=== PATIENT | male | born 1950 | race Caucasian/White ===

== ENCOUNTER 2016-11-26 18:00 | Inpatient (IN) | payer MEDICARE ==
[2016-11-26 18:09] VITALS: BMI 25.1
[2016-11-26] MEDS ORDERED: SODIUM CHLORIDE 500 ML IV STA (18:23)
[2016-11-26] MEDS ORDERED: ASPIRIN 81 MG CHEWABLE TABLETS PO ONE (18:23)
--- NOTE | 2016-11-26 18:27 | PDOC ---
History of Present Illness <Chapin Ken - Last Filed: 11/26/16 18:26> - General History Source: Patient Exam Limitations: No Limitations - History of Present Illness Initial Comments: 11/26/16 18:45 Patient is a 66 year old male with significant medical hx of CAD s/p multiple cardiac stent placements, HTN, DM, HLD, GERD, and BPH who is presenting to the ED with chest pain. Patient complains of chest pain that started this morning which was sharp in nature, he notes that he took 4 nitroglycerin tablets to alleviate the pain this morning. He notes that the pain has continued throughout the day and the nitroglycerin provided no relief so he presented to the ED tonight. Patient presents to this ED with similar symptoms frequently. Denies nausea, vomiting, diarrhea, or shortness of breath. Patient denies any radiation to neck, back or to the arms. <Sharon Remy - Last Filed: 11/26/16 18:58> <Cristian Jamison - Last Filed: 11/27/16 00:46> <Rolo Da Silva - Last Filed: 11/27/16 00:49> - General Chief Complaint: Chest Pain Stated Complaint: CHEST PAIN Time Seen by Provider: 11/26/16 18:18 Past History - Past Medical History Anemia: No Asthma: No Cancer: No Cardiac Disorders: Yes (11 Stents) CVA: No COPD: No CHF: No Dementia: No Diabetes: Yes GI Disorders: No Disorders: Yes (bph) HTN: Yes Hypercholesterolemia: Yes Liver Disease: No Suicide Attempt (Hx): No Seizures: No Thyroid Disease: No - Surgical History Abdominal Surgery: No Appendectomy: No Cardiac Surgery: Yes (STENTS X 11) Cholecystectomy: No Lung Surgery: No Neurologic Surgery: No Orthopedic Surgery: No - Immunization History Immunization Up to Date: No - Psycho/Social/Smoking Cessation Hx Anxiety: No Suicidal Ideation: No Smoking Status: No Smoking History: Never smoked Have you smoked in the past 12 months: No Number of Cigarettes Smoked Daily: 0 If you are a former smoker, when did you quit?: 8 YEARS AGO Information on smoking cessation initiated: No Hx Alcohol Use: No Drug/Substance Use Hx: No Substance Use Type: None Hx Substance Use Treatment: No <Chapin Ken - Last Filed: 11/26/16 18:26> <Sharon Remy - Last Filed: 11/26/16 18:58> <Cristian Jamison - Last Filed: 11/27/16 00:46> <Rolo Da Silva - Last Filed: 11/27/16 00:49> - Past Medical History Allergies/Adverse Reactions: Allergies Allergy/AdvReac Type Severity Reaction Status Date / Time No Known Allergies Allergy Verified 11/26/16 18:09 Home Medications: Ambulatory Orders Amlodipine Besylate [Norvasc -] 10 mg PO DAILY 07/28/16 Aspirin [ASA -] 81 mg PO DAILY 07/28/16 Atorvastatin Ca [Lipitor] 80 mg PO HS 07/28/16 Clopidogrel Bisulfate [Clopidogrel] 75 mg PO DAILY 07/28/16 Docusate Sodium [Colace -] 100 mg PO HS 07/28/16 Meclizine HCl [Antivert -] 12.5 mg PO DAILY 07/28/16 Sitagliptin Phos/Metformin HCl [Janumet 50-500 mg Tablet] 1 each PO BID Tamsulosin HCl [Flomax] 0.4 mg PO DAILY 07/28/16 Valsartan/Hydrochlorothiazide [Valsartan-Hctz 160-12.5 mg Tab] 1 each PO DAILY 07/28/16 Aspirin [ASA -] 81 mg PO DAILY tab.chew 07/29/16 Carvedilol [Coreg -] 12.5 mg PO BID tablet 07/29/16 Ibuprofen [Motrin -] 400 mg PO Q6H PRN #30 tablet 07/29/16 Ranolazine [Ranexa -] 1,000 mg PO BID tab 07/29/16 Tramadol HCl [Ultram] 50 mg PO TID PRN #30 07/29/16 Review of Systems - Review of Systems Able to Perform ROS?: Yes Comments:: 11/26/16 18:46 GENERAL/CONSTITUTIONAL: No fever or chills. No weakness. HEAD, EYES, EARS, NOSE AND THROAT: No change in vision. No ear pain or discharge. No sore throat. CARDIOVASCULAR: +chest pain. No shortness of breath. RESPIRATORY: No cough, wheezing, or hemoptysis. GASTROINTESTINAL: No nausea, vomiting, diarrhea or constipation. GENITOURINARY: No dysuria, frequency, or change in urination. MUSCULOSKELETAL: No joint or muscle swelling or pain. No neck or back pain. SKIN: No rash NEUROLOGIC: No headache, vertigo, loss of consciousness, or change in strength/ sensation. ENDOCRINE: No increased thirst. No abnormal weight change. HEMATOLOGIC/LYMPHATIC: No anemia, easy bleeding, or history of blood clots. ALLERGIC/IMMUNOLOGIC: No hives or skin allergy. <Sharon Remy - Last Filed: 11/26/16 18:58> *Physical Exam - Vital Signs Last Vital Signs Temp Pulse Resp BP Pulse Ox 98 F 73 18 121/51 99 11/26/16 18:02 11/26/16 18:02 11/26/16 18:02 11/26/16 18:02 11/26/16 18:02 <Chapin Ken - Last Filed: 11/26/16 18:26> - Vital Signs Last Vital Signs Temp Pulse Resp BP Pulse Ox 98 F 73 18 121/51 99 11/26/16 18:02 11/26/16 18:02 11/26/16 18:02 11/26/16 18:02 11/26/16 18:02 - Physical Exam Comments: 11/26/16 18:47 GENERAL: Awake, alert, and fully oriented, in no acute distress, resting comfortably HEAD: No signs of trauma EYES: PERRLA, EOMI, sclera anicteric, conjunctiva clear ENT: Auricles normal inspection, hearing grossly normal, nares patent, oropharynx clear without exudates. Moist mucosa NECK: Normal ROM, supple, no lymphadenopathy, JVD, or masses LUNGS: Breath sounds equal, clear to auscultation bilaterally. No wheezes, and no crackles HEART: Regular rate and rhythm, normal S1 and S2, no murmurs, rubs or gallops ABDOMEN: Soft, nontender, normoactive bowel sounds. No guarding, no rebound. No masses EXTREMITIES: Normal range of motion, no edema. No clubbing or cyanosis. No cords, erythema, or tenderness NEUROLOGICAL: Cranial nerves II through XII grossly intact. Normal speech, normal gait SKIN: Warm, Dry, normal turgor, no rashes or lesions noted. <Sharon Remy - Last Filed: 11/26/16 18:58> - Vital Signs Last Vital Signs Temp Pulse Resp BP Pulse Ox 98 F 73 18 121/51 100 11/26/16 18:02 11/26/16 18:02 11/26/16 18:02 11/26/16 18:02 11/26/16 18:47 <Cristian Jamison - Last Filed: 11/27/16 00:46> - Vital Signs Last Vital Signs Temp Pulse Resp BP Pulse Ox 98 F 73 18 121/51 100 11/26/16 18:02 11/26/16 18:02 11/26/16 18:02 11/26/16 18:02 11/26/16 18:47 <Rolo Da Silva - Last Filed: 11/27/16 00:49> Heart Score/ECG Review #1 11/26/16 18:48 EKG was reviewed by Dr. Ken Impression: Normal sinus rhythm, left acis deviation, vent. rate 66 bpm <Sharon Remy - Last Filed: 11/26/16 18:58> ED Treatment Course - RADIOLOGY Radiology Studies Ordered: Category Date Time Status CHEST PA & LAT [RAD] Stat Radiology 11/26/16 18:23 Ordered <Chapin Ken - Last Filed: 11/26/16 18:26> - LABORATORY CBC & Chemistry Diagram: 11/26/16 18:35 11/26/16 18:35 <Sharon Remy - Last Filed: 11/26/16 18:58> - LABORATORY CBC & Chemistry Diagram: 11/26/16 18:35 11/26/16 18:35 - ADDITIONAL ORDERS Additional order review: Laboratory Results 11/26/16 11/26/16 11/26/16 18:35 18:35 18:35 INR 1.09 PTT (Actin FS) 29.8 Sodium 144 Potassium 3.8 Chloride 111 H Carbon Dioxide 24 Anion Gap 9 BUN 19 H D Creatinine 1.2 Creat Clearance w eGFR > 60 Random Glucose 84 D Calcium 8.9 Magnesium 2.5 H Total Bilirubin 0.6 AST 20 D ALT 14 Alkaline Phosphatase 96 D Creatine Kinase 37 L Troponin I < 0.02 B-Natriuretic Peptide 539.32 H Total Protein 6.4 Albumin 3.1 L Triglycerides 149 D Cholesterol 158 Total LDL Cholesterol 106 H D HDL Cholesterol 43 Lipase 411 H Blood Type O POSITIVE Antibody Screen Negative 11/26/16 18:35 RBC 4.28 MCV 90.2 MCHC 33.2 RDW 16.9 H D MPV 7.9 Neutrophils % 72.9 Lymphocytes % 18.2 D Monocytes % 7.4 Eosinophils % 0.5 Basophils % 1.0 - RADIOLOGY Radiograph Interpretation: 11/26/16 21:09 EXAM: CXR INTERPRETED BY: Dr. Pinzon REVIEWED BY: Dr. Da Silva IMPRESSION: There is mild cardiomegaly. The pulmonary vessels are normal in caliber. EXAM: CTA Chest with contrast INTERPRETED BY: Dr. Pinzon REVIEWED BY: Dr. Da Silva IMPRESSION: No PE. - Medications Given in the ED: ED Medications Discontinued Medications Generic Name Dose Route Start Last Admin Trade Name Freq PRN Reason Stop Dose Admin Aspirin 162 mg 11/26/16 18:23 11/26/16 18:49 Asa - PO 11/26/16 18:24 162 mg ONCE ONE Administration Sodium Chloride 500 mls @ 500 mls/hr 11/26/16 18:23 11/26/16 18:49 Normal Saline - IV 11/26/16 19:22 500 mls/hr ASDIR STA Administration Pantoprazole Sodium 40 mg/ 100 mls @ 200 mls/hr 11/26/16 19:44 11/26/16 20:14 Sodium Chloride IVPB 11/26/16 20:13 200 mls/hr ONCE ONE Administration <Cristian Jamison - Last Filed: 11/27/16 00:46> - LABORATORY CBC & Chemistry Diagram: 11/26/16 18:35 11/26/16 18:35 - ADDITIONAL ORDERS Additional order review: Laboratory Results 11/26/16 11/26/16 11/26/16 21:30 20:25 18:35 INR PTT (Actin FS) D-Dimer 252 H Sodium Potassium Chloride Carbon Dioxide Anion Gap BUN Creatinine Creat Clearance w eGFR Random Glucose Calcium Magnesium Total Bilirubin AST ALT Alkaline Phosphatase Creatine Kinase 36 L Troponin I < 0.02 B-Natriuretic Peptide Total Protein Albumin Triglycerides Cholesterol Total LDL Cholesterol HDL Cholesterol Lipase Blood Type O POSITIVE Antibody Screen Negative 11/26/16 11/26/16 18:35 18:35 INR 1.09 PTT (Actin FS) 29.8 D-Dimer Sodium 144 Potassium 3.8 Chloride 111 H Carbon Dioxide 24 Anion Gap 9 BUN 19 H D Creatinine 1.2 Creat Clearance w eGFR > 60 Random Glucose 84 D Calcium 8.9 Magnesium 2.5 H Total Bilirubin 0.6 AST 20 D ALT 14 Alkaline Phosphatase 96 D Creatine Kinase 37 L Troponin I < 0.02 B-Natriuretic Peptide 539.32 H Total Protein 6.4 Albumin 3.1 L Triglycerides 149 D Cholesterol 158 Total LDL Cholesterol 106 H D HDL Cholesterol 43 Lipase 411 H Blood Type Antibody Screen 11/26/16 18:35 RBC 4.28 MCV 90.2 MCHC 33.2 RDW 16.9 H D MPV 7.9 Neutrophils % 72.9 Lymphocytes % 18.2 D Monocytes % 7.4 Eosinophils % 0.5 Basophils % 1.0 - RADIOLOGY Radiology Studies Ordered: Category Date Time Status CHEST CTA [CT] Stat CT Scan 11/26/16 21:44 Taken - Medications Given in the ED: ED Medications Discontinued Medications Generic Name Dose Route Start Last Admin Trade Name Freq PRN Reason Stop Dose Admin Aspirin 162 mg 11/26/16 18:23 11/26/16 18:49 Asa - PO 11/26/16 18:24 162 mg ONCE ONE Administration Sodium Chloride 500 mls @ 500 mls/hr 11/26/16 18:23 11/26/16 18:49 Normal Saline - IV 11/26/16 19:22 500 mls/hr ASDIR STA Administration Pantoprazole Sodium 40 mg/ 100 mls @ 200 mls/hr 11/26/16 19:44 11/26/16 20:14 Sodium Chloride IVPB 11/26/16 20:13 200 mls/hr ONCE ONE Administration <Rolo Da Silva - Last Filed: 11/27/16 00:49> Medical Decision Making - Medical Decision Making 11/26/16 18:46 Patient is a 66 year old male with significant medical hx of CAD s/p multiple cardiac stent placements, HTN, DM, HLD, GERD, and BPH who is presenting to the ED with chest pain. Will order EKG, labs, meds and imagining. 11/26/16 18:58 Since my shift is over, I endorse continuation of care to Dr. Da Silva, an overnight physician. <Sharon Remy - Last Filed: 11/26/16 18:58> - Medical Decision Making 11/27/16 00:42 First call placed to Dr. Bautista at 00:42. Case discussed with Dr. Bautista at 00:45. <Cristian Jamison - Last Filed: 11/27/16 00:46> *DC/Admit/Observation/Transfer - Attestations Physician Attestion: 11/26/16 18:27 I, Dr. Chapin Ken, attest that this document has been prepared under my direction and personally reviewed by me in its entirety. I further attest, that it accurately reflects all work, treatment, procedures and medical decision -making performed by me. <Chapin Ken - Last Filed: 11/26/16 18:26> <Sharon Remy - Last Filed: 11/26/16 18:58> <Cristian Jamison - Last Filed: 11/27/16 00:46> - Discharge Dispostion Admit: Yes <Rolo Da Silva - Last Filed: 11/27/16 00:49> Diagnosis at time of Disposition: Unstable angina - Discharge Dispostion Condition at time of disposition: Guarded - Referrals Referrals: Patricio Fu [Primary Care Provider] -
[2016-11-26] MEDS ORDERED: ASPIRIN 81 MG CHEWABLE TABLETS ONE (18:30)
[2016-11-26 18:47] LABS: EOSINOPHIL 0.5 % (0-4.5); MCHC 33.2 g/dl (32.0-35.9); MEAN CELL VOLUME 90.2 fl (80-96); MEAN PLT VOLUME 7.9 fl (7.5-11.1); NEUTROPHILS 72.9 % (42.8-82.8); PLATELET COUNT 347 K/MM3 (134-434); RDW 16.9 % (11.9-15.9); WHITE BLOOD COUNT 8.4 K/mm3 (4.0-10.0)
[2016-11-26 19:02] LABS: INR 1.09 (0.82-1.09)
[2016-11-26 19:05] LABS: ACTIVATED PTT 29.8 SECONDS (26.9-34.4)
[2016-11-26 19:12] LABS: ALBUMIN 3.1 g/dl (3.4-5.0); ALK PHOS 96 U/L (45-117); ANION GAP 9 (8-16); BILIRUBIN,TOTAL 0.6 mg/dL (0.2-1.0); CALCIUM 8.9 mg/dL (8.5-10.1); CHOLESTEROL 158 mg/dL (50-200); CO2 24 mmol/L (21-32); CREATININE 1.2 mg/dL (0.7-1.3); GLUCOSE,RANDOM 84 mg/dL (74-106); LDL CHOLESTEROL (ONLY SJRH) 106 mg/dL (5-100); MAGNESIUM 2.5 mg/dL (1.8-2.4); SGOT/AST 20 U/L (15-37); SGPT/ALT 14 U/L (12-78); TOT PROT 6.4 g/dl (6.4-8.2); TROPONIN I < 0.02 ng/ml (0.00-0.05)
[2016-11-26] MEDS ORDERED: NITROGLYCERIN SUBLINGUAL 1/150 0.4 MG TAB SL PRN (19:38)
[2016-11-26] MEDS ORDERED: PANTOPRAZOLE SODIUM 40 MG in SODIUM CHLORIDE 100 ML IVPB ONE (19:44)
[2016-11-26] MEDS ORDERED: PANTOPRAZOLE SODIUM 100 ML IVPB ONE (20:03)
[2016-11-26 22:02] LABS: TROPONIN I < 0.02 ng/ml (0.00-0.05)
[2016-11-27] MEDS ORDERED: ACETAMINOPHEN 325 MG TABLET (FP) ONE ×2 (01:57→16:00)
[2016-11-27] MEDS ORDERED: ACETAMINOPHEN 325 MG TABLET (FP) PO ONE ×2 (01:59→15:59)
[2016-11-27 06:46] LABS: MCH 30.5 pg (25.7-33.7); MCHC 33.7 g/dl (32.0-35.9); MEAN CELL VOLUME 90.7 fl (80-96); MEAN PLT VOLUME 8.3 fl (7.5-11.1); PLATELET COUNT 338 K/MM3 (134-434); RDW 17.6 % (11.9-15.9); WHITE BLOOD COUNT 9.2 K/mm3 (4.0-10.0)
[2016-11-27 07:12] LABS: ALBUMIN 2.9 g/dl (3.4-5.0); ANION GAP 9 (8-16); BILIRUBIN,TOTAL 0.8 mg/dL (0.2-1.0); CALCIUM 8.2 mg/dL (8.5-10.1); CO2 25 mmol/L (21-32); GLUCOSE,RANDOM 90 mg/dL (74-106); SGOT/AST 18 U/L (15-37); SGPT/ALT 14 U/L (12-78); TOT PROT 6.1 g/dl (6.4-8.2)
[2016-11-27 07:15] LABS: ALK PHOS 84 U/L (45-117); TROPONIN I 0.02 ng/ml (0.00-0.05)
[2016-11-27 08:32] VITALS: TEMP 98.2
--- NOTE | 2016-11-27 13:26 | CON.CARD ---
Consult Consult Specialty:: Cardiology Referred by:: Dr. Bautista Reason for Consultation:: Chest pain - History of Present Illness Chief Complaint: Chest pain History of Present Illness: 66 year old man with a history of HTN, HLD, DM II, CAD with multiple prior stents, last stent being 10/2014, last cardiac cath being 07/06/16 that was unchanged from cardiac cath 12/2015 and no intervention required, chronic atypical chest pain with multiple ER visits and deemed non-cardiac, presented to ER with recurrent chest pain. Pt. seen and examined today in nad. states that he is feeling better, still has chest discomfort but it is improved. denies sob, palpitations, lightheadedness, dizziness, syncope, near syncope, pnd , orthopnea, or LE edema. - History Source History Provided By: Patient, Medical Record Limitations to Obtaining History: Poor Historian - Past Medical History Cardio/Vascular: Yes: CAD (Prior multiple PCIs), HTN, Hyperlipdemia, Other ( Angina) Gastrointestinal: Yes: GERD Endocrine: Yes: Diabetes Mellitus - Past Surgical History Past Surgical History: Yes: Stent - Alcohol/Substance Use Hx Alcohol Use: No History of Substance Use: reports: None - Smoking History Smoking history: Never smoked Have you smoked in the past 12 months: No Aproximately how many cigarettes per day: 0 If you are a former smoker, when did you quit?: 8 YEARS AGO - Social History ADL: Independent History of Recent Travel: No Home Medications - Allergies Allergies/Adverse Reactions: Allergies Allergy/AdvReac Type Severity Reaction Status Date / Time No Known Allergies Allergy Verified 11/26/16 18:09 - Home Medications Home Medications: Ambulatory Orders Amlodipine Besylate [Norvasc -] 10 mg PO DAILY 11/27/16 Atorvastatin Ca [Lipitor] 80 mg PO HS 11/27/16 Clopidogrel Bisulfate [Plavix -] 75 mg PO DAILY 11/27/16 Metoprolol Succinate [Toprol Xl -] 25 mg PO DAILY 11/27/16 [place]-3 Acid Ethyl Esters [Lovaza -] 1,000 mg PO BID 11/27/16 Ranolazine [Ranexa -] 500 mg PO BID 11/27/16 Sennosides [Senna] 4 tab PO DAILY 11/27/16 Sertraline HCl [Zoloft -] 50 mg PO DAILY 11/27/16 Sitagliptin Phos/Metformin HCl [Janumet 50-1,000 mg Tablet] 1 each PO BID Tamsulosin HCl [Flomax] 0.4 mg PO DAILY 11/27/16 Valsartan/Hydrochlorothiazide [Valsartan-Hctz 160-12.5 mg Tab] 1 each PO DAILY 11/27/16 Family Disease History - Family Disease History Family Disease History: Diabetes: Father, Heart Disease: Father Review of Systems - Review of Systems Constitutional: denies: No Symptoms, Chills, Diaphoresis, Fever, Lethargy, Loss of Appetite, Malaise, Night Sweats, Unintentional Wgt. Loss, Weakness, Other Eyes: denies: No Symptoms, Blind Spots, Blurred Vision, Double Vision, Eye Pain , Floaters, Photophobia, Recent Change in Vision, Other HENT: denies: No Symptoms, Difficult Swallowing, Ear Discharge, Ear Pain, Epistaxis, Gingival Bleeding, Hearing Loss, Mouth Swelling, Nasal Congestion, Ocular Prosthesis, Throat Pain, Toothache, Ringing in Ears, Other Neck: denies: No Symptoms, Decreased ROM, Lumps, Pain on Movement, Stiffness, Swollen Glands, Tenderness, Other Cardiovascular: reports: Chest Pain. denies: No Symptoms, Edema, Palpitations, Shortness of Breath, Other Respiratory: denies: No Symptoms, Cough, Exercise Intolerance, Hemoptysis, Orthopnea, PND, Snoring, SOB, SOB on Exertion, Wheezing, Other Gastrointestinal: denies: No Symptoms, Abdominal Pain, Bloating, Constipation, Diarrhea, Dysphagia, Indigestion, Melena, Nausea, Rectal Bleeding, Vomiting, Vomiting Blood, Other Genitourinary: denies: No Symptoms, Burning, Discharge, Dysuria, Flank Pain, Frequency, Hematuria, Incontinence, Lesions, Menses, Pain, Testicular Mass, Testicular Pain, Testicular Swelling, Urgency, Vaginal Bleeding, Other Breasts: denies: No Symptoms Reported, See HPI, Breast Implants, Discharge from Nipple, Lumps, Pain, Skin Changes, Other Musculoskeletal: denies: No Symptoms, Back Pain, Crepitus, Decreased ROM, Extremity Pain, Joint Pain, Joint Swelling, Muscle Pain, Muscle Cramps, Muscle Weakness, Other Integumentary: denies: No Symptoms, Blister, Bruising, Change in Color, Eczema, Erythema, Incision, Lesions, Lump, Pallor, Pruritis, Rash, Wound, Other Neurological: denies: No Symptoms, Change in LOC, Change in Speech, Confusion, Dizziness, Headache, Incoordination, Numbness, Parasthesia, Pre-Existing Deficit , Seizure, Syncope, Tremors, Unsteady Gait, Weakness, Other Endocrine: denies: No Symptoms, Excessive Sweating, Flushing, Increased Hunger, Increased Thirst, Intolerance to Cold, Intolerance to Heat, Unexplained Weight Gain, Unexplained Weight Loss, Other Hematology/Lymphatic: denies: No Symptoms, Easily Bruised, Excessive Bleeding, Swollen Glands, Other Psychiatric: denies: No Symptoms, Altered Sleep Pattern, Anxiety, Depression, Hallucinations, Panic, Paranoia, Suicidal, Other - Risk Factors Known Risk Factors: Yes: Hypercholesterolemia, Hypertension, Prior MS /Emb Stroke Vital Signs: Vital Signs Temperature 98.2 F 11/27/16 08:26 Pulse Rate 62 11/27/16 12:09 Respiratory Rate 99 H 11/27/16 12:09 Blood Pressure 131/70 11/27/16 12:09 O2 Sat by Pulse Oximetry (%) 100 11/27/16 12:09 Constitutional: Yes: Well Nourished, No Distress, Calm Eyes: Yes: WNL, Conjunctiva Clear, EOM Intact, PERRL HENT: Yes: WNL, Atraumatic, Normocephalic Neck: Yes: WNL, Supple, Trachea Midline Respiratory: Yes: WNL, Regular, CTA Bilaterally. No: Rales, Rhonchi, Wheezes Gastrointestinal: Yes: WNL, Normal Bowel Sounds, Soft. No: Distention, Tenderness Renal/: Yes: WNL Cardiovascular: Yes: WNL, Regular Rate and Rhythm. No: Bradycardia, Tachycardia , Pulse Irregular, Gallop, Rub, Varicosities JVD: No Carotid Bruit: No PMI: Non-Displaced Heart Sounds: Yes: S1, S2. No: Split S2, S3, S4, Clicks, Gallop, Rub, Bruit Murmur: No: Systolic Murmur, Diastolic Murmur Musculoskeletal: Yes: WNL Extremities: Yes: WNL Edema: No Peripheral Pulses WNL: Yes Peripheral Pulses: 2+ Left Doralis Pedis, 2+ Right Dorsalis Pedis Integumentary: Yes: WNL Neurological: Yes: WNL, Alert, Oriented, Cran Nerves II-XII Intact ...Motor Strength: WNL Psychiatric: Yes: WNL, Alert, Oriented - Other Data Labs, Other Data: CBC, BMP 11/27/16 06:00 11/27/16 06:00 INR, PTT INR 1.09 (0.82-1.09) 11/26/16 18:35 Troponin, BNP 11/27/16 06:00 Troponin I 0.02 Troponin, BNP 11/27/16 06:00 Troponin I 0.02 ekg-nsr 66bpm, LAD, nonspecific ST abnl Echo: Report Reviewed Prior Cardiac Procedures: PTCA with Stent Imaging - Results Chest X-ray: Report Reviewed, Image Reviewed EKG: Report Reviewed, Image Reviewed Other: Report Reviewed, Image Reviewed Problem List - Problems (1) ASHD (arteriosclerotic heart disease) Code(s): I25.10 - ATHSCL HEART DISEASE OF [place] CORONARY ARTERY W/O ANG PCTRS (2) Chest pain Code(s): R07.9 - CHEST PAIN, UNSPECIFIED Qualifiers: Chest pain type: unspecified Qualified Code(s): R07.9 - Chest pain, unspecified (3) Coronary artery disease Code(s): I25.10 - ATHSCL HEART DISEASE OF [place] CORONARY ARTERY W/O ANG PCTRS (4) Diabetes mellitus Code(s): E11.9 - TYPE 2 DIABETES MELLITUS WITHOUT COMPLICATIONS (5) HTN (hypertension) Code(s): I10 - ESSENTIAL (PRIMARY) HYPERTENSION (6) Hyperlipidemia Code(s): E78.5 - HYPERLIPIDEMIA, UNSPECIFIED Assessment/Plan 66 year old man with a history of HTN, HLD, DM II, CAD with multiple prior stents, last stent being 10/2014, last cardiac cath being 07/06/16 that was unchanged from cardiac cath 12/2015 and no intervention required, chronic atypical chest pain with multiple ER visits and deemed non-cardiac, presented to ER with recurrent chest pain. Chest pain-atypical, unlikely ACS, h/o CAD -cardiac enzymes wnl -cont ASA, Plavix, lipitor, metoprolol, ranexa -ok from a cardiac standpoint for discharge with plan for close outpatient follow up with cardiology -pt seems to have been seen by multiple cardiologists in the past, would be helpful for him to establish consistent care with 1 doctor Prior work up as below as documented on previous admission: -last PCI 11/05-SOFIA to 80-90% ISR of D1; patent pLAD stent, mild nonobstr dz in LCx-OM1/OM2, and 50-60% ISR in large LPL 1 -last cardiac cath at [facility] on 07/06/2016 showed no changes vs 12/2015 cath: patent D1 stent and distal circumflex stent with only 50% in-stent restenosis and normal FFR 0.91; with no ischemic territory -last nuclear stress test on 06/01/16 here [facility] (ordered by Dr. Junie Jamison) which did not demonstrate any ischemia with LVEF 56%. -Echo 11/06: nl LV/EF; nl RV; nl valves; no pHTN HTN-adequately controlled -cont home medical regimen -outpatient follow up
--- NOTE | 2016-11-27 13:27 | EKG ---
Test Reason : Blood Pressure : / mmHG Vent. Rate : 066 BPM Atrial Rate : 066 BPM P-R Int : 126 ms QRS Dur : 104 ms QT Int : 422 ms P-R-T Axes : 066 -42 001 degrees QTc Int : 442 ms NORMAL SINUS RHYTHM LEFT AXIS DEVIATION NONSPECIFIC T WAVE ABNORMALITY ABNORMAL ECG WHEN COMPARED WITH ECG OF 28-JUL-2016 09:44, NO SIGNIFICANT CHANGE WAS FOUND Confirmed by ISELA PATEL MD ([id number]) on 11/27/2016 1:26:53 PM Referred By: Confirmed By:ISELA PATEL MD
--- NOTE | 2016-11-27 15:02 | HP ---
Admitting History and Physical - Past Medical History Cardiovascular: Yes: CAD (Prior multiple PCIs), HTN, Hyperlipdemia, Other ( Angina) Gastrointestinal: Yes: GERD Endocrine: Yes: Diabetes Mellitus - Past Surgical History Past Surgical History: Yes: Stent - Smoking History Smoking history: Never smoked Have you smoked in the past 12 months: No Aproximately how many cigarettes per day: 0 If you are a former smoker, when did you quit?: 8 YEARS AGO - Alcohol/Substance Use Hx Alcohol Use: No History of Substance Use: reports: None - Social History ADL: Independent History of Recent Travel: No Home Medications - Allergies Allergies/Adverse Reactions: Allergies Allergy/AdvReac Type Severity Reaction Status Date / Time No Known Allergies Allergy Verified 11/26/16 18:09 - Home Medications Home Medications: Ambulatory Orders Amlodipine Besylate [Norvasc -] 10 mg PO DAILY 11/27/16 Atorvastatin Ca [Lipitor] 80 mg PO HS 11/27/16 Clopidogrel Bisulfate [Plavix -] 75 mg PO DAILY 11/27/16 Metoprolol Succinate [Toprol Xl -] 25 mg PO DAILY 11/27/16 [place]-3 Acid Ethyl Esters [Lovaza -] 1,000 mg PO BID 11/27/16 Ranolazine [Ranexa -] 500 mg PO BID 11/27/16 Sennosides [Senna] 4 tab PO DAILY 11/27/16 Sertraline HCl [Zoloft -] 50 mg PO DAILY 11/27/16 Sitagliptin Phos/Metformin HCl [Janumet 50-1,000 mg Tablet] 1 each PO BID Tamsulosin HCl [Flomax] 0.4 mg PO DAILY 11/27/16 Valsartan/Hydrochlorothiazide [Valsartan-Hctz 160-12.5 mg Tab] 1 each PO DAILY 11/27/16 Family Disease History - Family Disease History Family Disease History: Diabetes: Father, Heart Disease: Father Physical Examination Vital Signs: Vital Signs Temperature 98.2 F 11/27/16 08:26 Pulse Rate 62 11/27/16 12:09 Respiratory Rate 99 H 11/27/16 12:09 Blood Pressure 131/70 11/27/16 12:09 O2 Sat by Pulse Oximetry (%) 100 11/27/16 12:09 Labs: CBC, BMP 11/27/16 06:00 11/27/16 06:00
[2016-11-27 16:06] VITALS: BP 126/89; PULSE 65
== END 2016-11-27 16:06 | disposition home or self-care (01) | DRG 313 ==
LOC: JER 18:00 → JERBED 11-27 00:49
PROVIDERS: ADMIT Internal Medicine; ATTEND Internal Medicine
DX: R07.89 Other chest pain (principal); I25.10 Atherosclerotic heart disease of native coronary artery without angina pectoris; I10 Essential (primary) hypertension; E78.5 Hyperlipidemia, unspecified; K21.9 Gastro-esophageal reflux disease without esophagitis; E11.9 Type 2 diabetes mellitus without complications; Z95.5 Presence of coronary angioplasty implant and graft
CPT/HCPCS: 36415; 71020-TC; 71275-TC; 80053; 80061; 82550; 83690; 83721; 83735; 83880; 84484; 85025; 85027; 85379; 85610; 85730; 86850; 86900; 86901; 93005; 93010; 99285-25

== ENCOUNTER 2017-01-11 11:14 | Emergency (ER) | payer MEDICARE ==
[2017-01-11 11:21] VITALS: BMI 25.1
--- NOTE | 2017-01-11 11:59 | PDOC ---
History of Present Illness - General History Source: Patient Exam Limitations: No Limitations - History of Present Illness Initial Comments: 01/11/17 12:37 The patient is a 66 year old male, with a significant past medical history of CAD (s/p multiple cardiac stent placements), HTN, DM, BPH, HTN, HLD, and GERD, who presents to the emergency department complaining of constant abdominal pain since yesterday (01/10/17). The patient reports diffuse lower abdominal pain radiating into his back. The patient reports he has had a similar pain in the past, but was not given an official diagnosis. The patient reports associated nausea, but denies vomiting, diarrhea, or constipation. The patient reports taking lorelei seltzer and pepto bismol yesterday after the onset of his symptoms with no relief. This morning his symptoms persisted and he attempted taking lorelei seltzer and drinking tea with no relief. The patient describes his pain as sharp in character. He reports mild chest discomfort (burning) and shortness of breath, but denies diaphoresis or palpitations. The patient admits that he has an extensive medication list, but is not compliant with some of his medications (did not specify which), because he feels these medications may be the root of his abdominal pain. The patient denies any fever, chills, cough, headache, or dizziness. The patient denies any recent travel or sick contacts. Allergies: NKDA Social History: Former smoker and ETOH consumer. Denies drug use. Past Surgical History: Cardiac stents(X11) PCP: Dr. Jordy Fu <Cristian Jamison - Last Filed: 01/11/17 15:21> <Morena Baron - Last Filed: 01/13/17 09:58> - General Chief Complaint: Pain Stated Complaint: STOMACH PAIN Time Seen by Provider: 01/11/17 11:32 Past History <Cristian Jamison - Last Filed: 01/11/17 15:21> - Past Medical History Anemia: No Asthma: No Cancer: No Cardiac Disorders: Yes (11 Stents) CVA: No COPD: No CHF: No Dementia: No Diabetes: Yes GI Disorders: No Disorders: Yes (bph) HTN: Yes Hypercholesterolemia: Yes Liver Disease: No Suicide Attempt (Hx): No Seizures: No Thyroid Disease: No - Surgical History Abdominal Surgery: No Appendectomy: No Cardiac Surgery: Yes (STENTS X 11) Cholecystectomy: No Lung Surgery: No Neurologic Surgery: No Orthopedic Surgery: No - Immunization History Immunization Up to Date: No - Psycho/Social/Smoking Cessation Hx Anxiety: No Suicidal Ideation: No Smoking Status: No Smoking History: Never smoked Have you smoked in the past 12 months: No Number of Cigarettes Smoked Daily: 0 If you are a former smoker, when did you quit?: 8 YEARS AGO Information on smoking cessation initiated: No Hx Alcohol Use: No Drug/Substance Use Hx: No Substance Use Type: None Hx Substance Use Treatment: No <Morena Baron - Last Filed: 01/13/17 09:58> - Past Medical History Allergies/Adverse Reactions: Allergies Allergy/AdvReac Type Severity Reaction Status Date / Time No Known Allergies Allergy Verified 01/11/17 11:21 Home Medications: Ambulatory Orders Amlodipine Besylate [Norvasc -] 10 mg PO DAILY 11/27/16 Atorvastatin Ca [Lipitor] 80 mg PO HS 11/27/16 Clopidogrel Bisulfate [Plavix -] 75 mg PO DAILY 11/27/16 Metoprolol Succinate [Toprol XL -] 25 mg PO DAILY 11/27/16 Ranolazine [Ranexa -] 500 mg PO BID 11/27/16 Sitagliptin Phos/Metformin HCl [Janumet 50-1,000 mg Tablet] 1 each PO BID Tamsulosin HCl [Flomax -] 0.4 mg PO DAILY 11/27/16 Valsartan/Hydrochlorothiazide [Valsartan-Hctz 160-12.5 mg Tab] 1 each PO DAILY 11/27/16 Aspirin [ASA -] 81 mg PO DAILY 01/11/17 Tramadol HCl [Ultram] 50 mg PO Q6H PRN 01/11/17 Review of Systems - Review of Systems Able to Perform ROS?: Yes Comments:: 01/11/17 12:37 GENERAL/CONSTITUTIONAL: No fever or chills. No weakness. HEAD, EYES, EARS, NOSE AND THROAT: No change in vision. No ear pain or discharge. No sore throat. CARDIOVASCULAR: +Chest discomfort, +shortness of breath. RESPIRATORY: No cough, wheezing, or hemoptysis. GASTROINTESTINAL: +Lower abdominal pain, +nausea. No vomiting, diarrhea or constipation. GENITOURINARY: No dysuria, frequency, or change in urination. MUSCULOSKELETAL: +Back pain. No joint or muscle swelling or pain. No neck pain. SKIN: No rash NEUROLOGIC: No headache, vertigo, loss of consciousness, or change in strength/ sensation. ENDOCRINE: No increased thirst. No abnormal weight change. HEMATOLOGIC/LYMPHATIC: No anemia, easy bleeding, or history of blood clots. ALLERGIC/IMMUNOLOGIC: No hives or skin allergy. <Cristian Jamison - Last Filed: 01/11/17 15:21> *Physical Exam - Vital Signs Last Vital Signs Temp Pulse Resp BP Pulse Ox 98.2 F 82 18 133/62 99 01/11/17 11:18 01/11/17 11:18 01/11/17 11:18 01/11/17 11:18 01/11/17 11:18 <Cristian Jamison - Last Filed: 01/11/17 15:21> - Vital Signs Last Vital Signs Temp Pulse Resp BP Pulse Ox 98.2 F 82 18 133/62 99 01/11/17 11:18 01/11/17 11:18 01/11/17 11:18 01/11/17 11:18 01/11/17 11:18 - Physical Exam Comments: GENERAL: Awake, alert, and fully oriented, in no acute distress HEAD: No signs of trauma EYES: PERRLA, EOMI, sclera anicteric, conjunctiva clear ENT: Auricles normal inspection, hearing grossly normal, nares patent, oropharynx clear without exudates. Dry mucosa NECK: Normal ROM, supple, no lymphadenopathy, JVD, or masses LUNGS: Breath sounds equal, clear to auscultation bilaterally. No wheezes, and no crackles HEART: Regular rate and rhythm, normal S1 and S2, no murmurs, rubs or gallops ABDOMEN: Soft, diffusely tender, hyperactive bowel sounds. No guarding, no rebound. No masses EXTREMITIES: Normal range of motion, no edema. No clubbing or cyanosis. No cords, erythema, or tenderness NEUROLOGICAL: Cranial nerves II through XII grossly intact. Normal speech, normal gait SKIN: Warm, Dry, normal turgor, no rashes or lesions noted. <Morena Baron - Last Filed: 01/13/17 09:58> Heart Score/ECG Review - ECG Impressions Comment:: EKG read 13:04- NSR 66 bpm, LAD, no acute ST/T changes <Morena Baron - Last Filed: 01/13/17 09:58> ED Treatment Course - LABORATORY CBC & Chemistry Diagram: 01/11/17 12:50 01/11/17 12:50 - RADIOLOGY Radiograph Interpretation: 01/11/17 15:22 EXAM: CT Abdomen and Pelvis INTERPRETED BY: Dr. Elder REVIEWED BY: Dr. Baron IMPRESSION: Essentially normal exam of abdomen and pelvis, with no evidence of acute pathology. <Cristian Jamison - Last Filed: 01/11/17 15:21> - LABORATORY CBC & Chemistry Diagram: 01/11/17 12:50 01/11/17 12:50 <Morena Baron - Last Filed: 01/13/17 09:58> Medical Decision Making - Medical Decision Making 01/11/17 18:23 Late entry. Multiple reassessments. POatient was able to tolerate PO. Labs and CT with no acute findings. I discussed the case with Dr. Bautista, who states that patient can f/u in the office tomorrow for reassessment and additional workup, if needed. <Morena Baron - Last Filed: 01/13/17 09:58> *DC/Admit/Observation/Transfer - Attestations Scribe Attestion: 01/11/17 12:39 Documentation prepared by Cristian Jamison, acting as medical coding specialist for Morena Baron MD. <Cristian Jamison - Last Filed: 01/11/17 15:21> - Discharge Dispostion Admit: No <Morena Baron - Last Filed: 01/13/17 09:58> Diagnosis at time of Disposition: Abdominal pain Qualifiers: Abdominal location: unspecified location Qualified Code(s): R10.9 - Unspecified abdominal pain - Discharge Dispostion Disposition: HOME Condition at time of disposition: Improved - Referrals Referrals: Jordy Fu MD [Primary Care Provider] - - Patient Instructions Printed Discharge Instructions: DI for Abdominal Pain-Adult Additional Instructions: Vaya a la oficina de Dr. Tank milner. Si tiene dolor haydee krissy, vomitos, diarrhea, o fiebre, regrese a la zohreh de emergencia inmediatamente. Print Language: KYRGYZ
[2017-01-11] MEDS ORDERED: SODIUM CHLORIDE 1,000 ML IV STA (12:25)
[2017-01-11] MEDS ORDERED: ONDANSETRON 4 MG/2 ML VIAL IVPUSH ONE (12:25)
[2017-01-11] MEDS ORDERED: morphine CARPU-JECT 4 MG/1 ML DISP.SYRIN IVPUSH ONE (12:25)
[2017-01-11] MEDS ORDERED: morphine CARPU-JECT 10 MG/1 ML DISP.SYRIN ONE (12:38)
[2017-01-11] MEDS ORDERED: ONDANSETRON 4 MG/2 ML VIAL ONE (12:39)
[2017-01-11 13:02] LABS: BASOPHIL 0.6 % (0-2.0); EOSINOPHIL 0.4 % (0-4.5); MCH 31.6 pg (25.7-33.7); MCHC 33.9 g/dl (32.0-35.9); MEAN CELL VOLUME 93.2 fl (80-96); MEAN PLT VOLUME 8.2 fl (7.5-11.1); NEUTROPHILS 78.8 % (42.8-82.8); PLATELET COUNT 279 K/MM3 (134-434); RDW 16.7 % (11.9-15.9); WHITE BLOOD COUNT 8.1 K/mm3 (4.0-10.0)
[2017-01-11 13:05] LABS: URINE APPEARANCE CLEAR; URINE BILIRUBIN NEGATIVE (NEGATIVE); URINE BLOOD NEGATIVE (NEGATIVE); URINE COLOR YELLOW; URINE GLUCOSE (UA) NEGATIVE (NEGATIVE); URINE KETONE NEGATIVE (NEGATIVE); URINE LEUK ESTERASE TRACE (NEGATIVE); URINE NITRITE NEGATIVE (NEGATIVE); URINE PROTEIN 2+ (NEGATIVE); URINE UROBILINOGEN NEGATIVE E.U./dl (0.2-1.0)
[2017-01-11 13:08] LABS: URINE HYALINE CAST 52 /lpf; URINE MUCUS RARE; URINE RBC 2 /hpf (0-3); URINE WBC 15 /hpf (3-5)
[2017-01-11 13:19] LABS: INR 1.11 (0.82-1.09); PROTHROMBIN TIME (PATIENT) 12.2 SEC (9.98-11.88)
[2017-01-11 13:27] LABS: ALBUMIN 3.3 g/dl (3.4-5.0); ANION GAP 8 (8-16); CALCIUM 8.8 mg/dL (8.5-10.1); CO2 30 mmol/L (21-32); CREATININE 1.2 mg/dL (0.7-1.3); GLUCOSE,RANDOM 135 mg/dL (74-106); SGOT/AST 25 U/L (15-37); SGPT/ALT 21 U/L (12-78)
[2017-01-11 13:31] LABS: ALK PHOS 83 U/L (45-117); BILIRUBIN,TOTAL 0.5 mg/dL (0.2-1.0); TOT PROT 6.4 g/dl (6.4-8.2); TROPONIN I < 0.02 ng/ml (0.00-0.05)
[2017-01-11 15:47] VITALS: TEMP 98.6
--- NOTE | 2017-01-11 17:05 | EKG ---
Test Reason : Blood Pressure : / mmHG Vent. Rate : 066 BPM Atrial Rate : 066 BPM P-R Int : 158 ms QRS Dur : 102 ms QT Int : 422 ms P-R-T Axes : 063 -37 -30 degrees QTc Int : 442 ms NORMAL SINUS RHYTHM LEFT AXIS DEVIATION NONSPECIFIC T WAVE ABNORMALITY ABNORMAL ECG WHEN COMPARED WITH ECG OF 26-NOV-2016 18:07, INVERTED T WAVES HAVE REPLACED NONSPECIFIC T WAVE ABNORMALITY IN INFERIOR LEADS Confirmed by CONY CANTRELL MD ([id number]) on 01/11/2017 5:04:50 PM Referred By: Confirmed By:CONY CANTRELL MD
[2017-01-11 18:40] VITALS: BP 132/72; PULSE 65
== END 2017-01-11 18:40 | disposition home or self-care (01) ==
LOC: JER 11:14
PROC: 3E033NZ Introduction of Analgesics, Hypnotics, Sedatives into Peripheral Vein, Percutaneous Approach (ICD-10-PCS; principal; 2017-01-11)
PROC: 3E033GC Introduction of Other Therapeutic Substance into Peripheral Vein, Percutaneous Approach (ICD-10-PCS; 2017-01-11)
DX: R10.9 Unspecified abdominal pain (principal); I25.10 Atherosclerotic heart disease of native coronary artery without angina pectoris; I10 Essential (primary) hypertension; Z95.5 Presence of coronary angioplasty implant and graft; Z87.891 Personal history of nicotine dependence; E11.9 Type 2 diabetes mellitus without complications; Z79.84 Long term (current) use of oral hypoglycemic drugs; E78.00 Pure hypercholesterolemia, unspecified; N40.0 Benign prostatic hyperplasia without lower urinary tract symptoms; K21.9 Gastro-esophageal reflux disease without esophagitis
CPT/HCPCS: 36415; 74177-TC; 80053; 81003; 81015; 82009; 82550; 83690; 84484; 85025; 85610; 93005; 93010; 99283-25; Q9967

== ENCOUNTER 2017-01-24 12:35 | Inpatient (IN) | payer MEDICARE ==
[2017-01-24] MEDS ORDERED: SODIUM CHLORIDE 1,000 ML IV ONE (14:48)
[2017-01-24] MEDS ORDERED: KETOROLAC TROMETHAMINE 30 MG/1 ML VIAL IVPUSH ONE (14:59)
--- NOTE | 2017-01-24 15:12 | PDOC ---
History of Present Illness - General History Source: Patient Exam Limitations: No Limitations - History of Present Illness Initial Comments: 01/24/17 15:16 The patient is a 66 year old male, with a significant past medical history of CAD (s/p multiple cardiac stent placements), HTN, DM, BPH, HTN, HLD, and GERD, who presents to the emergency department complaining of abdominal pain for 3 days. Patient reports constant diffuse mid abdomen pain. Patient notes that the pain radiates to/from the back to the abdomen. Patient reports constipation, but denies any nausea, vomiting or diarrhea. Patient was seen in the ED on 01/11 for the same complaint and had a CT of abdomen and pelvis that was normal. Patient was referred to GI for an appointment on 02/15 by PMD. Patient notes that he had a colonoscopy in the past that was normal, but denies having an endoscopy. Patient reports bowel movement that was hard in nature non bloody non bilious this morning. Patient reports distant injury to the back years ago when he slipped on ice. He denies dysuria, hematuria, urgency or frequency. Allergies: NKDA Social History: Former smoker and ETOH consumer. Denies drug use. Past Surgical History: Cardiac stents(X11) PCP: Dr. Jordy Fu <Sharon Remy - Last Filed: 01/24/17 15:27> <Scottie Joseph - Last Filed: 01/24/17 16:41> - General Chief Complaint: Pain Stated Complaint: ABD PAIN Time Seen by Provider: 01/24/17 14:38 Past History <Sharon Remy - Last Filed: 01/24/17 15:27> - Past Medical History Anemia: No Asthma: No Cancer: No Cardiac Disorders: Yes (11 Stents) CVA: No COPD: No CHF: No Dementia: No Diabetes: Yes GI Disorders: No Disorders: Yes (bph) HTN: Yes Hypercholesterolemia: Yes Liver Disease: No Suicide Attempt (Hx): No Seizures: No Thyroid Disease: No - Surgical History Abdominal Surgery: No Appendectomy: No Cardiac Surgery: Yes (STENTS X 11) Cholecystectomy: No Lung Surgery: No Neurologic Surgery: No Orthopedic Surgery: No - Immunization History Immunization Up to Date: No - Psycho/Social/Smoking Cessation Hx Anxiety: No Suicidal Ideation: No Smoking Status: No Smoking History: Never smoked Have you smoked in the past 12 months: No Number of Cigarettes Smoked Daily: 0 If you are a former smoker, when did you quit?: 8 YEARS AGO Hx Alcohol Use: No Drug/Substance Use Hx: No Substance Use Type: None Hx Substance Use Treatment: No <Scottie Joseph - Last Filed: 01/24/17 16:41> - Past Medical History Allergies/Adverse Reactions: Allergies Allergy/AdvReac Type Severity Reaction Status Date / Time No Known Allergies Allergy Verified 01/24/17 12:47 Home Medications: Ambulatory Orders Amlodipine Besylate [Norvasc -] 10 mg PO DAILY 11/27/16 Atorvastatin Ca [Lipitor] 80 mg PO HS 11/27/16 Clopidogrel Bisulfate [Plavix -] 75 mg PO DAILY 11/27/16 Metoprolol Succinate [Toprol XL -] 25 mg PO DAILY 11/27/16 Ranolazine [Ranexa -] 500 mg PO BID 11/27/16 Sitagliptin Phos/Metformin HCl [Janumet 50-1,000 mg Tablet] 1 each PO BID Tamsulosin HCl [Flomax -] 0.4 mg PO DAILY 11/27/16 Valsartan/Hydrochlorothiazide [Valsartan-Hctz 160-12.5 mg Tab] 1 each PO DAILY 11/27/16 Aspirin [ASA -] 81 mg PO DAILY 01/11/17 Tramadol HCl [Ultram] 50 mg PO Q6H PRN 01/11/17 Review of Systems - Review of Systems Constitutional: No: Chills, Fever Respiratory: No: Cough, Shortness of Breath Cardiac (ROS): No: Chest Pain ABD/GI: Yes: Constipated. No: Diarrhea, Rectal Bleeding, Vomiting : Yes: Burning. No: Frequency, Hematuria, Incontinence Musculoskeletal: Yes: Back Pain Integumentary: No: Rash Neurological: No: Numbness All Other Systems: Reviewed and Negative <Scottie Joseph - Last Filed: 01/24/17 16:41> *Physical Exam - Vital Signs Last Vital Signs Temp Pulse Resp BP Pulse Ox 98.0 F 63 20 127/56 97 01/24/17 12:44 01/24/17 12:44 01/24/17 12:44 01/24/17 12:44 01/24/17 12:44 - Physical Exam Comments: 01/24/17 15:17 GENERAL: The patient is awake, alert, and fully oriented, in no acute distress. HEAD: Normal with no signs of trauma. EYES: Pupils equal, round and reactive to light, extraocular movements intact, sclera anicteric, conjunctiva clear with no pallor. ENT: Ears normal, nares patent, oropharynx clear without exudates. Moist mucous membranes. NECK: Normal range of motion, supple without lymphadenopathy, JVD, or masses. LUNGS: Breath sounds equal, clear to auscultation bilaterally. No wheeze/ crackles. HEART: Regular rate and rhythm, normal S1 and S2 without murmur or rub. ABDOMEN: +Spontaneously reducing small ventral herniaSoft/nontender/ nondistended. BS wnl. No guarding or rebound. No hepatosplenomegaly. EXTREMITIES: Normal range of motion, no edema. No clubbing or cyanosis. No cords, erythema, or tenderness. NEUROLOGICAL: No midline tenderness. Cranial nerves II through XII grossly intact. Normal speech, normal gait. PSYCH: Normal mood, normal affect. SKIN: Warm, Dry, normal turgor, no rashes or lesions noted. <Sharon Remy - Last Filed: 01/24/17 15:27> - Vital Signs Last Vital Signs Temp Pulse Resp BP Pulse Ox 98.0 F 63 20 127/56 97 01/24/17 12:44 01/24/17 12:44 01/24/17 12:44 01/24/17 12:44 01/24/17 12:44 <Scottie Joseph - Last Filed: 01/24/17 16:41> ED Treatment Course - LABORATORY CBC & Chemistry Diagram: 01/24/17 15:30 01/24/17 15:30 <Scottie Joseph - Last Filed: 01/24/17 16:41> Medical Decision Making - Medical Decision Making 01/24/17 15:02 A portion of this note was documented by scribe services under my direction. I have reviewed the details of the note, within reason, and agree with the documentation with the following case summary and management plan written by me. 66-year-old male with multiple medical problems presents with acute on chronic abdominal pain. Recently seen here on 01/11 for same, had normal labs and normal CT of the abdomen and pelvis. The patient followed up with Dr. Fu, and was referred to see a flight operations coordinator on 02/15. Presents today for continued and daily periumbilical/generalized abdominal pain. The pain is constant, not worse with by mouth intake or physicians, but radiates to/from the back. No associated leg pain or weakness, no urinary complaints, no sensory complaints. Had a hard bowel movement this morning that was nonbloody, Reports distant h/o back injury (years ago). ? h/o disc herniations in the past. Exam without peritoneal findings. ? small spontaneously reducing ventral hernia no midline spine ttp neuro intact 66y/o M with acute on chronic abd pain. recent workup for same did not reveal any intra-abdominal pathology. ? constipation, no evidence of obstructed hernia. ?thoracolumbar disc herniation with neuropathy? neuro intact. for today, will recheck labs no indication for repeat CTAP check LS spine xray has f/u scheduled with GI will reassess 01/24/17 16:18 CBC wnl without leukocytosis or anemia. Chemistries notable for Cr 1.4, has had same level in the past. Pain improved after Toradol, receiving IV fluids for hydration. UA pending: urine at bedside appears dark, will evaluate. T-spine film pending: will likely need MRI as outpt to r/o disc disease. Patient was signed out to the oncoming ED physician to follow-up the results, reassess the patient, and dispo accordingly. 01/24/17 16:31 1+ leuk, micro pending. <Scottie Joseph - Last Filed: 01/24/17 16:41> *DC/Admit/Observation/Transfer - Attestations Scribe Attestion: 01/24/17 15:18 Documentation prepared by AMEE Pang, acting as medical instructor for Scottie Joseph MD. <Sharon Remy - Last Filed: 01/24/17 15:27> <Scottie Joseph - Last Filed: 01/24/17 16:41> Diagnosis at time of Disposition: Chronic abdominal pain Constipation Qualifiers: Constipation type: unspecified constipation type Qualified Code(s): K59.00 - Constipation, unspecified Back pain Qualifiers: Back pain location: thoracic back pain Chronicity: unspecified Back pain laterality: bilateral Qualified Code(s): M54.6 - Pain in thoracic spine - Discharge Dispostion Condition at time of disposition: Stable - Referrals Referrals: Jordy Fu MD [Primary Care Provider] - - Patient Instructions Printed Discharge Instructions: DI for Abdominal Pain -- Child, DI for Herniated Disc Additional Instructions: Activity as tolerated. Stay well hydrated. Past CT scans of the abdomen did not reveal any abnormalities. It's possible your pain is due to constipation. It's also possible the pain is coming from your back, such as a herniated disc. Consider an MRI of your spine with Dr. Fu. Continue your medications as previously prescribed by your physician. You should follow up with Dr. Fu and your GI specialist on 02/15 as soon as possible regarding today's emergency department visit. Consider also seeing a sales order specialist. Return to the emergency department for any new or concerning symptoms, particularly intolerable pain, inability to have a bowel movement or urinate, vomiting, fever/chills.
[2017-01-24 15:36] LABS: BASOPHIL 0.8 % (0-2.0); EOSINOPHIL 1.2 % (0-4.5); MCH 31.7 pg (25.7-33.7); MEAN CELL VOLUME 93.3 fl (80-96); MEAN PLT VOLUME 8.3 fl (7.5-11.1); NEUTROPHILS 67.9 % (42.8-82.8); PLATELET COUNT 278 K/MM3 (134-434); RDW 16.1 % (11.9-15.9); WHITE BLOOD COUNT 8.1 K/mm3 (4.0-10.0)
[2017-01-24 16:00] LABS: ALBUMIN 3.5 g/dl (3.4-5.0); BILIRUBIN,TOTAL 0.6 mg/dL (0.2-1.0); CALCIUM 8.4 mg/dL (8.5-10.1); CREATININE 1.4 mg/dL (0.7-1.3); TOT PROT 6.7 g/dl (6.4-8.2)
[2017-01-24] MEDS ORDERED: KETOROLAC TROMETHAMINE 30 MG/1 ML VIAL ONE (16:04)
[2017-01-24 16:25] LABS: URINE APPEARANCE CLEAR; URINE BLOOD NEGATIVE (NEGATIVE); URINE COLOR AMBER; URINE GLUCOSE (UA) NEGATIVE (NEGATIVE); URINE KETONE NEGATIVE (NEGATIVE); URINE NITRITE NEGATIVE (NEGATIVE); URINE UROBILINOGEN NEGATIVE E.U./dl (0.2-1.0)
[2017-01-24 16:26] LABS: URINE LEUK ESTERASE 1+ (NEGATIVE); URINE PROTEIN 2+ (NEGATIVE)
[2017-01-24 16:31] LABS: URINE BACTERIA RARE /hpf (NONE SEEN); URINE HYALINE CAST 19 /lpf; URINE MUCUS FEW; URINE RBC 4 /hpf (0-3); URINE WBC 26 /hpf (3-5)
[2017-01-24] MEDS ORDERED: MEROPENEM 1 GM in DEXTROSE 5%-WATER - 100 ML IVPB ONE (17:52)
--- NOTE | 2017-01-24 18:26 | PDOC ---
*Physical Exam - Vital Signs Last Vital Signs Temp Pulse Resp BP Pulse Ox 98.0 F 63 20 127/56 97 01/24/17 12:44 01/24/17 12:44 01/24/17 12:44 01/24/17 12:44 01/24/17 12:44 <Ozzy English - Last Filed: 01/24/17 18:35> - Vital Signs Last Vital Signs Temp Pulse Resp BP Pulse Ox 98.0 F 63 20 127/56 97 01/24/17 12:44 01/24/17 12:44 01/24/17 12:44 01/24/17 12:44 01/24/17 12:44 <Julio Cesar Oliveros - Last Filed: 01/24/17 19:28> Heart Score/ECG Review #1 ECG reviewed & interpreted by me at: 19:20 01/24/17 19:28 NSR 63, left axis deviation, no std/mary, T wave flat III, avF, QTC 444 msec <Julio Cesar Oliveros - Last Filed: 01/24/17 19:28> ED Treatment Course - LABORATORY CBC & Chemistry Diagram: 01/24/17 15:30 01/24/17 15:30 - ADDITIONAL ORDERS Additional order review: Laboratory Results 01/24/17 01/24/17 01/24/17 16:10 15:30 15:30 Sodium 141 Potassium 4.2 Chloride 104 Carbon Dioxide 30 Anion Gap 7 L BUN 13 D Creatinine 1.4 H Creat Clearance w eGFR 50.40 Random Glucose 102 D Calcium 8.4 L Magnesium 3.2 H D Total Bilirubin 0.6 AST 20 ALT 20 Alkaline Phosphatase 97 Total Protein 6.7 Albumin 3.5 Lipase 198 Urine Color Natalya Urine Appearance Clear Urine pH 5.0 Ur Specific [place] 1.026 Urine Protein 2+ H Urine Glucose (UA) Negative Urine Ketones Negative Urine Blood Negative Urine Nitrite Negative Urine Bilirubin 2.0 Urine Urobilinogen Negative Ur Leukocyte Esterase 1+ H Urine RBC 4 Urine WBC 26 Ur Epithelial Cells Rare Urine Bacteria Rare Hyaline Casts 19 Urine Mucus Few 01/24/17 15:30 RBC 4.04 MCV 93.3 MCHC 34.0 RDW 16.1 H MPV 8.3 Neutrophils % 67.9 Lymphocytes % 21.8 D Monocytes % 8.3 Eosinophils % 1.2 D Basophils % 0.8 - Medications Given in the ED: ED Medications Discontinued Medications Generic Name Dose Route Start Last Admin Trade Name Freq PRN Reason Stop Dose Admin Ketorolac Tromethamine 30 mg 01/24/17 14:59 01/24/17 16:00 Toradol Injection - IVPUSH 01/24/17 15:00 30 mg ONCE ONE Administration <Ozzy English - Last Filed: 01/24/17 18:35> - LABORATORY CBC & Chemistry Diagram: 01/24/17 15:30 01/24/17 15:30 - ADDITIONAL ORDERS Additional order review: Laboratory Results 01/24/17 01/24/17 01/24/17 16:10 15:30 15:30 Sodium 141 Potassium 4.2 Chloride 104 Carbon Dioxide 30 Anion Gap 7 L BUN 13 D Creatinine 1.4 H Creat Clearance w eGFR 50.40 Random Glucose 102 D Calcium 8.4 L Magnesium 3.2 H D Total Bilirubin 0.6 AST 20 ALT 20 Alkaline Phosphatase 97 Total Protein 6.7 Albumin 3.5 Lipase 198 Urine Color Natalya Urine Appearance Clear Urine pH 5.0 Ur Specific [place] 1.026 Urine Protein 2+ H Urine Glucose (UA) Negative Urine Ketones Negative Urine Blood Negative Urine Nitrite Negative Urine Bilirubin 2.0 Urine Urobilinogen Negative Ur Leukocyte Esterase 1+ H Urine RBC 4 Urine WBC 26 Ur Epithelial Cells Rare Urine Bacteria Rare Hyaline Casts 19 Urine Mucus Few 01/24/17 15:30 RBC 4.04 MCV 93.3 MCHC 34.0 RDW 16.1 H MPV 8.3 Neutrophils % 67.9 Lymphocytes % 21.8 D Monocytes % 8.3 Eosinophils % 1.2 D Basophils % 0.8 - Medications Given in the ED: ED Medications Discontinued Medications Generic Name Dose Route Start Last Admin Trade Name Freq PRN Reason Stop Dose Admin Ketorolac Tromethamine 30 mg 01/24/17 14:59 01/24/17 16:00 Toradol Injection - IVPUSH 01/24/17 15:00 30 mg ONCE ONE Administration <Julio Cesar Oliveros - Last Filed: 01/24/17 19:28> Medical Decision Making - Medical Decision Making 01/24/17 18:35 Dr. Bautista was called regarding the patient at 5:53pm, 6:07pm Dr. Bautista was consulted regarding the patient at 6:13pm [phone] <TamekaOzzykelly Leigh - Last Filed: 01/24/17 18:35> - Medical Decision Making 01/24/17 18:25 Sign-out received from outgoing Emergency Physician Dr. Joseph Pt interviewed and examined Ancillary studies reviewed Case discussed in detail with oncoming Emergency Physician including history, physical exam and ancillary studies. CBC, BMP 01/24/17 15:30 01/24/17 15:30 CMP Sodium 141 mmol/L (136-145) 01/24/17 15:30 Potassium 4.2 mmol/L (3.5-5.1) 01/24/17 15:30 Chloride 104 mmol/L (98-107) 01/24/17 15:30 Carbon Dioxide 30 mmol/L (21-32) 01/24/17 15:30 Anion Gap 7 (8-16) L 01/24/17 15:30 BUN 13 mg/dL (7-18) D 01/24/17 15:30 Creatinine 1.4 mg/dL (0.7-1.3) H 01/24/17 15:30 Creat Clearance w eGFR 50.40 (>60) 01/24/17 15:30 Random Glucose 102 mg/dL (74-106) D 01/24/17 15:30 Calcium 8.4 mg/dL (8.5-10.1) L 01/24/17 15:30 Magnesium 3.2 mg/dL (1.8-2.4) H D 01/24/17 15:30 Total Bilirubin 0.6 mg/dL (0.2-1.0) 01/24/17 15:30 AST 20 U/L (15-37) 01/24/17 15:30 ALT 20 U/L (12-78) 01/24/17 15:30 Alkaline Phosphatase 97 U/L (45-117) 01/24/17 15:30 Total Protein 6.7 g/dl (6.4-8.2) 01/24/17 15:30 Albumin 3.5 g/dl (3.4-5.0) 01/24/17 15:30 Lipase 198 U/L (73-393) 01/24/17 15:30 Urine Test Results Urine Color Natalya 01/24/17 16:10 Urine Appearance Clear 01/24/17 16:10 Urine pH 5.0 (5.0-8.0) 01/24/17 16:10 Ur Specific [place] 1.026 (1.001-1.035) 01/24/17 16:10 Urine Protein 2+ (NEGATIVE) H 01/24/17 16:10 Urine Glucose (UA) Negative (NEGATIVE) 01/24/17 16:10 Urine Ketones Negative (NEGATIVE) 01/24/17 16:10 Urine Blood Negative (NEGATIVE) 01/24/17 16:10 Urine Nitrite Negative (NEGATIVE) 01/24/17 16:10 Urine Bilirubin 2.0 (NEGATIVE) 01/24/17 16:10 Ur Leukocyte Esterase 1+ (NEGATIVE) H 01/24/17 16:10 Urine RBC 4 /hpf (0-3) 01/24/17 16:10 Urine WBC 26 /hpf (3-5) 01/24/17 16:10 Ur Epithelial Cells Rare /hpf (FEW) 01/24/17 16:10 Urine Bacteria Rare /hpf (NONE SEEN) 01/24/17 16:10 Urine Mucus Few 01/24/17 16:10 I had reassessed the patient. He c/o of lower abd pain and dysuria. With positive UA, likely cystitis. Prior medical was reviewed. 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 Patient's urine is sensitive to meropenem. We'll initiate IV meropenem admit him to the hospital. Case was discussed with Dr. Bautista who accepts the patient to the hospital under medical surgical admission. Case discussed in detail with admitting physician including history, physical exam and ancillary studies. Admitting physician has assumed care for the patient, will follow all pending diagnostics and will complete the evaluation and treatment. <Julio Cesar Oliveros - Last Filed: 01/24/17 19:28> *DC/Admit/Observation/Transfer <Ozzy English - Last Filed: 01/24/17 18:35> - Discharge Dispostion Admit: Yes <Julio Cesar Oliveros - Last Filed: 01/24/17 19:28> Diagnosis at time of Disposition: Chronic abdominal pain Constipation Qualifiers: Constipation type: unspecified constipation type Qualified Code(s): K59.00 - Constipation, unspecified Back pain Qualifiers: Back pain location: thoracic back pain Chronicity: unspecified Back pain laterality: bilateral Qualified Code(s): M54.6 - Pain in thoracic spine UTI (urinary tract infection) Qualifiers: Urinary tract infection type: acute cystitis Hematuria presence: without hematuria Qualified Code(s): N30.00 - Acute cystitis without hematuria - Discharge Dispostion Condition at time of disposition: Stable - Referrals - Patient Instructions - Post Discharge Activity
[2017-01-24 23:07] VITALS: BMI 25.7
[2017-01-24] MEDS ORDERED: ACETAMINOPHEN 325 MG TABLET (FP) PO ONE (23:30)
[2017-01-25] MEDS ORDERED: SENNOSIDES 8.6MG TABLET (FP) PO SCH (00:15)
[2017-01-25] MEDS: ACETAMINOPHEN 500 MG TABLET (FP) PO SCH ×5 (01:18→18:02)
[2017-01-25] MEDS ORDERED: MEROPENEM 500 MG in DEXTROSE 5%-WATER - 100 ML IVPB ONE (02:00)
[2017-01-25] MEDS ORDERED: MEROPENEM 500 MG VIAL (RESTRICTED TO ID) IVPB SCH (02:00)
[2017-01-25] MEDS: metFORMIN HCL 500 MG TABLET (FP) PO SCH ×2 (06:07→16:55)
[2017-01-25] MEDS: sitaGLIPtin PHOSPHATE 50 MG TABLET PO SCH ×2 (06:13→16:55)
--- NOTE | 2017-01-25 08:46 | PN ---
Progress Note (short form) - Note Progress Note: ID Patient presents for severe abd pain No fever WBC elevation or urinary complaints He was treated initially for UTI baed on WBC in the urine and history of ESBL Klebs in prior urine culture Selected Entries 01/25/17 06:00 Temperature 97.6 F Pulse Rate 58 L Respiratory 18 Rate Blood Pressure 146/71 Abd Soft nontender no guarding rebound Laboratory Tests 01/24/17 01/24/17 15:30 16:10 WBC 8.1 Hgb 12.8 Plt Count 278 Urine RBC 4 Microbiology 03/27/14 16:45 Urine - Urine Clean Catch Urine Culture - Final Klebsiella Pneumoniae - Esbl Assessment Chronic abd pain No clinical evidence for infection and I doubt his abd pain related to urinary infection as it has been chronic Plan Renal sonogram No antibiotics Cultures sent not surprised if has bacteruria Isolation Pepper MADRIGAL Problem List - Problems (1) Chronic abdominal pain Code(s): R10.9 - UNSPECIFIED ABDOMINAL PAIN G89.29 - OTHER CHRONIC PAIN (2) UTI (urinary tract infection) Code(s): N39.0 - URINARY TRACT INFECTION, SITE NOT SPECIFIED Qualifiers: Urinary tract infection type: acute cystitis Hematuria presence: without hematuria Qualified Code(s): N30.00 - Acute cystitis without hematuria
[2017-01-25] MEDS ORDERED: PATIENT'S OWN MEDICATION (NON-FORMULARY) (Sitagliptin Phos/Metformin Hcl [Janumet 50-1,000 PO SCH (10:00)
[2017-01-25] MEDS ORDERED: PATIENT'S OWN MEDICATION (NON-FORMULARY) (Valsartan/Hydrochlorothiazide [Valsartan-Hctz 16 PO SCH (10:00)
[2017-01-25] MEDS: CLOPIDOGREL BISULFATE 75 MG TABLET (FP) PO SCH (12:23)
[2017-01-25] MEDS: ASPIRIN 81 MG CHEWABLE TABLETS PO SCH (12:23)
[2017-01-25] MEDS: METOPROLOL SUCCINATE 25 MG TAB.SR.24H (FP) PO SCH (12:23)
[2017-01-25] MEDS: HYDROCHLOROTHIAZIDE 12.5 MG CAPSULE (FP) PO SCH (12:24)
[2017-01-25] MEDS: RANOLAZINE E.R. 500 MG TABLET (FP) PO SCH ×2 (12:25→21:00)
[2017-01-25] MEDS: RANITIDINE HCL 150 MG TABLET (FP) PO SCH ×2 (12:25→21:00)
[2017-01-25] MEDS: VALSARTAN 160 MG TABLET (UD) PO SCH (12:25)
[2017-01-25] MEDS: amLODIPine BESYLATE 10 MG TABLET (FP) PO SCH (12:26)
[2017-01-25] MEDS: HEPARIN NA (PORCINE) 5,000 UNITS/ML 1ML VIAL SQ SCH ×2 (12:26→21:00)
[2017-01-25] MEDS: MECLIZINE HCL 12.5 MG TABLET PO SCH (12:26)
--- NOTE | 2017-01-25 15:58 | CONS ---
DATE OF CONSULTATION: DATE OF DICTATION: 01/25/2017 INFECTIOUS DISEASE CONSULTATION HISTORY OF PRESENT ILLNESS: This is a 66-year-old male originally from [facility], with known history of coronary artery disease, hypertension, diabetes, hyperlipidemia and GERD, who presents to the hospital for a 3-day history of abdominal pain, which he reports as diffuse and mostly in the midportion of the abdomen. He denied any nausea, vomiting or diarrhea. He had come to the emergency room for the same complaint on January 11, and a CT scan of the abdomen and pelvis was normal at that time. He was referred to GI for further evaluation, but developed pain which brought him here now and for which he is admitted. I am asked to see him for a urinary infection, as he had some white cells on the urinalysis and a history of an ESBL Klebsiella in a prior urine culture. The patient has absolutely no urinary complaints. He has no fever, chills, night sweats or flank pain, and his WBC count is normal. He was given a dose of meropenem in the emergency room, and I am asked to see him for further evaluation. He denies any prior history of kidney disease. PAST MEDICAL HISTORY: As noted above. MEDICATIONS: Include Diovan, metoprolol, metformin, Ranexa, amlodipine, Januvia, Zantac, aspirin. ALLERGIES: None known. SOCIAL HISTORY: [place] living in the [facility] [place] many years, with no history of recent travel. He consumes alcohol. Former smoker. Denies substance abuse. FAMILY HISTORY: Reviewed and noncontributory. REVIEW OF SYSTEMS: Respiratory: No cough or shortness of breath. Cardiac: No chest pain, palpitations or syncope. History of multiple coronary stent placements. Gastrointestinal: Abdominal pain. No nausea, vomiting, blood per rectum, hematemesis, diarrhea. Genitourinary: No dysuria, hematuria or urinary frequency. PHYSICAL EXAMINATION: General: He was an alert male in no acute distress. Vital Signs: Temperature 97.6, pulse 58, blood pressure 154/67. Neck: Supple. Lungs: Clear to P&A. Heart: S1, S2. Regular rhythm, without audible murmur. Abdomen: Positive bowel sounds. Soft, nontender. No organomegaly, guarding or rebound. Extremities: Without clubbing, cyanosis or edema. DIAGNOSTIC STUDIES: White count 8.1, hemoglobin 12.8, platelets 278. BUN 13, creatinine 1.4. Liver enzymes within normal limits. Urinalysis with 1+ leukocyte esterase, 4 RBCs, 26 WBCs. Blood and urine cultures pending. ASSESSMENT: A 66-year-old male with history of chronic abdominal pain for which he presented to the emergency room on January 11 and again now. I am asked to see him for urinary infection with no symptoms of a urinary infection, no fever and a normal white count. Previous extended-spectrum beta lactamase noted on urine culture with klebsiella in March 2014. RECOMMENDATIONS: At this point I am not inclined to want to treat him with antibiotics. Will observe only. I would not be surprised if the patient colonized with resistant gram-negative rods. Maintain contact isolation. Will order a renal sonogram to look for any evidence of kidney stones and/or obstruction. AMANDA QUEZADA M.D. [id number]
--- NOTE | 2017-01-25 16:20 | EKG ---
Test Reason : Blood Pressure : / mmHG Vent. Rate : 063 BPM Atrial Rate : 063 BPM P-R Int : 178 ms QRS Dur : 102 ms QT Int : 434 ms P-R-T Axes : 066 -43 003 degrees QTc Int : 444 ms NORMAL SINUS RHYTHM LEFT AXIS DEVIATION ABNORMAL ECG WHEN COMPARED WITH ECG OF 11-JAN-2017 12:55, NONSPECIFIC T WAVE ABNORMALITY HAS REPLACED INVERTED T WAVES IN INFERIOR LEADS T WAVE INVERSION NO LONGER EVIDENT IN LATERAL LEADS Confirmed by CONY CANTRELL MD ([id number]) on 01/25/2017 4:20:09 PM Referred By: Confirmed By:CONY CANTRELL MD
[2017-01-25] MEDS: traMADol HCL 50 MG TABLET PO PRN (16:53)
--- NOTE | 2017-01-25 17:40 | HP ---
Admitting History and Physical - Admission Chief Complaint: abdominal pain History of Present Illness: Pt is a 66 y/o male w/ chronic abdominal pain who was in ER at [facility] on 01/11/[address] scan abd wc did not show any acute pathology. Pt now presented to the ER w/ similar complaints of abdominal pain for the past 3 days wc at times radiates to the back. History Source: Patient - Past Medical History Cardiovascular: Yes: CAD (Prior multiple PCIs), HTN, Hyperlipdemia, Other ( Angina) Gastrointestinal: Yes: GERD Endocrine: Yes: Diabetes Mellitus - Past Surgical History Past Surgical History: Yes: Stent - Smoking History Smoking history: Former smoker Have you smoked in the past 12 months: No Aproximately how many cigarettes per day: 0 If you are a former smoker, when did you quit?: 8 YEARS AGO - Alcohol/Substance Use Hx Alcohol Use: No History of Substance Use: reports: None - Social History ADL: Independent History of Recent Travel: No Home Medications - Allergies Allergies/Adverse Reactions: Allergies Allergy/AdvReac Type Severity Reaction Status Date / Time No Known Allergies Allergy Verified 01/24/17 12:47 - Home Medications Home Medications: Ambulatory Orders Amlodipine Besylate [Norvasc -] 10 mg PO DAILY 11/27/16 Atorvastatin Ca [Lipitor] 80 mg PO DAILY 11/27/16 Clopidogrel Bisulfate [Plavix -] 75 mg PO DAILY 11/27/16 Metoprolol Succinate [Toprol XL -] 25 mg PO DAILY 11/27/16 Ranolazine [Ranexa -] 500 mg PO BID 11/27/16 Sitagliptin Phos/Metformin HCl [Janumet 50-1,000 mg Tablet] 1 each PO BID Valsartan/Hydrochlorothiazide [Valsartan-Hctz 160-12.5 mg Tab] 1 each PO DAILY 11/27/16 Aspirin [ASA -] 81 mg PO DAILY 01/11/17 Tramadol HCl [Ultram] 50 mg PO Q6H PRN 01/11/17 Acetaminophen [Tylenol -] 500 mg PO Q6H 01/24/17 Amox-Tr/K Cl [Augmentin - 875Mg Tablet] 1 tab PO BID 01/24/17 Famotidine 20 mg PO BID 01/24/17 Ibuprofen 800 mg PO PRN 01/24/17 Meclizine HCl 12.5 mg PO DAILY 01/24/17 [place]-3 Acid Ethyl Esters [Lovaza] 1 gm PO BID 01/24/17 Panax Ginseng Root Extract [Ginseng Extract] 100 mg PO ASDIR 01/24/17 Sennosides [Senna] 8.6 mg PO ASDIR 01/24/17 Tamsulosin HCl 0.4 mg PO DAILY 01/24/17 Family Disease History - Family Disease History Family History: Unremarkable Family Disease History: Diabetes: Father, Heart Disease: Father Review of Systems - Review of Systems Constitutional: reports: No Symptoms Eyes: reports: No Symptoms HENT: reports: No Symptoms Neck: reports: No Symptoms Cardiovascular: reports: No Symptoms Respiratory: reports: No Symptoms Gastrointestinal: reports: Abdominal Pain Physical Examination Vital Signs: Vital Signs Temperature 98.2 F 01/25/17 14:00 Pulse Rate 64 01/25/17 14:00 Respiratory Rate 18 01/25/17 14:00 Blood Pressure 123/61 01/25/17 14:00 O2 Sat by Pulse Oximetry (%) 95 01/25/17 09:00 Constitutional: Yes: Well Nourished Eyes: Yes: WNL HENT: Yes: WNL Neck: Yes: WNL, Supple Cardiovascular: Yes: WNL Respiratory: Yes: WNL, Regular, CTA Bilaterally Gastrointestinal: Yes: WNL, Normal Bowel Sounds, Soft Musculoskeletal: Yes: WNL Extremities: Yes: WNL Edema: No Neurological: Yes: WNL, Alert, Oriented Problem List - Problems (1) Abdominal pain Assessment/Plan: Cont IV fluids Possibilty of urine as etilogy unlikely UA is unremarkable and pt is afebrile w/ normal WBC GI/ID consults Code(s): R10.9 - UNSPECIFIED ABDOMINAL PAIN Qualifiers: Abdominal location: unspecified location Qualified Code(s): R10.9 - Unspecified abdominal pain (2) HTN (hypertension), benign Assessment/Plan: Cont asa/norvasc/hctz/diovan/toprol BP stable Code(s): I10 - ESSENTIAL (PRIMARY) HYPERTENSION (3) Coronary artery disease Code(s): I25.10 - ATHSCL HEART DISEASE OF [place] CORONARY ARTERY W/O ANG PCTRS (4) Diabetes mellitus Assessment/Plan: Cont januvia/metformin Code(s): E11.9 - TYPE 2 DIABETES MELLITUS WITHOUT COMPLICATIONS (5) Hyperlipidemia Assessment/Plan: Cont lipitor Code(s): E78.5 - HYPERLIPIDEMIA, UNSPECIFIED (6) Benign prostatic hyperplasia Code(s): N40.0 - BENIGN PROSTATIC HYPERPLASIA WITHOUT LOWER URINRY TRACT SYMP
--- NOTE | 2017-01-25 18:38 | CON.GI ---
Consult Consult Specialty:: gastroenterology - History of Present Illness History of Present Illness: The patient is a 66 year old male, with a significant past medical history of CAD (s/p multiple cardiac stent placements), HTN, DM, BPH, HTN, HLD, and GERD, who presents to the emergency department complaining of abdominal pain for 3 days. Patient reports constant diffuse mid abdomen pain. Patient notes that the pain radiates to/from the back to the abdomen. Patient reports constipation, but denies any nausea, vomiting or diarrhea. Patient was seen in the ED on 01/11 for the same complaint and had a CT of abdomen and pelvis that was normal. Patient was referred to GI for an appointment on 02/15 by PMD. Patient notes that he had a colonoscopy in the past that was normal, but denies having an endoscopy. Patient reports bowel movement that was hard in nature non bloody non bilious this morning. He complains of llq pain , not assocaited with constipation,dirrhea and rectal bleeding. He is tolerating diet - Past Medical History Cardio/Vascular: Yes: CAD (Prior multiple PCIs), HTN, Hyperlipdemia, Other ( Angina) Gastrointestinal: Yes: GERD Endocrine: Yes: Diabetes Mellitus - Past Surgical History Past Surgical History: Yes: Stent - Alcohol/Substance Use Hx Alcohol Use: No History of Substance Use: reports: None - Smoking History Smoking history: Former smoker Have you smoked in the past 12 months: No Aproximately how many cigarettes per day: 0 If you are a former smoker, when did you quit?: 8 YEARS AGO - Social History ADL: Independent History of Recent Travel: No Home Medications - Allergies Allergies/Adverse Reactions: Allergies Allergy/AdvReac Type Severity Reaction Status Date / Time No Known Allergies Allergy Verified 01/24/17 12:47 - Home Medications Home Medications: Ambulatory Orders Amlodipine Besylate [Norvasc -] 10 mg PO DAILY 11/27/16 Atorvastatin Ca [Lipitor] 80 mg PO DAILY 11/27/16 Clopidogrel Bisulfate [Plavix -] 75 mg PO DAILY 11/27/16 Metoprolol Succinate [Toprol XL -] 25 mg PO DAILY 11/27/16 Ranolazine [Ranexa -] 500 mg PO BID 11/27/16 Sitagliptin Phos/Metformin HCl [Janumet 50-1,000 mg Tablet] 1 each PO BID Valsartan/Hydrochlorothiazide [Valsartan-Hctz 160-12.5 mg Tab] 1 each PO DAILY 11/27/16 Aspirin [ASA -] 81 mg PO DAILY 01/11/17 Tramadol HCl [Ultram] 50 mg PO Q6H PRN 01/11/17 Acetaminophen [Tylenol -] 500 mg PO Q6H 01/24/17 Amox-Tr/K Cl [Augmentin - 875Mg Tablet] 1 tab PO BID 01/24/17 Famotidine 20 mg PO BID 01/24/17 Ibuprofen 800 mg PO PRN 01/24/17 Meclizine HCl 12.5 mg PO DAILY 01/24/17 [place]-3 Acid Ethyl Esters [Lovaza] 1 gm PO BID 01/24/17 Panax Ginseng Root Extract [Ginseng Extract] 100 mg PO ASDIR 01/24/17 Sennosides [Senna] 8.6 mg PO ASDIR 01/24/17 Tamsulosin HCl 0.4 mg PO DAILY 01/24/17 Family Disease History - Family Disease History Family Disease History: Diabetes: Father, Heart Disease: Father Physical Exam-GI Vital Signs: Vital Signs Temperature 97.9 F 01/25/17 18:00 Pulse Rate 56 L 01/25/17 18:00 Respiratory Rate 20 01/25/17 18:00 Blood Pressure 142/66 01/25/17 18:00 O2 Sat by Pulse Oximetry (%) 95 01/25/17 09:00 Constitutional: Yes: Obese Eyes: Yes: Conjunctiva Clear HENT: Yes: Atraumatic Neck: Yes: Supple Cardiovascular: Yes: Regular Rate and Rhythm Respiratory: Yes: CTA Bilaterally ...Palpate: Yes: Soft, Tenderness (--mild). No: Firm/Rigid, Guarding, Hepatomegaly, Mass, Pulsatile Mass, Splenomegaly Imaging - Results Cat Scan: Report Reviewed (normal) Problem List - Problems (1) Chronic abdominal pain Assessment/Plan: r/o IBS R> made aware to ff-up will need a colonoscopy as an out patient continue low residue , lactose free diet Bentyl 10 mg bid--to be continued as an outpatient Code(s): R10.9 - UNSPECIFIED ABDOMINAL PAIN G89.29 - OTHER CHRONIC PAIN
[2017-01-25] MEDS: DICYCLOMINE HCL 10 MG CAPSULE PO SCH (20:11)
[2017-01-25] MEDS ORDERED: ATORVASTATIN CA 80 MG TABLET (FP) PO SCH (22:00)
[2017-01-26] MEDS: ACETAMINOPHEN 500 MG TABLET (FP) PO SCH ×3 (00:07→15:07)
[2017-01-26] MEDS: DICYCLOMINE HCL 10 MG CAPSULE PO SCH ×2 (06:01→15:08)
[2017-01-26] MEDS: metFORMIN HCL 500 MG TABLET (FP) PO SCH ×2 (06:01→17:24)
[2017-01-26] MEDS: sitaGLIPtin PHOSPHATE 50 MG TABLET PO SCH ×2 (06:02→17:24)
[2017-01-26 06:48] LABS: BASOPHIL 0.4 % (0-2.0); EOSINOPHIL 2.6 % (0-4.5); MCH 32.3 pg (25.7-33.7); MCHC 34.4 g/dl (32.0-35.9); MEAN CELL VOLUME 93.9 fl (80-96); MEAN PLT VOLUME 8.6 fl (7.5-11.1); NEUTROPHILS 67.5 % (42.8-82.8); PLATELET COUNT 272 K/MM3 (134-434); RDW 16.1 % (11.9-15.9); WHITE BLOOD COUNT 7.9 K/mm3 (4.0-10.0)
[2017-01-26 07:16] LABS: CALCIUM 7.9 mg/dL (8.5-10.1)
[2017-01-26 07:22] LABS: ALK PHOS 75 U/L (45-117); ANION GAP 8 (8-16); BILIRUBIN,TOTAL 0.7 mg/dL (0.2-1.0); CO2 27 mmol/L (21-32); GLUCOSE,RANDOM 104 mg/dL (74-106); SGOT/AST 17 U/L (15-37); SGPT/ALT 12 U/L (12-78); TOT PROT 5.6 g/dl (6.4-8.2)
[2017-01-26] MEDS: traMADol HCL 50 MG TABLET PO PRN (09:36)
[2017-01-26] MEDS: ASPIRIN 81 MG CHEWABLE TABLETS PO SCH (09:36)
[2017-01-26] MEDS: VALSARTAN 160 MG TABLET (UD) PO SCH (09:36)
[2017-01-26] MEDS: HYDROCHLOROTHIAZIDE 12.5 MG CAPSULE (FP) PO SCH (09:36)
[2017-01-26] MEDS: RANITIDINE HCL 150 MG TABLET (FP) PO SCH (09:36)
[2017-01-26] MEDS: RANOLAZINE E.R. 500 MG TABLET (FP) PO SCH (09:36)
[2017-01-26] MEDS: CLOPIDOGREL BISULFATE 75 MG TABLET (FP) PO SCH (09:36)
[2017-01-26] MEDS: amLODIPine BESYLATE 10 MG TABLET (FP) PO SCH (09:36)
[2017-01-26] MEDS: METOPROLOL SUCCINATE 25 MG TAB.SR.24H (FP) PO SCH (09:37)
[2017-01-26] MEDS: HEPARIN NA (PORCINE) 5,000 UNITS/ML 1ML VIAL SQ SCH (09:37)
[2017-01-26] MEDS ORDERED: PT OWN MED DRAWER 7, Y5N ONE (10:24)
[2017-01-26] MEDS: MECLIZINE HCL 12.5 MG TABLET PO SCH (10:55)
[2017-01-26 14:06] VITALS: BP 107/59; PULSE 64; TEMP 98.4
--- NOTE | 2017-01-26 14:25 | PN ---
Progress Note (short form) - Note Progress Note: ID Off antibiotics Constipated Selected Entries 01/26/17 14:00 Temperature 98.4 F Pulse Rate 64 Respiratory 20 Rate Blood Pressure 107/59 Abd Mild tenderness no guarding or rebound Microbiology 01/24/17 22:10 Urine - Urine Clean Catch Urine Culture - Final NO GROWTH OBTAINED 01/25/17 01:00 Blood - Peripheral Venous Blood Culture - Preliminary NO GROWTH OBTAINED AFTER 24 HOURS, INCUBATION TO CONTINUE FOR 4 DAYS. 01/25/17 01:00 Blood - Peripheral Venous Blood Culture - Preliminary NO GROWTH OBTAINED AFTER 24 HOURS, INCUBATION TO CONTINUE FOR 4 DAYS. Laboratory Tests 01/26/17 01/26/17 05:35 05:35 WBC 7.9 Hgb 12.4 Hct 36.0 Plt Count 272 BUN 17 D Creatinine 1.0 D Assessment No indication for antibiotics cultures no growth No UTI Plan Kindly recall as needed/ Thanks Pepper MADRIGAL Problem List - Problems (1) Chronic abdominal pain Code(s): R10.9 - UNSPECIFIED ABDOMINAL PAIN G89.29 - OTHER CHRONIC PAIN (2) UTI (urinary tract infection) Code(s): N39.0 - URINARY TRACT INFECTION, SITE NOT SPECIFIED Qualifiers: Urinary tract infection type: acute cystitis Hematuria presence: without hematuria Qualified Code(s): N30.00 - Acute cystitis without hematuria
[2017-01-26] MEDS ORDERED: POLYETHYLENE GLYCOL 3350 119 GM BTL PO SCH (15:15)
[2017-01-26] MEDS ORDERED: BISACODYL 10 MG SUPP.RECT RC ONE (15:15)
== END 2017-01-26 18:30 | disposition home or self-care (01) | DRG 93 ==
LOC: JER 12:35 → JERBED 18:26 → J4S 22:47
PROVIDERS: ADMIT Internal Medicine; ATTEND Internal Medicine
DX: G89.29 Other chronic pain (principal); R10.32 Left lower quadrant pain; M54.6 Pain in thoracic spine; I25.10 Atherosclerotic heart disease of native coronary artery without angina pectoris; E11.9 Type 2 diabetes mellitus without complications; E78.5 Hyperlipidemia, unspecified; K21.9 Gastro-esophageal reflux disease without esophagitis; K59.00 Constipation, unspecified; N40.0 Benign prostatic hyperplasia without lower urinary tract symptoms; Z87.891 Personal history of nicotine dependence; Z87.440 Personal history of urinary (tract) infections
CPT/HCPCS: 36415; 72070-TC; 74020-TC; 76700-TC; 76775-TC; 80053; 81003; 81015; 83690; 83735; 85025; 85651; 86140; 87040; 87086; 93005; 93010; 99283-25; J1644

== ENCOUNTER 2017-02-02 12:29 | Emergency (ER) | payer MEDICARE, OTHER ==
[2017-02-02] MEDS ORDERED: SODIUM CHLORIDE 1,000 ML IV SCH (13:00)
--- NOTE | 2017-02-02 13:01 | PDOC ---
History of Present Illness - General History Source: Patient Exam Limitations: No Limitations - History of Present Illness Initial Comments: 02/02/17 15:46 The patient is a 66 year old male, with a significant past medical history of CAD(s/p multiple cardiac stents), diabetes, hypertension, hyperlipidemia, bph, and GERD, who presents to the emergency department complaining of abdominal pain since yesterday. The patient reports he presented to [facility] for abdominal pain, where they did a CT, which was negative. The patient states his abdominal pain has worsened since yesterday. He reports it is localized to the lower abdomen and is radiates into his back. He states he has seen his PCP for a similar pain earlier this week, who suspected the patients pain had to do with his gallbladder. The patient reports bilateral flank pain and dark urine. He denies any dysuria, hematuria, frequency, or urgency. The patient reports Dr. Fu agreed to come see him in the ED. The patient denies any nausea, vomiting, diarrhea, or constipation. The patient denies any fever, chills, cough, headache or dizziness. Allergies: None reported. Past Surgical History: Cardiac stents X11. Social History: Former smoker(Quit 8 years ago) and ETOH user. Denies drug use. PCP: Dr. Jordy Fu GI: Dr. Norris <Cristian Jamison - Last Filed: 02/02/17 15:45> <Chapin Ken - Last Filed: 02/02/17 16:51> - General Chief Complaint: Pain Stated Complaint: ABD PAIN Time Seen by Provider: 02/02/17 12:58 Past History <Cristian Jamison - Last Filed: 02/02/17 15:45> - Past Medical History Anemia: No Asthma: No Cancer: No Cardiac Disorders: Yes (11 Stents) CVA: No COPD: No CHF: No Dementia: No Diabetes: Yes GI Disorders: No Disorders: Yes (bph) HTN: Yes Hypercholesterolemia: Yes Liver Disease: No Suicide Attempt (Hx): No Seizures: No Thyroid Disease: No - Surgical History Abdominal Surgery: No Appendectomy: No Cardiac Surgery: Yes (STENTS X 11) Cholecystectomy: No Lung Surgery: No Neurologic Surgery: No Orthopedic Surgery: No - Immunization History Immunization Up to Date: No - Psycho/Social/Smoking Cessation Hx Anxiety: No Suicidal Ideation: No Smoking Status: No Smoking History: Former smoker Have you smoked in the past 12 months: No Number of Cigarettes Smoked Daily: 0 If you are a former smoker, when did you quit?: 8 YEARS AGO Hx Alcohol Use: No Drug/Substance Use Hx: No Substance Use Type: None Hx Substance Use Treatment: No <Chapin Ken - Last Filed: 02/02/17 16:51> - Past Medical History Allergies/Adverse Reactions: Allergies Allergy/AdvReac Type Severity Reaction Status Date / Time No Known Allergies Allergy Verified 02/02/17 13:20 Home Medications: Ambulatory Orders Amlodipine Besylate [Norvasc -] 10 mg PO DAILY 11/27/16 Atorvastatin Ca [Lipitor] 80 mg PO DAILY 11/27/16 Clopidogrel Bisulfate [Plavix -] 75 mg PO DAILY 11/27/16 Metoprolol Succinate [Toprol XL -] 25 mg PO DAILY 11/27/16 Ranolazine [Ranexa -] 500 mg PO BID 11/27/16 Sitagliptin Phos/Metformin HCl [Janumet 50-1,000 mg Tablet] 1 each PO BID Valsartan/Hydrochlorothiazide [Valsartan-Hctz 160-12.5 mg Tab] 1 each PO DAILY 11/27/16 Aspirin [ASA -] 81 mg PO DAILY 01/11/17 Tramadol HCl [Ultram -] 50 mg PO Q6H PRN 01/11/17 Acetaminophen [Tylenol .Extra-Strength -] 500 mg PO Q6H 01/24/17 Famotidine 20 mg PO BID 01/24/17 Meclizine HCl 12.5 mg PO DAILY 01/24/17 [place]-3 Acid Ethyl Esters [Lovaza] 1 gm PO BID 01/24/17 Panax Ginseng Root Extract [Ginseng Extract] 100 mg PO ASDIR 01/24/17 Sennosides [Senna] 8.6 mg PO ASDIR 01/24/17 Tamsulosin HCl 0.4 mg PO DAILY 01/24/17 Dicyclomine HCl [Bentyl -] 10 mg PO TID #60 tab 01/26/17 Docusate Sodium [Colace -] 100 mg PO TID #90 capsule 01/26/17 Ondansetron [Zofran *Odt*] 8 mg SL TID #30 od.tablet MDD 3 02/02/17 Oxycodone HCl/Acetaminophen [Percocet 5-325 mg Tablet] 1 - 2 tab PO Q4H #20 tablet MDD 6 02/02/17 Review of Systems - Review of Systems Able to Perform ROS?: Yes Comments:: 02/02/17 15:47 GENERAL/CONSTITUTIONAL: No fever or chills. No weakness. HEAD, EYES, EARS, NOSE AND THROAT: No change in vision. No ear pain or discharge. No sore throat. CARDIOVASCULAR: No chest pain or shortness of breath. RESPIRATORY: No cough, wheezing, or hemoptysis. GASTROINTESTINAL: Yes: +lower abdominal pain. No nausea, vomiting, diarrhea or constipation. GENITOURINARY: Yes: +dark urine. No dysuria, frequency, or change in urination. MUSCULOSKELETAL: Yes: +back pain. No joint or muscle swelling or pain. No neck pain. SKIN: No rash NEUROLOGIC: No headache, vertigo, loss of consciousness, or change in strength/ sensation. ENDOCRINE: No increased thirst. No abnormal weight change. HEMATOLOGIC/LYMPHATIC: No anemia, easy bleeding, or history of blood clots. ALLERGIC/IMMUNOLOGIC: No hives or skin allergy. <Mery Jamisonomjuan - Last Filed: 02/02/17 15:45> *Physical Exam - Vital Signs Last Vital Signs Temp Pulse Resp BP Pulse Ox 97.9 F 72 18 135/63 100 02/02/17 12:29 02/02/17 12:29 02/02/17 12:29 02/02/17 12:29 02/02/17 12:29 - Physical Exam Comments: 02/02/17 15:48 GENERAL: Awake, alert, and fully oriented, in no acute distress HEAD: No signs of trauma EYES: PERRLA, EOMI, sclera anicteric, conjunctiva clear ENT: Auricles normal inspection, hearing grossly normal, nares patent, oropharynx clear without exudates. Moist mucosa NECK: Normal ROM, supple, no lymphadenopathy, JVD, or masses LUNGS: Breath sounds equal, clear to auscultation bilaterally. No wheezes, and no crackles HEART: Regular rate and rhythm, normal S1 and S2, no murmurs, rubs or gallops ABDOMEN: Tenderness to palpation to the lower abdomen. Soft, normoactive bowel sounds. No guarding, no rebound. No masses EXTREMITIES: Normal range of motion, no edema. No clubbing or cyanosis. No cords, erythema, or tenderness NEUROLOGICAL: Cranial nerves II through XII grossly intact. Normal speech, normal gait SKIN: Warm, Dry, normal turgor, no rashes or lesions noted. <Cristian Jamison - Last Filed: 02/02/17 15:45> ED Treatment Course - LABORATORY CBC & Chemistry Diagram: 02/02/17 13:00 02/02/17 13:00 - ADDITIONAL ORDERS Additional order review: Laboratory Results 02/02/17 02/02/17 02/02/17 13:52 13:00 13:00 INR Sodium 143 Potassium 3.6 Chloride 111 H Carbon Dioxide 25 Anion Gap 7 L BUN 7 D Creatinine 0.9 Creat Clearance w eGFR > 60 Random Glucose 130 H D Calcium 8.4 L Total Bilirubin 0.5 Direct Bilirubin AST 19 ALT 16 D Alkaline Phosphatase 84 Creatine Kinase Troponin I Total Protein 6.3 L Albumin 3.3 L Total Amylase Lipase 288 Urine Color Natalya Urine Appearance Clear Urine pH 6.0 Ur Specific [place] 1.023 Urine Protein 2+ H Urine Glucose (UA) 1+ H Urine Ketones Negative Urine Blood Negative Urine Nitrite Negative Urine Bilirubin Negative Urine Urobilinogen Negative Ur Leukocyte Esterase 1+ H Urine RBC 4 Urine WBC 12 Ur Epithelial Cells Rare Hyaline Casts 3 Urine Mucus Rare Blood Type O POSITIVE Antibody Screen Negative 02/02/17 02/02/17 13:00 12:48 INR 1.17 H Sodium Potassium Chloride Carbon Dioxide Anion Gap BUN Creatinine Creat Clearance w eGFR Random Glucose Calcium Total Bilirubin 0.5 D Direct Bilirubin 0.2 AST ALT Alkaline Phosphatase Creatine Kinase 60 Troponin I < 0.02 Total Protein Albumin Total Amylase 94 Lipase Urine Color Urine Appearance Urine pH Ur Specific [place] Urine Protein Urine Glucose (UA) Urine Ketones Urine Blood Urine Nitrite Urine Bilirubin Urine Urobilinogen Ur Leukocyte Esterase Urine RBC Urine WBC Ur Epithelial Cells Hyaline Casts Urine Mucus Blood Type Antibody Screen 02/02/17 13:00 RBC 4.13 MCV 93.5 MCHC 34.4 RDW 15.9 MPV 8.3 Neutrophils % 74.3 Lymphocytes % 16.4 D Monocytes % 7.9 Eosinophils % 0.5 D Basophils % 0.9 <Cristian Jamison - Last Filed: 02/02/17 15:45> - LABORATORY CBC & Chemistry Diagram: 02/02/17 13:00 02/02/17 13:00 <Chapin Ken - Last Filed: 02/02/17 16:51> *DC/Admit/Observation/Transfer - Attestations Scribe Attestion: 02/02/17 15:51 Documentation prepared by Cristian Jamison, acting as medical surgery nurse for Chapin Ken DO. <Cristian Jamison - Last Filed: 02/02/17 15:45> - Discharge Dispostion Admit: No - Attestations Physician Attestion: 02/02/17 13:01 I, Dr. Chapin Ken, attest that this document has been prepared under my direction and personally reviewed by me in its entirety. I further attest, that it accurately reflects all work, treatment, procedures and medical decision -making performed by me. <Chapin Ken - Last Filed: 02/02/17 16:51> Diagnosis at time of Disposition: Abdominal pain Qualifiers: Abdominal location: lower abdomen, unspecified Qualified Code(s): R10.30 - Lower abdominal pain, unspecified - Discharge Dispostion Disposition: HOME Condition at time of disposition: Good - Prescriptions Prescriptions: Oxycodone HCl/Acetaminophen [Percocet 5-325 mg Tablet] 1 - 2 tab PO Q4H #20 tablet MDD 6 Ondansetron [Zofran *Odt*] 8 mg SL TID #30 od.tablet MDD 3 - Referrals Referrals: Jordy Fu MD [Primary Care Provider] - - Patient Instructions Printed Discharge Instructions: DI for Abdominal Pain-Adult Additional Instructions: Mr Morillo- Your tests are all normal today. I sent a prescription for pain medicine to your pharmacy - use it only if it is absolutely necessary- Return to us if problems. See your doctor again on Sunday. Best- Dr.Frank Ken
[2017-02-02 13:05] LABS: BASOPHIL 0.9 % (0-2.0); EOSINOPHIL 0.5 % (0-4.5); MCH 32.2 pg (25.7-33.7); MCHC 34.4 g/dl (32.0-35.9); MEAN CELL VOLUME 93.5 fl (80-96); MEAN PLT VOLUME 8.3 fl (7.5-11.1); NEUTROPHILS 74.3 % (42.8-82.8); PLATELET COUNT 239 K/MM3 (134-434); RDW 15.9 % (11.9-15.9); WHITE BLOOD COUNT 6.6 K/mm3 (4.0-10.0)
[2017-02-02 13:20] VITALS: PULSE 72; TEMP 97.9; BMI 22.4
[2017-02-02 13:24] LABS: INR 1.17 (0.82-1.09); PROTHROMBIN TIME (PATIENT) 12.9 SEC (9.98-11.88)
[2017-02-02 13:35] LABS: ALBUMIN 3.3 g/dl (3.4-5.0); AMYLASE 94 U/L (25-115); ANION GAP 7 (8-16); BILIRUBIN,TOTAL 0.5 mg/dL (0.2-1.0); CALCIUM 8.4 mg/dL (8.5-10.1); CO2 25 mmol/L (21-32); COCKROFT - GAULT 68.03; CREATININE 0.9 mg/dL (0.7-1.3); GLUCOSE,RANDOM 130 mg/dL (74-106); SGOT/AST 19 U/L (15-37); SGPT/ALT 16 U/L (12-78); TOT PROT 6.3 g/dl (6.4-8.2)
[2017-02-02 13:36] LABS: ALK PHOS 84 U/L (45-117)
[2017-02-02 13:38] LABS: TROPONIN I < 0.02 ng/ml (0.00-0.05)
[2017-02-02 15:04] LABS: URINE APPEARANCE CLEAR; URINE BILIRUBIN NEGATIVE (NEGATIVE); URINE BLOOD NEGATIVE (NEGATIVE); URINE COLOR AMBER; URINE GLUCOSE (UA) 1+ (NEGATIVE); URINE KETONE NEGATIVE (NEGATIVE); URINE NITRITE NEGATIVE (NEGATIVE); URINE UROBILINOGEN NEGATIVE E.U./dl (0.2-1.0)
[2017-02-02 15:06] LABS: URINE LEUK ESTERASE 1+ (NEGATIVE); URINE PROTEIN 2+ (NEGATIVE)
[2017-02-02 15:08] LABS: URINE HYALINE CAST 3 /lpf; URINE MUCUS RARE; URINE RBC 4 /hpf (0-3); URINE WBC 12 /hpf (3-5)
[2017-02-02 15:29] LABS: BILIRUBIN,DIRECT 0.2 mg/dL (0.0-0.2); BILIRUBIN,TOTAL 0.5 mg/dL (0.2-1.0)
[2017-02-02] MEDS ORDERED: ONDANSETRON 4 MG/2 ML VIAL IVPUSH ONE (17:32)
[2017-02-02] MEDS ORDERED: ONDANSETRON 4 MG/2 ML VIAL ONE (17:32)
[2017-02-02] MEDS ORDERED: HYDROmorphone HCL CARPU-JECT 1 MG/1 ML DISP.SYRIN IVPB ONE (17:32)
[2017-02-02] MEDS ORDERED: HYDROmorphone HCL CARPU-JECT 1 MG/1 ML DISP.SYRIN ONE (17:33)
[2017-02-02 18:34] VITALS: BP 159/78
--- NOTE | 2017-02-03 18:32 | EKG ---
Test Reason : Blood Pressure : / mmHG Vent. Rate : 068 BPM Atrial Rate : 068 BPM P-R Int : 160 ms QRS Dur : 096 ms QT Int : 394 ms P-R-T Axes : 070 -46 012 degrees QTc Int : 418 ms SINUS RHYTHM LEFT AXIS DEVIATION SEPTAL INFARCT , AGE UNDETERMINED ABNORMAL ECG WHEN COMPARED WITH ECG OF 24-JAN-2017 19:17, NON-SPECIFIC CHANGE IN ST SEGMENT IN ANTERIOR LEADS T WAVE INVERSION NOW EVIDENT IN LATERAL LEADS CLINICAL CORRELATION IS RECOMMENDED BASELINE ARTIFACT Confirmed by SAL MADRIGAL, DARLEEN ([id number]) on 02/03/2017 6:31:38 PM Referred By: Confirmed By:DARLEEN HUANG MD
== END 2017-02-02 18:34 | disposition home or self-care (01) ==
LOC: JER 12:29
PROC: 3E0337Z Introduction of Electrolytic and Water Balance Substance into Peripheral Vein, Percutaneous Approach (ICD-10-PCS; principal; 2017-02-02)
PROC: 3E033NZ Introduction of Analgesics, Hypnotics, Sedatives into Peripheral Vein, Percutaneous Approach (ICD-10-PCS; 2017-02-02)
PROC: 3E033GC Introduction of Other Therapeutic Substance into Peripheral Vein, Percutaneous Approach (ICD-10-PCS; 2017-02-02)
DX: R10.30 Lower abdominal pain, unspecified (principal); I25.10 Atherosclerotic heart disease of native coronary artery without angina pectoris; I10 Essential (primary) hypertension; Z95.5 Presence of coronary angioplasty implant and graft; Z87.891 Personal history of nicotine dependence; E11.9 Type 2 diabetes mellitus without complications; Z79.84 Long term (current) use of oral hypoglycemic drugs; E78.00 Pure hypercholesterolemia, unspecified; N21.9 Calculus of lower urinary tract, unspecified; N40.0 Benign prostatic hyperplasia without lower urinary tract symptoms
CPT/HCPCS: 36415; 80053; 81003; 81015; 82150; 82247; 82248; 82550; 83690; 84484; 85025; 85610; 86850; 86900; 86901; 93005; 93010; 96361; 96374; 96375; 99282-25

== ENCOUNTER 2017-04-11 01:15 | Emergency (ER) | payer MEDICARE ==
--- NOTE | 2017-04-11 01:29 | PDOC ---
History of Present Illness - General History Source: Patient Exam Limitations: No Limitations - History of Present Illness Initial Comments: 04/11/17 01:38 The patient is a 66 year old male with significant past medical history of CAD s /p multiple cardiac stent placements, prior multiple PCIs, hypertension, hyperlipidemia, diabetes, BPH, and GERD who presents to the ED for less than 24 hours of diffuse abdominal pain. Patient reports he developed abdominal pain around 1pm yesterday afternoon. He admits to not being able to pass stool for the past several of days and two days ago he was able to pass very little stool with no relief. States he attempted to take senna (stool softener) without any relief. Patient denies nausea, vomiting, or diarrhea. The patient denies fever, chills, cough, SOB, chest pain, and palpitations. Allergies: NKDA Social History: Former smoker and ETOH consumer. Denies drug use. Past Surgical History: s/p cardiac stents x11 PCP: Dr. Jordy Fu GI: Dr. Lisandro Norris <Sarina Solis - Last Filed: 04/11/17 02:17> - General History Source: Patient <Ozzy Stacy - Last Filed: 04/11/17 05:57> - General Stated Complaint: ABD PAIN Time Seen by Provider: 04/11/17 01:21 Past History <Sarina Solis - Last Filed: 04/11/17 02:17> - Past Medical History Anemia: No Asthma: No Cancer: No Cardiac Disorders: Yes (11 Stents) CVA: No COPD: No CHF: No Dementia: No Diabetes: Yes GI Disorders: No Disorders: Yes (bph) HTN: Yes Hypercholesterolemia: Yes Liver Disease: No Suicide Attempt (Hx): No Seizures: No Thyroid Disease: No - Surgical History Abdominal Surgery: No Appendectomy: No Cardiac Surgery: Yes (STENTS X 11) Cholecystectomy: No Lung Surgery: No Neurologic Surgery: No Orthopedic Surgery: No - Immunization History Immunization Up to Date: No - Psycho/Social/Smoking Cessation Hx Anxiety: No Suicidal Ideation: No Smoking Status: No Smoking History: Former smoker Have you smoked in the past 12 months: No Number of Cigarettes Smoked Daily: 0 If you are a former smoker, when did you quit?: 8 YEARS AGO Hx Alcohol Use: No Drug/Substance Use Hx: No Substance Use Type: None Hx Substance Use Treatment: No <Ozzy Stacy - Last Filed: 04/11/17 05:57> - Past Medical History Allergies/Adverse Reactions: Allergies Allergy/AdvReac Type Severity Reaction Status Date / Time No Known Allergies Allergy Verified 04/11/17 02:13 Home Medications: Ambulatory Orders Atorvastatin Ca [Lipitor] 80 mg PO DAILY 11/27/16 Clopidogrel Bisulfate [Plavix -] 75 mg PO DAILY 11/27/16 Metoprolol Succinate [Toprol XL -] 25 mg PO DAILY 11/27/16 Ranolazine [Ranexa -] 500 mg PO BID 11/27/16 Sitagliptin Phos/Metformin HCl [Janumet 50-1,000 mg Tablet] 1 each PO BID Valsartan/Hydrochlorothiazide [Valsartan-Hctz 160-12.5 mg Tab] 1 each PO DAILY 11/27/16 Aspirin [ASA -] 81 mg PO DAILY 01/11/17 Tramadol HCl [Ultram -] 50 mg PO Q6H PRN 01/11/17 Acetaminophen [Tylenol .Extra-Strength -] 500 mg PO Q6H 01/24/17 Famotidine 20 mg PO BID 01/24/17 Meclizine HCl 12.5 mg PO DAILY 01/24/17 [place]-3 Acid Ethyl Esters [Lovaza] 1 gm PO BID 01/24/17 Panax Ginseng Root Extract [Ginseng Extract] 100 mg PO ASDIR 01/24/17 Sennosides [Senna] 8.6 mg PO ASDIR 01/24/17 Tamsulosin HCl 0.4 mg PO DAILY 01/24/17 Dicyclomine HCl [Bentyl -] 10 mg PO TID #60 tab 01/26/17 Docusate Sodium [Colace -] 100 mg PO TID #90 capsule 01/26/17 Ondansetron [Zofran *Odt*] 8 mg SL TID #30 od.tablet MDD 3 02/02/17 Oxycodone HCl/Acetaminophen [Percocet 5-325 mg Tablet] 1 - 2 tab PO Q4H #20 tablet MDD 6 02/02/17 Oxycodone HCl/Acetaminophen [Percocet 5-325 mg Tablet] 1 - 2 tab PO Q6H #20 tab MDD 6 02/02/17 Review of Systems - Review of Systems Able to Perform ROS?: Yes Comments:: 04/11/17 01:39 CONSTITUTIONAL: Absent: fever, no chills, no fatigue EYES: Absent: visual changes ENT: Absent: ear pain, no sore throat CARDIOVASCULAR: Absent: chest pain, no palpitations RESPIRATORY: Absent: cough, no SOB GI: +abdominal pain, constipation Absent: no nausea, no vomiting, no diarrhea GENITOURINARY: Absent: dysuria, no frequency, no hematuria MUSCULOSKELETAL: Absent: back pain, no arthralgia, no myalgia SKIN: Absent: rash NEURO: Absent: headache <Sarina Solis - Last Filed: 04/11/17 02:17> *Physical Exam - Physical Exam Comments: 04/11/17 01:39 GENERAL: Well-appearing, well-nourished. No apparent distress. HEENT: Normocephalic, atraumatic. PERRL, EOM intact. CARDIOVASCULAR: Normal S1, S2. Regular rate and rhythm. PULMONARY: Clear to auscultation bilaterally. ABDOMEN: Soft, non-distended, diffusely tender. No rebound or guarding. EXTREMITIES: Normal ROM in all four extremities. No gross deformities. SKIN: Warm, dry. No rash NEUROLOGICAL: No focal neurological deficits. <Sarina Solis - Last Filed: 04/11/17 02:17> Heart Score/ECG Review - ECG Impressions Comment:: 04/11/17 02:17 NSR @67bpm L axis deviation Anterior infarct, age undetermined Abnormal ECG <Sarina Solis - Last Filed: 04/11/17 02:17> ED Treatment Course - LABORATORY CBC & Chemistry Diagram: 04/11/17 02:07 04/11/17 02:07 <Sarina Solis - Last Filed: 04/11/17 02:17> - LABORATORY CBC & Chemistry Diagram: 04/11/17 02:07 04/11/17 02:07 <Ozzy Stacy - Last Filed: 04/11/17 05:57> Medical Decision Making - Medical Decision Making 04/11/17 05:40 Dr. Stacy: The scribe's documentation has been prepared under my direction and personally reviewed by me in its entirery. I confirm that the note above accurately reflects all work, treatment, procedures, and medical decision making performed by me. Pt had BM after Fleets enema and Lactulose. Pt to be discharged. Encouraged to increase his fever water and fruits and vegetables <Ozzy Stacy - Last Filed: 04/11/17 05:57> *DC/Admit/Observation/Transfer - Attestations Scribe Attestion: 04/11/17 01:39 Documentation prepared by Sarina Solis, acting as medical billing representative for Ozzy Stacy MD/DO. <Sarina Solis - Last Filed: 04/11/17 02:17> - Discharge Dispostion Admit: No <Ozzy Stacy - Last Filed: 04/11/17 05:57> Diagnosis at time of Disposition: Abdominal pain, Constipation - Discharge Dispostion Disposition: HOME Condition at time of disposition: Improved - Referrals Referrals: Jordy Fu MD [Primary Care Provider] - - Patient Instructions Printed Discharge Instructions: DI for Constipation, Increased Dietary Fiber May Improve Constipation Conditions With Pelvic Mariano, DI for Abdominal Pain-Adult Print Language: SWISS
[2017-04-11] MEDS ORDERED: SODIUM CHLORIDE 1,000 ML IV STA (01:33)
[2017-04-11 01:44] VITALS: BMI 25.2
[2017-04-11 02:10] LABS: BASOPHIL 0.7 % (0-2.0); EOSINOPHIL 0.7 % (0-4.5); MCH 31.2 pg (25.7-33.7); MCHC 33.3 g/dl (32.0-35.9); MEAN CELL VOLUME 93.8 fl (80-96); MEAN PLT VOLUME 8.6 fl (7.5-11.1); NEUTROPHILS 71.8 % (42.8-82.8); PLATELET COUNT 246 K/MM3 (134-434); RDW 14.6 % (11.9-15.9); WHITE BLOOD COUNT 9.1 K/mm3 (4.0-10.0)
[2017-04-11 02:59] LABS: ALBUMIN 3.3 g/dl (3.4-5.0); AMYLASE 83 U/L (25-115); ANION GAP 7 (8-16); BILIRUBIN,TOTAL 0.6 mg/dL (0.2-1.0); CALCIUM 9.1 mg/dL (8.5-10.1); CO2 31 mmol/L (21-32); CREATININE 1.1 mg/dL (0.7-1.3); GLUCOSE,RANDOM 106 mg/dL (74-106); SGOT/AST 17 U/L (15-37); SGPT/ALT 16 U/L (12-78); TOT PROT 6.3 g/dl (6.4-8.2)
[2017-04-11 03:00] LABS: ALK PHOS 87 U/L (45-117); TROPONIN I < 0.02 ng/ml (0.00-0.05)
[2017-04-11] MEDS ORDERED: KETOROLAC TROMETHAMINE 30 MG/1 ML VIAL IVPUSH ONE (03:10)
[2017-04-11] MEDS ORDERED: LACTULOSE 20 GM/30 ML UDC (FOR ORAL USE ONLY) PO ONE ×2 (03:11→05:04)
[2017-04-11] MEDS ORDERED: KETOROLAC TROMETHAMINE 30 MG/1 ML VIAL ONE (03:12)
[2017-04-11] MEDS ORDERED: LACTULOSE 20 GM/30 ML UDC (FOR ORAL USE ONLY) ONE ×2 (03:13→05:21)
[2017-04-11 03:25] LABS: URINE APPEARANCE CLEAR; URINE BILIRUBIN NEGATIVE (NEGATIVE); URINE BLOOD NEGATIVE (NEGATIVE); URINE COLOR LTYELLOW; URINE GLUCOSE (UA) NEGATIVE (NEGATIVE); URINE KETONE NEGATIVE (NEGATIVE); URINE LEUK ESTERASE NEGATIVE (NEGATIVE); URINE NITRITE NEGATIVE (NEGATIVE); URINE UROBILINOGEN NEGATIVE E.U./dl (0.2-1.0)
[2017-04-11 03:29] LABS: URINE HYALINE CAST 1 /lpf; URINE PROTEIN 1+ (NEGATIVE); URINE RBC 2 /hpf (0-3); URINE WBC 1 /hpf (3-5)
[2017-04-11] MEDS ORDERED: PANTOPRAZOLE 40 MG TABLET (FP) PO ONE (05:56)
[2017-04-11] MEDS ORDERED: PANTOPRAZOLE 40 MG TABLET (FP) ONE (06:00)
[2017-04-11 06:08] VITALS: BP 138/67; PULSE 66; TEMP 98
--- NOTE | 2017-04-11 13:39 | EKG ---
Test Reason : Blood Pressure : / mmHG Vent. Rate : 067 BPM Atrial Rate : 067 BPM P-R Int : 162 ms QRS Dur : 116 ms QT Int : 422 ms P-R-T Axes : 072 -39 041 degrees QTc Int : 445 ms NORMAL SINUS RHYTHM LEFT AXIS DEVIATION ANTERIOR INFARCT (CITED ON OR BEFORE 02-FEB-2017) ABNORMAL ECG WHEN COMPARED WITH ECG OF 02-FEB-2017 14:33, QUESTIONABLE CHANGE IN INITIAL FORCES OF SEPTAL LEADS ST ELEVATION NOW PRESENT IN ANTERIOR LEADS T WAVE INVERSION NO LONGER EVIDENT IN LATERAL LEADS Confirmed by PAM MADRIGAL, COURTNEY ([id number]) on 04/11/2017 1:38:55 PM Referred By: Confirmed By:COURTNEY OROZCO MD
== END 2017-04-11 06:12 | disposition home or self-care (01) ==
LOC: JER 01:15
PROC: 3E0337Z Introduction of Electrolytic and Water Balance Substance into Peripheral Vein, Percutaneous Approach (ICD-10-PCS; principal; 2017-04-11)
PROC: 3E0333Z Introduction of Anti-inflammatory into Peripheral Vein, Percutaneous Approach (ICD-10-PCS; 2017-04-11)
DX: R10.84 Generalized abdominal pain (principal); K59.00 Constipation, unspecified; I25.10 Atherosclerotic heart disease of native coronary artery without angina pectoris; I10 Essential (primary) hypertension; Z95.5 Presence of coronary angioplasty implant and graft; E11.9 Type 2 diabetes mellitus without complications; Z79.84 Long term (current) use of oral hypoglycemic drugs; E78.00 Pure hypercholesterolemia, unspecified; N40.0 Benign prostatic hyperplasia without lower urinary tract symptoms
CPT/HCPCS: 36415; 71020-TC; 74020-TC; 80053; 81003; 81015; 82150; 82550; 83690; 83735; 84484; 85025; 93005; 93010; 96361; 96374; 99283-25

== ENCOUNTER 2017-05-13 06:12 | Emergency (ER) | payer MEDICARE ==
[2017-05-13 06:44] VITALS: TEMP 98.7; BMI 27.4
--- NOTE | 2017-05-13 07:20 | PDOC ---
History of Present Illness - General Chief Complaint: Pain Stated Complaint: ABD PAIN Time Seen by Provider: 05/13/17 07:05 History Source: Patient Exam Limitations: No Limitations - History of Present Illness Initial Comments: 05/13/17 08:03 66y M hx of cad with 11 strents, htn, hl, dm, bph presents with abdominal pain and chest pain. Pt states he has been constipated, and developed a burning pain that radiates from his stomach up to his chest. The pain is cramping/burning in nature. He was able to hav ea BM in the ED and feels slightly better. The pain has been going on for about a day. Pt endorses feeling the same sypmtoms in the past when he i sconstipated. Pt denies any fever/chills, sob, goodwin, leg swelling , numbnes/tingling/weakness. no diaphoresis, sob/goodwin. there is no worsening on exertion. Beta Iam given by EMS (Core Measure): No Beta Iam taken at Home (Core Measure): No Past History - Past Medical History Allergies/Adverse Reactions: Allergies Allergy/AdvReac Type Severity Reaction Status Date / Time No Known Allergies Allergy Verified 04/11/17 02:13 Home Medications: Ambulatory Orders Atorvastatin Ca [Lipitor] 80 mg PO DAILY 11/27/16 Clopidogrel Bisulfate [Plavix -] 75 mg PO DAILY 11/27/16 Metoprolol Succinate [Toprol XL -] 25 mg PO DAILY 11/27/16 Ranolazine [Ranexa -] 500 mg PO BID 11/27/16 Valsartan/Hydrochlorothiazide [Valsartan-Hctz 160-12.5 mg Tab] 1 each PO DAILY 11/27/16 Aspirin [ASA -] 81 mg PO DAILY 01/11/17 Tramadol HCl [Ultram -] 50 mg PO Q6H PRN 01/11/17 Acetaminophen [Tylenol .Extra-Strength -] 500 mg PO Q6H 01/24/17 Famotidine 20 mg PO BID 01/24/17 Meclizine HCl 12.5 mg PO DAILY 01/24/17 Sennosides [Senna] 8.6 mg PO ASDIR 01/24/17 Tamsulosin HCl 0.4 mg PO DAILY 01/24/17 Dicyclomine HCl [Bentyl -] 10 mg PO TID #60 tab 01/26/17 Docusate Sodium [Colace -] 100 mg PO TID #90 capsule 01/26/17 Metformin HCl 500 mg PO BID 05/13/17 Anemia: No Asthma: No Cancer: No Cardiac Disorders: Yes (11 Stents) CVA: No COPD: No CHF: No Dementia: No Diabetes: Yes GI Disorders: No Disorders: Yes (bph) HTN: Yes Hypercholesterolemia: Yes Liver Disease: No Suicide Attempt (Hx): No Seizures: No Thyroid Disease: No - Surgical History Abdominal Surgery: No Appendectomy: No Cardiac Surgery: Yes (STENTS X 11) Cholecystectomy: No Lung Surgery: No Neurologic Surgery: No Orthopedic Surgery: No - Immunization History Immunization Up to Date: No - Psycho/Social/Smoking Cessation Hx Anxiety: No Suicidal Ideation: No Smoking Status: No Smoking History: Former smoker Have you smoked in the past 12 months: No Number of Cigarettes Smoked Daily: 0 If you are a former smoker, when did you quit?: 8 YEARS AGO Information on smoking cessation initiated: No Hx Alcohol Use: No Drug/Substance Use Hx: No Substance Use Type: None Hx Substance Use Treatment: No Cardiac Specific PMH - Complaint Specific PMHX Cardiac Stent: Yes Pacemaker: No Review of Systems - Review of Systems Able to Perform ROS?: Yes Comments:: 05/13/17 08:12 Constitutional - no reported Fever, Chills, HEENT: no reported vision changes, sore throat Respiratory: no reported cough, sob, hemoptysis Cardiac: +chest pain, no reported palpitations, light headedness, leg swelling Abd/GI: +abd pain, constipation no reported nausea, vomiting, blood per rectum, melena, diarrhea : no reported dysuria, frequency, discharge Musculskelatal - no reported back pain, joint swelling skin - no reported bruising, erythema, rash neurological: no reported headache, numbness, focal weakness, tingling, ataxia, hematologic: no reported anemia, easy bruising, easy bleeding *Physical Exam - Vital Signs Last Vital Signs Temp Pulse Resp BP Pulse Ox 98.7 F 75 16 145/68 100 05/13/17 06:35 05/13/17 06:35 05/13/17 06:35 05/13/17 06:35 05/13/17 06:35 - Physical Exam Comments: 05/13/17 08:28 GENERAL: The patient is awake, alert, and fully oriented, Nontoxic - in no acute distress. HEAD: Normocephalic, atraumatic. EYES: extraocular movements intact, sclera anicteric, conjunctiva clear. ENT: Normal voice, Moist mucous membranes. NECK: Normal range of motion, supple LUNGS: Breath sounds equal, clear to auscultation bilaterally. No wheezes, no rhonchi, no rales. HEART: Regular rate and rhythm, normal S1 and S2 without murmur, rub or gallop. ABDOMEN: Soft, nontender, normoactive bowel sounds. No guarding, no rebound. . No CVA tenderness EXTREMITIES: Normal range of motion, no edema. no calf tenderness NEUROLOGICAL: No facial assymetry, Normal speech, moving all 4 extremities sptonaenously and symmetrically PSYCH: Normal mood, normal affect. SKIN: Warm, Dry, normal turgor, Heart Score/ECG Review - ECG Impressions Comment:: 05/13/17 08:30 Twelve-lead EKG was performed and reviewed by me. There is normal sinus rhythm with a normal rate. Rate of 71 Left axis deviation PVCS ED Treatment Course - LABORATORY CBC & Chemistry Diagram: 05/13/17 07:31 05/13/17 07:31 - ADDITIONAL ORDERS Additional order review: Laboratory Results 05/13/17 05/13/17 05/13/17 12:20 12:15 07:31 Sodium Potassium Chloride Carbon Dioxide Anion Gap BUN Creatinine Creat Clearance w eGFR Random Glucose Calcium Total Bilirubin AST ALT Alkaline Phosphatase Creatine Kinase 58 Troponin I < 0.02 Total Protein Albumin Lipase 250 Urine Color Yellow Urine Appearance Clear Urine pH 6.0 Urine Protein 2+ H Urine Glucose (UA) Negative Urine Ketones Trace H Urine Blood 1+ H Urine Nitrite Negative Urine Bilirubin Negative Urine Urobilinogen Negative Ur Leukocyte Esterase 2+ H Urine RBC 5 Urine WBC 23 Ur Epithelial Cells Rare Urine Bacteria Rare 05/13/17 07:31 Sodium 141 Potassium 3.7 Chloride 109 H Carbon Dioxide 25 Anion Gap 7 L BUN 13 Creatinine 1.0 Creat Clearance w eGFR > 60 Random Glucose 131 H D Calcium 9.2 Total Bilirubin 0.5 AST 16 ALT 15 Alkaline Phosphatase 81 Creatine Kinase 61 Troponin I 0.02 Total Protein 6.0 L Albumin 3.2 L Lipase Urine Color Urine Appearance Urine pH Urine Protein Urine Glucose (UA) Urine Ketones Urine Blood Urine Nitrite Urine Bilirubin Urine Urobilinogen Ur Leukocyte Esterase Urine RBC Urine WBC Ur Epithelial Cells Urine Bacteria 05/13/17 07:31 RBC 4.05 MCV 94.1 MCHC 34.1 RDW 14.5 MPV 7.6 D Neutrophils % 73.0 Lymphocytes % 19.6 Monocytes % 6.7 Eosinophils % 0.3 Basophils % 0.4 - RADIOLOGY Radiology Studies Ordered: Category Date Time Status ABDOMEN FLAT & UPRIGHT [RAD] Stat Radiology 05/13/17 07:26 Completed CHEST PA & LAT [RAD] Stat Radiology 05/13/17 07:26 Completed - Medications Given in the ED: ED Medications Discontinued Medications Generic Name Dose Route Start Last Admin Trade Name Freq PRN Reason Stop Dose Admin Al Hydroxide/Mg Hydroxide 30 ml 05/13/17 07:27 05/13/17 07:53 Mylanta Suspension - PO 05/13/17 07:28 30 ml ONCE ONE Administration Famotidine/Sodium Chloride 20 50 mls @ 100 mls/hr 05/13/17 07:27 05/13/17 07:53 mg/ Miscellaneous IVPB 05/13/17 07:56 100 mls/hr ONCE ONE Administration Morphine Sulfate 2 mg 05/13/17 10:15 05/13/17 10:26 Morphine Injection - IVPUSH 05/13/17 10:16 2 mg ONCE ONE Administration Medical Decision Making - Medical Decision Making 05/13/17 08:28 66y M hx of htn, dm, hl, cad s/p 11 stetnes presents with cramping/burning abdominal pain radiating to chest associated with constipation. on exam pt wel lappearing in no distress. exam unremarkable suspect constipation considered acs, however atypical acs will obtain troponin will obtain upraight abd xray 05/13/17 10:16 labs unremarkable xrays neg/nonspecific will obtain trop x 2 *DC/Admit/Observation/Transfer Diagnosis at time of Disposition: Abdominal pain Qualifiers: Abdominal location: epigastric Qualified Code(s): R10.13 - Epigastric pain Chest pain Qualifiers: Chest pain type: unspecified Qualified Code(s): R07.9 - Chest pain, unspecified - Discharge Dispostion Disposition: HOME Condition at time of disposition: Improved Admit: No - Referrals Referrals: Jordy Fu MD [Primary Care Provider] - - Patient Instructions Printed Discharge Instructions: DI for Chest Pain, DI for Abdominal Pain-Adult Additional Instructions: Return to the emergency department immediately with ANY new, persistent or worsening symptoms including worsening abdominal pain, fevers, inability to tolerate oral intake, chest pain, shortness of breath or any other concerns. Stay well hydrated. You MUST call and follow up with your doctor tomorrow. Your emergency department visit is not complete without a followup with your doctor for reevaluation. Please make sure your doctor reviews the results of your emergency evaluation. Print Language: CHINESE
[2017-05-13] MEDS ORDERED: MAG HYDROX/AL HYDROX/SIMETH 355 ML ORAL.SUSP PO ONE (07:27)
[2017-05-13] MEDS ORDERED: FAMOTIDINE 20 MG/50 ML IVPB 20 MG in PREMIX 50 IVPB ONE (07:27)
[2017-05-13 07:39] LABS: BASOPHIL 0.4 % (0-2.0); EOSINOPHIL 0.3 % (0-4.5); MCH 32.1 pg (25.7-33.7); MCHC 34.1 g/dl (32.0-35.9); MEAN CELL VOLUME 94.1 fl (80-96); MEAN PLT VOLUME 7.6 fl (7.5-11.1); PLATELET COUNT 229 K/MM3 (134-434); RDW 14.5 % (11.9-15.9); WHITE BLOOD COUNT 6.8 K/mm3 (4.0-10.0)
[2017-05-13] MEDS ORDERED: FAMOTIDINE 20 MG/50 ML IVPB 50 ML IVPB ONE (07:42)
[2017-05-13] MEDS ORDERED: MAG HYDROX/AL HYDROX/SIMETH 30 ML UNIT-DOSE CUP ONE (07:42)
[2017-05-13 08:04] LABS: ALBUMIN 3.2 g/dl (3.4-5.0); ANION GAP 7 (8-16); BILIRUBIN,TOTAL 0.5 mg/dL (0.2-1.0); CALCIUM 9.2 mg/dL (8.5-10.1); CO2 25 mmol/L (21-32); GLUCOSE,RANDOM 131 mg/dL (74-106); SGOT/AST 16 U/L (15-37); SGPT/ALT 15 U/L (12-78)
[2017-05-13 08:06] LABS: ALK PHOS 81 U/L (45-117); TROPONIN I 0.02 ng/ml (0.00-0.05)
[2017-05-13] MEDS ORDERED: morphine CARPU-JECT 2 MG/1 ML DISP.SYRIN IVPUSH ONE (10:15)
[2017-05-13] MEDS ORDERED: morphine CARPU-JECT 4 MG/1 ML DISP.SYRIN ONE (10:27)
[2017-05-13 12:33] LABS: URINE APPEARANCE CLEAR; URINE BILIRUBIN NEGATIVE (NEGATIVE); URINE BLOOD 1+ (NEGATIVE); URINE COLOR YELLOW; URINE GLUCOSE (UA) NEGATIVE (NEGATIVE); URINE KETONE TRACE (NEGATIVE); URINE NITRITE NEGATIVE (NEGATIVE); URINE UROBILINOGEN NEGATIVE mg/dL (0.2-1.0)
[2017-05-13 12:35] LABS: URINE LEUK ESTERASE 2+ (NEGATIVE); URINE PROTEIN 2+ (NEGATIVE)
[2017-05-13 12:36] LABS: URINE BACTERIA RARE /hpf (NONE SEEN); URINE RBC 5 /hpf (0-3); URINE WBC 23 /hpf (3-5)
[2017-05-13 13:02] LABS: TROPONIN I < 0.02 ng/ml (0.00-0.05)
[2017-05-13 13:45] VITALS: BP 136/74; PULSE 80
--- NOTE | 2017-05-14 09:15 | EKG ---
Test Reason : Blood Pressure : / mmHG Vent. Rate : 071 BPM Atrial Rate : 071 BPM P-R Int : 156 ms QRS Dur : 098 ms QT Int : 408 ms P-R-T Axes : 067 -43 023 degrees QTc Int : 443 ms SINUS RHYTHM WITH OCCASIONAL PREMATURE VENTRICULAR COMPLEXES LEFT AXIS DEVIATION ABNORMAL ECG WHEN COMPARED WITH ECG OF 11-APR-2017 02:11, PREMATURE VENTRICULAR COMPLEXES ARE NOW PRESENT Confirmed by TAMIA MADRIGAL, CONY ([id number]) on 05/14/2017 9:14:52 AM Referred By: Confirmed By:CONY CANTRELL MD
== END 2017-05-13 13:44 | disposition home or self-care (01) ==
LOC: JER 06:12
DX: R07.89 Other chest pain (principal); R10.13 Epigastric pain; I25.10 Atherosclerotic heart disease of native coronary artery without angina pectoris; I10 Essential (primary) hypertension; Z95.5 Presence of coronary angioplasty implant and graft; E11.9 Type 2 diabetes mellitus without complications; Z79.84 Long term (current) use of oral hypoglycemic drugs; N40.0 Benign prostatic hyperplasia without lower urinary tract symptoms
CPT/HCPCS: 36415; 71020-TC; 74020-TC; 80053; 81003; 81015; 82550; 83690; 84484; 85025; 93005; 93010; 99285-25

== ENCOUNTER 2017-05-31 14:58 | Inpatient (IN) | payer MEDICARE, OTHER ==
--- NOTE | 2017-05-31 16:13 | PDOC ---
Attending Attestation - Resident Resident Name: Thierno Davis - ED Attending Attestation I have performed the following: I have examined & evaluated the patient, The case was reviewed & discussed with the resident, I agree w/resident's findings & plan, Exceptions are as noted - HPI HPI: 05/31/17 16:10 67yo hx CAD s/p 11 stents, HTN, HL, DM, BPH, p/w 3 days constant CP, started at rest, non radiating, not a/w N/V. Was seen at cardiologists office today and was sent to ED for admission due to high risk CP. - Physicial Exam PE: 05/31/17 16:14 GENERAL: Awake, alert, and fully oriented, in no acute distress HEAD: No signs of trauma EYES: PERRLA, EOMI, sclera anicteric, conjunctiva clear ENT: Auricles normal inspection, hearing grossly normal, nares patent, oropharynx clear without exudates. Moist mucosa NECK: Normal ROM, supple, no lymphadenopathy, JVD, or masses LUNGS: Breath sounds equal, clear to auscultation bilaterally. No wheezes, and no crackles HEART: Regular rate and rhythm, normal S1 and S2, no murmurs, rubs or gallops ABDOMEN: Soft, nontender, normoactive bowel sounds. No guarding, no rebound. No masses EXTREMITIES: Normal range of motion, no edema. No clubbing or cyanosis. No cords, erythema, or tenderness NEUROLOGICAL: Normal speech, cranial nerves intact, negative pronator drift, 5/ 5 strength in all 4 extremities, normal sensation to light touch in all 4 extremities, normal cerebellar exam, normal gait, normal reflexes and tone SKIN: Warm, Dry, normal turgor, no rashes or lesions noted. . - Medical Decision Making 05/31/17 17:05 67-year-old male with extensive cardiac history presents with 3 days of constant chest pain. Patient sent in for admission by his insole reinforcer. -labs -monitor -cxr -admit
--- NOTE | 2017-05-31 16:25 | CON.CARD ---
Cardiology Consult (text) - Consultation Consultation Note: Seen and examined in office today w/ Dr. Pro, referred to ER. HPI: 67M CAD s/p multiple PCI, last in 03/2017 distal LCx; remainder of vessels patent stents and mild dz. Chronic chest pain, largely atypical features. Seen in office today again c/o diffuse chest pain, non-exertional. Chronic JACKSON, unchanged. No palps or syncope. No edema or CHF sx. On office ECG, chronic ST changes, slightly more pronounced than previous prompting my office partner to refer to ER for observation. PMH: HTN, CAD, HLD ALL: NKDA MEDS: reviewed in EMR, ASA, Plavix, Toprol FH: Non-contributory SH: Non-smoker. EKG Reviewed in office w/ Dr. Pro: NSR w/ NSST changes laterally, similar to previous but slightly more pronounced. CXR and Labs pending. EXAM: BP: 150/70 Anicteric S1,2. RRR. No murmurs Chest CTA Abd soft/NT Ext without sig edema. IMP: Atypical chest pain Chronic chest pain syndrome, atypical features CAD s/p mulitvessel PCI w/ cath 2 months ago PCI distal LCx, other vessels non- obstx HTN REC: TELE obs GINA Serial ECGS ASA and Plavix Echo Add Ranexa to low dose Toprol. If enzymes negative and ECG stable, plan for d/c home in AM with outpatient f/u Dr. Pro early next week (Sunday- [phone](
[2017-05-31 16:27] LABS: EOSINOPHIL 1.1 % (0-4.5); MCH 32.7 pg (25.7-33.7); MCHC 34.3 g/dl (32.0-35.9); MEAN CELL VOLUME 95.2 fl (80-96); NEUTROPHILS 66.3 % (42.8-82.8); PLATELET COUNT 267 K/MM3 (134-434); RDW 14.9 % (11.9-15.9); WHITE BLOOD COUNT 5.8 K/mm3 (4.0-10.0)
--- NOTE | 2017-05-31 16:39 | PDOC ---
History of Present Illness - General Chief Complaint: Chest Pain Stated Complaint: CHEST PAIN Time Seen by Provider: 05/31/17 15:36 History Source: Patient Exam Limitations: No Limitations - History of Present Illness Initial Comments: 05/31/17 16:42 The patient is a 67M with a PMH of CAD s/p 11 stents, HTN, HLD, DM, BPH who presents from his keypuncher's office for 3 days of CP. The patient says he was laying down when his chest pain started. It does not radiate, and is not associated with nausea or vomiting. He does have associated SOB. I spoke with his keypuncher's partner, Dr. Luna, who told me that this patient and a PCI w/in the last month and had no residual coronary dz. He wants the patient admitted under obs for R/O MS. All: None Past History - Past Medical History Allergies/Adverse Reactions: Allergies Allergy/AdvReac Type Severity Reaction Status Date / Time No Known Allergies Allergy Verified 05/31/17 14:59 Home Medications: Ambulatory Orders Atorvastatin Ca [Lipitor] 80 mg PO DAILY 11/27/16 Clopidogrel Bisulfate [Plavix -] 75 mg PO DAILY 11/27/16 Metoprolol Succinate [Toprol XL -] 25 mg PO DAILY 11/27/16 Ranolazine [Ranexa -] 500 mg PO BID 11/27/16 Valsartan/Hydrochlorothiazide [Valsartan-Hctz 160-12.5 mg Tab] 1 each PO DAILY 11/27/16 Aspirin [ASA -] 81 mg PO DAILY 01/11/17 Acetaminophen [Tylenol .Extra-Strength -] 500 mg PO Q6H 01/24/17 Famotidine 20 mg PO BID 01/24/17 Meclizine HCl 12.5 mg PO DAILY 01/24/17 Sennosides [Senna] 8.6 mg PO ASDIR 01/24/17 Tamsulosin HCl 0.4 mg PO DAILY 01/24/17 Dicyclomine HCl [Bentyl -] 10 mg PO TID #60 tab 01/26/17 Docusate Sodium [Colace -] 100 mg PO TID #90 capsule 01/26/17 Metformin HCl 500 mg PO BID 05/13/17 Anemia: No Asthma: No Cancer: No Cardiac Disorders: Yes (11 Stents) CVA: No COPD: No CHF: No Dementia: No Diabetes: Yes GI Disorders: No Disorders: Yes (bph) HTN: Yes Hypercholesterolemia: Yes Liver Disease: No Suicide Attempt (Hx): No Seizures: No Thyroid Disease: No - Surgical History Abdominal Surgery: No Appendectomy: No Cardiac Surgery: Yes (STENTS X 11) Cholecystectomy: No Lung Surgery: No Neurologic Surgery: No Orthopedic Surgery: No - Immunization History Immunization Up to Date: No - Psycho/Social/Smoking Cessation Hx Anxiety: No Suicidal Ideation: No Smoking Status: No Smoking History: Former smoker Have you smoked in the past 12 months: No Number of Cigarettes Smoked Daily: 0 If you are a former smoker, when did you quit?: 2008 Information on smoking cessation initiated: No Hx Alcohol Use: No Drug/Substance Use Hx: No Substance Use Type: None Hx Substance Use Treatment: No Review of Systems - Review of Systems Able to Perform ROS?: Yes Is the patient limited Romanian proficient: No Constitutional: No: Chills, Fever Respiratory: Yes: Shortness of Breath Cardiac (ROS): Yes: Chest Pain ABD/GI: No: Nausea, Vomiting, Other (abd pain) : No: Burning, Discharge Neurological: No: Headache, Numbness, Tingling, Weakness *Physical Exam - Vital Signs Last Vital Signs Temp Pulse Resp BP Pulse Ox 97.9 F 67 18 151/72 100 05/31/17 15:00 05/31/17 15:00 05/31/17 15:00 05/31/17 15:00 05/31/17 16:24 - Physical Exam General Appearance: Yes: Nourished, Appropriately Dressed HEENT: positive: Normal Voice, Hearing Grossly Normal Respiratory/Chest: positive: Lungs Clear, Normal Breath Sounds. negative: Chest Tender, Respiratory Distress, Labored Respiration Cardiovascular: positive: Regular Rhythm, Regular Rate, S1, S2. negative: Diastolic Murmur, Systolic Murmur Gastrointestinal/Abdominal: positive: Flat, Soft. negative: Tender Integumentary: positive: Dry, Warm. negative: Clammy, Diaphoresis Neurologic: positive: Fully Oriented, Alert, Normal Mood/Affect, Motor Strength 5/5 Heart Score/ECG Review - ST and T Comment:: 05/31/17 16:53 unchanged RITA in V2 and V3 - ECG Impressions Comment:: 05/31/17 16:54 NSR, EKG unchanged from 05/13/17 ED Treatment Course - LABORATORY CBC & Chemistry Diagram: 05/31/17 16:14 05/31/17 16:14 - ADDITIONAL ORDERS Additional order review: 05/31/17 16:14 RBC 3.72 L MCV 95.2 MCHC 34.3 RDW 14.9 MPV 8.0 Neutrophils % 66.3 Lymphocytes % 22.5 Monocytes % 9.1 Eosinophils % 1.1 D Basophils % 1.0 - RADIOLOGY Radiology Studies Ordered: Category Date Time Status CHEST X-RAY PORTABLE* [RAD] Stat Radiology 05/31/17 15:57 Completed Medical Decision Making - Medical Decision Making 05/31/17 16:54 The patient is a 67M with an extensive cardiac PMH who presents from his keypuncher's office after 3 days of CP. Acid Dipper wants to admit to r/o MS. He has put in all of these orders. Admission complete. *DC/Admit/Observation/Transfer Diagnosis at time of Disposition: Chest pain Qualifiers: Chest pain type: unspecified Qualified Code(s): R07.9 - Chest pain, unspecified - Discharge Dispostion Condition at time of disposition: Stable Admit: Yes - Referrals - Attestations Physician Attestion: 05/31/17 16:39 I, Dr. Thierno Davis, attest that this document has been prepared under my direction and personally reviewed by me in its entirety. I further attest, that it accurately reflects all work, treatment, procedures and medical decision -making performed by me.
[2017-05-31 17:04] LABS: ALBUMIN 3.2 g/dl (3.4-5.0); ANION GAP 6 (8-16); BILIRUBIN,TOTAL 0.5 mg/dL (0.2-1.0); CALCIUM 8.5 mg/dL (8.5-10.1); CO2 26 mmol/L (21-32); CREATININE 1.4 mg/dL (0.7-1.3); GLUCOSE,RANDOM 181 mg/dL (74-106); SGOT/AST 17 U/L (15-37); SGPT/ALT 24 U/L (12-78); TOT PROT 5.8 g/dl (6.4-8.2)
[2017-05-31 17:05] LABS: ALK PHOS 76 U/L (45-117)
[2017-05-31 17:08] LABS: TROPONIN I 0.02 ng/ml (0.00-0.05)
[2017-05-31] MEDS ORDERED: morphine CARPU-JECT 4 MG/1 ML DISP.SYRIN IVPUSH ONE (18:35)
[2017-05-31] MEDS ORDERED: morphine CARPU-JECT 4 MG/1 ML DISP.SYRIN ONE (18:36)
[2017-05-31] MEDS: ATORVASTATIN CA 80 MG TABLET (FP) PO SCH (21:04)
[2017-05-31] MEDS: PANTOPRAZOLE 40 MG TABLET (FP) PO SCH (21:04)
[2017-05-31] MEDS: RANOLAZINE E.R. 500 MG TABLET (FP) PO SCH (21:04)
[2017-05-31] MEDS: HEPARIN NA (PORCINE) 5,000 UNITS/ML 1ML VIAL SQ SCH (21:04)
[2017-05-31] MEDS: DOCUSATE SODIUM 100 MG CAPSULE (FP) PO SCH (21:04)
[2017-05-31] MEDS: INSULIN SLIDING SCALE (NOVOLOG) 1 VIAL SQ SCH (21:05)
[2017-05-31 22:15] LABS: TROPONIN I 0.02 ng/ml (0.00-0.05)
[2017-06-01 00:34] VITALS: BMI 25.6
[2017-06-01] MEDS: INSULIN SLIDING SCALE (NOVOLOG) 1 VIAL SQ SCH ×4 (06:23→21:41)
[2017-06-01] MEDS: DOCUSATE SODIUM 100 MG CAPSULE (FP) PO SCH ×3 (06:24→21:40)
[2017-06-01] MEDS: metFORMIN HCL 500 MG TABLET (FP) PO SCH ×2 (06:24→17:38)
[2017-06-01 07:32] LABS: BASOPHIL 0.6 % (0-2.0); EOSINOPHIL 2.7 % (0-4.5); MCH 32.5 pg (25.7-33.7); MEAN CELL VOLUME 95.6 fl (80-96); MEAN PLT VOLUME 8.6 fl (7.5-11.1); NEUTROPHILS 60.2 % (42.8-82.8); PLATELET COUNT 262 K/MM3 (134-434); RDW 14.5 % (11.9-15.9); WHITE BLOOD COUNT 6.6 K/mm3 (4.0-10.0)
[2017-06-01 07:42] LABS: ANION GAP 6 (8-16); CALCIUM 8.2 mg/dL (8.5-10.1); CO2 26 mmol/L (21-32); CREATININE 1.1 mg/dL (0.7-1.3); GLUCOSE,RANDOM 108 mg/dL (74-106); SGOT/AST 15 U/L (15-37); SGPT/ALT 21 U/L (12-78)
[2017-06-01 07:44] LABS: ALK PHOS 72 U/L (45-117); BILIRUBIN,TOTAL 0.6 mg/dL (0.2-1.0); TOT PROT 5.6 g/dl (6.4-8.2)
--- NOTE | 2017-06-01 08:28 | PN ---
Progress Note, Physician Chief Complaint: History in Slovenian This AM says he has chest pain all night Feels it is "exactly" like his pain before the last stent. " I feel there is a blockage again" History of Present Illness: TELE: NSR - Current Medication List Current Medications: Active Medications Aspirin (Asa -) 81 mg PO DAILY [facility] Atorvastatin Calcium (Lipitor -) 80 mg PO HS [facility] Last Admin: 05/31/17 21:04 Dose: 80 mg Clopidogrel Bisulfate (Plavix -) 75 mg PO DAILY [facility] Docusate Sodium (Colace -) 100 mg PO TID [facility] Last Admin: 06/01/17 06:24 Dose: Not Given Heparin Sodium (Porcine) (Heparin -) 5,000 unit SQ BID [facility] Last Admin: 05/31/17 21:04 Dose: 5,000 unit Hydrochlorothiazide (Hctz -) 12.5 mg PO DAILY [facility] Insulin Aspart (Novolog Vial Sliding Scale -) 1 vial SQ ACHS [facility] PRN Reason: Protocol Last Admin: 06/01/17 06:23 Dose: Not Given Meclizine HCl (Antivert -) 12.5 mg PO DAILY [facility] Metformin HCl (Glucophage -) 500 mg PO BID@0700,1630 [facility] Last Admin: 06/01/17 06:24 Dose: Not Given Metoprolol Succinate (Toprol Xl -) 25 mg PO DAILY [facility] Pantoprazole Sodium (Protonix -) 40 mg PO DAILY [facility] Last Admin: 05/31/17 21:04 Dose: 40 mg Ranolazine (Ranexa -) 500 mg PO BID [facility] Last Admin: 05/31/17 21:04 Dose: 500 mg Tamsulosin HCl (Flomax -) 0.4 mg PO DAILY [facility] Valsartan (Diovan -) 160 mg PO DAILY [facility] - Objective Vital Signs: Vital Signs Temperature 98.0 F 06/01/17 02:00 Pulse Rate 66 06/01/17 02:00 Respiratory Rate 16 06/01/17 02:00 Blood Pressure 137/61 06/01/17 02:00 O2 Sat by Pulse Oximetry (%) 97 05/31/17 20:00 Constitutional: Yes: No Distress, Calm Eyes: Yes: Conjunctiva Clear Cardiovascular: Yes: Regular Rate and Rhythm Respiratory: Yes: CTA Bilaterally Gastrointestinal: Yes: Soft Edema: No Neurological: Yes: Alert, Oriented ...Motor Strength: WNL Labs: CBC, BMP 06/01/17 05:35 06/01/17 05:35 - ....Imaging EKG: Image Reviewed Assessment/Plan IMP: Chronic chest pain syndrome CAD s/p mulitvessel PCI w/ cath 2 months ago PCI distal LCx, other vessels non- obstx HTN Patient now saying his chest pain is exactly like his pain prior to most recent stent and is requesting cardiac cath. REC: Long h/o of CAD w/ multivessel PCI. Patient now complaining of pain exactly like his previous anginal sx. ?Unstable angina Continue ASA, Plavix, B-Iam, Ranexa Echo w/ normal LV function Will transfer to [facility] for diagnostic [facility]
[2017-06-01 08:55] LABS: CPK 74 IU/L (39-308); TROPONIN I 0.02 ng/ml (0.00-0.05)
--- NOTE | 2017-06-01 09:31 | EKG ---
Test Reason : Blood Pressure : / mmHG Vent. Rate : 060 BPM Atrial Rate : 060 BPM P-R Int : 156 ms QRS Dur : 114 ms QT Int : 434 ms P-R-T Axes : 063 -45 -26 degrees QTc Int : 434 ms NORMAL SINUS RHYTHM LEFT AXIS DEVIATION POSSIBLE ANTERIOR INFARCT , AGE UNDETERMINED ABNORMAL ECG WHEN COMPARED WITH ECG OF 13-MAY-2017 06:38, PREMATURE VENTRICULAR COMPLEXES ARE NO LONGER PRESENT INVERTED T WAVES HAVE REPLACED NONSPECIFIC T WAVE ABNORMALITY IN INFERIOR LEADS Confirmed by YAIMA HERNANDEZ MD ([id number]) on 06/01/2017 9:31:00 AM Referred By: Confirmed By:YAIMA HERNANDEZ MD
[2017-06-01] MEDS ORDERED: PATIENT'S OWN MEDICATION (NON-FORMULARY) (Valsartan/Hydrochlorothiazide [Valsartan-Hctz 16 PO SCH (10:00)
[2017-06-01] MEDS: TAMSULOSIN HCL 0.4 MG CAP.ER.24H (FP) PO SCH (10:31)
[2017-06-01] MEDS: ASPIRIN 81 MG CHEWABLE TABLETS PO SCH (10:31)
[2017-06-01] MEDS: METOPROLOL SUCCINATE 25 MG TAB.SR.24H (FP) PO SCH (10:31)
[2017-06-01] MEDS: VALSARTAN 160 MG TABLET (UD) PO SCH (10:31)
[2017-06-01] MEDS: HYDROCHLOROTHIAZIDE 12.5 MG CAPSULE (FP) PO SCH (10:31)
[2017-06-01] MEDS: RANOLAZINE E.R. 500 MG TABLET (FP) PO SCH ×2 (10:31→21:40)
[2017-06-01] MEDS: PANTOPRAZOLE 40 MG TABLET (FP) PO SCH (10:31)
[2017-06-01] MEDS: CLOPIDOGREL BISULFATE 75 MG TABLET (FP) PO SCH (10:31)
[2017-06-01] MEDS: HEPARIN NA (PORCINE) 5,000 UNITS/ML 1ML VIAL SQ SCH ×2 (10:32→21:40)
[2017-06-01] MEDS: MECLIZINE HCL 12.5 MG TABLET PO SCH (10:32)
--- NOTE | 2017-06-01 11:28 | HP ---
Admitting History and Physical - Past Medical History Cardiovascular: Yes: CAD (Prior multiple PCIs), HTN, Hyperlipdemia, Other ( Angina) Gastrointestinal: Yes: GERD Endocrine: Yes: Diabetes Mellitus - Past Surgical History Past Surgical History: Yes: Stent - Smoking History Smoking history: Former smoker Have you smoked in the past 12 months: No Aproximately how many cigarettes per day: 0 If you are a former smoker, when did you quit?: 2008 - Alcohol/Substance Use Hx Alcohol Use: No History of Substance Use: reports: None - Social History ADL: Independent History of Recent Travel: No Home Medications - Allergies Allergies/Adverse Reactions: Allergies Allergy/AdvReac Type Severity Reaction Status Date / Time No Known Allergies Allergy Verified 05/31/17 14:59 - Home Medications Home Medications: Ambulatory Orders Atorvastatin Ca [Lipitor] 80 mg PO DAILY 11/27/16 Clopidogrel Bisulfate [Plavix -] 75 mg PO DAILY 11/27/16 Metoprolol Succinate [Toprol XL -] 25 mg PO DAILY 11/27/16 Ranolazine [Ranexa -] 500 mg PO BID 11/27/16 Valsartan/Hydrochlorothiazide [Valsartan-Hctz 160-12.5 mg Tab] 1 each PO DAILY 11/27/16 Aspirin [ASA -] 81 mg PO DAILY 01/11/17 Acetaminophen [Tylenol .Extra-Strength -] 500 mg PO Q6H 01/24/17 Famotidine 20 mg PO BID 01/24/17 Meclizine HCl 12.5 mg PO DAILY 01/24/17 Sennosides [Senna] 8.6 mg PO ASDIR 01/24/17 Tamsulosin HCl 0.4 mg PO DAILY 01/24/17 Dicyclomine HCl [Bentyl -] 10 mg PO TID #60 tab 01/26/17 Docusate Sodium [Colace -] 100 mg PO TID #90 capsule 01/26/17 Metformin HCl 500 mg PO BID 05/13/17 Family Disease History - Family Disease History Family Disease History: Diabetes: Father, Heart Disease: Father Physical Examination Vital Signs: Vital Signs Temperature 98.2 F 06/01/17 10:30 Pulse Rate 63 06/01/17 10:30 Respiratory Rate 18 06/01/17 10:30 Blood Pressure 144/66 06/01/17 10:30 O2 Sat by Pulse Oximetry (%) 97 05/31/17 20:00 Labs: CBC, BMP 06/01/17 05:35 06/01/17 05:35
[2017-06-01 16:37] LABS: CPK 69 IU/L (39-308); TROPONIN I < 0.02 ng/ml (0.00-0.05)
[2017-06-01] MEDS: ATORVASTATIN CA 80 MG TABLET (FP) PO SCH (21:40)
[2017-06-02] MEDS ORDERED: NITROGLYCERIN SUBLINGUAL 1/150 0.4 MG TAB SL ONE ×2 (05:09→23:42)
--- NOTE | 2017-06-02 05:15 | HOSP ---
Subjective - Review of Symptoms Events since last encounter: Called by nursing to read EKG and evaluation patient for chest pain. Patient says he went to the bathroom and when he walked back to bed he started to develop left sided aching nonradiating chest pain, exactly like his angina pain. says the pain is 8/10. Says at home he take nitroglycerin under his tongue to help with the anginal pain, he is requesting IV morphine push because "it takes away all the pain" denies difficulty breathing, palpitations, dizziness, lightheadedness. General: No: Chills, Night Sweats, Fatigue, Malaise, Appetite HEENT: No: Head Aches, Visual Changes, Dysphasia Pulmonary: No: Cough, Pleuritic Chest Pain Cardiovascular: Yes: Chest Pain. No: Palpitations, Orthopnea Gastrointestinal: Yes: Constipation. No: Nausea Musculoskeletal: No: Back Pain, Muscle Weakness Neurological: No: Weakness, Incoordination, Change in speech, Confusion Physical Examination Vital Signs: Vital Signs Temperature 98.1 F 06/02/17 05:05 Pulse Rate 59 L 06/02/17 05:05 Respiratory Rate 18 06/02/17 05:05 Blood Pressure 143/61 06/02/17 05:05 O2 Sat by Pulse Oximetry (%) 97 06/02/17 01:20 Findings/Remarks: throughout conversation patient was in no acute distress, speaking calmly, without difficulty. requesting morphine several times even though nitrosublingual helps him at home. Constitutional: Yes: Well Nourished, No Distress, Calm Eyes: Yes: Conjunctiva Clear, EOM Intact, PERRL HENT: Yes: Atraumatic, Normocephalic, Other (missing dentition). No: Pharyngeal Erythema, Rhinnorhea Neck: Yes: Supple, Trachea Midline. No: Decreased ROM, Thyromegaly Cardiovascular: Yes: Regular Rate and Rhythm, Bradycardia, S1, S2. No: Murmur Respiratory: Yes: Regular, CTA Bilaterally, On Nasal O2. 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 stat EKG similar to previous EKG without any acute ischemic changes. Patient remained resting comfortably in bed during interview. Jocelyne(nurse) to notify Dr. Bautista. Recommendations/Interventions: Nitrostat given. patient resting comfortably in bed. recommend patient get bedside commode to decrease distance walking. patient awaiting transfer for cardiac cath. primary team to f/u in the AM for reassessment. Visit type - Emergency Visit Emergency Visit: No - New Patient This patient is new to me today: Yes Date on this admission: 06/02/17 - Critical Care Critical Care patient: No
[2017-06-02] MEDS: DOCUSATE SODIUM 100 MG CAPSULE (FP) PO SCH ×3 (05:36→20:59)
[2017-06-02] MEDS: INSULIN SLIDING SCALE (NOVOLOG) 1 VIAL SQ SCH ×4 (06:13→20:59)
--- NOTE | 2017-06-02 09:44 | PN ---
Progress Note, Physician Chief Complaint: no acute distress - Current Medication List Current Medications: Active Medications Aspirin (Asa -) 81 mg PO DAILY [facility] Last Admin: 06/01/17 10:31 Dose: 81 mg Atorvastatin Calcium (Lipitor -) 80 mg PO HS [facility] Last Admin: 06/01/17 21:40 Dose: 80 mg Clopidogrel Bisulfate (Plavix -) 75 mg PO DAILY [facility] Last Admin: 06/01/17 10:31 Dose: 75 mg Docusate Sodium (Colace -) 100 mg PO TID [facility] Last Admin: 06/02/17 05:36 Dose: Not Given Heparin Sodium (Porcine) (Heparin -) 5,000 unit SQ BID [facility] Last Admin: 06/01/17 21:40 Dose: 5,000 unit Hydrochlorothiazide (Hctz -) 12.5 mg PO DAILY [facility] Last Admin: 06/01/17 10:31 Dose: 12.5 mg Insulin Aspart (Novolog Vial Sliding Scale -) [address] [facility] PRN Reason: Protocol Last Admin: 06/02/17 06:13 Dose: Not Given Meclizine HCl (Antivert -) 12.5 mg PO DAILY [facility] Last Admin: 06/01/17 10:32 Dose: Not Given Metoprolol Succinate (Toprol Xl -) 25 mg PO DAILY [facility] Last Admin: 06/01/17 10:31 Dose: 25 mg Pantoprazole Sodium (Protonix -) 40 mg PO DAILY [facility] Last Admin: 06/01/17 10:31 Dose: 40 mg Ranolazine (Ranexa -) 500 mg PO BID [facility] Last Admin: 06/01/17 21:40 Dose: 500 mg Tamsulosin HCl (Flomax -) 0.4 mg PO DAILY [facility] Last Admin: 06/01/17 10:31 Dose: 0.4 mg Valsartan (Diovan -) 160 mg PO DAILY [facility] Last Admin: 06/01/17 10:31 Dose: 160 mg - Objective Vital Signs: Vital Signs Temperature 98.1 F 06/02/17 05:05 Pulse Rate 59 L 06/02/17 05:05 Respiratory Rate 18 06/02/17 05:05 Blood Pressure 143/61 06/02/17 05:05 O2 Sat by Pulse Oximetry (%) 97 06/02/17 01:20 Constitutional: Yes: Calm Cardiovascular: Yes: Regular Rate and Rhythm Respiratory: Yes: CTA Bilaterally Gastrointestinal: Yes: Soft Edema: No Neurological: Yes: Alert, Oriented Labs: CBC, BMP 06/01/17 05:35 06/01/17 05:35 - ....Imaging EKG: Image Reviewed (NSR, one 3 beat run NSVT) Assessment/Plan IMP: Chronic chest pain syndrome CAD s/p mulitvessel PCI w/ cath 2 months ago PCI distal LCx, other vessels non- obstx HTN Patient saying his chest pain is exactly like his pain prior to most recent stent and is requesting cardiac cath, again this morning: asked for morphine. Then had one SLNTG, which relieved pain. REC: Long h/o of CAD w/ multivessel PCI. Patient now complaining of pain exactly like his previous anginal sx. ?Unstable angina vs. med seeking behavior (opiates?) Continue ASA, Plavix, B-Iam, Ranexa Echo w/ normal LV function Will transfer to [facility] for diagnostic [facility]: he has multivessel CAD and need to exclude restenosis.
[2017-06-02] MEDS ORDERED: PT OWN MED DRAWER 7, Y5N ONE ×2 (10:07→19:25)
[2017-06-02] MEDS: MECLIZINE HCL 12.5 MG TABLET PO SCH (10:15)
[2017-06-02] MEDS: ASPIRIN 81 MG CHEWABLE TABLETS PO SCH (10:16)
[2017-06-02] MEDS: PANTOPRAZOLE 40 MG TABLET (FP) PO SCH (10:16)
[2017-06-02] MEDS: TAMSULOSIN HCL 0.4 MG CAP.ER.24H (FP) PO SCH (10:16)
[2017-06-02] MEDS: HYDROCHLOROTHIAZIDE 12.5 MG CAPSULE (FP) PO SCH (10:16)
[2017-06-02] MEDS: METOPROLOL SUCCINATE 25 MG TAB.SR.24H (FP) PO SCH (10:16)
[2017-06-02] MEDS: RANOLAZINE E.R. 500 MG TABLET (FP) PO SCH ×2 (10:16→20:59)
[2017-06-02] MEDS: HEPARIN NA (PORCINE) 5,000 UNITS/ML 1ML VIAL SQ SCH ×2 (10:16→20:59)
[2017-06-02] MEDS: CLOPIDOGREL BISULFATE 75 MG TABLET (FP) PO SCH (10:16)
[2017-06-02] MEDS: VALSARTAN 160 MG TABLET (UD) PO SCH (10:17)
[2017-06-02 19:06] LABS: CPK 46 IU/L (39-308); TROPONIN I < 0.02 ng/ml (0.00-0.05)
[2017-06-02] MEDS: ATORVASTATIN CA 80 MG TABLET (FP) PO SCH (20:59)
--- NOTE | 2017-06-02 21:59 | PN ---
Progress Note, Physician - Current Medication List Current Medications: Active Medications Aspirin (Asa -) 81 mg PO DAILY [facility] Last Admin: 06/02/17 10:16 Dose: 81 mg Atorvastatin Calcium (Lipitor -) 80 mg PO HS [facility] Last Admin: 06/02/17 20:59 Dose: 80 mg Clopidogrel Bisulfate (Plavix -) 75 mg PO DAILY [facility] Last Admin: 06/02/17 10:16 Dose: 75 mg Docusate Sodium (Colace -) 100 mg PO TID [facility] Last Admin: 06/02/17 20:59 Dose: 100 mg Heparin Sodium (Porcine) (Heparin -) 5,000 unit SQ BID [facility] Last Admin: 06/02/17 20:59 Dose: 5,000 unit Hydrochlorothiazide (Hctz -) 12.5 mg PO DAILY [facility] Last Admin: 06/02/17 10:16 Dose: 12.5 mg Insulin Aspart (Novolog Vial Sliding Scale -) 1 vial SQ [facility] PRN Reason: Protocol Last Admin: 06/02/17 20:59 Dose: Not Given Meclizine HCl (Antivert -) 12.5 mg PO DAILY [facility] Last Admin: 06/02/17 10:15 Dose: Not Given Metoprolol Succinate (Toprol Xl -) 25 mg PO DAILY [facility] Last Admin: 06/02/17 10:16 Dose: 25 mg Pantoprazole Sodium (Protonix -) 40 mg PO DAILY [facility] Last Admin: 06/02/17 10:16 Dose: 40 mg Ranolazine (Ranexa -) 500 mg PO BID [facility] Last Admin: 06/02/17 20:59 Dose: 500 mg Tamsulosin HCl (Flomax -) 0.4 mg PO DAILY [facility] Last Admin: 06/02/17 10:16 Dose: 0.4 mg Valsartan (Diovan -) 160 mg PO DAILY [facility] Last Admin: 06/02/17 10:17 Dose: 160 mg - Objective Vital Signs: Vital Signs Temperature 98.0 F 06/02/17 15:00 Pulse Rate 60 06/02/17 15:00 Respiratory Rate 18 06/02/17 21:00 Blood Pressure 127/56 06/02/17 15:00 O2 Sat by Pulse Oximetry (%) 98 06/02/17 21:00 Labs: CBC, BMP 06/01/17 05:35 06/01/17 05:35
[2017-06-02] MEDS ORDERED: ACETAMINOPHEN 325 MG TABLET (FP) PO ONE (23:44)
--- NOTE | 2017-06-02 23:53 | HOSP ---
Subjective - Review of Symptoms Events since last encounter: Called by nursing staff, pt complaining of CP On evaluation, pt was holding his chest, states the pain is similar to before. Started when patient was resting, radiating down left arm. Stat EKG taken NSR at 60BPM with LAD (chronic), no new changes from previous EKG (no ST or T wave abnormalities) Stat Troponins drawn, nurse to call with results Nitro SL 0.4mg once ordered, though pt requested morphine Instead of morphine, Tylenol 650mg once given, LFTs WNL BP 142/66, HR 57, RR 14, O2 100 on 3L Re-examined 5 minutes later, prior to meds, pt looked more comfortable, resting , though states CP is the same. Physical Examination Vital Signs: Vital Signs Temperature 98.5 F 06/02/17 22:00 Pulse Rate 57 L 06/02/17 22:00 Respiratory Rate 20 06/02/17 22:00 Blood Pressure 149/63 06/02/17 22:00 O2 Sat by Pulse Oximetry (%) 98 06/02/17 21:00 Labs: CBC, BMP 06/01/17 05:35 06/01/17 05:35 Visit type - Emergency Visit Emergency Visit: No - New Patient This patient is new to me today: No - Critical Care Critical Care patient: No
[2017-06-03 00:37] LABS: TROPONIN I 0.02 ng/ml (0.00-0.05)
[2017-06-03] MEDS ORDERED: morphine CARPU-JECT 4 MG/1 ML DISP.SYRIN IVPUSH ONE (02:45)
[2017-06-03] MEDS ORDERED: morphine CARPU-JECT 2 MG/1 ML DISP.SYRIN ONE (02:53)
[2017-06-03] MEDS: DOCUSATE SODIUM 100 MG CAPSULE (FP) PO SCH ×3 (06:21→21:23)
[2017-06-03] MEDS: INSULIN SLIDING SCALE (NOVOLOG) 1 VIAL SQ SCH ×2 (06:21→12:00)
--- NOTE | 2017-06-03 08:37 | PN ---
Progress Note, Physician Chief Complaint: TELE NSR Another episode CP last night ECG no change Enzyme neg Asked for MSO4 History of Present Illness: TELE: NSR - Current Medication List Current Medications: Active Medications Aspirin (Asa -) 81 mg PO DAILY [facility] Last Admin: 06/02/17 10:16 Dose: 81 mg Atorvastatin Calcium (Lipitor -) 80 mg PO HS [facility] Last Admin: 06/02/17 20:59 Dose: 80 mg Clopidogrel Bisulfate (Plavix -) 75 mg PO DAILY [facility] Last Admin: 06/02/17 10:16 Dose: 75 mg Docusate Sodium (Colace -) 100 mg PO TID [facility] Last Admin: 06/03/17 06:21 Dose: 100 mg Heparin Sodium (Porcine) (Heparin -) 5,000 unit SQ BID [facility] Last Admin: 06/02/17 20:59 Dose: 5,000 unit Hydrochlorothiazide (Hctz -) 12.5 mg PO DAILY [facility] Last Admin: 06/02/17 10:16 Dose: 12.5 mg Insulin Aspart (Novolog Vial Sliding Scale -) 1 vial SQ [facility] PRN Reason: Protocol Last Admin: 06/03/17 06:21 Dose: Not Given Meclizine HCl (Antivert -) 12.5 mg PO DAILY [facility] Last Admin: 06/02/17 10:15 Dose: Not Given Metoprolol Succinate (Toprol Xl -) 25 mg PO DAILY [facility] Last Admin: 06/02/17 10:16 Dose: 25 mg Pantoprazole Sodium (Protonix -) 40 mg PO DAILY [facility] Last Admin: 06/02/17 10:16 Dose: 40 mg Ranolazine (Ranexa -) 500 mg PO BID [facility] Last Admin: 06/02/17 20:59 Dose: 500 mg Tamsulosin HCl (Flomax -) 0.4 mg PO DAILY [facility] Last Admin: 06/02/17 10:16 Dose: 0.4 mg Valsartan (Diovan -) 160 mg PO DAILY [facility] Last Admin: 06/02/17 10:17 Dose: 160 mg - Objective Vital Signs: Vital Signs Temperature 98.1 F 06/03/17 06:00 Pulse Rate 59 L 06/03/17 06:00 Respiratory Rate 20 06/03/17 06:00 Blood Pressure 144/72 06/03/17 06:00 O2 Sat by Pulse Oximetry (%) 98 06/02/17 23:45 Constitutional: Yes: No Distress Eyes: Yes: Conjunctiva Clear Cardiovascular: Yes: Regular Rate and Rhythm Respiratory: Yes: CTA Bilaterally Gastrointestinal: Yes: Soft Edema: No Neurological: Yes: Alert, Oriented ...Motor Strength: WNL Labs: CBC, BMP 06/01/17 05:35 06/01/17 05:35 Laboratory Tests 06/01/17 06/02/17 14:00 23:45 Creatine Kinase 69 43 Troponin I < 0.02 0.02 - ....Imaging EKG: Image Reviewed Assessment/Plan IMP: Chronic chest pain syndrome CAD s/p mulitvessel PCI w/ cath 2 months ago PCI distal LCx, other vessels non- obstx HTN Possible recurrent angina vs drug seeking behavior REC: Add Imdur 30mg daily. Continue ASA, Plavix, B-Iam, Ranexa Echo w/ normal LV function Will transfer to [facility] for diagnostic C, D/W Dr. 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
[2017-06-03] MEDS ORDERED: PT OWN MED DRAWER 7, Y5N ONE ×2 (10:10→21:19)
[2017-06-03] MEDS: ISOSORBIDE MONONITRATE 30 MG TAB.SR.24H (FP) PO SCH (10:42)
[2017-06-03] MEDS: HYDROCHLOROTHIAZIDE 12.5 MG CAPSULE (FP) PO SCH (10:42)
[2017-06-03] MEDS: VALSARTAN 160 MG TABLET (UD) PO SCH (10:42)
[2017-06-03] MEDS: RANOLAZINE E.R. 500 MG TABLET (FP) PO SCH ×2 (10:42→21:23)
[2017-06-03] MEDS: HEPARIN NA (PORCINE) 5,000 UNITS/ML 1ML VIAL SQ SCH ×2 (10:42→21:23)
[2017-06-03] MEDS: TAMSULOSIN HCL 0.4 MG CAP.ER.24H (FP) PO SCH (10:42)
[2017-06-03] MEDS: CLOPIDOGREL BISULFATE 75 MG TABLET (FP) PO SCH (10:42)
[2017-06-03] MEDS: ASPIRIN 81 MG CHEWABLE TABLETS PO SCH (10:42)
[2017-06-03] MEDS: METOPROLOL SUCCINATE 25 MG TAB.SR.24H (FP) PO SCH (10:42)
[2017-06-03] MEDS: PANTOPRAZOLE 40 MG TABLET (FP) PO SCH (10:42)
[2017-06-03] MEDS: MECLIZINE HCL 12.5 MG TABLET PO SCH (10:42)
[2017-06-03] MEDS: TOBRAMYCIN 0.3% OPHTH SOLN 5 ML BOTTLE OD SCH ×2 (17:42→21:23)
[2017-06-03] MEDS: ATORVASTATIN CA 80 MG TABLET (FP) PO SCH (21:23)
--- NOTE | 2017-06-03 23:16 | PN ---
Progress Note, Physician History of Present Illness: Pt asymptomatic today - Current Medication List Current Medications: Active Medications Aspirin (Asa -) 81 mg PO DAILY [facility] Last Admin: 06/03/17 10:42 Dose: 81 mg Atorvastatin Calcium (Lipitor -) 80 mg PO HS [facility] Last Admin: 06/03/17 21:23 Dose: 80 mg Clopidogrel Bisulfate (Plavix -) 75 mg PO DAILY [facility] Last Admin: 06/03/17 10:42 Dose: 75 mg Docusate Sodium (Colace -) 100 mg PO TID [facility] Last Admin: 06/03/17 21:23 Dose: 100 mg Heparin Sodium (Porcine) (Heparin -) 5,000 unit SQ BID [facility] Last Admin: 06/03/17 21:23 Dose: 5,000 unit Hydrochlorothiazide (Hctz -) 12.5 mg PO DAILY [facility] Last Admin: 06/03/17 10:42 Dose: 12.5 mg Isosorbide Mononitrate (Imdur -) 30 mg PO DAILY [facility] Last Admin: 06/03/17 10:42 Dose: 30 mg Meclizine HCl (Antivert -) 12.5 mg PO DAILY [facility] Last Admin: 06/03/17 10:42 Dose: Not Given Metoprolol Succinate (Toprol Xl -) 25 mg PO DAILY [facility] Last Admin: 06/03/17 10:42 Dose: 25 mg Pantoprazole Sodium (Protonix -) 40 mg PO DAILY [facility] Last Admin: 06/03/17 10:42 Dose: 40 mg Ranolazine (Ranexa -) 500 mg PO BID [facility] Last Admin: 06/03/17 21:23 Dose: 500 mg Tamsulosin HCl (Flomax -) 0.4 mg PO DAILY [facility] Last Admin: 06/03/17 10:42 Dose: 0.4 mg Tobramycin Sulfate (Tobrex Ophthalmic Solution -) 1 drop OD TID [facility] Last Admin: 06/03/17 21:23 Dose: 1 drop Valsartan (Diovan -) 160 mg PO DAILY [facility] Last Admin: 06/03/17 10:42 Dose: 160 mg - Objective Vital Signs: Vital Signs Temperature 98.3 F 06/03/17 14:00 Pulse Rate 62 06/03/17 14:00 Respiratory Rate 18 06/03/17 14:00 Blood Pressure 124/55 06/03/17 14:00 O2 Sat by Pulse Oximetry (%) 98 08/13/17 10:40 Neck: Yes: WNL, Supple Cardiovascular: Yes: WNL, Regular Rate and Rhythm Respiratory: Yes: WNL, Regular, CTA Bilaterally Gastrointestinal: Yes: WNL, Normal Bowel Sounds, Soft Labs: CBC, BMP 06/01/17 05:35 06/01/17 05:35 Problem List - Problems (1) Chest pain of uncertain etiology Assessment/Plan: Cont tele Pt to be transferred in am for cardiac cath Cont asa/lipitor/plavix Code(s): R07.89 - OTHER CHEST PAIN (2) Coronary artery disease Assessment/Plan: Cont asa/plavix/lipitor Code(s): I25.10 - ATHSCL HEART DISEASE OF [place] CORONARY ARTERY W/O ANG PCTRS (3) HTN (hypertension) Assessment/Plan: BP stable Cont hctz/toprol/diovan Code(s): I10 - ESSENTIAL (PRIMARY) HYPERTENSION (4) Hyperlipidemia Assessment/Plan: Cont lipitor Code(s): E78.5 - HYPERLIPIDEMIA, UNSPECIFIED
[2017-06-04] MEDS ORDERED: PT OWN MED DRAWER 7, Y5N ONE ×2 (05:09→09:15)
[2017-06-04] MEDS: DOCUSATE SODIUM 100 MG CAPSULE (FP) PO SCH (05:12)
[2017-06-04] MEDS: TOBRAMYCIN 0.3% OPHTH SOLN 5 ML BOTTLE OD SCH (05:12)
[2017-06-04] MEDS: ISOSORBIDE MONONITRATE 30 MG TAB.SR.24H (FP) PO SCH (09:20)
[2017-06-04] MEDS: TAMSULOSIN HCL 0.4 MG CAP.ER.24H (FP) PO SCH (09:20)
[2017-06-04] MEDS: VALSARTAN 160 MG TABLET (UD) PO SCH (09:20)
[2017-06-04] MEDS: RANOLAZINE E.R. 500 MG TABLET (FP) PO SCH (09:20)
[2017-06-04] MEDS: HYDROCHLOROTHIAZIDE 12.5 MG CAPSULE (FP) PO SCH (09:20)
[2017-06-04] MEDS: CLOPIDOGREL BISULFATE 75 MG TABLET (FP) PO SCH (09:20)
[2017-06-04] MEDS: METOPROLOL SUCCINATE 25 MG TAB.SR.24H (FP) PO SCH (09:20)
[2017-06-04] MEDS: PANTOPRAZOLE 40 MG TABLET (FP) PO SCH (09:20)
[2017-06-04] MEDS: ASPIRIN 81 MG CHEWABLE TABLETS PO SCH (09:20)
[2017-06-04] MEDS: MECLIZINE HCL 12.5 MG TABLET PO SCH (09:24)
[2017-06-04] MEDS: HEPARIN NA (PORCINE) 5,000 UNITS/ML 1ML VIAL SQ SCH (09:26)
--- NOTE | 2017-06-04 10:38 | PN ---
Progress Note, Physician History of Present Illness: seen and examined today in nad. no overnight events. no new complaints. - Current Medication List Current Medications: Active Medications Aspirin (Asa -) 81 mg PO DAILY [facility] Last Admin: 06/04/17 09:20 Dose: 81 mg Atorvastatin Calcium (Lipitor -) 80 mg PO HS [facility] Last Admin: 06/03/17 21:23 Dose: 80 mg Clopidogrel Bisulfate (Plavix -) 75 mg PO DAILY [facility] Last Admin: 06/04/17 09:20 Dose: 75 mg Docusate Sodium (Colace -) 100 mg PO TID [facility] Last Admin: 06/04/17 05:12 Dose: 100 mg Heparin Sodium (Porcine) (Heparin -) 5,000 unit SQ BID [facility] Last Admin: 06/04/17 09:26 Dose: 5,000 unit Hydrochlorothiazide (Hctz -) 12.5 mg PO DAILY [facility] Last Admin: 06/04/17 09:20 Dose: 12.5 mg Isosorbide Mononitrate (Imdur -) 30 mg PO DAILY [facility] Last Admin: 06/04/17 09:20 Dose: 30 mg Meclizine HCl (Antivert -) 12.5 mg PO DAILY [facility] Last Admin: 06/04/17 09:24 Dose: Not Given Metoprolol Succinate (Toprol Xl -) 25 mg PO DAILY [facility] Last Admin: 06/04/17 09:20 Dose: 25 mg Pantoprazole Sodium (Protonix -) 40 mg PO DAILY [facility] Last Admin: 06/04/17 09:20 Dose: 40 mg Ranolazine (Ranexa -) 500 mg PO BID [facility] Last Admin: 06/04/17 09:20 Dose: 500 mg Tamsulosin HCl (Flomax -) 0.4 mg PO DAILY [facility] Last Admin: 06/04/17 09:20 Dose: 0.4 mg Tobramycin Sulfate (Tobrex Ophthalmic Solution -) 1 drop OD TID [facility] Last Admin: 06/04/17 05:12 Dose: 1 drop Valsartan (Diovan -) 160 mg PO DAILY [facility] Last Admin: 06/04/17 09:20 Dose: 160 mg - Objective Vital Signs: Vital Signs Temperature 98.0 F 06/04/17 06:00 Pulse Rate 64 06/04/17 06:00 Respiratory Rate 18 06/04/17 06:00 Blood Pressure 151/66 06/04/17 06:00 O2 Sat by Pulse Oximetry (%) 98 06/03/17 21:00 Constitutional: Yes: Well Nourished, No Distress, Calm Eyes: Yes: WNL, Conjunctiva Clear, EOM Intact, PERRL HENT: Yes: WNL, Atraumatic, Normocephalic Neck: Yes: WNL, Supple, Trachea Midline Cardiovascular: Yes: Regular Rate and Rhythm, S1, S2. No: Bradycardia, Tachycardia, Pulse Irregular, Bruit, JVD, Gallop, Murmur, Rub, S3, S4, Varicosities Respiratory: Yes: Regular, CTA Bilaterally. No: Rales, Rhonchi, Wheezes Gastrointestinal: Yes: Normal Bowel Sounds, Soft. No: Distention, Tenderness Musculoskeletal: Yes: Muscle Weakness Edema: No Peripheral Pulses WNL: Yes Peripheral Pulses: Left Doralis Pedis: 2+, Right Dorsalis Pedis: 2+ Neurological: Yes: Alert, Oriented Psychiatric: Yes: Alert, Oriented Labs: CBC, BMP 06/01/17 05:35 06/01/17 05:35 - ....Imaging Chest X-ray: Report Reviewed, Image Reviewed EKG: Report Reviewed, Image Reviewed Other: Report Reviewed, Image Reviewed (tele-nsr, sinus marcos, apcs, pvcs, 4 beats NSVT x2) Assessment/Plan IMP: Chronic chest pain syndrome CAD s/p mulitvessel PCI w/ cath 2 months ago PCI distal LCx, other vessels non- obstx HTN NSVT possibly secondary to ischemia Possible recurrent angina vs drug seeking behavior REC: Continue ASA, Plavix, B-Iam, Ranexa, Imdur Echo w/ normal LV function Brief NSVT episodes on tele For transfer to [facility] today for diagnostic LHC and revascularization if needed
[2017-06-04 13:24] VITALS: BP 143/62; PULSE 63; TEMP 97.3
--- NOTE | 2017-06-07 14:56 | EKG ---
Test Reason : Blood Pressure : / mmHG Vent. Rate : 055 BPM Atrial Rate : 055 BPM P-R Int : 152 ms QRS Dur : 096 ms QT Int : 436 ms P-R-T Axes : 079 -46 024 degrees QTc Int : 417 ms SINUS BRADYCARDIA LEFT AXIS DEVIATION ABNORMAL ECG WHEN COMPARED WITH ECG OF 31-MAY-2017 16:00, NO SIGNIFICANT CHANGE WAS FOUND Confirmed by CONY CANTRELL MD ([id number]) on 06/07/2017 2:55:56 PM Referred By: Confirmed By:CONY CANTRELL MD
--- NOTE | 2017-06-07 14:56 | EKG ---
Test Reason : Blood Pressure : / mmHG Vent. Rate : 057 BPM Atrial Rate : 057 BPM P-R Int : 156 ms QRS Dur : 094 ms QT Int : 442 ms P-R-T Axes : 057 -40 -18 degrees QTc Int : 430 ms SINUS BRADYCARDIA LEFT AXIS DEVIATION ABNORMAL ECG WHEN COMPARED WITH ECG OF 02-JUN-2017 04:47, NO SIGNIFICANT CHANGE WAS FOUND Confirmed by CONY CANTRELL MD ([id number]) on 06/07/2017 2:56:00 PM Referred By: Confirmed By:CONY CANTRELL MD
== END 2017-06-04 13:12 | disposition short-term general hospital (02) | DRG 303 ==
LOC: JER 14:58 → JERBED 16:40 → J4S 19:08 → OBSVTOIN 20:00
PROVIDERS: ADMIT Internal Medicine; ATTEND Internal Medicine
DX: I25.110 Atherosclerotic heart disease of native coronary artery with unstable angina pectoris (principal); R07.89 Other chest pain; Z95.5 Presence of coronary angioplasty implant and graft; E11.9 Type 2 diabetes mellitus without complications; I10 Essential (primary) hypertension; E78.00 Pure hypercholesterolemia, unspecified; N40.0 Benign prostatic hyperplasia without lower urinary tract symptoms; Z87.891 Personal history of nicotine dependence; Z79.84 Long term (current) use of oral hypoglycemic drugs
CPT/HCPCS: 36415; 71010-TC; 80053; 83036; 84484; 85025; 93005; 93010; 93306-TC; 99283-25; G0378; J1644

== ENCOUNTER 2017-06-28 08:00 | Emergency (ER) | payer MEDICARE ==
[2017-06-28 08:09] VITALS: BMI 26.9
--- NOTE | 2017-06-28 08:30 | PDOC ---
History of Present Illness - General Chief Complaint: Back Pain Stated Complaint: BACK PAIN Time Seen by Provider: 06/28/17 08:15 History Source: Patient Exam Limitations: No Limitations - History of Present Illness Initial Comments: 06/28/17 08:20 CHIEF COMPLAINT: Abdominal pain radiating to he back. HISTORY OF PRESENT ILLNESS:67-year-old male, stents, IDDM, BPH, hypertension high cholesterol. Hypertension presents to emergency Department with complaints of abdominal pain radiating to lower back for 1 week. Patient is ambulatory to ER with cane. Denies any trauma. No neurosensory deficits, no bowel or bladder difficulty incontinence or urinary retention, no saddle anesthesia, no footdrop. No history of IVDU or history of cancer. Patient was initially triaged to fast-track however based upon patient's subjective data stating he has abdominal pain radiating to lower back and known medical history, patient sent to main emergency department for higher level of care. Occurred: reports: last week Severity: reports: moderate Pain Location: reports: back Method of Injury: Yes: unknown Modifying Factors: improves with: None Associated Symptoms (Fall): denies symptoms Past History - Past Medical History Allergies/Adverse Reactions: Allergies Allergy/AdvReac Type Severity Reaction Status Date / Time No Known Allergies Allergy Verified 06/28/17 08:05 Home Medications: Ambulatory Orders Atorvastatin Ca [Lipitor] 80 mg PO DAILY 11/27/16 Clopidogrel Bisulfate [Plavix -] 75 mg PO DAILY 11/27/16 Metoprolol Succinate [Toprol XL -] 25 mg PO DAILY 11/27/16 Ranolazine [Ranexa -] 500 mg PO BID 11/27/16 Valsartan/Hydrochlorothiazide [Valsartan-Hctz 160-12.5 mg Tab] 1 each PO DAILY 11/27/16 Aspirin [ASA -] 81 mg PO DAILY 01/11/17 Acetaminophen [Tylenol .Extra-Strength -] 500 mg PO Q6H 01/24/17 Famotidine 20 mg PO BID 01/24/17 Meclizine HCl 12.5 mg PO DAILY 01/24/17 Sennosides [Senna] 8.6 mg PO ASDIR 01/24/17 Tamsulosin HCl 0.4 mg PO DAILY 01/24/17 Dicyclomine HCl [Bentyl -] 10 mg PO TID #60 tab 01/26/17 Docusate Sodium [Colace -] 100 mg PO TID #90 capsule 01/26/17 Metformin HCl 500 mg PO BID 05/13/17 Budesonide/Formeterol Fumarate [SYMBICORT 160/4.5mcg -] 1 inh PO BID 06/03/17 Tiotropium [place] [Spiriva] 1 inh IH DAILY 06/03/17 Anemia: No Asthma: No Cancer: No Cardiac Disorders: Yes (11 Stents) CVA: No COPD: No CHF: No Dementia: No Diabetes: Yes GI Disorders: No Disorders: Yes (bph) HTN: Yes Hypercholesterolemia: Yes Liver Disease: No Suicide Attempt (Hx): No Seizures: No Thyroid Disease: No - Surgical History Abdominal Surgery: No Appendectomy: No Cardiac Surgery: Yes (STENTS X 11) Cholecystectomy: No Lung Surgery: No Neurologic Surgery: No Orthopedic Surgery: No - Immunization History Immunization Up to Date: No - Psycho/Social/Smoking Cessation Hx Anxiety: No Suicidal Ideation: No Smoking Status: No Smoking History: Former smoker Have you smoked in the past 12 months: No Number of Cigarettes Smoked Daily: 0 If you are a former smoker, when did you quit?: 2008 Information on smoking cessation initiated: No Hx Alcohol Use: No Drug/Substance Use Hx: No Substance Use Type: None Hx Substance Use Treatment: No *Physical Exam - Vital Signs Last Vital Signs Temp Pulse Resp BP Pulse Ox 98.2 F 76 19 116/59 96 06/28/17 08:05 06/28/17 08:05 06/28/17 08:05 06/28/17 08:05 06/28/17 08:05 ED Treatment Course - LABORATORY CBC & Chemistry Diagram: 06/28/17 09:47 06/28/17 09:47 Medical Decision Making - Medical Decision Making 06/28/17 08:30 *DC/Admit/Observation/Transfer Diagnosis at time of Disposition: Constipation Qualifiers: Constipation type: unspecified constipation type Qualified Code(s): K59.00 - Constipation, unspecified - Discharge Dispostion Disposition: HOME - Referrals Referrals: Jordy Fu MD [Primary Care Provider] - - Patient Instructions Printed Discharge Instructions: DI for Constipation Print Language: GREEK
--- NOTE | 2017-06-28 08:56 | PDOC ---
History of Present Illness - General Chief Complaint: Back Pain Stated Complaint: BACK PAIN Time Seen by Provider: 06/28/17 08:15 - History of Present Illness Initial Comments: 06/28/17 09:26 The patient is a 67 yo male with a significant past medical history of DMII, Hypercholesterolemia, HTN, multiple stents (11) who presents to the emergency department with chronic abdominal pain for the last 2-3 months. It radiates across his back 9/10 pain. Has presented for this same problem multiple times, last on 06/04. Patient states that he has had a small bowel movement today with some unknown medicine. The patient denies chest pain, shortness of breath, headache and dizziness. Denies fever, chills, nausea, vomit, or diarrhea. Denies dysuria, frequency, urgency and hematuria. Allergies: NKDA Past History - Past Medical History Allergies/Adverse Reactions: Allergies Allergy/AdvReac Type Severity Reaction Status Date / Time No Known Allergies Allergy Verified 06/28/17 08:05 Home Medications: Ambulatory Orders Atorvastatin Ca [Lipitor] 80 mg PO DAILY 11/27/16 Clopidogrel Bisulfate [Plavix -] 75 mg PO DAILY 11/27/16 Metoprolol Succinate [Toprol XL -] 25 mg PO DAILY 11/27/16 Ranolazine [Ranexa -] 500 mg PO BID 11/27/16 Valsartan/Hydrochlorothiazide [Valsartan-Hctz 160-12.5 mg Tab] 1 each PO DAILY 11/27/16 Aspirin [ASA -] 81 mg PO DAILY 01/11/17 Acetaminophen [Tylenol .Extra-Strength -] 500 mg PO Q6H 01/24/17 Famotidine 20 mg PO BID 01/24/17 Meclizine HCl 12.5 mg PO DAILY 01/24/17 Sennosides [Senna] 8.6 mg PO ASDIR 01/24/17 Tamsulosin HCl 0.4 mg PO DAILY 01/24/17 Dicyclomine HCl [Bentyl -] 10 mg PO TID #60 tab 01/26/17 Docusate Sodium [Colace -] 100 mg PO TID #90 capsule 01/26/17 Metformin HCl 500 mg PO BID 05/13/17 Budesonide/Formeterol Fumarate [SYMBICORT 160/4.5mcg -] 1 inh PO BID 06/03/17 Tiotropium [place] [Spiriva] 1 inh IH DAILY 06/03/17 Anemia: No Asthma: No Cancer: No Cardiac Disorders: Yes (11 Stents) CVA: No COPD: No CHF: No Dementia: No Diabetes: Yes GI Disorders: No Disorders: Yes (bph) HTN: Yes Hypercholesterolemia: Yes Liver Disease: No Suicide Attempt (Hx): No Seizures: No Thyroid Disease: No - Surgical History Abdominal Surgery: No Appendectomy: No Cardiac Surgery: Yes (STENTS X 11) Cholecystectomy: No Lung Surgery: No Neurologic Surgery: No Orthopedic Surgery: No - Immunization History Immunization Up to Date: No - Psycho/Social/Smoking Cessation Hx Anxiety: No Suicidal Ideation: No Smoking Status: No Smoking History: Former smoker Have you smoked in the past 12 months: No Number of Cigarettes Smoked Daily: 0 If you are a former smoker, when did you quit?: 2008 Information on smoking cessation initiated: No Hx Alcohol Use: No Drug/Substance Use Hx: No Substance Use Type: None Hx Substance Use Treatment: No Review of Systems - Review of Systems Comments:: 06/28/17 09:27 GENERAL/CONSTITUTIONAL: No fever or chills. No weakness. HEAD, EYES, EARS, NOSE AND THROAT: No change in vision. No ear pain or discharge. No sore throat. CARDIOVASCULAR: No chest pain or shortness of breath RESPIRATORY: No cough, wheezing, or hemoptysis. GASTROINTESTINAL: +Complaining of constipation with abdominal discomfort. No nausea, vomiting, or diarrhea. GENITOURINARY: No dysuria, frequency, or change in urination. MUSCULOSKELETAL: No joint or muscle swelling or pain. No neck or back pain. SKIN: No rash NEUROLOGIC: No headache, vertigo, loss of consciousness, or change in strength/ sensation. ENDOCRINE: No increased thirst. No abnormal weight change HEMATOLOGIC/LYMPHATIC: No anemia, easy bleeding, or history of blood clots. ALLERGIC/IMMUNOLOGIC: No hives or skin allergy. *Physical Exam - Vital Signs Last Vital Signs Temp Pulse Resp BP Pulse Ox 98.2 F 76 19 116/59 96 06/28/17 08:05 06/28/17 08:05 06/28/17 08:05 06/28/17 08:05 06/28/17 08:05 - Physical Exam Comments: 06/28/17 09:27 GENERAL: Awake, alert, and fully oriented, in no acute distress HEAD: No signs of trauma, normocephalic, atraumatic EYES: PERRLA, EOMI, sclera anicteric, conjunctiva clear ENT: Auricles normal inspection, hearing grossly normal, nares patent, oropharynx clear without exudates. Moist mucosa NECK: Normal ROM, supple, no lymphadenopathy, JVD, or masses LUNGS: No distress, speaks full sentences, clear to auscultation bilaterally HEART: Regular rate and rhythm, normal S1 and S2, no murmurs, rubs or gallops, peripheral pulses normal and equal bilaterally. ABDOMEN: +Diffusely uncomfortable to palpation. Soft, normoactive bowel sounds. No guarding, no rebound. No masses EXTREMITIES: Normal inspection, Normal range of motion, no edema. No clubbing or cyanosis. NEUROLOGICAL: Cranial nerves II through XII grossly intact. Normal speech, normal gait, no focal sensorimotor deficits SKIN: Warm, Dry, normal turgor, no rashes or lesions noted. ED Treatment Course - LABORATORY CBC & Chemistry Diagram: 06/28/17 09:47 06/28/17 09:47 Medical Decision Making - Medical Decision Making 06/28/17 12:32 Patient uncomfortable appearing and diffusely abdominally tender. KUB shows fecal impaction. Will D/C to home with mag citrate and instructions for constipation care. *DC/Admit/Observation/Transfer Diagnosis at time of Disposition: Constipation Qualifiers: Constipation type: unspecified constipation type Qualified Code(s): K59.00 - Constipation, unspecified - Discharge Dispostion Disposition: HOME - Patient Instructions Printed Discharge Instructions: DI for Constipation Print Language: MALAWIAN
--- NOTE | 2017-06-28 09:00 | PDOC ---
Attending Attestation - Resident Resident Name: Babak Vitale - ED Attending Attestation I have performed the following: I have examined & evaluated the patient, The case was reviewed & discussed with the resident, I agree w/resident's findings & plan, Exceptions are as noted - HPI HPI: Abdominal Pain 06/28/17 08:58 - Physicial Exam PE: 06/28/17 08:59 VSS/NAD/ABD Soft and Benign - Medical Decision Making 06/28/17 08:[address] Vitale's Assessment and Plan
[2017-06-28 10:07] LABS: BASOPHIL 0.4 % (0-2.0); EOSINOPHIL 1.3 % (0-4.5); MCH 31.5 pg (25.7-33.7); MCHC 33.8 g/dl (32.0-35.9); MEAN CELL VOLUME 93.3 fl (80-96); PLATELET COUNT 254 K/MM3 (134-434); WHITE BLOOD COUNT 7.5 K/mm3 (4.0-10.0)
[2017-06-28 10:35] LABS: ALBUMIN 3.1 g/dl (3.4-5.0); ANION GAP 7 (8-16); CALCIUM 8.4 mg/dL (8.5-10.1); CO2 26 mmol/L (21-32); GLUCOSE,RANDOM 105 mg/dL (74-106); SGOT/AST 11 U/L (15-37); SGPT/ALT 13 U/L (12-78); TOT PROT 5.8 g/dl (6.4-8.2)
[2017-06-28 10:55] LABS: ALK PHOS 93 U/L (45-117); BILIRUBIN,TOTAL 0.7 mg/dL (0.2-1.0)
[2017-06-28 12:27] LABS: URINE APPEARANCE CLEAR; URINE BILIRUBIN NEGATIVE (NEGATIVE); URINE BLOOD NEGATIVE (NEGATIVE); URINE COLOR YELLOW; URINE GLUCOSE (UA) NEGATIVE (NEGATIVE); URINE KETONE NEGATIVE (NEGATIVE); URINE NITRITE NEGATIVE (NEGATIVE); URINE UROBILINOGEN NEGATIVE mg/dL (0.2-1.0)
[2017-06-28] MEDS ORDERED: MAGNESIUM CITRATE 300 ML BOTTLE PO ONE (12:28)
[2017-06-28 12:31] LABS: URINE LEUK ESTERASE 1+ (NEGATIVE); URINE PROTEIN 2+ (NEGATIVE)
[2017-06-28 12:36] LABS: URINE MUCUS RARE; URINE RBC 3 /hpf (0-3); URINE WBC 13 /hpf (3-5)
[2017-06-28] MEDS ORDERED: MAGNESIUM CITRATE 300 ML BOTTLE ONE (12:54)
[2017-06-28 13:10] VITALS: BP 135/71; PULSE 71; TEMP 98.4
--- NOTE | 2017-06-28 15:32 | EKG ---
Test Reason : Blood Pressure : / mmHG Vent. Rate : 063 BPM Atrial Rate : 063 BPM P-R Int : 158 ms QRS Dur : 104 ms QT Int : 434 ms P-R-T Axes : 061 -44 -03 degrees QTc Int : 444 ms SINUS RHYTHM WITH FUSION COMPLEXES LEFT AXIS DEVIATION ABNORMAL ECG WHEN COMPARED WITH ECG OF 02-JUN-2017 23:45, FUSION COMPLEXES ARE NOW PRESENT Confirmed by TAMIA MADRIGAL, CONY ([id number]) on 06/28/2017 3:32:01 PM Referred By: Confirmed By:CONY CANTRELL MD
== END 2017-06-28 13:10 | disposition home or self-care (01) ==
LOC: JER 08:00 → JERFT 08:00 → JER 13:10
DX: K59.00 Constipation, unspecified (principal); I25.10 Atherosclerotic heart disease of native coronary artery without angina pectoris; I10 Essential (primary) hypertension; Z95.5 Presence of coronary angioplasty implant and graft; E11.9 Type 2 diabetes mellitus without complications; Z79.84 Long term (current) use of oral hypoglycemic drugs; E78.00 Pure hypercholesterolemia, unspecified; N40.0 Benign prostatic hyperplasia without lower urinary tract symptoms; Z87.891 Personal history of nicotine dependence
CPT/HCPCS: 36415; 74000-TC; 80053; 81003; 81015; 85025; 93005; 93010; 99284-25

== ENCOUNTER 2017-09-21 14:13 | Emergency (ER) | payer MEDICARE, OTHER ==
[2017-09-21 14:33] VITALS: BP 113/63; PULSE 86; TEMP 98; BMI 22.3
--- NOTE | 2017-09-21 14:45 | PDOC ---
Rapid Medical Evaluation Chief Complaint: Pain, Acute Time Seen by Provider: 09/21/17 14:41 Medical Evaluation: Allergies Allergy/AdvReac Type Severity Reaction Status Date / Time No Known Allergies Allergy Verified 09/21/17 14:30 Vital Signs Temp Pulse Resp BP Pulse Ox 98 F 86 19 113/63 96 09/21/17 14:30 09/21/17 14:30 09/21/17 14:30 09/21/17 14:30 09/21/17 14:30 09/21/17 14:41 I performed a brief in-person evaluation of this patient. The patient presents with a chief complaint of: Abdominal pain x 3 days, with constipation Denies nausea, vomiting or diarrhea. Pertinent physical exam findings: NAD lungs: cta bilat heart: non tender chest , s1 s2 Abdomen: generalized abdominal tenderness The patient will proceed to the Ed for further evaluation
--- NOTE | 2017-09-21 15:42 | PDOC ---
Attending Attestation - Resident Resident Name: Dora Omalley - HPI HPI: 09/21/17 18:58 pt presents to the ED complaining of diffuse abdominal pain that has been persistent for three days. Denies fever or vomiting. Tolerating Po and having bowel movements. - Physicial Exam PE: 09/21/17 18:59 Agree with resident exam. Abdomen is non tender on my exam. - Medical Decision Making 09/21/17 18:59 Pt presents to the ED complaining of a three day history of abdominal pain. Labs checked to rule out pancreatic or biliary disease. Given patient's age, will check CT to rule out intrabdominal pathology.
[2017-09-21 16:18] LABS: BASOPHIL 0.9 % (0-2.0); EOSINOPHIL 0.9 % (0-4.5); MCHC 33.6 g/dl (32.0-35.9); MEAN CELL VOLUME 92.2 fl (80-96); NEUTROPHILS 72.7 % (42.8-82.8); PLATELET COUNT 228 K/MM3 (134-434); RDW 15.4 % (11.9-15.9); WHITE BLOOD COUNT 7.7 K/mm3 (4.0-10.0)
[2017-09-21 16:53] LABS: ALK PHOS 120 U/L (45-117); ANION GAP 7 (8-16); BILIRUBIN,TOTAL 0.5 mg/dL (0.2-1.0); CALCIUM 7.7 mg/dL (8.5-10.1); CO2 22 mmol/L (21-32); CREATININE 1.7 mg/dL (0.7-1.3); GLUCOSE,RANDOM 150 mg/dL (74-106); SGOT/AST 11 U/L (15-37); SGPT/ALT 16 U/L (12-78)
--- NOTE | 2017-09-21 18:16 | PDOC ---
History of Present Illness - General Chief Complaint: Pain, Acute Stated Complaint: ABD PAIN Time Seen by Provider: 09/21/17 14:41 - History of Present Illness Initial Comments: 09/22/17 09:33 Patient is a 67 y.o. with a PMH of CAD (s/p multiple stents) HTN, DLD, and NIDDM who presents to our ED today c/o 3 day h/o of diffuse abdominal pain that radiates to his flank B/L. Patient endorses intermittent constipation which he states is chronic but denies any nausea, vomiting, blood in his stool/urine as well as fevers, chills. Patient has been tolerating PO intake and his last BM was earlier today and was normal consistency with no maurice blood. Past History - Past Medical History Allergies/Adverse Reactions: Allergies Allergy/AdvReac Type Severity Reaction Status Date / Time No Known Allergies Allergy Verified 09/21/17 14:30 Home Medications: Ambulatory Orders Atorvastatin Ca [Lipitor] 80 mg PO DAILY 11/27/16 Clopidogrel Bisulfate [Plavix -] 75 mg PO DAILY 11/27/16 Metoprolol Succinate [Toprol XL -] 25 mg PO DAILY 11/27/16 Ranolazine [Ranexa -] 500 mg PO BID 11/27/16 Valsartan/Hydrochlorothiazide [Valsartan-Hctz 160-12.5 mg Tab] 1 each PO DAILY 11/27/16 Aspirin [ASA -] 81 mg PO DAILY 01/11/17 Acetaminophen [Tylenol .Extra-Strength -] 500 mg PO Q6H 01/24/17 Famotidine 20 mg PO BID 01/24/17 Meclizine HCl 12.5 mg PO DAILY 01/24/17 Sennosides [Senna] 8.6 mg PO ASDIR 01/24/17 Tamsulosin HCl 0.4 mg PO DAILY 01/24/17 Dicyclomine HCl [Bentyl -] 10 mg PO TID #60 tab 01/26/17 Docusate Sodium [Colace -] 100 mg PO TID #90 capsule 01/26/17 Metformin HCl 500 mg PO BID 05/13/17 Budesonide/Formeterol Fumarate [SYMBICORT 160/4.5mcg -] 1 inh PO BID 06/03/17 Tiotropium [place] [Spiriva] 1 inh IH DAILY 06/03/17 Anemia: No Asthma: No Cancer: No Cardiac Disorders: Yes (11 Stents) CVA: No COPD: No CHF: No Dementia: No Diabetes: Yes GI Disorders: No Disorders: Yes (bph) HTN: Yes Hypercholesterolemia: Yes Liver Disease: No Seizures: No Thyroid Disease: No - Surgical History Abdominal Surgery: No Appendectomy: No Cardiac Surgery: Yes (STENTS X 11) Cholecystectomy: No Lung Surgery: No Neurologic Surgery: No Orthopedic Surgery: No - Immunization History Immunization Up to Date: No - Suicide/Smoking/Psychosocial Hx Smoking Status: No Smoking History: Never smoked Have you smoked in the past 12 months: No Number of Cigarettes Smoked Daily: 0 If you are a former smoker, when did you quit?: 2008 Hx Alcohol Use: No Drug/Substance Use Hx: No Substance Use Type: None Hx Substance Use Treatment: No Review of Systems - Review of Systems Constitutional: No: Chills, Fever Respiratory: No: Shortness of Breath Cardiac (ROS): No: Chest Pain ABD/GI: Yes: Abdominal cramping. No: Nausea, Poor Appetite, Rectal Bleeding, Vomiting : Yes: Burning. No: Dysuria, Hematuria Musculoskeletal: No: Back Pain Neurological: No: Headache *Physical Exam - Vital Signs Last Vital Signs Temp Pulse Resp BP Pulse Ox 98 F 86 19 113/63 96 09/21/17 14:30 09/21/17 14:30 09/21/17 14:30 09/21/17 14:30 09/21/17 14:30 - Physical Exam General Appearance: Yes: Nourished, Appropriately Dressed Respiratory/Chest: positive: Lungs Clear Cardiovascular: positive: S1, S2 Gastrointestinal/Abdominal: positive: Normal Bowel Sounds, Tender (TTP in all 4 quadrants on deep palpation). negative: Distended, Guarding, Rebound, Hernia, Mass Musculoskeletal: negative: CVA Tenderness (R), CVA Tenderness (L), Vertebral Tenderness Integumentary: positive: Normal Color, Dry, Warm Neurologic: positive: heel cover splitter II-XII NML intact, Fully Oriented, Alert ED Treatment Course - LABORATORY CBC & Chemistry Diagram: 09/21/17 16:00 09/21/17 16:00 - ADDITIONAL ORDERS Additional order review: Laboratory Results 09/21/17 09/21/17 16:00 16:00 Sodium 140 Potassium 3.6 Chloride 111 H Carbon Dioxide 22 Anion Gap 7 L BUN 23 H D Creatinine 1.7 H D Creat Clearance w eGFR 40.16 Random Glucose 150 H D Calcium 7.7 L Total Bilirubin 0.5 D AST 11 L ALT 16 D Alkaline Phosphatase 120 H D Total Protein 6.0 L Albumin 3.0 L Lipase 286 09/21/17 16:00 RBC 4.36 MCV 92.2 MCHC 33.6 RDW 15.4 MPV 9.0 D Neutrophils % 72.7 Lymphocytes % 17.4 D Monocytes % 8.1 Eosinophils % 0.9 Basophils % 0.9 - RADIOLOGY Radiology Studies Ordered: Category Date Time Status ABDOMEN & PELVIS CT W/O CONTR [CT] Stat CT Scan 09/21/17 18:02 Ordered Medical Decision Making - Medical Decision Making 09/22/17 09:38 Patient is a 67 y.o. male who presents with 3 day h/o abdominal pain that radiates to his back. Initial DDx includes AAA (patient has significant cardiac history) vs. Pancreatitis vs. Mesenteric Ischemia vs SBO vs BTD. On PE patient is non-toxic appearing, ambulatory and in no acute distress. Review of EMR shows patient was evaluated for a similar complaint in 06/2017 at which time he stated pain had been occurring for 2-3 month - at that timie abominal XR showed signficant fecal impaction. Labs: Lipase wnL, slight BELLA (Cr 1.7) with no leukocytosis. CT scan shows no acute intrabdominal pathology. Patient counseled to f/u with PCP for further evaluation and given return precautions and discharged home. *DC/Admit/Observation/Transfer Diagnosis at time of Disposition: Abdominal pain - Discharge Dispostion Disposition: HOME Condition at time of disposition: Good Admit: No - Referrals Referrals: Hermann Amaya MD [Primary Care Provider] - - Patient Instructions Additional Instructions: Please follow up with your primary care doctor in 5 days. Please return to the ED for any worsening or concerning symptoms. - Post Discharge Activity
--- NOTE | 2017-09-22 09:23 | EKG ---
Test Reason : Blood Pressure : / mmHG Vent. Rate : 070 BPM Atrial Rate : 070 BPM P-R Int : 164 ms QRS Dur : 110 ms QT Int : 414 ms P-R-T Axes : 060 -42 012 degrees QTc Int : 447 ms NORMAL SINUS RHYTHM LEFT AXIS DEVIATION POSSIBLE ANTERIOR INFARCT , AGE UNDETERMINED ABNORMAL ECG WHEN COMPARED WITH ECG OF 28-JUN-2017 09:59, FUSION COMPLEXES ARE NO LONGER PRESENT T WAVE INVERSION NOW EVIDENT IN LATERAL LEADS Confirmed by PAM MADRIGAL, COURTNEY ([id number]) on 09/22/2017 9:22:37 AM Referred By: Confirmed By:COURTNEY OROZCO MD
[2017-09-22 12:34] LABS: CPK 52 IU/L (39-308); TROPONIN I 0.02 ng/ml (0.00-0.05)
== END 2017-09-21 19:29 | disposition home or self-care (01) ==
LOC: JER 14:13
DX: R10.30 Lower abdominal pain, unspecified (principal); I25.10 Atherosclerotic heart disease of native coronary artery without angina pectoris; I10 Essential (primary) hypertension; Z95.5 Presence of coronary angioplasty implant and graft; E78.00 Pure hypercholesterolemia, unspecified; E11.9 Type 2 diabetes mellitus without complications; Z79.84 Long term (current) use of oral hypoglycemic drugs
CPT/HCPCS: 36415; 74176-TC; 80053; 82550; 83690; 84484; 85025; 93005; 93010; 99283-25; Q9967

== ENCOUNTER 2017-11-27 09:10 | Emergency (ER) | payer MEDICARE, OTHER ==
[2017-11-27 09:44] VITALS: BP 159/75; PULSE 85; TEMP 98.3; BMI 22.4
--- NOTE | 2017-11-27 10:20 | PDOC ---
History of Present Illness - General Chief Complaint: Sore Throat Stated Complaint: FEVER, THROAT PAIN Time Seen by Provider: 11/27/17 09:59 History Source: Patient Exam Limitations: Language Barrier - History of Present Illness Initial Comments: 11/27/17 10:16 Patient is a [67-year-old male with cardiac history of multiple cardiac stents, last 10 years ago presents with sudden onset of chills, cough, left-sided chest pain back pain and arm pain last evening at around 8 or 9:00, no jaw pain. Sore throat after coughing. Patient is concerned because stents were last placed 10 years ago and had similar symptoms prior to placement. Past Medical History: Stents, diabetes, high cholesterol, hypertension Allergies: No known allergies Medications: [See medication list] Family History: Non-contributory Social History: Denies smoking, alcohol use, or IVDU Review of Systems GENERAL/CONSTITUTIONAL: [No fever or chills. No weakness. No weight change.] HEAD, EYES, EARS, NOSE AND THROAT: [No change in vision. No ear pain or discharge. No sore throat. ] CARDIOVASCULAR: [Left-sided chest pain] RESPIRATORY: [No cough, wheezing, or hemoptysis.] GASTROINTESTINAL: [No nausea, vomiting, diarrhea or constipation. No rectal bleeding.] GENITOURINARY: [No dysuria, frequency, or change in urination.] MUSCULOSKELETAL: [No joint or muscle swelling or pain. No neck or back pain.] SKIN : [No rash or easy bruising.] NEUROLOGIC: [No headache, vertigo, loss of consciousness, or loss of sensation.] PSYCHIATRIC: [No depression or anxiety.] ENDOCRINE: [No increased thirst. No abnormal weight change.] HEMATOLOGIC/LYMPHATIC: [No anemia, easy bleeding, or history of blood clots.] ALLERGIC/IMMUNOLOGIC: [No hives or skin allergy. No latex allergy.] Physical Exam: GENERAL: [The patient is awake, alert, and fully oriented, in no acute distress. ] HEAD: [Normal with no signs of trauma.] EYES: [Pupils equal, round and reactive to light, extraocular movements intact, sclera anicteric, conjunctiva clear.] ENT: [Ears normal, nares patent, oropharynx clear without exudates. Moist mucous membranes. No uvula deviation] NECK: [Normal range of motion, supple without lymphadenopathy, JVD, or masses.] LUNGS: [Breath sounds equal, clear to auscultation bilaterally. No wheezes, and no crackles.] HEART: [Regular rate and rhythm, normal S1 and S2 without murmur, rub or gallop. ] ABDOMEN: [Soft, nontender, normoactive bowel sounds. No guarding, no rebound. No masses. No bruising or abrasions] RECTAL : [Guaiac negative, normal rectal tone.] MUSCULOSKELETAL: [Normal range of motion, no edema. No clubbing or cyanosis. No cords, erythema, or tenderness. No CVA Tenderness with fist.] NEUROLOGICAL: [Cranial nerves II through XII grossly intact. Normal speech, normal gait.] PSYCH: [Normal mood, normal affect.] SKIN: [Warm, Dry, normal turgor, no rashes or lesions noted.] 11/27/17 12:58 Past History - Past Medical History Allergies/Adverse Reactions: Allergies Allergy/AdvReac Type Severity Reaction Status Date / Time No Known Allergies Allergy Verified 11/27/17 09:40 Home Medications: Ambulatory Orders Atorvastatin Ca [Lipitor] 80 mg PO DAILY 11/27/16 Clopidogrel Bisulfate [Plavix -] 75 mg PO DAILY 11/27/16 Metoprolol Succinate [Toprol XL -] 25 mg PO DAILY 11/27/16 Ranolazine [Ranexa -] 500 mg PO BID 11/27/16 Valsartan/Hydrochlorothiazide [Valsartan-Hctz 160-12.5 mg Tab] 1 each PO DAILY 11/27/16 Aspirin [ASA -] 81 mg PO DAILY 01/11/17 Acetaminophen [Tylenol .Extra-Strength -] 500 mg PO Q6H 01/24/17 Famotidine 20 mg PO BID 01/24/17 Meclizine HCl 12.5 mg PO DAILY 01/24/17 Sennosides [Senna] 8.6 mg PO ASDIR 01/24/17 Tamsulosin HCl 0.4 mg PO DAILY 01/24/17 Dicyclomine HCl [Bentyl -] 10 mg PO TID #60 tab 01/26/17 Docusate Sodium [Colace -] 100 mg PO TID #90 capsule 01/26/17 Metformin HCl 500 mg PO BID 05/13/17 Budesonide/Formeterol Fumarate [SYMBICORT 160/4.5mcg -] 1 inh PO BID 06/03/17 Tiotropium Max [Spiriva] 1 inh IH DAILY 06/03/17 Phenol/Glycerin [Chloraseptic Max [place]] 1 ml MM QID PRN #1 spray 11/27/17 Anemia: No Asthma: No Cancer: No Cardiac Disorders: Yes (11 Stents) CVA: No COPD: No CHF: No Dementia: No Diabetes: Yes GI Disorders: No Disorders: Yes (bph) HTN: Yes Hypercholesterolemia: Yes Liver Disease: No Seizures: No Thyroid Disease: No - Surgical History Abdominal Surgery: No Appendectomy: No Cardiac Surgery: Yes (STENTS X 11) Cholecystectomy: No Lung Surgery: No Neurologic Surgery: No Orthopedic Surgery: No - Immunization History Immunization Up to Date: No - Suicide/Smoking/Psychosocial Hx Smoking Status: No Smoking History: Never smoked Have you smoked in the past 12 months: No Number of Cigarettes Smoked Daily: 0 If you are a former smoker, when did you quit?: 2008 Information on smoking cessation initiated: No Hx Alcohol Use: No Drug/Substance Use Hx: No Substance Use Type: None Hx Substance Use Treatment: No *Physical Exam - Vital Signs Last Vital Signs Temp Pulse Resp BP Pulse Ox 98.3 F 85 18 159/75 95 11/27/17 09:40 11/27/17 09:40 11/27/17 09:40 11/27/17 09:40 11/27/17 09:40 Medical Decision Making - Medical Decision Making 11/27/17 10:19 A/P: Patient here for left-sided chest pain, cough, what appears to be tactile fever by patient's explanation of generalized "cold". She also complaining of back pain, left arm pain. Due to patient's extensive cardiac history other sent patient to main emergency department for further evaluation. I have sent a rapid influenza. Report to Anna DENNIS. *DC/Admit/Observation/Transfer Diagnosis at time of Disposition: Sore throat - Discharge Dispostion Disposition: HOME Condition at time of disposition: Good - Prescriptions Prescriptions: Phenol/Glycerin [Chloraseptic Max [place]] 1 ml MM QID PRN #1 spray PRN Reason: Sore Throat - Referrals Referrals: Hermann mAaya MD [Primary Care Provider] - - Patient Instructions Printed Discharge Instructions: Sore Throat Additional Instructions: Eat soft nonabrasive foods and may gargle with warm salt water. May take Motrin for discomfort but otherwise take medication as previously prescribed. - Post Discharge Activity
[2017-11-27] MEDS ORDERED: IBUPROFEN 600 MG TABLET (FP) PO ONE (11:13)
[2017-11-27] MEDS ORDERED: IBUPROFEN 400 MG TABLET (FP) PO ONE (11:41)
--- NOTE | 2017-11-27 12:28 | PDOC ---
*Physical Exam - Vital Signs Last Vital Signs Temp Pulse Resp BP Pulse Ox 98.3 F 85 18 159/75 95 11/27/17 09:40 11/27/17 09:40 11/27/17 09:40 11/27/17 09:40 11/27/17 09:40 - Physical Exam General Appearance: Yes: Nourished, Appropriately Dressed. No: Apparent Distress HEENT: positive: EOMI, KAREN, Normal Voice, TMs Normal, Pharynx Normal. negative : Pale Conjunctivae, Tonsillar Exudate, Nasal Congestion, Sinus Tenderness, Thrush Neck: positive: Normal Thyroid, Supple. negative: Lymphadenopathy (R), Lymphadenopathy (L) Respiratory/Chest: positive: Chest Tender (upper midsternal), Lungs Clear, Normal Breath Sounds. negative: Respiratory Distress, Accessory Muscle Use Cardiovascular: positive: Regular Rhythm, Regular Rate (80-86 on monitor). negative: Murmur Gastrointestinal/Abdominal: positive: Soft. negative: Tenderness Extremity: negative: Pedal Edema Integumentary: positive: Normal Color, Warm, Moist Neurologic: positive: Motor Strength 5/5 (ambulatory with cane) ED Treatment Course - ADDITIONAL ORDERS Additional order review: 11/27/17 10:14 Influenza Types A,B Antigen (PENELOPE) - Final Nasopharyngeal Swab - Final - Medications Given in the ED: ED Medications Discontinued Medications Generic Name Dose Route Start Last Admin Trade Name Freq PRN Reason Stop Dose Admin Ibuprofen 400 mg 11/27/17 11:13 11/27/17 11:46 Motrin - PO 11/27/17 11:14 400 mg ONCE ONE Administration Medical Decision Making - Medical Decision Making 11/27/17 11:25 Patient with complaints of subjective chills for the past 3 days associated with sore throat and runny nose. Patient also states intermittent cough worsens at night causing him soreness in his upper mid chest and throat. Patient denies lower extremity edema, orthopnea, left-sided chest pain, palpitations, shortness of breath on exertion or rest, or abdominal pain. Patient had influenza swab sent from [place] and will order Motrin for discomfort 11/27/17 12:26 Influenza swab negative. Patient states moderate to mild relief of sore throat after taking Motrin. Patient to follow-up with his PCP and continue his previously prescribed meds for chronic pain and cardiac history *DC/Admit/Observation/Transfer Diagnosis at time of Disposition: Sore throat - Discharge Dispostion Disposition: HOME Condition at time of disposition: Good - Referrals Referrals: Hermann Amaya MD [Primary Care Provider] - - Patient Instructions Printed Discharge Instructions: Sore Throat Additional Instructions: Eat soft nonabrasive foods and may gargle with warm salt water. May take Motrin for discomfort but otherwise take medication as previously prescribed. - Post Discharge Activity
== END 2017-11-27 12:50 | disposition home or self-care (01) ==
LOC: JER 09:10 → JERFT 09:10 → JER 12:50
DX: J02.9 Acute pharyngitis, unspecified (principal); I25.10 Atherosclerotic heart disease of native coronary artery without angina pectoris; I10 Essential (primary) hypertension; Z95.5 Presence of coronary angioplasty implant and graft; E78.00 Pure hypercholesterolemia, unspecified; N40.0 Benign prostatic hyperplasia without lower urinary tract symptoms; E11.9 Type 2 diabetes mellitus without complications; Z79.84 Long term (current) use of oral hypoglycemic drugs; Z79.82 Long term (current) use of aspirin
CPT/HCPCS: 87804; 99281-25

== ENCOUNTER 2018-06-12 15:11 | Observation (INO) | payer MEDICARE, OTHER ==
--- NOTE | 2018-06-12 15:41 | PDOC ---
History of Present Illness - General Stated Complaint: PAIN Time Seen by Provider: 06/12/18 15:41 History Source: Patient - History of Present Illness Initial Comments: 06/12/18 16:13 Patient is a 67 year old male that presents with a three day h/o abdominal pain. Pain is constant over his RUQ/RLQ and radiates to his R flank. Pain is constant, sharp, 10/10, and with no identifiable triggering or relieving factors. Notes h/o recent unknown GB surgery @ [facility] 2-3 weeks previous. Denies fevers/chills, tolerating PO intake. Patient denies chest pain, shortness of breath, abdominal pain, diarrhea/ constipation, nausea/vomiting. NKDA Surgical: cholecystostomy Social: denies toxic habits PMD: Dr. Hermann Amaya Past History - Past Medical History Allergies/Adverse Reactions: Allergies Allergy/AdvReac Type Severity Reaction Status Date / Time No Known Allergies Allergy Verified 11/27/17 09:40 Home Medications: Ambulatory Orders Atorvastatin Ca [Lipitor] 80 mg PO DAILY 11/27/16 Clopidogrel Bisulfate [Plavix -] 75 mg PO DAILY 11/27/16 Metoprolol Succinate [Toprol XL -] 0 mg PO DAILY 11/27/16 Ranolazine [Ranexa -] 500 mg PO BID 11/27/16 Valsartan/Hydrochlorothiazide [Valsartan-Hctz 160-12.5 mg Tab] 1 each PO DAILY 11/27/16 Aspirin [ASA -] 81 mg PO DAILY 01/11/17 Acetaminophen [Tylenol .Extra-Strength -] 500 mg PO Q6H 01/24/17 Famotidine 20 mg PO BID 01/24/17 Meclizine HCl 12.5 mg PO DAILY 01/24/17 Sennosides [Senna] 8.6 mg PO ASDIR 01/24/17 Tamsulosin HCl 0.4 mg PO DAILY 01/24/17 Dicyclomine HCl [Bentyl -] 10 mg PO TID #60 tab 01/26/17 Docusate Sodium [Colace -] 100 mg PO TID #90 capsule 01/26/17 metFORMIN HCL [Metformin HCl] 500 mg PO BID 05/13/17 Budesonide/Formeterol Fumarate [SYMBICORT 160/4.5mcg -] 1 inh PO BID 06/03/17 Tiotropium [place] [Spiriva] 1 inh IH DAILY 06/03/17 Phenol/Glycerin [Chloraseptic Max [place]] 1 ml MM QID PRN #1 spray 11/27/17 Anemia: No Asthma: No Cancer: No Cardiac Disorders: Yes (11 Stents) CVA: No COPD: No CHF: No Dementia: No Diabetes: Yes GI Disorders: No Disorders: Yes (bph) HTN: Yes Hypercholesterolemia: Yes Liver Disease: No Seizures: No Thyroid Disease: No - Surgical History Abdominal Surgery: No Appendectomy: No Cardiac Surgery: Yes (STENTS X 11) Cholecystectomy: No Lung Surgery: No Neurologic Surgery: No Orthopedic Surgery: No - Immunization History Immunization Up to Date: No - Suicide/Smoking/Psychosocial Hx Smoking Status: No Smoking History: Never smoked Have you smoked in the past 12 months: No Number of Cigarettes Smoked Daily: 0 If you are a former smoker, when did you quit?: 2008 Hx Alcohol Use: No Drug/Substance Use Hx: No Substance Use Type: None Hx Substance Use Treatment: No Review of Systems - Review of Systems Constitutional: No: Chills, Fever HEENTM: No: Blurred Vision, Double Vision Respiratory: No: Cough, Shortness of Breath, Stridor, Wheezing, Hemoptysis Cardiac (ROS): No: Chest Pain, Lightheadedness, Palpitations, Syncope ABD/GI: Yes: Constipated, Nausea, Abdominal cramping. No: Diarrhea, Vomiting : No: Burning, Dysuria *Physical Exam - Physical Exam General Appearance: Yes: Nourished, Appropriately Dressed HEENT: positive: Normal Voice, Hearing Grossly Normal Neck: positive: Trachea midline, Supple Respiratory/Chest: positive: Lungs Clear, Normal Breath Sounds. negative: Crackles, Rales, Rhonchi, Stridor, Wheezing Cardiovascular: positive: S1, S2 Vascular Pulses: Dorsalis-Pedis (R): 2+, Doralis-Pedis (L): 2+ Gastrointestinal/Abdominal: positive: Normal Bowel Sounds, Soft, Tenderness ( mild TTP in RUQ), Other (draining colostomy bag; incision site C/D/I) Musculoskeletal: positive: CVA Tenderness (R). negative: CVA Tenderness (L) Extremity: positive: Normal Capillary Refill, Normal Inspection Integumentary: positive: Normal Color, Warm Neurologic: positive: Fully Oriented, Alert ED Treatment Course - LABORATORY CBC & Chemistry Diagram: 06/12/18 17:10 06/12/18 17:10 Medical Decision Making - Medical Decision Making 06/12/18 16:37 68 year old male s/p presumptive cholecystostomy tube presents with abdominal pain. VS unremarkable. Mild RLQ TTP and R sided CVA tenderness. Will obtain CT to r/o dislodged tube, abscess, hematoma as well as renal U/S to evaluate for hydropnephrosis. 06/12/18 17:03 Case d/w Dr. Lopez ( ) - patient had acalulous cholecystitis with cholecystostomy tube placed in lieu of cholecystectomy 11/23 to insurance. 06/12/18 17:09 Bedside U/S shows compressed GB c/w draining cholecystostomy tube. CT scan pending. 06/12/18 18:21 No leukocytosis LFT's normal CT scan Will obtain Troponin to confirm abdominal pain is not anginal equivalent. 06/12/18 21:31 Renal U/S negative for hydropnephrosis Troponin (-) x1 06/12/18 22:09 CT scan read pending. Patient signed out to Dr. Stacy (Attending) for further management. Likely disposition is home with general surgery (@ [facility]) follow-up. 06/12/18 22:16 *DC/Admit/Observation/Transfer Diagnosis at time of Disposition: Colostomy in place - Discharge Dispostion Disposition: HOME Condition at time of disposition: Good Decision to Admit order: No - Referrals Referrals: Hermann Amaya MD [Primary Care Provider] - - Patient Instructions Printed Discharge Instructions: General Health and Well-being (Alternative Therapy) Additional Instructions: Please follow up with Dr. Godinez/Dr. Lopez for your choleostomy bag removal. Return to the Emergency Department for any new/worsening/concerning symptoms including fevers, severe pain. - Post Discharge Activity
--- NOTE | 2018-06-12 16:27 | PDOC ---
Attending Attestation - Resident Resident Name: Dora Omalley - ED Attending Attestation I have performed the following: I have examined & evaluated the patient, The case was reviewed & discussed with the resident, I agree w/resident's findings & plan, Exceptions are as noted - HPI HPI: 06/12/18 16:22 68y M hx of CAD (s/p 11 stents), htn, hl, NIDDM,, presents with RUQ pain with occasional radaition to R flank. Pt also endorses mild cp. Pt had a gb drain placed at [facility] a few weeks ago for acalculous cholecystitis. Pt denies fever/ chills, dairhea, bpr, dysuria, sob, goodwin. pt notes constipation. on exam pt is well appearing in n odistress abd exam soft, minimal tenderness in RUQ w/o rebound/guarding, no cva tenderness chest: cta b/l card: rrr, no mrg ddx includes malfunction of his stent, kidney stones, acs will ck labs, ekg ct abdomen dr. omalley discussed with her surgeon - agrees with management - will discuss with him when results are back
[2018-06-12 17:00] VITALS: BMI 27.4
[2018-06-12 17:52] LABS: BASO % 0.7 % (0-2.0); EOS % 1.6 % (0-4.5); HEMATOCRIT 40.3 % (35.4-49); HEMOGLOBIN 13.8 GM/dL (11.7-16.9); LYMPH % 13.3 % (8-40); MCH 31.4 pg (25.7-33.7); MCHC 34.1 g/dl (32.0-35.9); MEAN CELL VOLUME 91.8 fl (80-96); MEAN PLT VOLUME 8.8 fl (7.5-11.1); MONO % 5.8 % (3.8-10.2); NEUT % 78.6 % (42.8-82.8); PLATELET COUNT 260 K/MM3 (134-434); RBC 4.39 M/mm3 (4.00-5.60); RDW 14.5 % (11.9-15.9)
[2018-06-12 18:09] LABS: ALBUMIN 2.9 g/dl (3.4-5.0); ANION GAP 8 MMOL/L (8-16); BLOOD UREA NITROGEN 12 mg/dL (7-18); CALCIUM 8.6 mg/dL (8.5-10.1); CHLORIDE 109 mmol/L (98-107); CO2 26 mmol/L (21-32); GLUCOSE,RANDOM 117 mg/dL (74-106); POTASSIUM 3.7 mmol/L (3.5-5.1); SGPT/ALT 14 U/L (12-78); SODIUM 143 mmol/L (136-145)
[2018-06-12 18:12] LABS: ALK PHOS 80 U/L (45-117); BILIRUBIN,TOTAL 0.8 mg/dL (0.2-1.0); CREATININE 1.2 mg/dL (0.7-1.3); SGOT/AST 18 U/L (15-37); TOT PROT 5.8 g/dl (6.4-8.2)
--- NOTE | 2018-06-12 23:21 | PDOC ---
*Physical Exam - Vital Signs Last Vital Signs Temp Pulse Resp BP Pulse Ox 97.9 F 63 16 126/69 100 06/12/18 15:11 06/12/18 15:11 06/12/18 15:11 06/12/18 15:11 06/12/18 15:11 ED Treatment Course - LABORATORY CBC & Chemistry Diagram: 06/12/18 17:10 06/12/18 17:10 - ADDITIONAL ORDERS Additional order review: Laboratory Results 06/12/18 06/12/18 18:22 17:10 Sodium 143 Potassium 3.7 Chloride 109 H Carbon Dioxide 26 Anion Gap 8 BUN 12 Creatinine 1.2 Creat Clearance w eGFR 59.86 Random Glucose 117 H Calcium 8.6 Total Bilirubin 0.8 AST 18 ALT 14 D Alkaline Phosphatase 80 Creatine Kinase 51 Troponin I < 0.02 Total Protein 5.8 L Albumin 2.9 L 06/12/18 06/12/18 17:10 16:56 RBC Cancelled 4.39 MCV Cancelled 91.8 MCHC Cancelled 34.1 RDW Cancelled 14.5 MPV Cancelled 8.8 Neutrophils % Cancelled 78.6 Lymphocytes % Cancelled 13.3 D Monocytes % Cancelled 5.8 Eosinophils % Cancelled 1.6 Basophils % Cancelled 0.7 Medical Decision Making - Medical Decision Making 06/12/18 23:15 Pt doesn't want to leave because he doesn't want to go back to [facility] and doesn't believe the surgeon at [facility] was contacted for him to follow up with the surgeon. Attempted to call son. NO response. Pt will be here for ED Obs Short stay, so that pt can contact his family member. *DC/Admit/Observation/Transfer Diagnosis at time of Disposition: Cholecystostomy tube dysfunction - Discharge Dispostion Condition at time of disposition: Good Decision to Admit order: Yes - Referrals Referrals: Hermann Amaya MD [Primary Care Provider] - - Patient Instructions Printed Discharge Instructions: General Health and Well-being (Alternative Therapy) Additional Instructions: Please follow up with Dr. Godinez/Dr. Lopez for your choleostomy bag removal. Return to the Emergency Department for any new/worsening/concerning symptoms including fevers, severe pain. - Post Discharge Activity
--- NOTE | 2018-06-13 08:44 | PDOC ---
*Physical Exam - Vital Signs Last Vital Signs Temp Pulse Resp BP Pulse Ox 98.0 F 67 18 122/55 99 06/13/18 02:31 06/13/18 06:08 06/13/18 06:08 06/13/18 06:08 06/13/18 06:08 ED Treatment Course - LABORATORY CBC & Chemistry Diagram: 06/12/18 17:10 06/12/18 17:10 - ADDITIONAL ORDERS Additional order review: 06/12/18 06/12/18 17:10 16:56 RBC Cancelled 4.39 MCV Cancelled 91.8 MCHC Cancelled 34.1 RDW Cancelled 14.5 MPV Cancelled 8.8 Neutrophils % Cancelled 78.6 Lymphocytes % Cancelled 13.3 D Monocytes % Cancelled 5.8 Eosinophils % Cancelled 1.6 Basophils % Cancelled 0.7 Medical Decision Making - Medical Decision Making 06/13/18 11:05 pt signed out from overnight Dr. Atkins pending reeval, admitted to obs. Morillo Terrence 68 YOM with RUQ pain, with cholecystotomy tube in place x several weeks, placed by Dr Lopez at [facility] draining bile and output appropriate. no abdominal peritoneal signs. CT a/p reviewed with Perc ruth tube in place for acalc ruth and no surgery performed due to insurance issues, reviewed the prior attending and resident notes. labs are reassuring, no LFTs derangement or WBC ct abnormallities. was placed on ED obs short stay, but given >10 hours, transferred to hospitalist care. spoke with Dr. May, will come see the patient (pt has private physician, Dr. Mars), and will evaluate the patient for further disposition. Vitals remain stable, well appearing, abdomen exam with mild RUQ tenderness but no peritoneal findings or signs of obstruction/infection - I did update the son Robert Morillo with information, who will come to hospital for his father. updated with the results and plan and management, pt and fam made aware of impression and plan, agreeable. care has been transferred to observation team. 06/13/18 11:08 *DC/Admit/Observation/Transfer Diagnosis at time of Disposition: Cholecystostomy tube dysfunction - Discharge Dispostion Condition at time of disposition: Good Decision to Admit order: Yes - Referrals - Patient Instructions - Post Discharge Activity
--- NOTE | 2018-06-13 09:23 | HP ---
CHIEF COMPLAINT: Pain at right abdomen at site of cholecystostomy tube. PCP: Dr. Lopez HISTORY OF PRESENT ILLNESS: Pt is a 68 y/o M with PMH DM, HTN, HLD, Angina, CAD s/p stent, BPH who presented to ED with complaint of R abdominal pain. Pt had a cholecystostomy tube placed by Dr. Lopez about 3 weeks ago and was sent to [place] with instructions to follow up later this month. He developed moderate abdominal pain at the site of the tube and alerted the [place] staff who sent him to [facility] ED. No n/v/d, fever, chills, cp/sob associated with the abdominal pain. No other complaints at this time. ER course was notable for: (1) labs unremarkable (2) CT showing ruth tube and BPH, renal u/s unremarkable (3) Recent Travel: denies PAST MEDICAL HISTORY: as above PAST SURGICAL HISTORY: as above Social History: Smoking: former Alcohol: former Drugs: denies Family History: Allergies No Known Allergies Allergy (Verified 11/27/17 09:40) HOME MEDICATIONS: Home Medications Medication Instructions Recorded Atorvastatin Ca [Lipitor] 80 mg PO DAILY 11/27/16 Clopidogrel Bisulfate [Plavix -] 75 mg PO DAILY 11/27/16 Metoprolol Succinate [Toprol XL -] 0 mg PO DAILY 11/27/16 Ranolazine [Ranexa -] 500 mg PO BID 11/27/16 Valsartan/Hydrochlorothiazide 1 each PO DAILY 11/27/16 [Valsartan-Hctz 160-12.5 mg Tab] Aspirin [ASA -] 81 mg PO DAILY 01/11/17 Acetaminophen [Tylenol 500 mg PO Q6H 01/24/17 .Extra-Strength -] Famotidine 20 mg PO BID 01/24/17 Meclizine HCl 12.5 mg PO DAILY 01/24/17 Sennosides [Senna] 8.6 mg PO ASDIR 01/24/17 Tamsulosin HCl 0.4 mg PO DAILY 01/24/17 Dicyclomine HCl [Bentyl -] 10 mg PO TID #60 tab 01/26/17 Docusate Sodium [Colace -] 100 mg PO TID #90 capsule 01/26/17 metFORMIN HCL [Metformin HCl] 500 mg PO BID 05/13/17 Budesonide/Formeterol Fumarate 1 inh PO BID 06/03/17 [SYMBICORT 160/4.5mcg -] Tiotropium [place] [Spiriva] 1 inh IH DAILY 06/03/17 Phenol/Glycerin [Chloraseptic Max 1 ml MM QID PRN #1 spray 11/27/17 [place]] REVIEW OF SYSTEMS CONSTITUTIONAL: Absent: fever, chills, diaphoresis, generalized weakness, malaise, loss of appetite, weight change HEENT: Absent: rhinorrhea, nasal congestion, throat pain, throat swelling, difficulty swallowing, mouth swelling, ear pain, eye pain, visual changes CARDIOVASCULAR: Absent: chest pain, syncope, palpitations, irregular heart rate, lightheadedness , peripheral edema RESPIRATORY: Absent: cough, shortness of breath, dyspnea with exertion, orthopnea, wheezing, stridor, hemoptysis GASTROINTESTINAL: Absent: , abdominal distension, nausea, vomiting, diarrhea, constipation, melena , hematochezia GENITOURINARY: abdominal pain Absent: dysuria, frequency, urgency, hesitancy, hematuria, flank pain, genital pain MUSCULOSKELETAL: Absent: myalgia, arthralgia, joint swelling, back pain, neck pain SKIN: Absent: rash, itching, pallor HEMATOLOGIC/IMMUNOLOGIC: Absent: easy bleeding, easy bruising, lymphadenopathy, frequent infections ENDOCRINE: Absent: unexplained weight gain, unexplained weight loss, heat intolerance, cold intolerance NEUROLOGIC: Absent: headache, focal weakness or paresthesias, dizziness, unsteady gait, seizure, mental status changes, bladder or bowel incontinence PSYCHIATRIC: Absent: anxiety, depression, suicidal or homicidal ideation, hallucinations. PHYSICAL EXAMINATION Vital Signs - 24 hr 06/12/18 06/12/18 06/13/18 15:11 19:20 02:31 Temperature 97.9 F 98.0 F Pulse Rate 63 Pulse Rate [ 70 Left Radial] Respiratory 16 17 Rate Blood Pressure 126/69 Blood Pressure 127/58 [Right Arm] O2 Sat by Pulse 100 100 100 Oximetry (%) 06/13/18 06:08 Temperature Pulse Rate Pulse Rate [ 67 Left Radial] Respiratory 18 Rate Blood Pressure Blood Pressure 122/55 [Right Arm] O2 Sat by Pulse 99 Oximetry (%) Gen: NAD HEENT: NCAT, EOMI Neck: supple no JVD Cardio: rrr, normal s1s2 Pulm: cta b/l Abd: R nephrostomy in place. Soft nontender, nondistended ext: 2+ pulses, no edema Laboratory Results - last 24 hr 06/12/18 06/12/18 06/12/18 16:56 17:10 17:10 WBC 9.0 Cancelled Corrected WBC (auto) Cancelled RBC 4.39 Cancelled Hgb 13.8 Cancelled Hct 40.3 Cancelled MCV 91.8 Cancelled MCH 31.4 Cancelled MCHC 34.1 Cancelled RDW 14.5 Cancelled Plt Count 260 Cancelled MPV 8.8 Cancelled Absolute Neuts (auto) 7.1 Cancelled Absolute Lymphs (auto) Cancelled Absolute Monos (auto) Cancelled Absolute Eos (auto) Cancelled Absolute Basos (auto) Cancelled Add Manual Diff Cancelled Neutrophils % 78.6 Cancelled Lymphocytes % 13.3 D Cancelled Monocytes % 5.8 Cancelled Eosinophils % 1.6 Cancelled Basophils % 0.7 Cancelled Nucleated RBC % 0 Cancelled Platelet Estimate Cancelled Platelet Comment Cancelled Normal RBC Morphology Cancelled Sodium 143 Potassium 3.7 Chloride 109 H Carbon Dioxide 26 Anion Gap 8 BUN 12 Creatinine 1.2 Creat Clearance w eGFR 59.86 Random Glucose 117 H Calcium 8.6 Total Bilirubin 0.8 AST 18 ALT 14 D Alkaline Phosphatase 80 Creatine Kinase Troponin I Total Protein 5.8 L Albumin 2.9 L 06/12/18 18:22 WBC Corrected WBC (auto) RBC Hgb Hct MCV MCH MCHC RDW Plt Count MPV Absolute Neuts (auto) Absolute Lymphs (auto) Absolute Monos (auto) Absolute Eos (auto) Absolute Basos (auto) Add Manual Diff Neutrophils % Lymphocytes % Monocytes % Eosinophils % Basophils % Nucleated RBC % Platelet Estimate Platelet Comment Normal RBC Morphology Sodium Potassium Chloride Carbon Dioxide Anion Gap BUN Creatinine Creat Clearance w eGFR Random Glucose Calcium Total Bilirubin AST ALT Alkaline Phosphatase Creatine Kinase 51 Troponin I < 0.02 Total Protein Albumin ASSESSMENT/PLAN: Pt is a 68 y/o M who presented to ED with complaint of R abdominal pain s/p cholecystostomy tube 3 weeks ago. Pt was observed in ED. #Abdominal pain -moderate pain will need to be addressed, preferably by the patient's surgeon that placed the drain -pt stable -in no distress at this time -reviewed the patient's documents with him in detail and re-emphasized to him the surgeon's name on his d/c paperwork from [facility] Dispo: D/c with instructions to follow up with his surgeon Visit type - Emergency Visit Emergency Visit: Yes ED Registration Date: 06/12/18 Care time: The patient presented to the Emergency Department on the above date and was hospitalized for further evaluation of their emergent condition. - New Patient This patient is new to me today: Yes Date on this admission: 06/16/18 - Critical Care Critical Care patient: No Hospitalist Screening - Colonoscopy Questionnaire Colonoscopy Questionnaire: Colonoscopy Questionnaire - Patient: 50 - 75 years old and never had a screening colonoscopy: Unknown History of colon or rectal polyps, or CA: Unknown History of IBD, Crohn's disease or UC: Unknown History of abdominal radiation therapy as a child: Unknown - Relative: 1 with colon or rectal CA, or polyps at age 60 or younger: Unknown Colon or rectal CA diagnosed at age 45 or younger: Unknown Multiple relatives with colon or rectal CA: Unknown - Outcome: Screening Result: Negative Screen
--- NOTE | 2018-06-13 13:39 | DS ---
Physical Exam: SUBJECTIVE: Patient seen and examined at bedside. No complaints OBJECTIVE: Vital Signs Period Temp Pulse Resp BP Sys/Bob Pulse Ox Last 24 Hr 97.9 F-98.0 F 63-70 16-18 122-127/55-69 99-100 PHYSICAL EXAM Gen: NAD HEENT: NCAT, EOMI Neck: supple no JVD Cardio: rrr, normal s1s2 Pulm: cta b/l Abd: R nephrostomy in place. Soft nontender, nondistended ext: 2+ pulses, no edema LABS Laboratory Results - last 24 hr 06/12/18 06/12/18 06/12/18 16:56 17:10 17:10 WBC 9.0 Cancelled Corrected WBC (auto) Cancelled RBC 4.39 Cancelled Hgb 13.8 Cancelled Hct 40.3 Cancelled MCV 91.8 Cancelled MCH 31.4 Cancelled MCHC 34.1 Cancelled RDW 14.5 Cancelled Plt Count 260 Cancelled MPV 8.8 Cancelled Absolute Neuts (auto) 7.1 Cancelled Absolute Lymphs (auto) Cancelled Absolute Monos (auto) Cancelled Absolute Eos (auto) Cancelled Absolute Basos (auto) Cancelled Add Manual Diff Cancelled Neutrophils % 78.6 Cancelled Lymphocytes % 13.3 D Cancelled Monocytes % 5.8 Cancelled Eosinophils % 1.6 Cancelled Basophils % 0.7 Cancelled Nucleated RBC % 0 Cancelled Platelet Estimate Cancelled Platelet Comment Cancelled Normal RBC Morphology Cancelled Sodium 143 Potassium 3.7 Chloride 109 H Carbon Dioxide 26 Anion Gap 8 BUN 12 Creatinine 1.2 Creat Clearance w eGFR 59.86 Random Glucose 117 H Calcium 8.6 Total Bilirubin 0.8 AST 18 ALT 14 D Alkaline Phosphatase 80 Creatine Kinase Troponin I Total Protein 5.8 L Albumin 2.9 L 06/12/18 18:22 WBC Corrected WBC (auto) RBC Hgb Hct MCV MCH MCHC RDW Plt Count MPV Absolute Neuts (auto) Absolute Lymphs (auto) Absolute Monos (auto) Absolute Eos (auto) Absolute Basos (auto) Add Manual Diff Neutrophils % Lymphocytes % Monocytes % Eosinophils % Basophils % Nucleated RBC % Platelet Estimate Platelet Comment Normal RBC Morphology Sodium Potassium Chloride Carbon Dioxide Anion Gap BUN Creatinine Creat Clearance w eGFR Random Glucose Calcium Total Bilirubin AST ALT Alkaline Phosphatase Creatine Kinase 51 Troponin I < 0.02 Total Protein Albumin HOSPITAL COURSE: Date of Admission:06/12/18 Date of Discharge: 06/13/18 Pt is a 68 y/o M who presented to ED with complaint of R abdominal pain s/p cholecystostomy tube 3 weeks ago. Pt was observed in ED. He was not in pain in the ED. He was given detailed instructions to call his surgeon. Pt is in no distress and is stable for d/c. Minutes to complete discharge: 45 Discharge Summary Reason For Visit: CHOLECYSTOSTOMY TIBE DYSFUNCTION Current Active Problems Cholecystostomy tube dysfunction (Acute) Condition: Good - Instructions Diet, Activity, Other Instructions: Please follow up with Dr. Godinez/Dr. Lopez for your choleostomy bag removal. Return to the Emergency Department for any new/worsening/concerning symptoms including fevers, severe pain. Referrals: Hermann Amaya MD [Primary Care Provider] - Disposition: HOME - Home Medications Comprehensive Discharge Medication List: Ambulatory Orders Atorvastatin Ca [Lipitor] 80 mg PO DAILY 11/27/16 Clopidogrel Bisulfate [Plavix -] 75 mg PO DAILY 11/27/16 Metoprolol Succinate [Toprol XL -] 0 mg PO DAILY 11/27/16 Ranolazine [Ranexa -] 500 mg PO BID 11/27/16 Valsartan/Hydrochlorothiazide [Valsartan-Hctz 160-12.5 mg Tab] 1 each PO DAILY 11/27/16 Aspirin [ASA -] 81 mg PO DAILY 01/11/17 Acetaminophen [Tylenol .Extra-Strength -] 500 mg PO Q6H 01/24/17 Famotidine 20 mg PO BID 01/24/17 Meclizine HCl 12.5 mg PO DAILY 01/24/17 Sennosides [Senna] 8.6 mg PO ASDIR 01/24/17 Tamsulosin HCl 0.4 mg PO DAILY 01/24/17 Dicyclomine HCl [Bentyl -] 10 mg PO TID #60 tab 01/26/17 Docusate Sodium [Colace -] 100 mg PO TID #90 capsule 01/26/17 metFORMIN HCL [Metformin HCl] 500 mg PO BID 05/13/17 Budesonide/Formeterol Fumarate [SYMBICORT 160/4.5mcg -] 1 inh PO BID 06/03/17 Tiotropium [place] [Spiriva] 1 inh IH DAILY 08/13/17 Phenol/Glycerin [Chloraseptic Max [place]] 1 ml MM QID PRN #1 spray 11/27/17 This patient is new to me today: Yes Date on this admission: 06/16/18 Emergency Visit: Yes ED Registration Date: 06/12/18 Care time: The patient presented to the Emergency Department on the above date and was hospitalized for further evaluation of their emergent condition. Critical Care patient: No - Discharge Referral Referred to [facility] No
[2018-06-13 15:26] VITALS: BP 149/62; PULSE 64; TEMP 98.3
--- NOTE | 2018-06-13 15:49 | EKG ---
Test Reason : Blood Pressure : / mmHG Vent. Rate : 064 BPM Atrial Rate : 064 BPM P-R Int : 152 ms QRS Dur : 096 ms QT Int : 430 ms P-R-T Axes : 061 -52 062 degrees QTc Int : 443 ms NORMAL SINUS RHYTHM LEFT AXIS DEVIATION ABNORMAL ECG WHEN COMPARED WITH ECG OF 21-SEP-2017 15:48, NONSPECIFIC T WAVE ABNORMALITY NO LONGER EVIDENT IN INFERIOR LEADS Confirmed by Amy Cedeno ([id number]) on 06/13/2018 3:49:18 PM Referred By: Confirmed By:Amy Cedeno
== END 2018-06-13 14:40 | disposition home or self-care (01) ==
LOC: JER 15:11 → JERBED 23:26
PROVIDERS: ADMIT Internal Medicine; ATTEND Internal Medicine
DX: T85.848A Pain due to other internal prosthetic devices, implants and grafts, initial encounter (principal); R10.9 Unspecified abdominal pain; I10 Essential (primary) hypertension; E78.5 Hyperlipidemia, unspecified; N40.0 Benign prostatic hyperplasia without lower urinary tract symptoms; E11.9 Type 2 diabetes mellitus without complications; R07.9 Chest pain, unspecified; I25.10 Atherosclerotic heart disease of native coronary artery without angina pectoris; Z95.5 Presence of coronary angioplasty implant and graft; Z79.82 Long term (current) use of aspirin; Z79.4 Long term (current) use of insulin; Y82.8 Other medical devices associated with adverse incidents; Y92.9 Unspecified place or not applicable
CPT/HCPCS: 36415; 74177-TC; 76775-TC; 80053; 82550; 84484; 85025; 93005; 93010; 99284-25; G0378

== ENCOUNTER 2020-11-08 14:55 | Inpatient (IN) | payer OTHER ==
[2020-11-08] MEDS ORDERED: ASPIRIN 81 MG CHEWABLE TABLETS PO ONE (16:25)
[2020-11-08] MEDS ORDERED: ASPIRIN 81 MG CHEWABLE TABLETS ONE (16:40)
[2020-11-08 17:14] LABS: BASO % 0.3 % (0-2.0); EOS % 1.5 % (0-4.5); HEMATOCRIT 35.4 % (35.4-49); HEMOGLOBIN 11.9 GM/dL (11.7-16.9); LYMPH % 13.6 % (8-40); MCH 31.9 pg (25.7-33.7); MCHC 33.6 g/dl (32.0-35.9); MEAN CELL VOLUME 94.8 fl (80-96); MEAN PLT VOLUME 9.7 fl (7.5-11.1); MONO % 5.6 % (3.8-10.2); PLATELET COUNT 230 K/MM3 (134-434); RBC 3.74 M/mm3 (4.00-5.60); RDW 15.3 % (11.9-15.9); WHITE BLOOD COUNT 8.4 K/mm3 (4.0-10.0)
[2020-11-08 17:23] LABS: INR 1.04 (0.83-1.09); PROTHROMBIN TIME (PATIENT) 12.8 SEC (9.7-13.0)
[2020-11-08 17:26] LABS: ACTIVATED PTT 31.1 SECONDS (25.2-36.5)
[2020-11-08 17:35] LABS: CHLORIDE 109 mmol/L (98-107); POTASSIUM 4.9 mmol/L (3.5-5.1); SODIUM 140 mmol/L (136-145)
[2020-11-08 17:38] LABS: ALBUMIN 3.4 g/dl (3.4-5.0); ANION GAP 6 MMOL/L (8-16); BLOOD UREA NITROGEN 23.3 mg/dL (7-18); CALCIUM 9.1 mg/dL (8.5-10.1); CO2 25 mmol/L (21-32); GLUCOSE,RANDOM 122 mg/dL (74-106)
[2020-11-08 17:41] LABS: SGOT/AST 23 U/L (15-37); SGPT/ALT 20 U/L (13-61)
[2020-11-08 17:42] LABS: CREATININE 1.3 mg/dL (0.55-1.3)
[2020-11-08 17:43] LABS: BILIRUBIN,TOTAL 0.5 mg/dL (0.2-1); TOT PROT 6.5 g/dl (6.4-8.2)
[2020-11-08 17:44] LABS: ALK PHOS 113 U/L (45-117)
[2020-11-08 17:49] LABS: N-TERMINAL BNP 2271.3 pg/ml (5-125)
[2020-11-08] MEDS ORDERED: dilTIAZem HCL 50 MG/10 ML - 10 ML VIAL IVPUSH ONE (20:44)
[2020-11-08] MEDS ORDERED: dilTIAZem HCL 125 MG/25 ML - 25 ML VIAL ONE (20:56)
[2020-11-09 08:05] LABS: HDL CHOLESTEROL 43 mg/dL (40-60)
[2020-11-09 08:06] LABS: TRIGLYCERIDES 156 mg/dL (0-150)
[2020-11-09 08:07] LABS: CHOLESTEROL 147 mg/dL (50-200)
[2020-11-09 08:08] LABS: LDL CHOLESTEROL (ONLY SJRH) 87 mg/dL (5-100)
[2020-11-09 08:28] LABS: ALBUMIN 3.3 g/dl (3.4-5.0); ALK PHOS 112 U/L (45-117); ANION GAP 3 MMOL/L (8-16); BILIRUBIN,TOTAL 0.8 mg/dL (0.2-1); BLOOD UREA NITROGEN 19.7 mg/dL (7-18); CALCIUM 8.9 mg/dL (8.5-10.1); CHLORIDE 110 mmol/L (98-107); CO2 27 mmol/L (21-32); CREATININE 1.2 mg/dL (0.55-1.3); GLUCOSE,RANDOM 86 mg/dL (74-106); MAGNESIUM 2.6 mg/dL (1.8-2.4); PHOSPHOROUS 3.9 mg/dL (2.5-4.9); SGOT/AST 19 U/L (15-37); SGPT/ALT 18 U/L (13-61); SODIUM 141 mmol/L (136-145); TOT PROT 6.5 g/dl (6.4-8.2)
[2020-11-09 08:32] LABS: BASO % 0.6 % (0-2.0); EOS % 2.2 % (0-4.5); HEMATOCRIT 36.2 % (35.4-49); HEMOGLOBIN 11.9 GM/dL (11.7-16.9); LYMPH % 14.8 % (8-40); MCH 31.3 pg (25.7-33.7); MEAN CELL VOLUME 94.7 fl (80-96); MEAN PLT VOLUME 9.6 fl (7.5-11.1); MONO % 9.2 % (3.8-10.2); NEUT % 73.2 % (42.8-82.8); PLATELET COUNT 228 K/MM3 (134-434); RBC 3.82 M/mm3 (4.00-5.60); RDW 15.1 % (11.9-15.9); WHITE BLOOD COUNT 8.9 K/mm3 (4.0-10.0)
[2020-11-09] MEDS ORDERED: METOPROLOL TARTRATE 25 MG TABLET (FP) PO SCH (10:00)
[2020-11-09] MEDS: FUROSEMIDE 40 MG TABLET (FP) PO SCH (11:00)
[2020-11-09] MEDS: ISOSORBIDE MONONITRATE 60 MG TAB.SR.24H (FP) PO SCH (11:00)
[2020-11-09] MEDS: amLODIPine BESYLATE 10 MG TABLET (FP) PO SCH (11:00)
[2020-11-09] MEDS: ASPIRIN 81 MG CHEWABLE TABLETS PO SCH (11:00)
[2020-11-09] MEDS: CLOPIDOGREL BISULFATE 75 MG TABLET (FP) PO SCH (11:00)
[2020-11-09] MEDS: LISINOPRIL 5 MG TABLET PO SCH (11:00)
[2020-11-09] MEDS ORDERED: ASPIRIN 81 MG CHEWABLE TABLETS ONE (11:13)
[2020-11-09] MEDS ORDERED: METOPROLOL TARTRATE 25 MG TABLET (FP) ONE (11:13)
[2020-11-09] MEDS ORDERED: LISINOPRIL 5 MG TABLET ONE (11:13)
[2020-11-09] MEDS ORDERED: FUROSEMIDE 40 MG TABLET (FP) ONE (11:13)
[2020-11-09] MEDS ORDERED: CLOPIDOGREL BISULFATE 75 MG TABLET (FP) ONE (11:14)
[2020-11-09] MEDS ORDERED: ISOSORBIDE MONONITRATE 60 MG TAB.SR.24H (FP) PO ONE (11:14)
[2020-11-09] MEDS: INSULIN SLIDING SCALE (NOVOLOG) 1 VIAL SQ SCH ×2 (11:45→16:57)
[2020-11-09] MEDS ORDERED: hydrALAZINE HCL 25 MG TABLET (FP) ONE (14:11)
[2020-11-09] MEDS: hydrALAZINE HCL 25 MG TABLET (FP) PO SCH ×2 (14:30→22:31)
[2020-11-09] MEDS ORDERED: ATORVASTATIN CA 80 MG TABLET (FP) PO SCH (22:00)
[2020-11-09] MEDS: METOPROLOL TARTRATE 25 MG TABLET (FP) PO SCH (22:31)
[2020-11-09 23:59] VITALS: BMI 28.0
[2020-11-10] MEDS: hydrALAZINE HCL 25 MG TABLET (FP) PO SCH ×2 (06:39→14:50)
[2020-11-10] MEDS: INSULIN SLIDING SCALE (NOVOLOG) 1 VIAL SQ SCH ×2 (07:44→12:17)
[2020-11-10] MEDS ORDERED: REGADENOSON 0.4 MG/5 ML PRE-FILLED SYRINGE IVPUSH ONE ×3 (09:06→11:06)
[2020-11-10] MEDS: FUROSEMIDE 40 MG TABLET (FP) PO SCH (12:13)
[2020-11-10] MEDS: ASPIRIN 81 MG CHEWABLE TABLETS PO SCH (12:13)
[2020-11-10] MEDS: ISOSORBIDE MONONITRATE 60 MG TAB.SR.24H (FP) PO SCH (12:13)
[2020-11-10] MEDS: METOPROLOL TARTRATE 25 MG TABLET (FP) PO SCH (12:14)
[2020-11-10] MEDS: CLOPIDOGREL BISULFATE 75 MG TABLET (FP) PO SCH (12:14)
[2020-11-10] MEDS: amLODIPine BESYLATE 10 MG TABLET (FP) PO SCH (12:14)
[2020-11-10] MEDS: LISINOPRIL 5 MG TABLET PO SCH (12:15)
[2020-11-10 14:04] VITALS: BP 137/60; PULSE 64; TEMP 97.5
== END 2020-11-10 15:37 | disposition home or self-care (01) | DRG 292 ==
LOC: JER 14:55 → JERBED 20:42 → J4S 11-09 20:59
PROVIDERS: ADMIT Internal Medicine; ATTEND Internal Medicine
DX: I11.0 Hypertensive heart disease with heart failure (principal); J98.11 Atelectasis; I50.32 Chronic diastolic (congestive) heart failure; E78.5 Hyperlipidemia, unspecified; I25.10 Atherosclerotic heart disease of native coronary artery without angina pectoris; E11.9 Type 2 diabetes mellitus without complications; N40.0 Benign prostatic hyperplasia without lower urinary tract symptoms; K21.9 Gastro-esophageal reflux disease without esophagitis; E66.9 Obesity, unspecified; Z68.28 Body mass index [BMI] 28.0-28.9, adult; Z95.5 Presence of coronary angioplasty implant and graft; Z20.822 Contact with and (suspected) exposure to COVID-19
CPT/HCPCS: 36415; 71045-TC-FY; 78452-TC; 80053; 80061; 82962; 83036; 83721; 83735; 83880; 84100; 84484; 85025; 85610; 85730; 93005; 93010; 93017; 93306-TC; 99285-25; A9502; C9803; J2785; U0003

== ENCOUNTER 2020-12-03 01:12 | Inpatient (IN) | payer OTHER ==
[2020-12-03] MEDS ORDERED: ASPIRIN 81 MG CHEWABLE TABLETS PO ONE (01:27)
[2020-12-03] MEDS ORDERED: FUROSEMIDE 40 MG/4 ML INJECTABLE VIAL IVPUSH ONE ×2 (01:32→06:09)
[2020-12-03] MEDS ORDERED: ASPIRIN 81 MG CHEWABLE TABLETS ONE (01:47)
[2020-12-03] MEDS ORDERED: FUROSEMIDE 40 MG/4 ML INJECTABLE VIAL ONE ×2 (01:47→06:31)
[2020-12-03 02:11] LABS: BASO % 0.7 % (0-2.0); EOS % 0.5 % (0-4.5); HEMATOCRIT 35.4 % (35.4-49); HEMOGLOBIN 11.7 GM/dL (11.7-16.9); LYMPH % 7.7 % (8-40); MCH 31.2 pg (25.7-33.7); MCHC 33.2 g/dl (32.0-35.9); MEAN CELL VOLUME 93.8 fl (80-96); MEAN PLT VOLUME 9.2 fl (7.5-11.1); MONO % 9.2 % (3.8-10.2); NEUT % 81.9 % (42.8-82.8); PLATELET COUNT 199 K/MM3 (134-434); RBC 3.77 M/mm3 (4.00-5.60); RDW 15.5 % (11.9-15.9)
[2020-12-03 02:39] LABS: CALCIUM 8.1 mg/dL (8.5-10.1); GLUCOSE,RANDOM 78 mg/dL (74-106)
[2020-12-03 02:40] LABS: ALBUMIN 3.2 g/dl (3.4-5.0); CO2 23 mmol/L (21-32)
[2020-12-03 02:43] LABS: CREATININE 1.7 mg/dL (0.55-1.3); SGOT/AST 20 U/L (15-37); SGPT/ALT 14 U/L (13-61)
[2020-12-03 02:44] LABS: BILIRUBIN,TOTAL 0.7 mg/dL (0.2-1); TOT PROT 6.5 g/dl (6.4-8.2)
[2020-12-03 02:45] LABS: ALK PHOS 112 U/L (45-117)
[2020-12-03 02:47] LABS: LDH 199 U/L (87-246)
[2020-12-03 02:49] LABS: ANION GAP 5 MMOL/L (8-16); CHLORIDE 112 mmol/L (98-107); POTASSIUM 4.3 mmol/L (3.5-5.1); SODIUM 140 mmol/L (136-145)
[2020-12-03 06:52] LABS: EPI CELLS >36 /uL (0-25.1); HYALINE CASTS 20 /uL (0-3.1); PH,URINE 5.5 (5.0-8.0); URINE APPEARANCE CLEAR; URINE BACTERIA 249 /uL (0-1359); URINE BILIRUBIN NEGATIVE (NEGATIVE); URINE COLOR YELLOW; URINE GLUCOSE (UA) NEGATIVE (NEGATIVE); URINE KETONE NEGATIVE (NEGATIVE); URINE LEUK ESTERASE 2+ (NEGATIVE); URINE NITRITE NEGATIVE (NEGATIVE); URINE PROTEIN 2+ (NEGATIVE); URINE UROBILINOGEN 0.2 mg/dL (0.2-1.0); URINE WBC 28 /uL (0-25.8)
[2020-12-03 07:14] LABS: PHOSPHOROUS 4.5 mg/dL (2.5-4.9)
[2020-12-03 09:49] LABS: URINE RBC 9.8 /uL (0-23.9)
[2020-12-03] MEDS: INSULIN SLIDING SCALE (NOVOLOG) 1 VIAL SQ SCH ×4 (09:52→22:38)
[2020-12-03] MEDS ORDERED: HEPARIN NA (PORCINE) 5,000 UNITS/ML 1ML VIAL ONE ×2 (14:07→22:22)
[2020-12-03] MEDS: HEPARIN NA (PORCINE) 5,000 UNITS/ML 1ML VIAL SQ SCH ×2 (14:52→22:38)
[2020-12-03] MEDS ORDERED: ACETAMINOPHEN 1000 MG/100 ML VIAL (NON FORMULARY) IVPB ONE (23:42)
[2020-12-04] MEDS ORDERED: ACETAMINOPHEN INJECTION 100 ML IVPB ONE
[2020-12-04] MEDS ORDERED: HEPARIN NA (PORCINE) 5,000 UNITS/ML 1ML VIAL ONE ×2 (06:50→14:24)
[2020-12-04] MEDS: HEPARIN NA (PORCINE) 5,000 UNITS/ML 1ML VIAL SQ SCH ×3 (06:59→22:24)
[2020-12-04] MEDS: INSULIN SLIDING SCALE (NOVOLOG) 1 VIAL SQ SCH ×4 (07:00→22:26)
[2020-12-04] MEDS ORDERED: FUROSEMIDE 40 MG/4 ML INJECTABLE VIAL ONE (14:24)
[2020-12-04] MEDS: FUROSEMIDE 40 MG/4 ML INJECTABLE VIAL IVPUSH SCH (14:37)
[2020-12-04] MEDS ORDERED: ISOSORBIDE MONONITRATE 60 MG TAB.SR.24H (FP) PO ONE (16:30)
[2020-12-04] MEDS ORDERED: CLOPIDOGREL BISULFATE 75 MG TABLET (FP) ONE (16:30)
[2020-12-04] MEDS ORDERED: LISINOPRIL 5 MG TABLET ONE (16:30)
[2020-12-04] MEDS: CLOPIDOGREL BISULFATE 75 MG TABLET (FP) PO SCH (16:53)
[2020-12-04] MEDS: LISINOPRIL 5 MG TABLET PO SCH (16:53)
[2020-12-04] MEDS: ISOSORBIDE MONONITRATE 60 MG TAB.SR.24H (FP) PO SCH (16:53)
[2020-12-04 20:51] VITALS: BMI 23.8
[2020-12-04] MEDS: ATORVASTATIN CA 80 MG TABLET (FP) PO SCH (22:24)
[2020-12-04] MEDS: LABETALOL HCL 100 MG TABLET (FP) PO SCH (22:24)
[2020-12-04] MEDS: hydrALAZINE HCL 25 MG TABLET (FP) PO SCH (22:24)
[2020-12-05] MEDS: FUROSEMIDE 40 MG/4 ML INJECTABLE VIAL IVPUSH SCH ×2 (05:26→13:11)
[2020-12-05] MEDS: hydrALAZINE HCL 25 MG TABLET (FP) PO SCH ×3 (05:26→21:38)
[2020-12-05] MEDS: HEPARIN NA (PORCINE) 5,000 UNITS/ML 1ML VIAL SQ SCH ×3 (05:26→21:39)
[2020-12-05] MEDS: INSULIN SLIDING SCALE (NOVOLOG) 1 VIAL SQ SCH ×4 (06:04→21:44)
[2020-12-05 07:08] LABS: HEP B CORE AB, TOT Negative (Negative)
[2020-12-05] MEDS: ASPIRIN 81 MG CHEWABLE TABLETS PO SCH (09:21)
[2020-12-05] MEDS: amLODIPine BESYLATE 10 MG TABLET (FP) PO SCH (09:21)
[2020-12-05] MEDS: CLOPIDOGREL BISULFATE 75 MG TABLET (FP) PO SCH (09:21)
[2020-12-05] MEDS: ISOSORBIDE MONONITRATE 60 MG TAB.SR.24H (FP) PO SCH (09:21)
[2020-12-05] MEDS: LISINOPRIL 5 MG TABLET PO SCH (09:21)
[2020-12-05] MEDS: LABETALOL HCL 100 MG TABLET (FP) PO SCH ×2 (09:22→21:38)
[2020-12-05] MEDS ORDERED: INSULIN SLIDING SCALE (NOVOLOG) 1 VIAL SQ ONE (09:47)
[2020-12-05 13:56] LABS: POTASSIUM 3.7 mmol/L (3.5-5.1)
[2020-12-05 13:57] LABS: CALCIUM 8.3 mg/dL (8.5-10.1)
[2020-12-05 13:58] LABS: BLOOD UREA NITROGEN 30.8 mg/dL (7-18)
[2020-12-05 14:01] LABS: CREATININE 1.7 mg/dL (0.55-1.3)
[2020-12-05] MEDS: ACETAMINOPHEN 325 MG TABLET (FP) PO PRN (20:02)
[2020-12-05] MEDS: ATORVASTATIN CA 80 MG TABLET (FP) PO SCH (21:38)
[2020-12-06] MEDS: hydrALAZINE HCL 25 MG TABLET (FP) PO SCH ×3 (06:06→22:00)
[2020-12-06] MEDS: HEPARIN NA (PORCINE) 5,000 UNITS/ML 1ML VIAL SQ SCH ×3 (06:06→22:00)
[2020-12-06] MEDS: FUROSEMIDE 40 MG/4 ML INJECTABLE VIAL IVPUSH SCH ×2 (06:06→13:33)
[2020-12-06] MEDS: INSULIN SLIDING SCALE (NOVOLOG) 1 VIAL SQ SCH ×4 (06:15→22:00)
[2020-12-06 08:35] LABS: POTASSIUM 3.4 mmol/L (3.5-5.1)
[2020-12-06 08:48] LABS: CALCIUM 8.1 mg/dL (8.5-10.1)
[2020-12-06 08:49] LABS: BLOOD UREA NITROGEN 31.6 mg/dL (7-18)
[2020-12-06 08:52] LABS: CREATININE 1.7 mg/dL (0.55-1.3)
[2020-12-06] MEDS: LISINOPRIL 5 MG TABLET PO SCH (09:39)
[2020-12-06] MEDS: ISOSORBIDE MONONITRATE 60 MG TAB.SR.24H (FP) PO SCH (09:39)
[2020-12-06] MEDS: amLODIPine BESYLATE 10 MG TABLET (FP) PO SCH (09:39)
[2020-12-06] MEDS: CLOPIDOGREL BISULFATE 75 MG TABLET (FP) PO SCH (09:39)
[2020-12-06] MEDS: ASPIRIN 81 MG CHEWABLE TABLETS PO SCH (09:39)
[2020-12-06] MEDS: LABETALOL HCL 100 MG TABLET (FP) PO SCH ×2 (10:29→22:00)
[2020-12-06] MEDS: ACETAMINOPHEN 325 MG TABLET (FP) PO PRN (12:11)
[2020-12-06] MEDS ORDERED: POTASSIUM CHLORIDE ORAL LIQUID 20 MEQ/15 ML PO ONE (13:36)
[2020-12-06 17:02] LABS: ALBUMIN 2.8 g/dl (3.4-5.0); BILIRUBIN,TOTAL 0.5 mg/dL (0.2-1); BLOOD UREA NITROGEN 32.6 mg/dL (7-18); CALCIUM 7.9 mg/dL (8.5-10.1); CREATININE 1.7 mg/dL (0.55-1.3); POTASSIUM 3.7 mmol/L (3.5-5.1); TOT PROT 5.8 g/dl (6.4-8.2)
[2020-12-06] MEDS: ATORVASTATIN CA 80 MG TABLET (FP) PO SCH (22:00)
[2020-12-07] MEDS: hydrALAZINE HCL 25 MG TABLET (FP) PO SCH ×3 (06:12→21:27)
[2020-12-07] MEDS: HEPARIN NA (PORCINE) 5,000 UNITS/ML 1ML VIAL SQ SCH ×3 (06:12→21:28)
[2020-12-07] MEDS: FUROSEMIDE 40 MG/4 ML INJECTABLE VIAL IVPUSH SCH ×2 (06:13→13:35)
[2020-12-07] MEDS: INSULIN SLIDING SCALE (NOVOLOG) 1 VIAL SQ SCH ×4 (06:22→21:33)
[2020-12-07 08:11] LABS: BASO % 0.7 % (0-2.0); EOS % 4.8 % (0-4.5); HEMATOCRIT 34.2 % (35.4-49); HEMOGLOBIN 11.3 GM/dL (11.7-16.9); LYMPH % 24.2 % (8-40); MCH 30.8 pg (25.7-33.7); MCHC 33.1 g/dl (32.0-35.9); MEAN CELL VOLUME 93.1 fl (80-96); MEAN PLT VOLUME 8.8 fl (7.5-11.1); MONO % 9.1 % (3.8-10.2); NEUT % 61.2 % (42.8-82.8); PLATELET COUNT 260 K/MM3 (134-434); RBC 3.67 M/mm3 (4.00-5.60); RDW 15.4 % (11.9-15.9); WHITE BLOOD COUNT 7.1 K/mm3 (4.0-10.0)
[2020-12-07] MEDS: ACETAMINOPHEN 325 MG TABLET (FP) PO PRN (08:13)
[2020-12-07] MEDS: amLODIPine BESYLATE 10 MG TABLET (FP) PO SCH (09:09)
[2020-12-07] MEDS: ASPIRIN 81 MG CHEWABLE TABLETS PO SCH (09:09)
[2020-12-07] MEDS: LABETALOL HCL 100 MG TABLET (FP) PO SCH ×2 (09:09→21:27)
[2020-12-07] MEDS: CLOPIDOGREL BISULFATE 75 MG TABLET (FP) PO SCH (09:09)
[2020-12-07] MEDS: LISINOPRIL 5 MG TABLET PO SCH (09:09)
[2020-12-07] MEDS: ISOSORBIDE MONONITRATE 60 MG TAB.SR.24H (FP) PO SCH (09:09)
[2020-12-07] MEDS ORDERED: ACETAMINOPHEN 1000 MG/100 ML VIAL (NON FORMULARY) IVPB PRN (12:44)
[2020-12-07 14:54] LABS: CHLORIDE 108 mmol/L (98-107); POTASSIUM 4.4 mmol/L (3.5-5.1); SODIUM 143 mmol/L (136-145)
[2020-12-07 14:55] LABS: CALCIUM 8.4 mg/dL (8.5-10.1)
[2020-12-07 14:56] LABS: ANION GAP 8 MMOL/L (8-16); CO2 27 mmol/L (21-32); GLUCOSE,RANDOM 156 mg/dL (74-106)
[2020-12-07 14:57] LABS: BLOOD UREA NITROGEN 30.5 mg/dL (7-18)
[2020-12-07 14:59] LABS: CREATININE 1.5 mg/dL (0.55-1.3)
[2020-12-07] MEDS: ATORVASTATIN CA 80 MG TABLET (FP) PO SCH (21:27)
[2020-12-08] MEDS: ACETAMINOPHEN 325 MG TABLET (FP) PO PRN (01:34)
[2020-12-08] MEDS: FUROSEMIDE 40 MG/4 ML INJECTABLE VIAL IVPUSH SCH (06:18)
[2020-12-08] MEDS: HEPARIN NA (PORCINE) 5,000 UNITS/ML 1ML VIAL SQ SCH ×3 (06:18→21:11)
[2020-12-08] MEDS: hydrALAZINE HCL 25 MG TABLET (FP) PO SCH ×3 (06:18→21:11)
[2020-12-08] MEDS: INSULIN SLIDING SCALE (NOVOLOG) 1 VIAL SQ SCH ×4 (06:20→21:19)
[2020-12-08] MEDS: LISINOPRIL 5 MG TABLET PO SCH (09:44)
[2020-12-08] MEDS: amLODIPine BESYLATE 10 MG TABLET (FP) PO SCH (09:44)
[2020-12-08] MEDS: ISOSORBIDE MONONITRATE 60 MG TAB.SR.24H (FP) PO SCH (09:44)
[2020-12-08] MEDS: ASPIRIN 81 MG CHEWABLE TABLETS PO SCH (09:44)
[2020-12-08] MEDS: CLOPIDOGREL BISULFATE 75 MG TABLET (FP) PO SCH (09:44)
[2020-12-08] MEDS: LABETALOL HCL 100 MG TABLET (FP) PO SCH ×2 (09:44→21:11)
[2020-12-08] MEDS: FUROSEMIDE 40 MG TABLET (FP) PO SCH (13:38)
[2020-12-08] MEDS: ATORVASTATIN CA 80 MG TABLET (FP) PO SCH (21:11)
[2020-12-09] MEDS: HEPARIN NA (PORCINE) 5,000 UNITS/ML 1ML VIAL SQ SCH ×3 (06:02→22:22)
[2020-12-09] MEDS: hydrALAZINE HCL 25 MG TABLET (FP) PO SCH ×3 (06:02→22:21)
[2020-12-09] MEDS: FUROSEMIDE 40 MG TABLET (FP) PO SCH ×2 (06:02→15:42)
[2020-12-09] MEDS: INSULIN SLIDING SCALE (NOVOLOG) 1 VIAL SQ SCH ×4 (06:03→22:36)
[2020-12-09] MEDS: amLODIPine BESYLATE 10 MG TABLET (FP) PO SCH (09:43)
[2020-12-09] MEDS: ISOSORBIDE MONONITRATE 60 MG TAB.SR.24H (FP) PO SCH (09:43)
[2020-12-09] MEDS: CLOPIDOGREL BISULFATE 75 MG TABLET (FP) PO SCH (09:43)
[2020-12-09] MEDS: LISINOPRIL 5 MG TABLET PO SCH (09:43)
[2020-12-09] MEDS: LABETALOL HCL 100 MG TABLET (FP) PO SCH ×2 (09:43→22:23)
[2020-12-09] MEDS: ACETAMINOPHEN 325 MG TABLET (FP) PO PRN ×2 (09:43→22:23)
[2020-12-09] MEDS: ASPIRIN 81 MG CHEWABLE TABLETS PO SCH (09:43)
[2020-12-09] MEDS: ATORVASTATIN CA 80 MG TABLET (FP) PO SCH (22:22)
[2020-12-10] MEDS: FUROSEMIDE 40 MG TABLET (FP) PO SCH ×2 (06:14→13:29)
[2020-12-10] MEDS: HEPARIN NA (PORCINE) 5,000 UNITS/ML 1ML VIAL SQ SCH (06:14)
[2020-12-10] MEDS: hydrALAZINE HCL 25 MG TABLET (FP) PO SCH ×2 (06:14→13:29)
[2020-12-10] MEDS: INSULIN SLIDING SCALE (NOVOLOG) 1 VIAL SQ SCH ×2 (06:34→11:53)
[2020-12-10 08:55] LABS: POTASSIUM 4.6 mmol/L (3.5-5.1)
[2020-12-10 08:59] LABS: ALBUMIN 2.9 g/dl (3.4-5.0); BLOOD UREA NITROGEN 37.5 mg/dL (7-18)
[2020-12-10 09:02] LABS: CREATININE 1.6 mg/dL (0.55-1.3)
[2020-12-10 09:04] LABS: TOT PROT 5.8 g/dl (6.4-8.2)
[2020-12-10] MEDS: LISINOPRIL 5 MG TABLET PO SCH (11:45)
[2020-12-10] MEDS: ASPIRIN 81 MG CHEWABLE TABLETS PO SCH (11:45)
[2020-12-10] MEDS: CLOPIDOGREL BISULFATE 75 MG TABLET (FP) PO SCH (11:46)
[2020-12-10] MEDS: amLODIPine BESYLATE 10 MG TABLET (FP) PO SCH (11:46)
[2020-12-10] MEDS: LABETALOL HCL 100 MG TABLET (FP) PO SCH (11:49)
[2020-12-10] MEDS: ISOSORBIDE MONONITRATE 60 MG TAB.SR.24H (FP) PO SCH (11:49)
[2020-12-10 14:23] VITALS: BP 132/75; PULSE 77; TEMP 97.6
== END 2020-12-10 15:00 | disposition home or self-care (01) | DRG 291 ==
LOC: JER 01:12 → J6WEST-2 01:27
PROVIDERS: ADMIT Internal Medicine; ATTEND Internal Medicine
DX: I13.0 Hypertensive heart and chronic kidney disease with heart failure and stage 1 through stage 4 chronic kidney disease, or unspecified chronic kidney disease (principal); J96.01 Acute respiratory failure with hypoxia; I50.33 Acute on chronic diastolic (congestive) heart failure; N17.9 Acute kidney failure, unspecified; I25.10 Atherosclerotic heart disease of native coronary artery without angina pectoris; E11.22 Type 2 diabetes mellitus with diabetic chronic kidney disease; N18.9 Chronic kidney disease, unspecified; N40.0 Benign prostatic hyperplasia without lower urinary tract symptoms; E78.5 Hyperlipidemia, unspecified; N28.1 Cyst of kidney, acquired
CPT/HCPCS: 36415; 71045-TC-FY; 71250-TC; 73030-TC-LT-FY; 76775-TC; 80048; 80053; 81003; 82550; 82565; 82728; 82962; 83615; 83735; 83970; 84100; 84156; 84484; 85025; 85379; 86038; 86140; 86704; 86803; 87340; 93005; 93010; 99285-25; C9803; J0131; J1644; U0003

== ENCOUNTER 2021-02-01 12:39 | Inpatient (IN) | payer OTHER ==
[2021-02-01] MEDS ORDERED: ACETAMINOPHEN 325 MG TABLET (FP) PO ONE (13:54)
[2021-02-01 14:10] LABS: VENOUS BASE EXCESS -4.2 mmol/L (-2-2); VENOUS PCO2 43.9 mmHg (38-52); VENOUS PH 7.317 (7.310-7.410)
[2021-02-01] MEDS ORDERED: NITROGLYCERIN SUBLINGUAL 1/150 0.4 MG TAB ONE (14:12)
[2021-02-01] MEDS ORDERED: ACETAMINOPHEN 325 MG TABLET (FP) ONE (14:12)
[2021-02-01 14:16] LABS: INR 1.24 (0.83-1.09); PROTHROMBIN TIME (PATIENT) 14.9 SEC (9.7-13.0)
[2021-02-01 14:19] LABS: ACTIVATED PTT 24.6 SECONDS (25.2-36.5)
[2021-02-01] MEDS: NITROGLYCERIN SUBLINGUAL 1/150 0.4 MG TAB SL PRN (14:21)
[2021-02-01 14:24] LABS: CHLORIDE 114 mmol/L (98-107); SODIUM 140 mmol/L (136-145)
[2021-02-01 14:26] LABS: ALBUMIN 3.4 g/dl (3.4-5.0); CALCIUM 7.4 mg/dL (8.5-10.1)
[2021-02-01] MEDS ORDERED: morphine CARPU-JECT 4 MG/1 ML DISP.SYRIN IVPUSH ONE (14:26)
[2021-02-01] MEDS ORDERED: FUROSEMIDE 40 MG/4 ML INJECTABLE VIAL IVPUSH ONE (14:26)
[2021-02-01 14:27] LABS: ANION GAP 3 MMOL/L (8-16); CO2 22 mmol/L (21-32); GLUCOSE,RANDOM 160 mg/dL (74-106); LIPASE 161 U/L (73-393)
[2021-02-01] MEDS ORDERED: morphine SULFATE 4 MG/ML VIAL ONE (14:29)
[2021-02-01 14:30] LABS: CREATININE 1.9 mg/dL (0.55-1.3); SGOT/AST 36 U/L (15-37)
[2021-02-01] MEDS ORDERED: FUROSEMIDE 40 MG/4 ML INJECTABLE VIAL ONE (14:30)
[2021-02-01 14:32] LABS: BILIRUBIN,TOTAL 0.8 mg/dL (0.2-1)
[2021-02-01 14:33] LABS: ALK PHOS 116 U/L (45-117)
[2021-02-01 14:36] LABS: SGPT/ALT 27 U/L (13-61)
[2021-02-01] MEDS ORDERED: CALCIUM GLUCONATE 10% - 1,000 MG/10 ML VIAL IVPB ONE (14:36)
[2021-02-01] MEDS ORDERED: INSULIN REGULAR HUMAN 100 UNITS/ML *VIAL IVPUSH ONE (14:37)
[2021-02-01] MEDS ORDERED: DEXTROSE 50%-WATER - 25 GM/50 ML VIAL IVPUSH ONE (14:37)
[2021-02-01] MEDS ORDERED: DEXTROSE 50%-WATER 25 GM/50 ML DISP.SYRIN ONE (14:43)
[2021-02-01] MEDS ORDERED: CALCIUM GLUC IN NACL, ISO-OSM 1 GM/50 ML BAG IVPB ONE (14:43)
[2021-02-01 15:05] LABS: BASO % 0.2 % (0-2.0); EOS % 0.7 % (0-4.5); HEMATOCRIT 30.4 % (35.4-49); HEMOGLOBIN 10.2 GM/dL (11.7-16.9); LYMPH % 10.1 % (8-40); MCH 32.2 pg (25.7-33.7); MCHC 33.5 g/dl (32.0-35.9); MEAN CELL VOLUME 96.1 fl (80-96); MEAN PLT VOLUME 8.7 fl (7.5-11.1); MONO % 6.2 % (3.8-10.2); NEUT % 82.8 % (42.8-82.8); PLATELET COUNT 274 K/MM3 (134-434); RBC 3.17 M/mm3 (4.00-5.60); RDW 17.2 % (11.9-15.9); WHITE BLOOD COUNT 5.9 K/mm3 (4.0-10.0)
[2021-02-01] MEDS ORDERED: HEPARIN NA (PORCINE) 5,000 UNITS/ML 1ML VIAL ONE (21:33)
[2021-02-01] MEDS ORDERED: hydrALAZINE HCL 25 MG TABLET (FP) ONE (21:33)
[2021-02-01] MEDS ORDERED: ATORVASTATIN CA 80 MG TABLET (FP) ONE (21:33)
[2021-02-01] MEDS ORDERED: LABETALOL HCL 100 MG TABLET (FP) ONE (21:33)
[2021-02-01] MEDS ORDERED: glipiZIDE 5 MG TABLET (FP) ONE (21:35)
[2021-02-01] MEDS: HEPARIN NA (PORCINE) 5,000 UNITS/ML 1ML VIAL SQ SCH (21:44)
[2021-02-01] MEDS: ATORVASTATIN CA 80 MG TABLET (FP) PO SCH (21:44)
[2021-02-01] MEDS: LABETALOL HCL 100 MG TABLET (FP) PO SCH (21:44)
[2021-02-01] MEDS: hydrALAZINE HCL 25 MG TABLET (FP) PO SCH (21:44)
[2021-02-01] MEDS: RANOLAZINE E.R. 1,000 MG TABLET (FP) PO SCH (22:01)
[2021-02-02] MEDS ORDERED: hydrALAZINE HCL 25 MG TABLET (FP) ONE ×2 (05:55→17:19)
[2021-02-02] MEDS: hydrALAZINE HCL 25 MG TABLET (FP) PO SCH ×3 (06:14→22:43)
[2021-02-02 06:47] LABS: BASO % 0.6 % (0-2.0); EOS % 2.2 % (0-4.5); HEMOGLOBIN 9.7 GM/dL (11.7-16.9); LYMPH % 15.7 % (8-40); MCH 32.5 pg (25.7-33.7); MCHC 33.5 g/dl (32.0-35.9); MEAN CELL VOLUME 97.1 fl (80-96); MEAN PLT VOLUME 8.3 fl (7.5-11.1); MONO % 12.3 % (3.8-10.2); NEUT % 69.2 % (42.8-82.8); PLATELET COUNT 323 K/MM3 (134-434); RBC 2.99 M/mm3 (4.00-5.60)
[2021-02-02] MEDS ORDERED: glipiZIDE 10 MG TABLET (FP) PO SCH (07:00)
[2021-02-02 07:05] LABS: CHLORIDE 113 mmol/L (98-107); SODIUM 141 mmol/L (136-145)
[2021-02-02 07:09] LABS: ALBUMIN 3.1 g/dl (3.4-5.0); ANION GAP 4 MMOL/L (8-16); CALCIUM 8.1 mg/dL (8.5-10.1); CO2 24 mmol/L (21-32)
[2021-02-02 07:12] LABS: CHOLESTEROL 125 mg/dL (50-200); CREATININE 2.1 mg/dL (0.55-1.3); SGOT/AST 26 U/L (15-37); SGPT/ALT 22 U/L (13-61)
[2021-02-02 07:13] LABS: HDL CHOLESTEROL 38 mg/dL (40-60); TRIGLYCERIDES 122 mg/dL (0-150)
[2021-02-02 07:14] LABS: BILIRUBIN,TOTAL 0.9 mg/dL (0.2-1); LDL CHOLESTEROL (ONLY SJRH) 67 mg/dL (5-100); TOT PROT 5.8 g/dl (6.4-8.2)
[2021-02-02 07:15] LABS: ALK PHOS 113 U/L (45-117)
[2021-02-02 07:25] LABS: GLUCOSE,RANDOM 39 mg/dL (74-106)
[2021-02-02] MEDS ORDERED: DEXTROSE 50%-WATER 25 GM/50 ML DISP.SYRIN ONE (07:47)
[2021-02-02] MEDS ORDERED: DEXTROSE 50%-WATER - 25 GM/50 ML VIAL IVPUSH ONE ×2 (07:57→07:58)
[2021-02-02] MEDS ORDERED: HEPARIN NA (PORCINE) 5,000 UNITS/ML 1ML VIAL ONE (08:40)
[2021-02-02] MEDS ORDERED: amLODIPine BESYLATE 2.5 MG TABLET (FP) ONE (08:44)
[2021-02-02] MEDS ORDERED: ASPIRIN 81 MG CHEWABLE TABLETS ONE ×3 (08:45→10:10)
[2021-02-02] MEDS ORDERED: ISOSORBIDE MONONITRATE 60 MG TAB.SR.24H (FP) PO ONE (08:46)
[2021-02-02] MEDS ORDERED: CLOPIDOGREL BISULFATE 75 MG TABLET (FP) ONE (08:46)
[2021-02-02] MEDS ORDERED: LISINOPRIL 5 MG TABLET ONE (08:46)
[2021-02-02] MEDS ORDERED: FUROSEMIDE 40 MG/4 ML INJECTABLE VIAL ONE ×2 (08:46→17:19)
[2021-02-02] MEDS ORDERED: LABETALOL HCL 100 MG TABLET (FP) ONE (09:14)
[2021-02-02] MEDS ORDERED: LISINOPRIL 5 MG TABLET PO SCH (10:00)
[2021-02-02] MEDS ORDERED: amLODIPine BESYLATE 10 MG TABLET (FP) PO SCH (10:00)
[2021-02-02] MEDS ORDERED: FUROSEMIDE 40 MG/4 ML INJECTABLE VIAL IVPUSH SCH (10:00)
[2021-02-02] MEDS: RANOLAZINE E.R. 1,000 MG TABLET (FP) PO SCH ×2 (10:08→22:43)
[2021-02-02] MEDS: LABETALOL HCL 100 MG TABLET (FP) PO SCH ×2 (10:08→22:43)
[2021-02-02] MEDS: ASPIRIN 81 MG CHEWABLE TABLETS PO SCH (10:08)
[2021-02-02] MEDS: ISOSORBIDE MONONITRATE 60 MG TAB.SR.24H (FP) PO SCH (10:08)
[2021-02-02] MEDS: CLOPIDOGREL BISULFATE 75 MG TABLET (FP) PO SCH (10:08)
[2021-02-02] MEDS: HEPARIN NA (PORCINE) 5,000 UNITS/ML 1ML VIAL SQ SCH ×2 (10:08→22:43)
[2021-02-02] MEDS: FUROSEMIDE 40 MG/4 ML INJECTABLE VIAL IVPUSH SCH (17:27)
[2021-02-02] MEDS: ATORVASTATIN CA 80 MG TABLET (FP) PO SCH (22:43)
[2021-02-03] MEDS: hydrALAZINE HCL 25 MG TABLET (FP) PO SCH ×3 (05:57→21:19)
[2021-02-03] MEDS: FUROSEMIDE 40 MG/4 ML INJECTABLE VIAL IVPUSH SCH ×2 (05:57→13:41)
[2021-02-03] MEDS: LABETALOL HCL 100 MG TABLET (FP) PO SCH ×2 (10:35→21:19)
[2021-02-03] MEDS: ASPIRIN 81 MG CHEWABLE TABLETS PO SCH (10:35)
[2021-02-03] MEDS: RANOLAZINE E.R. 1,000 MG TABLET (FP) PO SCH ×2 (10:35→21:19)
[2021-02-03] MEDS: HEPARIN NA (PORCINE) 5,000 UNITS/ML 1ML VIAL SQ SCH ×2 (10:36→21:19)
[2021-02-03] MEDS: ISOSORBIDE MONONITRATE 60 MG TAB.SR.24H (FP) PO SCH (10:36)
[2021-02-03] MEDS: CLOPIDOGREL BISULFATE 75 MG TABLET (FP) PO SCH (10:36)
[2021-02-03] MEDS ORDERED: FLU VACCINE (FLULAVAL) PF 60 MCG/0.5 ML SYRINGE 2020-2021 IM ONE (14:00)
[2021-02-03] MEDS ORDERED: PNEUMOC 13-VAL CONJ-DIP CRM/PF 0.5 ML DISP.SYRIN IM ONE (14:00)
[2021-02-03 14:33] LABS: CALCIUM 7.4 mg/dL (8.5-10.1)
[2021-02-03 14:34] LABS: BLOOD UREA NITROGEN 40.7 mg/dL (7-18)
[2021-02-03 14:37] LABS: CREATININE 2.2 mg/dL (0.55-1.3)
[2021-02-03] MEDS: ATORVASTATIN CA 80 MG TABLET (FP) PO SCH (21:19)
[2021-02-04] MEDS ORDERED: MORPHINE SULFATE 2 MG/ML VIAL IVPUSH ONE (06:21)
[2021-02-04] MEDS: hydrALAZINE HCL 25 MG TABLET (FP) PO SCH ×3 (06:36→21:20)
[2021-02-04] MEDS: FUROSEMIDE 40 MG/4 ML INJECTABLE VIAL IVPUSH SCH ×2 (06:36→13:35)
[2021-02-04 06:51] LABS: BASO % 0.6 % (0-2.0); EOS % 2.2 % (0-4.5); HEMATOCRIT 27.2 % (35.4-49); HEMOGLOBIN 9.4 GM/dL (11.7-16.9); LYMPH % 14.9 % (8-40); MCH 32.9 pg (25.7-33.7); MCHC 34.6 g/dl (32.0-35.9); MEAN CELL VOLUME 95.3 fl (80-96); MEAN PLT VOLUME 8.5 fl (7.5-11.1); MONO % 10.9 % (3.8-10.2); NEUT % 71.4 % (42.8-82.8); PLATELET COUNT 315 K/MM3 (134-434); RBC 2.86 M/mm3 (4.00-5.60); RDW 17.3 % (11.9-15.9); WHITE BLOOD COUNT 6.6 K/mm3 (4.0-10.0)
[2021-02-04 07:29] LABS: BLOOD UREA NITROGEN 41.2 mg/dL (7-18); CALCIUM 7.5 mg/dL (8.5-10.1)
[2021-02-04 07:32] LABS: CREATININE 2.4 mg/dL (0.55-1.3)
[2021-02-04 07:33] LABS: BILIRUBIN,TOTAL 0.9 mg/dL (0.2-1); PHOSPHOROUS 4.1 mg/dL (2.5-4.9)
[2021-02-04 07:34] LABS: TOT PROT 5.6 g/dl (6.4-8.2)
[2021-02-04] MEDS: CLOPIDOGREL BISULFATE 75 MG TABLET (FP) PO SCH (10:28)
[2021-02-04] MEDS: ISOSORBIDE MONONITRATE 60 MG TAB.SR.24H (FP) PO SCH (10:29)
[2021-02-04] MEDS: LABETALOL HCL 100 MG TABLET (FP) PO SCH ×2 (10:29→21:20)
[2021-02-04] MEDS: ASPIRIN 81 MG CHEWABLE TABLETS PO SCH (10:29)
[2021-02-04] MEDS: HEPARIN NA (PORCINE) 5,000 UNITS/ML 1ML VIAL SQ SCH ×2 (10:30→21:20)
[2021-02-04] MEDS: RANOLAZINE E.R. 1,000 MG TABLET (FP) PO SCH ×2 (10:30→21:20)
[2021-02-04] MEDS: ATORVASTATIN CA 80 MG TABLET (FP) PO SCH (21:20)
[2021-02-04] MEDS: NITROGLYCERIN SUBLINGUAL 1/150 0.4 MG TAB SL PRN (23:42)
[2021-02-05] MEDS: NITROGLYCERIN SUBLINGUAL 1/150 0.4 MG TAB SL PRN ×3 (02:40→09:46)
[2021-02-05 05:09] LABS: BLOOD UREA NITROGEN 46.5 mg/dL (7-18); CALCIUM 7.6 mg/dL (8.5-10.1); MAGNESIUM 2.7 mg/dL (1.8-2.4)
[2021-02-05 05:12] LABS: PHOSPHOROUS 4.3 mg/dL (2.5-4.9)
[2021-02-05 05:13] LABS: CREATININE 2.6 mg/dL (0.55-1.3)
[2021-02-05] MEDS: FUROSEMIDE 40 MG/4 ML INJECTABLE VIAL IVPUSH SCH (05:30)
[2021-02-05] MEDS: hydrALAZINE HCL 25 MG TABLET (FP) PO SCH ×3 (05:37→21:13)
[2021-02-05] MEDS: ISOSORBIDE MONONITRATE 60 MG TAB.SR.24H (FP) PO SCH (09:44)
[2021-02-05] MEDS: LABETALOL HCL 100 MG TABLET (FP) PO SCH ×2 (09:44→21:13)
[2021-02-05] MEDS: CLOPIDOGREL BISULFATE 75 MG TABLET (FP) PO SCH (09:44)
[2021-02-05] MEDS: HEPARIN NA (PORCINE) 5,000 UNITS/ML 1ML VIAL SQ SCH ×2 (09:45→21:15)
[2021-02-05] MEDS: ASPIRIN 81 MG CHEWABLE TABLETS PO SCH (09:45)
[2021-02-05] MEDS: RANOLAZINE E.R. 1,000 MG TABLET (FP) PO SCH ×2 (09:45→21:13)
[2021-02-05] MEDS: ACETAMINOPHEN 500 MG TABLET (FP) PO PRN ×2 (09:46→21:25)
[2021-02-05] MEDS: POLYETHYLENE GLYCOL 3350 119 GM BTL PO SCH (11:28)
[2021-02-05] MEDS: SODIUM ZIRCONIUM CYCLOSILICATE (LOKELMA) 10 GM PACKET PO SCH (17:31)
[2021-02-05] MEDS: ATORVASTATIN CA 80 MG TABLET (FP) PO SCH (21:13)
[2021-02-05] MEDS: MELATONIN 5 MG TABLETS PO PRN (21:13)
[2021-02-06] MEDS: hydrALAZINE HCL 25 MG TABLET (FP) PO SCH ×3 (06:35→21:24)
[2021-02-06] MEDS: POLYETHYLENE GLYCOL 3350 119 GM BTL PO SCH (09:15)
[2021-02-06] MEDS: HEPARIN NA (PORCINE) 5,000 UNITS/ML 1ML VIAL SQ SCH ×2 (09:17→21:24)
[2021-02-06] MEDS: RANOLAZINE E.R. 1,000 MG TABLET (FP) PO SCH ×2 (09:18→21:24)
[2021-02-06] MEDS: SODIUM ZIRCONIUM CYCLOSILICATE (LOKELMA) 10 GM PACKET PO SCH (09:18)
[2021-02-06] MEDS: LABETALOL HCL 100 MG TABLET (FP) PO SCH ×2 (09:18→21:24)
[2021-02-06] MEDS: ASPIRIN 81 MG CHEWABLE TABLETS PO SCH (09:18)
[2021-02-06] MEDS: CLOPIDOGREL BISULFATE 75 MG TABLET (FP) PO SCH (09:18)
[2021-02-06] MEDS: ACETAMINOPHEN 500 MG TABLET (FP) PO PRN ×2 (09:19→18:36)
[2021-02-06] MEDS: FUROSEMIDE 40 MG/4 ML INJECTABLE VIAL IVPB SCH ×2 (10:54→21:24)
[2021-02-06] MEDS ORDERED: DOCUSATE SODIUM 100 MG CAPSULE (FP) PO PRN (11:18)
[2021-02-06 11:19] LABS: CALCIUM 8.3 mg/dL (8.5-10.1)
[2021-02-06 11:20] LABS: BLOOD UREA NITROGEN 50.8 mg/dL (7-18)
[2021-02-06 11:23] LABS: CREATININE 2.7 mg/dL (0.55-1.3)
[2021-02-06] MEDS: NITROGLYCERIN SUBLINGUAL 1/150 0.4 MG TAB SL PRN (18:35)
[2021-02-06] MEDS: ATORVASTATIN CA 80 MG TABLET (FP) PO SCH (21:24)
[2021-02-07] MEDS: ACETAMINOPHEN 500 MG TABLET (FP) PO PRN ×2 (06:05→21:18)
[2021-02-07] MEDS: FUROSEMIDE 40 MG/4 ML INJECTABLE VIAL IVPB SCH ×2 (06:05→14:37)
[2021-02-07] MEDS: hydrALAZINE HCL 25 MG TABLET (FP) PO SCH ×3 (06:59→21:17)
[2021-02-07 08:05] LABS: CALCIUM 8.4 mg/dL (8.5-10.1)
[2021-02-07 08:06] LABS: BLOOD UREA NITROGEN 52.2 mg/dL (7-18)
[2021-02-07 08:14] LABS: CREATININE 2.6 mg/dL (0.55-1.3)
[2021-02-07] MEDS ORDERED: PT OWN MED DRAWER 7, Y5N ONE (09:00)
[2021-02-07] MEDS: LABETALOL HCL 100 MG TABLET (FP) PO SCH ×2 (09:19→21:20)
[2021-02-07] MEDS: RANOLAZINE E.R. 1,000 MG TABLET (FP) PO SCH ×2 (09:19→21:19)
[2021-02-07] MEDS: CLOPIDOGREL BISULFATE 75 MG TABLET (FP) PO SCH (09:19)
[2021-02-07] MEDS: ASPIRIN 81 MG CHEWABLE TABLETS PO SCH (09:19)
[2021-02-07] MEDS: SODIUM ZIRCONIUM CYCLOSILICATE (LOKELMA) 10 GM PACKET PO SCH (09:20)
[2021-02-07] MEDS: HEPARIN NA (PORCINE) 5,000 UNITS/ML 1ML VIAL SQ SCH ×2 (09:20→21:17)
[2021-02-07] MEDS: POLYETHYLENE GLYCOL 3350 119 GM BTL PO SCH (09:24)
[2021-02-07] MEDS: ATORVASTATIN CA 80 MG TABLET (FP) PO SCH (21:17)
[2021-02-07] MEDS: MELATONIN 5 MG TABLETS PO PRN (21:18)
[2021-02-08] MEDS: ACETAMINOPHEN 500 MG TABLET (FP) PO PRN (03:00)
[2021-02-08] MEDS: FUROSEMIDE 40 MG/4 ML INJECTABLE VIAL IVPB SCH ×2 (05:46→14:13)
[2021-02-08] MEDS: hydrALAZINE HCL 25 MG TABLET (FP) PO SCH ×3 (05:46→21:43)
[2021-02-08 07:48] LABS: CALCIUM 8.3 mg/dL (8.5-10.1)
[2021-02-08 07:49] LABS: BLOOD UREA NITROGEN 53.1 mg/dL (7-18)
[2021-02-08 07:52] LABS: CREATININE 2.5 mg/dL (0.55-1.3)
[2021-02-08] MEDS ORDERED: PT OWN MED DRAWER 7, Y5N ONE (09:37)
[2021-02-08] MEDS: LABETALOL HCL 100 MG TABLET (FP) PO SCH ×2 (09:46→22:01)
[2021-02-08] MEDS: CLOPIDOGREL BISULFATE 75 MG TABLET (FP) PO SCH (09:46)
[2021-02-08] MEDS: ASPIRIN 81 MG CHEWABLE TABLETS PO SCH (09:46)
[2021-02-08] MEDS: ISOSORBIDE MONONITRATE 60 MG TAB.SR.24H (FP) PO SCH (09:46)
[2021-02-08] MEDS: HEPARIN NA (PORCINE) 5,000 UNITS/ML 1ML VIAL SQ SCH ×2 (09:47→21:47)
[2021-02-08] MEDS: RANOLAZINE E.R. 1,000 MG TABLET (FP) PO SCH ×2 (09:47→21:44)
[2021-02-08] MEDS: SODIUM ZIRCONIUM CYCLOSILICATE (LOKELMA) 10 GM PACKET PO SCH (09:47)
[2021-02-08] MEDS: POLYETHYLENE GLYCOL 3350 119 GM BTL PO SCH (10:10)
[2021-02-08] MEDS ORDERED: DOCUSATE SODIUM 100 MG CAPSULE (FP) PO PRN (15:41)
[2021-02-08] MEDS ORDERED: RANOLAZINE E.R. 500 MG TABLET (FP) ONE (21:38)
[2021-02-08] MEDS: MELATONIN 5 MG TABLETS PO PRN (21:43)
[2021-02-08] MEDS: ATORVASTATIN CA 80 MG TABLET (FP) PO SCH (21:43)
[2021-02-08] MEDS: NITROGLYCERIN SUBLINGUAL 1/150 0.4 MG TAB SL PRN ×2 (21:44→22:43)
[2021-02-09] MEDS: FUROSEMIDE 40 MG/4 ML INJECTABLE VIAL IVPB SCH ×2 (06:09→15:28)
[2021-02-09] MEDS: glipiZIDE-XL 2.5 MG TAB.ER.24 PO SCH (06:19)
[2021-02-09] MEDS: hydrALAZINE HCL 25 MG TABLET (FP) PO SCH ×3 (06:19→22:20)
[2021-02-09] MEDS ORDERED: RANOLAZINE E.R. 500 MG TABLET (FP) ONE ×2 (08:49→22:16)
[2021-02-09] MEDS ORDERED: PT OWN MED DRAWER 7, Y5N ONE ×2 (08:50→15:02)
[2021-02-09 09:01] LABS: BLOOD UREA NITROGEN 60.6 mg/dL (7-18); CALCIUM 8.5 mg/dL (8.5-10.1)
[2021-02-09 09:05] LABS: CREATININE 2.5 mg/dL (0.55-1.3)
[2021-02-09] MEDS: ACETAMINOPHEN 500 MG TABLET (FP) PO PRN (09:08)
[2021-02-09] MEDS: LABETALOL HCL 100 MG TABLET (FP) PO SCH ×2 (09:11→22:20)
[2021-02-09] MEDS: CLOPIDOGREL BISULFATE 75 MG TABLET (FP) PO SCH (09:11)
[2021-02-09] MEDS: ASPIRIN 81 MG CHEWABLE TABLETS PO SCH (09:11)
[2021-02-09] MEDS: ISOSORBIDE MONONITRATE 60 MG TAB.SR.24H (FP) PO SCH (09:11)
[2021-02-09] MEDS: RANOLAZINE E.R. 1,000 MG TABLET (FP) PO SCH ×2 (09:14→22:20)
[2021-02-09] MEDS: HEPARIN NA (PORCINE) 5,000 UNITS/ML 1ML VIAL SQ SCH ×2 (09:14→22:20)
[2021-02-09] MEDS: POLYETHYLENE GLYCOL 3350 119 GM BTL PO SCH (09:15)
[2021-02-09] MEDS: SODIUM ZIRCONIUM CYCLOSILICATE (LOKELMA) 10 GM PACKET PO SCH (11:34)
[2021-02-09] MEDS ORDERED: FUROSEMIDE 100 MG/10 ML INJECTABLE VIAL IVPB SCH (14:04)
[2021-02-09] MEDS ORDERED: FUROSEMIDE 40 MG/4 ML INJECTABLE VIAL IVPUSH ONE (14:15)
[2021-02-09] MEDS: FUROSEMIDE 100 MG/10 ML INJECTABLE VIAL IVPB SCH (15:14)
[2021-02-09] MEDS: NITROGLYCERIN SUBLINGUAL 1/150 0.4 MG TAB SL PRN ×3 (20:27→20:48)
[2021-02-09] MEDS: ATORVASTATIN CA 80 MG TABLET (FP) PO SCH (22:20)
[2021-02-10] MEDS: MELATONIN 5 MG TABLETS PO PRN ×2 (02:28→22:19)
[2021-02-10] MEDS ORDERED: traZODone HCL 50 MG TABLET (FP) PO ONE (02:35)
[2021-02-10] MEDS ORDERED: PT OWN MED DRAWER 7, Y5N ONE (06:21)
[2021-02-10] MEDS: FUROSEMIDE 100 MG/10 ML INJECTABLE VIAL IVPB SCH ×3 (06:56→14:41)
[2021-02-10] MEDS: glipiZIDE-XL 2.5 MG TAB.ER.24 PO SCH (07:04)
[2021-02-10] MEDS: hydrALAZINE HCL 25 MG TABLET (FP) PO SCH ×3 (07:04→21:07)
[2021-02-10 07:58] LABS: BLOOD UREA NITROGEN 66.4 mg/dL (7-18); CALCIUM 7.7 mg/dL (8.5-10.1)
[2021-02-10 08:01] LABS: CREATININE 2.7 mg/dL (0.55-1.3)
[2021-02-10] MEDS ORDERED: RANOLAZINE E.R. 500 MG TABLET (FP) ONE ×2 (09:08→21:05)
[2021-02-10] MEDS: CLOPIDOGREL BISULFATE 75 MG TABLET (FP) PO SCH (09:14)
[2021-02-10] MEDS: HEPARIN NA (PORCINE) 5,000 UNITS/ML 1ML VIAL SQ SCH ×2 (09:15→21:08)
[2021-02-10] MEDS: RANOLAZINE E.R. 1,000 MG TABLET (FP) PO SCH ×2 (09:16→21:09)
[2021-02-10] MEDS: LABETALOL HCL 100 MG TABLET (FP) PO SCH ×2 (09:16→21:08)
[2021-02-10] MEDS: POLYETHYLENE GLYCOL 3350 119 GM BTL PO SCH ×2 (09:16→10:54)
[2021-02-10] MEDS: ISOSORBIDE MONONITRATE 60 MG TAB.SR.24H (FP) PO SCH (09:16)
[2021-02-10] MEDS: SODIUM ZIRCONIUM CYCLOSILICATE (LOKELMA) 10 GM PACKET PO SCH (09:17)
[2021-02-10] MEDS: ASPIRIN 81 MG CHEWABLE TABLETS PO SCH (09:17)
[2021-02-10] MEDS ORDERED: METOLAZONE 5 MG TABLET PO ONE (13:30)
[2021-02-10] MEDS ORDERED: FUROSEMIDE INJECTION 100 MG in DEXTROSE 5%-WATER - 90 ML IVPB SCH (14:15)
[2021-02-10] MEDS: ATORVASTATIN CA 80 MG TABLET (FP) PO SCH (21:08)
[2021-02-10] MEDS ORDERED: ARTIFICIAL TEARS (POLYVINYL ALCOHOL) OPTH DROPS OU PRN (21:56)
[2021-02-11] MEDS: ACETAMINOPHEN 500 MG TABLET (FP) PO PRN ×3 (00:21→20:41)
[2021-02-11] MEDS: NITROGLYCERIN SUBLINGUAL 1/150 0.4 MG TAB SL PRN ×3 (00:22→00:55)
[2021-02-11] MEDS: FUROSEMIDE 100 MG/10 ML INJECTABLE VIAL IVPB SCH ×2 (05:00→15:45)
[2021-02-11] MEDS: hydrALAZINE HCL 25 MG TABLET (FP) PO SCH ×3 (05:00→21:15)
[2021-02-11] MEDS ORDERED: FUROSEMIDE 100 MG/10 ML INJECTABLE VIAL IVPB SCH (06:00)
[2021-02-11] MEDS: glipiZIDE-XL 2.5 MG TAB.ER.24 PO SCH (06:00)
[2021-02-11] MEDS ORDERED: RANOLAZINE E.R. 500 MG TABLET (FP) ONE ×2 (09:33→21:01)
[2021-02-11] MEDS ORDERED: PT OWN MED DRAWER 7, Y5N ONE ×2 (09:34→14:27)
[2021-02-11] MEDS: ASPIRIN 81 MG CHEWABLE TABLETS PO SCH (09:39)
[2021-02-11] MEDS: CLOPIDOGREL BISULFATE 75 MG TABLET (FP) PO SCH (09:39)
[2021-02-11] MEDS: LABETALOL HCL 100 MG TABLET (FP) PO SCH ×2 (09:39→21:15)
[2021-02-11] MEDS: HEPARIN NA (PORCINE) 5,000 UNITS/ML 1ML VIAL SQ SCH ×2 (09:39→21:16)
[2021-02-11] MEDS: ISOSORBIDE MONONITRATE 60 MG TAB.SR.24H (FP) PO SCH (09:39)
[2021-02-11] MEDS: RANOLAZINE E.R. 1,000 MG TABLET (FP) PO SCH ×2 (09:40→21:15)
[2021-02-11] MEDS: POLYETHYLENE GLYCOL 3350 119 GM BTL PO SCH (09:42)
[2021-02-11] MEDS: SODIUM ZIRCONIUM CYCLOSILICATE (LOKELMA) 10 GM PACKET PO SCH (11:06)
[2021-02-11 13:33] LABS: CALCIUM 7.6 mg/dL (8.5-10.1)
[2021-02-11 13:34] LABS: BLOOD UREA NITROGEN 72.1 mg/dL (7-18)
[2021-02-11] MEDS ORDERED: METOLAZONE 5 MG TABLET PO ONE (13:34)
[2021-02-11] MEDS ORDERED: POTASSIUM CHLORIDE ORAL LIQUID 20 MEQ/15 ML PO ONE (13:34)
[2021-02-11 13:36] LABS: CREATININE 2.9 mg/dL (0.55-1.3)
[2021-02-11] MEDS: ATORVASTATIN CA 80 MG TABLET (FP) PO SCH (21:15)
[2021-02-12] MEDS: MELATONIN 5 MG TABLETS PO PRN (02:06)
[2021-02-12] MEDS: ACETAMINOPHEN 500 MG TABLET (FP) PO PRN ×2 (05:06→19:33)
[2021-02-12] MEDS: hydrALAZINE HCL 25 MG TABLET (FP) PO SCH ×3 (05:06→21:45)
[2021-02-12] MEDS: FUROSEMIDE 100 MG/10 ML INJECTABLE VIAL IVPB SCH ×2 (05:06→14:21)
[2021-02-12] MEDS: glipiZIDE-XL 2.5 MG TAB.ER.24 PO SCH (06:01)
[2021-02-12] MEDS ORDERED: RANOLAZINE E.R. 500 MG TABLET (FP) ONE ×3 (08:51→21:35)
[2021-02-12] MEDS: HEPARIN NA (PORCINE) 5,000 UNITS/ML 1ML VIAL SQ SCH ×2 (09:21→21:45)
[2021-02-12] MEDS: CLOPIDOGREL BISULFATE 75 MG TABLET (FP) PO SCH (09:21)
[2021-02-12] MEDS: POLYETHYLENE GLYCOL 3350 119 GM BTL PO SCH (09:24)
[2021-02-12] MEDS: ASPIRIN 81 MG CHEWABLE TABLETS PO SCH (09:24)
[2021-02-12] MEDS: ISOSORBIDE MONONITRATE 60 MG TAB.SR.24H (FP) PO SCH (09:24)
[2021-02-12] MEDS: RANOLAZINE E.R. 1,000 MG TABLET (FP) PO SCH ×2 (09:24→21:46)
[2021-02-12] MEDS: LABETALOL HCL 100 MG TABLET (FP) PO SCH ×2 (09:24→21:45)
[2021-02-12] MEDS ORDERED: METOLAZONE 5 MG TABLET PO ONE (13:30)
[2021-02-12] MEDS: MAGNESIUM OXIDE 400 MG TABLET (FP) PO SCH (21:45)
[2021-02-12] MEDS: ATORVASTATIN CA 80 MG TABLET (FP) PO SCH (21:45)
[2021-02-13] MEDS ORDERED: PT OWN MED DRAWER 7, Y5N ONE ×2 (06:24→14:03)
[2021-02-13] MEDS: glipiZIDE-XL 2.5 MG TAB.ER.24 PO SCH (06:32)
[2021-02-13] MEDS: hydrALAZINE HCL 25 MG TABLET (FP) PO SCH ×3 (06:32→21:41)
[2021-02-13] MEDS: FUROSEMIDE 100 MG/10 ML INJECTABLE VIAL IVPB SCH ×2 (06:32→14:11)
[2021-02-13 08:37] LABS: BASO % 0.4 % (0-2.0); EOS % 0.5 % (0-4.5); HEMATOCRIT 24.5 % (35.4-49); HEMOGLOBIN 8.4 GM/dL (11.7-16.9); LYMPH % 9.3 % (8-40); MCH 32.5 pg (25.7-33.7); MCHC 34.4 g/dl (32.0-35.9); MEAN CELL VOLUME 94.5 fl (80-96); MEAN PLT VOLUME 8.6 fl (7.5-11.1); NEUT % 79.8 % (42.8-82.8); PLATELET COUNT 296 K/MM3 (134-434); RBC 2.59 M/mm3 (4.00-5.60); RDW 16.9 % (11.9-15.9); WHITE BLOOD COUNT 8.7 K/mm3 (4.0-10.0)
[2021-02-13 08:50] LABS: CALCIUM 8.2 mg/dL (8.5-10.1)
[2021-02-13] MEDS ORDERED: RANOLAZINE E.R. 500 MG TABLET (FP) ONE ×2 (08:50→20:40)
[2021-02-13 08:51] LABS: ALBUMIN 2.8 g/dl (3.4-5.0); MAGNESIUM 2.9 mg/dL (1.8-2.4)
[2021-02-13 08:54] LABS: CREATININE 3.3 mg/dL (0.55-1.3)
[2021-02-13 08:56] LABS: BILIRUBIN,TOTAL 1.1 mg/dL (0.2-1); TOT PROT 5.9 g/dl (6.4-8.2)
[2021-02-13] MEDS: ASPIRIN 81 MG CHEWABLE TABLETS PO SCH (09:23)
[2021-02-13] MEDS: HEPARIN NA (PORCINE) 5,000 UNITS/ML 1ML VIAL SQ SCH ×2 (09:23→21:41)
[2021-02-13] MEDS: CLOPIDOGREL BISULFATE 75 MG TABLET (FP) PO SCH (09:23)
[2021-02-13] MEDS: LABETALOL HCL 100 MG TABLET (FP) PO SCH ×2 (09:23→21:43)
[2021-02-13] MEDS: POLYETHYLENE GLYCOL 3350 119 GM BTL PO SCH (09:24)
[2021-02-13] MEDS: ISOSORBIDE MONONITRATE 60 MG TAB.SR.24H (FP) PO SCH (09:24)
[2021-02-13] MEDS: MAGNESIUM OXIDE 400 MG TABLET (FP) PO SCH (09:24)
[2021-02-13] MEDS: RANOLAZINE E.R. 1,000 MG TABLET (FP) PO SCH ×2 (09:28→21:43)
[2021-02-13] MEDS ORDERED: POTASSIUM CHLORIDE TABS 10 MEQ TABLET.ER (FP) PO SCH (10:00)
[2021-02-13] MEDS ORDERED: ACETAMINOPHEN 500 MG TABLET (FP) PO PRN (12:47)
[2021-02-13] MEDS ORDERED: MELATONIN 5 MG TABLETS PO PRN (12:47)
[2021-02-13] MEDS ORDERED: ARTIFICIAL TEARS (POLYVINYL ALCOHOL) OPTH DROPS OU PRN (12:47)
[2021-02-13] MEDS ORDERED: DOCUSATE SODIUM 100 MG CAPSULE (FP) PO PRN (12:47)
[2021-02-13] MEDS: NITROGLYCERIN SUBLINGUAL 1/150 0.4 MG TAB SL PRN ×2 (14:54→23:45)
[2021-02-13] MEDS: ATORVASTATIN CA 80 MG TABLET (FP) PO SCH (21:42)
[2021-02-14] MEDS: hydrALAZINE HCL 25 MG TABLET (FP) PO SCH ×3 (06:14→21:09)
[2021-02-14] MEDS: FUROSEMIDE 100 MG/10 ML INJECTABLE VIAL IVPB SCH (06:14)
[2021-02-14] MEDS: glipiZIDE-XL 2.5 MG TAB.ER.24 PO SCH (07:06)
[2021-02-14 07:44] LABS: HEMATOCRIT 23.3 % (35.4-49); MCH 32.4 pg (25.7-33.7); MCHC 34.5 g/dl (32.0-35.9); MEAN CELL VOLUME 93.8 fl (80-96); MEAN PLT VOLUME 8.6 fl (7.5-11.1); PLATELET COUNT 289 K/MM3 (134-434); RBC 2.48 M/mm3 (4.00-5.60); RDW 16.9 % (11.9-15.9); WHITE BLOOD COUNT 10.1 K/mm3 (4.0-10.0)
[2021-02-14 08:03] LABS: CALCIUM 8.2 mg/dL (8.5-10.1)
[2021-02-14 08:04] LABS: ALBUMIN 2.7 g/dl (3.4-5.0); BLOOD UREA NITROGEN 80.7 mg/dL (7-18)
[2021-02-14 08:07] LABS: CREATININE 3.4 mg/dL (0.55-1.3)
[2021-02-14 08:08] LABS: BILIRUBIN,TOTAL 1.1 mg/dL (0.2-1)
[2021-02-14 08:09] LABS: TOT PROT 5.6 g/dl (6.4-8.2)
[2021-02-14] MEDS ORDERED: RANOLAZINE E.R. 500 MG TABLET (FP) ONE ×2 (09:02→20:52)
[2021-02-14] MEDS: NITROGLYCERIN SUBLINGUAL 1/150 0.4 MG TAB SL PRN (09:05)
[2021-02-14] MEDS: ASPIRIN 81 MG CHEWABLE TABLETS PO SCH (09:05)
[2021-02-14] MEDS: POTASSIUM CHLORIDE TABS 20 MEQ TABLET.ER (FP) PO SCH (09:05)
[2021-02-14] MEDS: LABETALOL HCL 100 MG TABLET (FP) PO SCH ×2 (09:05→21:09)
[2021-02-14] MEDS: ISOSORBIDE MONONITRATE 60 MG TAB.SR.24H (FP) PO SCH (09:05)
[2021-02-14] MEDS: CLOPIDOGREL BISULFATE 75 MG TABLET (FP) PO SCH (09:06)
[2021-02-14] MEDS: POLYETHYLENE GLYCOL 3350 119 GM BTL PO SCH (09:06)
[2021-02-14] MEDS: RANOLAZINE E.R. 1,000 MG TABLET (FP) PO SCH ×2 (09:06→21:10)
[2021-02-14] MEDS: HEPARIN NA (PORCINE) 5,000 UNITS/ML 1ML VIAL SQ SCH ×2 (09:06→21:09)
[2021-02-14] MEDS ORDERED: FUROSEMIDE INJECTION 100 MG in SODIUM CHLORIDE 40 ML IVPB SCH (10:15)
[2021-02-14] MEDS: ATORVASTATIN CA 80 MG TABLET (FP) PO SCH (21:09)
[2021-02-15] MEDS: hydrALAZINE HCL 25 MG TABLET (FP) PO SCH ×3 (05:52→21:08)
[2021-02-15] MEDS ORDERED: PT OWN MED DRAWER 7, Y5N ONE (07:46)
[2021-02-15] MEDS: glipiZIDE-XL 2.5 MG TAB.ER.24 PO SCH (07:51)
[2021-02-15 08:12] LABS: ALBUMIN 2.8 g/dl (3.4-5.0); BLOOD UREA NITROGEN 84.9 mg/dL (7-18); CALCIUM 8.1 mg/dL (8.5-10.1)
[2021-02-15 08:16] LABS: CREATININE 3.2 mg/dL (0.55-1.3)
[2021-02-15 08:17] LABS: BILIRUBIN,TOTAL 1.8 mg/dL (0.2-1); TOT PROT 5.8 g/dl (6.4-8.2)
[2021-02-15] MEDS ORDERED: RANOLAZINE E.R. 500 MG TABLET (FP) ONE ×2 (08:45→21:05)
[2021-02-15] MEDS: POLYETHYLENE GLYCOL 3350 119 GM BTL PO SCH (09:02)
[2021-02-15] MEDS: RANOLAZINE E.R. 1,000 MG TABLET (FP) PO SCH ×2 (09:02→21:08)
[2021-02-15] MEDS: ISOSORBIDE MONONITRATE 60 MG TAB.SR.24H (FP) PO SCH (09:02)
[2021-02-15] MEDS: HEPARIN NA (PORCINE) 5,000 UNITS/ML 1ML VIAL SQ SCH ×2 (09:02→21:09)
[2021-02-15] MEDS: CLOPIDOGREL BISULFATE 75 MG TABLET (FP) PO SCH (09:02)
[2021-02-15] MEDS: ASPIRIN 81 MG CHEWABLE TABLETS PO SCH (09:02)
[2021-02-15] MEDS: POTASSIUM CHLORIDE TABS 20 MEQ TABLET.ER (FP) PO SCH (09:02)
[2021-02-15] MEDS: LABETALOL HCL 100 MG TABLET (FP) PO SCH ×2 (09:02→21:08)
[2021-02-15] MEDS ORDERED: FUROSEMIDE INJECTION 100 MG in SODIUM CHLORIDE 40 ML IVPB SCH (12:45)
[2021-02-15] MEDS: NITROGLYCERIN SUBLINGUAL 1/150 0.4 MG TAB SL PRN (12:57)
[2021-02-15] MEDS: FUROSEMIDE INJECTION 100 MG in SODIUM CHLORIDE 40 ML IVPB SCH (13:54)
[2021-02-15] MEDS ORDERED: METOLAZONE 2.5 MG TABLET (FP) PO ONE (14:00)
[2021-02-15 17:55] LABS: EPI CELLS 2 /uL (0-25.1); HYALINE CASTS 1 /uL (0-3.1); URINE APPEARANCE CLEAR; URINE BACTERIA 3454 /uL (0-1359); URINE BILIRUBIN NEGATIVE (NEGATIVE); URINE COLOR YELLOW; URINE GLUCOSE (UA) NEGATIVE (NEGATIVE); URINE KETONE NEGATIVE (NEGATIVE); URINE LEUK ESTERASE 2+ (NEGATIVE); URINE NITRITE NEGATIVE (NEGATIVE); URINE PROTEIN 1+ (NEGATIVE); URINE RBC 8 /uL (0-23.9); URINE WBC 156 /uL (0-25.8)
[2021-02-15] MEDS: ATORVASTATIN CA 80 MG TABLET (FP) PO SCH (21:08)
[2021-02-16] MEDS: NITROGLYCERIN SUBLINGUAL 1/150 0.4 MG TAB SL PRN (03:21)
[2021-02-16] MEDS ORDERED: PT OWN MED DRAWER 7, Y5N ONE (05:44)
[2021-02-16] MEDS: hydrALAZINE HCL 25 MG TABLET (FP) PO SCH ×2 (05:47→14:50)
[2021-02-16] MEDS: FUROSEMIDE INJECTION 100 MG in SODIUM CHLORIDE 40 ML IVPB SCH (05:51)
[2021-02-16] MEDS: glipiZIDE-XL 2.5 MG TAB.ER.24 PO SCH (06:00)
[2021-02-16 07:32] LABS: HEMATOCRIT 22.1 % (35.4-49); HEMOGLOBIN 7.6 GM/dL (11.7-16.9); MCH 32.8 pg (25.7-33.7); MCHC 34.5 g/dl (32.0-35.9); MEAN PLT VOLUME 8.6 fl (7.5-11.1); PLATELET COUNT 302 K/MM3 (134-434); RBC 2.33 M/mm3 (4.00-5.60); RDW 16.8 % (11.9-15.9); WHITE BLOOD COUNT 11.6 K/mm3 (4.0-10.0)
[2021-02-16 08:01] LABS: ALBUMIN 2.7 g/dl (3.4-5.0); BLOOD UREA NITROGEN 88.4 mg/dL (7-18); CALCIUM 8.5 mg/dL (8.5-10.1)
[2021-02-16 08:05] LABS: CREATININE 3.2 mg/dL (0.55-1.3); MAGNESIUM 3.1 mg/dL (1.8-2.4); PHOSPHOROUS 4.3 mg/dL (2.5-4.9)
[2021-02-16 08:06] LABS: BILIRUBIN,TOTAL 1.2 mg/dL (0.2-1); TOT PROT 5.8 g/dl (6.4-8.2)
[2021-02-16] MEDS ORDERED: RANOLAZINE E.R. 500 MG TABLET (FP) ONE (08:41)
[2021-02-16] MEDS: ASPIRIN 81 MG CHEWABLE TABLETS PO SCH (09:23)
[2021-02-16] MEDS: RANOLAZINE E.R. 1,000 MG TABLET (FP) PO SCH (09:23)
[2021-02-16] MEDS: POTASSIUM CHLORIDE TABS 20 MEQ TABLET.ER (FP) PO SCH (09:25)
[2021-02-16] MEDS: HEPARIN NA (PORCINE) 5,000 UNITS/ML 1ML VIAL SQ SCH (09:25)
[2021-02-16] MEDS: POLYETHYLENE GLYCOL 3350 119 GM BTL PO SCH (09:25)
[2021-02-16] MEDS: ISOSORBIDE MONONITRATE 60 MG TAB.SR.24H (FP) PO SCH (09:25)
[2021-02-16] MEDS: CLOPIDOGREL BISULFATE 75 MG TABLET (FP) PO SCH (09:25)
[2021-02-16] MEDS: LABETALOL HCL 100 MG TABLET (FP) PO SCH (09:26)
[2021-02-16] MEDS ORDERED: METOLAZONE 2.5 MG TABLET (FP) PO ONE (10:38)
[2021-02-16] MEDS ORDERED: FUROSEMIDE INJECTION 100 MG in SODIUM CHLORIDE 40 ML IVPB SCH (12:47)
[2021-02-16] MEDS ORDERED: ALBUMIN HUMAN 25% 12.5 GM/50 ML VIAL IVPB SCH (13:00)
[2021-02-16 18:00] VITALS: BP 139/62; PULSE 82; TEMP 97.7
== END 2021-02-16 18:02 | disposition short-term general hospital (02) | DRG 291 ==
LOC: JER 12:39 → JERBED 16:52 → J4S 02-02 21:11 → J7W 02-08 13:26 → J4W 02-13 13:26
PROVIDERS: ADMIT Internal Medicine; ATTEND Internal Medicine
DX: I13.0 Hypertensive heart and chronic kidney disease with heart failure and stage 1 through stage 4 chronic kidney disease, or unspecified chronic kidney disease (principal); I50.33 Acute on chronic diastolic (congestive) heart failure; N17.9 Acute kidney failure, unspecified; E87.1 Hypo-osmolality and hyponatremia; E11.22 Type 2 diabetes mellitus with diabetic chronic kidney disease; N18.30 Chronic kidney disease, stage 3 unspecified; I44.7 Left bundle-branch block, unspecified; E66.9 Obesity, unspecified; Z68.30 Body mass index [BMI] 30.0-30.9, adult; K21.9 Gastro-esophageal reflux disease without esophagitis; E78.5 Hyperlipidemia, unspecified; N40.0 Benign prostatic hyperplasia without lower urinary tract symptoms; I25.119 Atherosclerotic heart disease of native coronary artery with unspecified angina pectoris; D64.9 Anemia, unspecified; E87.70 Fluid overload, unspecified; R07.89 Other chest pain; Z95.5 Presence of coronary angioplasty implant and graft
CPT/HCPCS: 36415; 71045-TC-FY; 71046-TC-FY; 71250-TC; 76775-TC; 80048; 80053; 80061; 81003; 82550; 82570; 82728; 82803; 82962; 83036; 83540; 83550; 83690; 83721; 83735; 83880; 84100; 84156; 84439; 84443; 84484; 84540; 85025; 85027; 85610; 85730; 87205; 93005; 93010; 93306-TC; 93971; 97116-GP; 97161-GP; 99285-25; C9803; J1644; P9047; Q2036; U0003; U0005

== ENCOUNTER 2021-10-24 19:50 | Inpatient (IN) | payer OTHER ==
[2021-10-24] MEDS ORDERED: ACETAMINOPHEN 1000 MG/100 ML BAG IVPB ONE (20:56)
[2021-10-24 22:14] LABS: BASO % 0.2 % (0-2.0); EOS % 0.5 % (0-4.5); HEMATOCRIT 39.3 % (35.4-49); HEMOGLOBIN 12.9 GM/dL (11.7-16.9); LYMPH % 6.3 % (8-40); MCH 31.5 pg (25.7-33.7); MCHC 32.9 g/dl (32.0-35.9); MEAN CELL VOLUME 95.8 fl (80-96); MEAN PLT VOLUME 9.5 fl (7.5-11.1); MONO % 12.6 % (3.8-10.2); NEUT % 80.4 % (42.8-82.8); PLATELET COUNT 211 10^3/uL (134-434); RDW 14.1 % (11.9-15.9); WHITE BLOOD COUNT 7.6 K/mm3 (4.0-10.0)
[2021-10-24 22:22] LABS: CHLORIDE 108 mmol/L (98-107); SODIUM 141 mmol/L (136-145)
[2021-10-24 22:24] LABS: CALCIUM 7.8 mg/dL (8.5-10.1)
[2021-10-24 22:25] LABS: ANION GAP 8 MMOL/L (8-16); BLOOD UREA NITROGEN 25.8 mg/dL (7-18); CO2 25 mmol/L (21-32); GLUCOSE,RANDOM 89 mg/dL (74-106)
[2021-10-24 22:27] LABS: INR 1.35 (0.83-1.09); PROTHROMBIN TIME (PATIENT) 15.9 SEC (9.7-13.0)
[2021-10-24 22:28] LABS: CREATININE 1.8 mg/dL (0.55-1.3); SGOT/AST 39 U/L (15-37); SGPT/ALT 31 U/L (13-61)
[2021-10-24 22:29] LABS: TOT PROT 6.6 g/dl (6.4-8.2)
[2021-10-24] MEDS ORDERED: ACETAMINOPHEN INJECTION 100 ML IVPB ONE (22:29)
[2021-10-24 22:30] LABS: BILIRUBIN,TOTAL 0.7 mg/dL (0.2-1)
[2021-10-24 22:31] LABS: ALK PHOS 121 U/L (45-117)
[2021-10-24 22:33] LABS: N-TERMINAL BNP 6627.1 pg/ml (5-125)
[2021-10-25] MEDS ORDERED: ACETAMINOPHEN 325 MG TABLET (FP) PO PRN (00:32)
[2021-10-25 05:54] LABS: LDH 221 U/L (87-246)
[2021-10-25] MEDS ORDERED: ASPIRIN 81 MG CHEWABLE TABLETS ONE (09:48)
[2021-10-25] MEDS ORDERED: ASCORBIC ACID 500 MG TABLET (FP) ONE (09:48)
[2021-10-25] MEDS ORDERED: ZINC SULFATE 220 MG CAPSULE (FP) ONE (09:49)
[2021-10-25] MEDS ORDERED: FUROSEMIDE 40 MG TABLET (FP) ONE ×2 (09:49→14:39)
[2021-10-25] MEDS ORDERED: LABETALOL HCL 100 MG TABLET (FP) ONE ×2 (09:49→23:35)
[2021-10-25] MEDS ORDERED: amLODIPine BESYLATE 5 MG TABLET (FP) ONE (09:49)
[2021-10-25] MEDS ORDERED: ISOSORBIDE MONONITRATE 60 MG TAB.SR.24H (FP) PO ONE (09:50)
[2021-10-25] MEDS ORDERED: CHOLECALCIFEROL (VIT D3) 1,000 UNIT (25 MCG) TABLET ONE (09:50)
[2021-10-25] MEDS ORDERED: CLOPIDOGREL BISULFATE 75 MG TABLET (FP) ONE (09:50)
[2021-10-25] MEDS ORDERED: PT OWN MED DRAWER 7, Y5N ONE (09:51)
[2021-10-25] MEDS ORDERED: ENOXAPARIN NA (PORCINE) 40 MG/0.4 ML DISP.SYRIN SQ SCH (10:00)
[2021-10-25] MEDS ORDERED: FUROSEMIDE 40 MG TABLET (FP) PO SCH (10:00)
[2021-10-25] MEDS: LABETALOL HCL 100 MG TABLET (FP) PO SCH (10:06)
[2021-10-25] MEDS: ZINC SULFATE 220 MG CAPSULE (FP) PO SCH (10:06)
[2021-10-25] MEDS: ASCORBIC ACID 500 MG TABLET (FP) PO SCH (10:06)
[2021-10-25] MEDS: RANOLAZINE E.R. 1,000 MG TABLET (FP) PO SCH (10:06)
[2021-10-25] MEDS: amLODIPine BESYLATE 10 MG TABLET (FP) PO SCH (10:06)
[2021-10-25] MEDS: ASPIRIN 81 MG CHEWABLE TABLETS PO SCH (10:06)
[2021-10-25] MEDS: FUROSEMIDE 40 MG TABLET (FP) PO SCH ×2 (10:06→14:45)
[2021-10-25] MEDS: CHOLECALCIFEROL (VIT D3) 1,000 UNIT (25 MCG) TABLET PO SCH (10:06)
[2021-10-25] MEDS: ISOSORBIDE MONONITRATE 60 MG TAB.SR.24H (FP) PO SCH (10:06)
[2021-10-25] MEDS: CLOPIDOGREL BISULFATE 75 MG TABLET (FP) PO SCH (10:06)
[2021-10-25 10:19] LABS: BASO % 0.4 % (0-2.0); EOS % 0.1 % (0-4.5); HEMATOCRIT 42.4 % (35.4-49); HEMOGLOBIN 13.9 GM/dL (11.7-16.9); LYMPH % 13.5 % (8-40); MCH 31.9 pg (25.7-33.7); MCHC 32.9 g/dl (32.0-35.9); MEAN CELL VOLUME 96.9 fl (80-96); MEAN PLT VOLUME 9.4 fl (7.5-11.1); MONO % 15.9 % (3.8-10.2); NEUT % 70.1 % (42.8-82.8); PLATELET COUNT 228 10^3/uL (134-434); RBC 4.37 M/mm3 (4.00-5.60); WHITE BLOOD COUNT 7.1 K/mm3 (4.0-10.0)
[2021-10-25 10:39] LABS: BLOOD UREA NITROGEN 27.5 mg/dL (7-18); CALCIUM 8.3 mg/dL (8.5-10.1)
[2021-10-25 10:40] LABS: ALBUMIN 3.2 g/dl (3.4-5.0); MAGNESIUM 2.4 mg/dL (1.8-2.4)
[2021-10-25 10:43] LABS: CREATININE 1.8 mg/dL (0.55-1.3)
[2021-10-25 10:44] LABS: BILIRUBIN,TOTAL 0.8 mg/dL (0.2-1); TOT PROT 7.3 g/dl (6.4-8.2)
[2021-10-25] MEDS: traMADol HCL 50 MG TABLET PO PRN (12:37)
[2021-10-25] MEDS ORDERED: DEXAMETHASONE SOD PHOSPHATE 10 MG/1 ML VIAL ONE (14:39)
[2021-10-25] MEDS: DEXAMETHASONE SOD PHOSPHATE 4 MG/1 ML VIAL IVPUSH SCH (14:45)
[2021-10-25] MEDS ORDERED: REMDESIVIR 200 MG in SODIUM CHLORIDE 250 ML IVPB ONE (15:00)
[2021-10-25] MEDS ORDERED: LOPERAMIDE HCL 2 MG CAPSULE PO PRN (22:37)
[2021-10-25] MEDS ORDERED: ATORVASTATIN CA 80 MG TABLET (FP) ONE (23:36)
[2021-10-26] MEDS: RANOLAZINE E.R. 1,000 MG TABLET (FP) PO SCH ×3 (00:02→21:42)
[2021-10-26] MEDS: ATORVASTATIN CA 80 MG TABLET (FP) PO SCH ×2 (00:02→21:41)
[2021-10-26] MEDS: LABETALOL HCL 100 MG TABLET (FP) PO SCH ×2 (00:02→10:48)
[2021-10-26 05:58] VITALS: BMI 30.7
[2021-10-26 07:44] LABS: BASO % 0.1 % (0-2.0); HEMATOCRIT 37.5 % (35.4-49); HEMOGLOBIN 12.3 GM/dL (11.7-16.9); LYMPH % 7.6 % (8-40); MCH 31.5 pg (25.7-33.7); MCHC 32.7 g/dl (32.0-35.9); MEAN CELL VOLUME 96.5 fl (80-96); MEAN PLT VOLUME 9.3 fl (7.5-11.1); MONO % 6.2 % (3.8-10.2); NEUT % 86.1 % (42.8-82.8); PLATELET COUNT 212 10^3/uL (134-434); RBC 3.89 M/mm3 (4.00-5.60); RDW 14.3 % (11.9-15.9); WHITE BLOOD COUNT 5.6 K/mm3 (4.0-10.0)
[2021-10-26 08:22] LABS: ALBUMIN 2.5 g/dl (3.4-5.0); CALCIUM 7.4 mg/dL (8.5-10.1)
[2021-10-26 08:23] LABS: MAGNESIUM 2.6 mg/dL (1.8-2.4)
[2021-10-26 08:25] LABS: CREATININE 3.1 mg/dL (0.55-1.3)
[2021-10-26 08:26] LABS: PHOSPHOROUS 4.6 mg/dL (2.5-4.9)
[2021-10-26 08:27] LABS: BILIRUBIN,TOTAL 0.7 mg/dL (0.2-1)
[2021-10-26 08:32] LABS: BLOOD UREA NITROGEN 57.6 mg/dL (7-18)
[2021-10-26] MEDS ORDERED: FUROSEMIDE 40 MG TABLET (FP) PO SCH (10:00)
[2021-10-26] MEDS: amLODIPine BESYLATE 10 MG TABLET (FP) PO SCH (10:43)
[2021-10-26] MEDS: ASPIRIN 81 MG CHEWABLE TABLETS PO SCH (10:43)
[2021-10-26] MEDS: ASCORBIC ACID 500 MG TABLET (FP) PO SCH (10:43)
[2021-10-26] MEDS ORDERED: RANOLAZINE E.R. 500 MG TABLET (FP) ONE ×2 (10:47→21:14)
[2021-10-26] MEDS: ISOSORBIDE MONONITRATE 60 MG TAB.SR.24H (FP) PO SCH (10:48)
[2021-10-26] MEDS: ZINC SULFATE 220 MG CAPSULE (FP) PO SCH (10:48)
[2021-10-26] MEDS: CLOPIDOGREL BISULFATE 75 MG TABLET (FP) PO SCH (10:48)
[2021-10-26] MEDS: DEXAMETHASONE SOD PHOSPHATE 4 MG/1 ML VIAL IVPUSH SCH (10:48)
[2021-10-26] MEDS: CHOLECALCIFEROL (VIT D3) 1,000 UNIT (25 MCG) TABLET PO SCH (10:48)
[2021-10-26] MEDS ORDERED: SODIUM CHLORIDE 1,000 ML IV SCH (13:30)
[2021-10-26] MEDS: SODIUM CHLORIDE 1,000 ML IV SCH (15:16)
[2021-10-26] MEDS: REMDESIVIR 100 MG in SODIUM CHLORIDE 250 ML IVPB SCH (15:17)
[2021-10-26] MEDS: traMADol HCL 50 MG TABLET PO PRN (23:46)
[2021-10-27] MEDS ORDERED: RANOLAZINE E.R. 500 MG TABLET (FP) ONE ×2 (08:15→21:10)
[2021-10-27 08:21] LABS: HEMATOCRIT 36.5 % (35.4-49); HEMOGLOBIN 11.9 GM/dL (11.7-16.9); MCH 31.7 pg (25.7-33.7); MCHC 32.8 g/dl (32.0-35.9); MEAN CELL VOLUME 96.6 fl (80-96); MEAN PLT VOLUME 9.5 fl (7.5-11.1); PLATELET COUNT 200 10^3/uL (134-434); RBC 3.77 M/mm3 (4.00-5.60); RDW 14.1 % (11.9-15.9); WHITE BLOOD COUNT 11.1 K/mm3 (4.0-10.0)
[2021-10-27 08:46] LABS: ALBUMIN 2.6 g/dl (3.4-5.0); BLOOD UREA NITROGEN 70.3 mg/dL (7-18); MAGNESIUM 2.7 mg/dL (1.8-2.4)
[2021-10-27 08:49] LABS: CREATININE 3.2 mg/dL (0.55-1.3); PHOSPHOROUS 4.9 mg/dL (2.5-4.9)
[2021-10-27 08:51] LABS: BILIRUBIN,TOTAL 0.4 mg/dL (0.2-1); TOT PROT 5.6 g/dl (6.4-8.2)
[2021-10-27] MEDS: CHOLECALCIFEROL (VIT D3) 1,000 UNIT (25 MCG) TABLET PO SCH (09:59)
[2021-10-27] MEDS: ISOSORBIDE MONONITRATE 60 MG TAB.SR.24H (FP) PO SCH (09:59)
[2021-10-27] MEDS: ASPIRIN 81 MG CHEWABLE TABLETS PO SCH (09:59)
[2021-10-27] MEDS: CLOPIDOGREL BISULFATE 75 MG TABLET (FP) PO SCH (09:59)
[2021-10-27] MEDS: amLODIPine BESYLATE 10 MG TABLET (FP) PO SCH (09:59)
[2021-10-27] MEDS: ZINC SULFATE 220 MG CAPSULE (FP) PO SCH (09:59)
[2021-10-27] MEDS: ASCORBIC ACID 500 MG TABLET (FP) PO SCH (09:59)
[2021-10-27] MEDS: DEXAMETHASONE SOD PHOSPHATE 4 MG/1 ML VIAL IVPUSH SCH (10:00)
[2021-10-27] MEDS: RANOLAZINE E.R. 1,000 MG TABLET (FP) PO SCH ×2 (10:01→23:29)
[2021-10-27 11:54] LABS: ANISOCYTOSIS 0; MACROCYTOSIS 0; PLATELET ESTIMATE NORMAL
[2021-10-27] MEDS: SODIUM CHLORIDE 1,000 ML IV SCH (14:32)
[2021-10-27] MEDS: REMDESIVIR 100 MG in SODIUM CHLORIDE 250 ML IVPB SCH (14:32)
[2021-10-27] MEDS: ATORVASTATIN CA 80 MG TABLET (FP) PO SCH (23:29)
[2021-10-28 07:59] LABS: HEMATOCRIT 36.7 % (35.4-49); MCHC 32.8 g/dl (32.0-35.9); MEAN CELL VOLUME 97.3 fl (80-96); MEAN PLT VOLUME 9.3 fl (7.5-11.1); PLATELET COUNT 207 10^3/uL (134-434); RBC 3.77 M/mm3 (4.00-5.60); RDW 14.1 % (11.9-15.9); WHITE BLOOD COUNT 11.7 K/mm3 (4.0-10.0)
[2021-10-28 08:35] LABS: CHLORIDE 110 mmol/L (98-107); SODIUM 139 mmol/L (136-145)
[2021-10-28 08:45] LABS: ALBUMIN 2.6 g/dl (3.4-5.0); ANION GAP 8 MMOL/L (8-16); CO2 22 mmol/L (21-32); GLUCOSE,RANDOM 188 mg/dL (74-106); MAGNESIUM 2.9 mg/dL (1.8-2.4)
[2021-10-28 08:46] LABS: BLOOD UREA NITROGEN 66.5 mg/dL (7-18)
[2021-10-28 08:48] LABS: SGPT/ALT 20 U/L (13-61)
[2021-10-28 08:49] LABS: CREATININE 2.7 mg/dL (0.55-1.3); SGOT/AST 21 U/L (15-37)
[2021-10-28 08:50] LABS: BILIRUBIN,TOTAL 0.4 mg/dL (0.2-1); TOT PROT 5.6 g/dl (6.4-8.2)
[2021-10-28 08:51] LABS: ALK PHOS 122 U/L (45-117)
[2021-10-28 08:54] LABS: CALCIUM 6.8 mg/dL (8.5-10.1)
[2021-10-28] MEDS ORDERED: RANOLAZINE E.R. 500 MG TABLET (FP) ONE ×2 (09:32→21:07)
[2021-10-28 09:48] LABS: ANISOCYTOSIS 1+; MACROCYTOSIS 0; PLATELET ESTIMATE NORMAL
[2021-10-28] MEDS: RANOLAZINE E.R. 1,000 MG TABLET (FP) PO SCH ×2 (09:53→21:11)
[2021-10-28] MEDS: ASPIRIN 81 MG CHEWABLE TABLETS PO SCH (09:53)
[2021-10-28] MEDS: CHOLECALCIFEROL (VIT D3) 1,000 UNIT (25 MCG) TABLET PO SCH (09:53)
[2021-10-28] MEDS: CLOPIDOGREL BISULFATE 75 MG TABLET (FP) PO SCH (09:53)
[2021-10-28] MEDS: ISOSORBIDE MONONITRATE 60 MG TAB.SR.24H (FP) PO SCH (09:54)
[2021-10-28] MEDS: ASCORBIC ACID 500 MG TABLET (FP) PO SCH (09:54)
[2021-10-28] MEDS: DEXAMETHASONE SOD PHOSPHATE 4 MG/1 ML VIAL IVPUSH SCH (09:54)
[2021-10-28] MEDS: amLODIPine BESYLATE 10 MG TABLET (FP) PO SCH (09:55)
[2021-10-28] MEDS: ZINC SULFATE 220 MG CAPSULE (FP) PO SCH (09:55)
[2021-10-28] MEDS ORDERED: SODIUM CHLORIDE 1,000 ML IV SCH (13:29)
[2021-10-28] MEDS: REMDESIVIR 100 MG in SODIUM CHLORIDE 250 ML IVPB SCH (14:42)
[2021-10-28] MEDS ORDERED: CALCIUM GLUCONATE IN NACL 1 GM/50 ML BAG IVPB ONE (15:18)
[2021-10-28] MEDS: SODIUM CHLORIDE 1,000 ML IV SCH (16:00)
[2021-10-28] MEDS: CALCIUM 500MG/VIT-D 200 UNITS COMBO TABLET (FP) PO SCH (16:17)
[2021-10-28] MEDS ORDERED: PT OWN MED DRAWER 7, Y5N ONE (16:20)
[2021-10-28] MEDS: ATORVASTATIN CA 80 MG TABLET (FP) PO SCH (21:11)
[2021-10-29 05:45] VITALS: TEMP 97.9
[2021-10-29 07:44] LABS: BLOOD UREA NITROGEN 63.7 mg/dL (7-18)
[2021-10-29 07:47] LABS: CREATININE 2.4 mg/dL (0.55-1.3)
[2021-10-29 07:50] LABS: CALCIUM 8.2 mg/dL (8.5-10.1)
[2021-10-29] MEDS ORDERED: RANOLAZINE E.R. 500 MG TABLET (FP) ONE (08:40)
[2021-10-29] MEDS: RANOLAZINE E.R. 1,000 MG TABLET (FP) PO SCH (10:04)
[2021-10-29] MEDS: ASCORBIC ACID 500 MG TABLET (FP) PO SCH (10:05)
[2021-10-29] MEDS: amLODIPine BESYLATE 10 MG TABLET (FP) PO SCH (10:05)
[2021-10-29] MEDS: DEXAMETHASONE SOD PHOSPHATE 4 MG/1 ML VIAL IVPUSH SCH (10:05)
[2021-10-29] MEDS: ZINC SULFATE 220 MG CAPSULE (FP) PO SCH (10:05)
[2021-10-29] MEDS: CALCIUM 500MG/VIT-D 200 UNITS COMBO TABLET (FP) PO SCH (10:05)
[2021-10-29] MEDS: CHOLECALCIFEROL (VIT D3) 1,000 UNIT (25 MCG) TABLET PO SCH (10:05)
[2021-10-29] MEDS: CLOPIDOGREL BISULFATE 75 MG TABLET (FP) PO SCH (10:05)
[2021-10-29] MEDS: ASPIRIN 81 MG CHEWABLE TABLETS PO SCH (10:05)
[2021-10-29] MEDS: ISOSORBIDE MONONITRATE 60 MG TAB.SR.24H (FP) PO SCH (10:06)
[2021-10-29] MEDS: SODIUM CHLORIDE 1,000 ML IV SCH (15:50)
[2021-10-29] MEDS: REMDESIVIR 100 MG in SODIUM CHLORIDE 250 ML IVPB SCH (15:50)
[2021-10-29 16:11] VITALS: BP 134/76; PULSE 76
== END 2021-10-29 17:49 | disposition home or self-care (01) | DRG 177 ==
LOC: JER 19:50 → JERBED 23:26 → OBSVTOIN 10-25 00:26 → J4W 10-26 01:08
PROVIDERS: ADMIT Internal Medicine; ATTEND Internal Medicine
PROC: XW033E5 Introduction of Remdesivir Anti-infective into Peripheral Vein, Percutaneous Approach, New Technology Group 5 (ICD-10-PCS; principal; 2021-10-24)
DX: U07.1 COVID-19 (principal); J12.82 Pneumonia due to coronavirus disease 2019; I50.32 Chronic diastolic (congestive) heart failure; I13.0 Hypertensive heart and chronic kidney disease with heart failure and stage 1 through stage 4 chronic kidney disease, or unspecified chronic kidney disease; N17.9 Acute kidney failure, unspecified; N18.30 Chronic kidney disease, stage 3 unspecified; E11.22 Type 2 diabetes mellitus with diabetic chronic kidney disease; E78.1 Pure hyperglyceridemia; I25.10 Atherosclerotic heart disease of native coronary artery without angina pectoris; E78.5 Hyperlipidemia, unspecified; K21.9 Gastro-esophageal reflux disease without esophagitis; E83.51 Hypocalcemia; Z98.61 Coronary angioplasty status
CPT/HCPCS: 36415; 71045-TC-FY; 72100-TC-FY; 80048; 80053; 80061; 82550; 82728; 83615; 83735; 83880; 84100; 84443; 84484; 85025; 85379; 85610; 85730; 86140; 87804; 93005; 93010; 93925-TC; 94761; 99285-25; C9399; C9803-CS; G0378; U0003; U0005

== ENCOUNTER 2021-12-26 16:58 | Inpatient (IN) | payer OTHER ==
[2021-12-26 17:10] VITALS: BMI 29.4
[2021-12-26 19:48] LABS: CALCIUM 8.6 mg/dL (8.5-10.1)
[2021-12-26 19:49] LABS: ALBUMIN 2.9 g/dl (3.4-5.0); BLOOD UREA NITROGEN 18.6 mg/dL (7-18)
[2021-12-26 19:52] LABS: CREATININE 1.4 mg/dL (0.55-1.3)
[2021-12-26 19:53] LABS: BASO % 0.9 % (0-2.0); BILIRUBIN,TOTAL 0.7 mg/dL (0.2-1); EOS % 1.8 % (0-4.5); HEMATOCRIT 35.6 % (35.4-49); HEMOGLOBIN 11.7 GM/dL (11.7-16.9); LYMPH % 13.7 % (8-40); MCH 31.2 pg (25.7-33.7); MCHC 32.9 g/dl (32.0-35.9); MEAN CELL VOLUME 94.9 fl (80-96); MEAN PLT VOLUME 9.7 fl (7.5-11.1); MONO % 8.5 % (3.8-10.2); NEUT % 75.1 % (42.8-82.8); PLATELET COUNT 209 10^3/uL (134-434); RBC 3.76 M/mm3 (4.00-5.60); RDW 15.7 % (11.9-15.9); TOT PROT 6.3 g/dl (6.4-8.2); WHITE BLOOD COUNT 8.8 K/mm3 (4.0-10.0)
[2021-12-26 19:56] LABS: N-TERMINAL BNP 8293.2 pg/ml (5-125)
[2021-12-26 20:03] LABS: INR 1.28 (0.83-1.09); PROTHROMBIN TIME (PATIENT) 14.8 SEC (9.7-13.0)
[2021-12-26] MEDS ORDERED: ASPIRIN 81 MG CHEWABLE TABLETS PO ONE (20:03)
[2021-12-26] MEDS ORDERED: ASPIRIN 81 MG CHEWABLE TABLETS ONE (20:10)
[2021-12-26] MEDS ORDERED: ACETAMINOPHEN 1000 MG/100 ML BAG IVPB ONE (21:38)
[2021-12-26] MEDS ORDERED: ACETAMINOPHEN INJECTION 100 ML IVPB ONE (21:46)
[2021-12-27] MEDS ORDERED: FUROSEMIDE 40 MG/4 ML INJECTABLE VIAL IVPUSH ONE (02:09)
[2021-12-27] MEDS ORDERED: ACETAMINOPHEN INJECTION 100 ML IVPB ONE (07:48)
[2021-12-27 08:17] LABS: BASO % 0.4 % (0-2.0); EOS % 3.6 % (0-4.5); HEMATOCRIT 37.2 % (35.4-49); HEMOGLOBIN 12.2 GM/dL (11.7-16.9); LYMPH % 13.5 % (8-40); MCH 31.5 pg (25.7-33.7); MCHC 32.8 g/dl (32.0-35.9); MEAN CELL VOLUME 95.8 fl (80-96); MONO % 8.6 % (3.8-10.2); NEUT % 73.9 % (42.8-82.8); PLATELET COUNT 220 10^3/uL (134-434); RBC 3.88 M/mm3 (4.00-5.60); RDW 15.8 % (11.9-15.9); WHITE BLOOD COUNT 8.6 K/mm3 (4.0-10.0)
[2021-12-27 08:45] LABS: BLOOD UREA NITROGEN 18.7 mg/dL (7-18); CALCIUM 8.4 mg/dL (8.5-10.1)
[2021-12-27 08:48] LABS: CREATININE 1.5 mg/dL (0.55-1.3)
[2021-12-27 08:50] LABS: TOT PROT 6.3 g/dl (6.4-8.2)
[2021-12-27] MEDS: ACETAMINOPHEN 1000 MG/100 ML BAG IVPB PRN ×2 (09:04→20:09)
[2021-12-27] MEDS ORDERED: METOPROLOL TARTRATE 25 MG TABLET (FP) ONE (09:37)
[2021-12-27] MEDS ORDERED: APIXABAN 5 MG TABLET ONE (09:37)
[2021-12-27] MEDS ORDERED: CLOPIDOGREL BISULFATE 75 MG TABLET (FP) ONE (09:38)
[2021-12-27] MEDS ORDERED: METOPROLOL TARTRATE 50 MG TABLET (FP) ONE (09:38)
[2021-12-27] MEDS ORDERED: amLODIPine BESYLATE 10 MG TABLET (FP) ONE (09:38)
[2021-12-27] MEDS ORDERED: FUROSEMIDE 40 MG/4 ML INJECTABLE VIAL ONE (09:39)
[2021-12-27] MEDS: APIXABAN 5 MG TABLET PO SCH ×2 (09:50→21:19)
[2021-12-27] MEDS: amLODIPine BESYLATE 10 MG TABLET (FP) PO SCH (09:51)
[2021-12-27] MEDS: METOPROLOL TARTRATE 25 MG TABLET (FP) PO SCH ×2 (09:51→21:19)
[2021-12-27] MEDS: ISOSORBIDE MONONITRATE 60 MG TAB.SR.24H (FP) PO SCH ×2 (09:51→14:36)
[2021-12-27] MEDS: CLOPIDOGREL BISULFATE 75 MG TABLET (FP) PO SCH (09:51)
[2021-12-27] MEDS ORDERED: FUROSEMIDE 40 MG/4 ML INJECTABLE VIAL IVPUSH SCH (10:00)
[2021-12-27] MEDS: FUROSEMIDE 40 MG/4 ML INJECTABLE VIAL IVPUSH SCH (14:53)
[2021-12-27] MEDS: ATORVASTATIN CA 80 MG TABLET (FP) PO SCH (21:19)
[2021-12-28] MEDS: FUROSEMIDE 40 MG/4 ML INJECTABLE VIAL IVPUSH SCH ×2 (06:08→14:43)
[2021-12-28 07:56] LABS: BLOOD UREA NITROGEN 21.9 mg/dL (7-18)
[2021-12-28 07:57] LABS: CALCIUM 8.2 mg/dL (8.5-10.1); MAGNESIUM 2.5 mg/dL (1.8-2.4)
[2021-12-28 07:59] LABS: CREATININE 1.5 mg/dL (0.55-1.3); PHOSPHOROUS 3.3 mg/dL (2.5-4.9)
[2021-12-28 08:00] LABS: BILIRUBIN,TOTAL 1.2 mg/dL (0.2-1); TOT PROT 6.4 g/dl (6.4-8.2)
[2021-12-28] MEDS: METOPROLOL TARTRATE 25 MG TABLET (FP) PO SCH ×2 (11:15→21:30)
[2021-12-28] MEDS: ISOSORBIDE MONONITRATE 60 MG TAB.SR.24H (FP) PO SCH (11:16)
[2021-12-28] MEDS: CLOPIDOGREL BISULFATE 75 MG TABLET (FP) PO SCH (11:16)
[2021-12-28] MEDS: APIXABAN 5 MG TABLET PO SCH ×2 (11:16→21:30)
[2021-12-28] MEDS: amLODIPine BESYLATE 10 MG TABLET (FP) PO SCH (11:17)
[2021-12-28] MEDS: ATORVASTATIN CA 80 MG TABLET (FP) PO SCH (21:30)
[2021-12-28] MEDS: SACUBITRIL/VALSARTAN 24 MG-26 MG TABLET PO SCH (21:30)
[2021-12-29] MEDS: FUROSEMIDE 40 MG TABLET (FP) PO SCH ×2 (06:34→13:36)
[2021-12-29] MEDS: APIXABAN 5 MG TABLET PO SCH ×2 (10:20→21:13)
[2021-12-29] MEDS: SACUBITRIL/VALSARTAN 24 MG-26 MG TABLET PO SCH ×2 (10:21→21:13)
[2021-12-29] MEDS: amLODIPine BESYLATE 10 MG TABLET (FP) PO SCH (10:21)
[2021-12-29] MEDS: ISOSORBIDE MONONITRATE 60 MG TAB.SR.24H (FP) PO SCH (10:21)
[2021-12-29] MEDS: CLOPIDOGREL BISULFATE 75 MG TABLET (FP) PO SCH (10:21)
[2021-12-29] MEDS: METOPROLOL TARTRATE 25 MG TABLET (FP) PO SCH ×2 (10:21→21:13)
[2021-12-29] MEDS: ATORVASTATIN CA 80 MG TABLET (FP) PO SCH (21:13)
[2021-12-30 06:02] VITALS: TEMP 98
[2021-12-30] MEDS: FUROSEMIDE 40 MG TABLET (FP) PO SCH ×2 (06:08→13:26)
[2021-12-30 08:39] LABS: CALCIUM 7.8 mg/dL (8.5-10.1)
[2021-12-30 08:40] LABS: BLOOD UREA NITROGEN 26.1 mg/dL (7-18)
[2021-12-30 08:43] LABS: CREATININE 1.6 mg/dL (0.55-1.3)
[2021-12-30 09:30] VITALS: BP 122/74; PULSE 61
[2021-12-30] MEDS: APIXABAN 5 MG TABLET PO SCH (10:02)
[2021-12-30] MEDS: amLODIPine BESYLATE 10 MG TABLET (FP) PO SCH (10:03)
[2021-12-30] MEDS: ISOSORBIDE MONONITRATE 60 MG TAB.SR.24H (FP) PO SCH (10:03)
[2021-12-30] MEDS: METOPROLOL TARTRATE 25 MG TABLET (FP) PO SCH (10:03)
[2021-12-30] MEDS: CLOPIDOGREL BISULFATE 75 MG TABLET (FP) PO SCH (10:04)
[2021-12-30] MEDS: SACUBITRIL/VALSARTAN 24 MG-26 MG TABLET PO SCH (10:04)
== END 2021-12-30 14:49 | disposition home or self-care (01) | DRG 291 ==
LOC: JER 16:58 → JERBED 21:46 → OBSVTOIN 22:13 → J4W 12-27 12:06
PROVIDERS: ADMIT Internal Medicine; ATTEND Internal Medicine
DX: I13.0 Hypertensive heart and chronic kidney disease with heart failure and stage 1 through stage 4 chronic kidney disease, or unspecified chronic kidney disease (principal); I50.23 Acute on chronic systolic (congestive) heart failure; E11.22 Type 2 diabetes mellitus with diabetic chronic kidney disease; N18.30 Chronic kidney disease, stage 3 unspecified; E78.5 Hyperlipidemia, unspecified; K21.9 Gastro-esophageal reflux disease without esophagitis; N40.0 Benign prostatic hyperplasia without lower urinary tract symptoms; I25.10 Atherosclerotic heart disease of native coronary artery without angina pectoris; I44.4 Left anterior fascicular block; Z95.5 Presence of coronary angioplasty implant and graft
CPT/HCPCS: 36415; 71045-TC-FY; 80048; 80053; 83735; 83880; 84100; 84484; 85025; 85610; 85730; 93005; 93010; 93306-TC; 99285-25; C9803; G0378; U0003; U0005

== ENCOUNTER 2022-04-30 15:41 | Inpatient (IN) | payer OTHER ==
[2022-04-30 18:11] LABS: BASO % 0.5 % (0-2.0); EOS % 1.7 % (0-4.5); HEMATOCRIT 34.4 % (35.4-49); HEMOGLOBIN 11.7 GM/dL (11.7-16.9); LYMPH % 13.4 % (8-40); MCHC 34.1 g/dl (32.0-35.9); MEAN CELL VOLUME 93.9 fl (80-96); MONO % 8.3 % (3.8-10.2); NEUT % 76.1 % (42.8-82.8); PLATELET COUNT 236 10^3/uL (134-434); RBC 3.66 M/mm3 (4.00-5.60); RDW 14.8 % (11.9-15.9)
[2022-04-30 18:29] LABS: CALCIUM 8.1 mg/dL (8.5-10.1)
[2022-04-30 18:30] LABS: ALBUMIN 3.5 g/dl (3.4-5.0)
[2022-04-30 18:33] LABS: CREATININE 2.2 mg/dL (0.55-1.3)
[2022-04-30 18:35] LABS: BILIRUBIN,TOTAL 0.5 mg/dL (0.2-1); TOT PROT 6.8 g/dl (6.4-8.2)
[2022-04-30 18:38] LABS: N-TERMINAL BNP 1636.4 pg/ml (5-125)
[2022-04-30] MEDS ORDERED: ACETAMINOPHEN 325 MG TABLET (FP) PO ONE (23:24)
[2022-04-30] MEDS ORDERED: ACETAMINOPHEN 325 MG TABLET (FP) ONE (23:27)
[2022-05-01] MEDS ORDERED: traMADol HCL 50 MG TABLET PO ONE (03:35)
[2022-05-01] MEDS ORDERED: traMADol HCL 50 MG TABLET ONE (03:51)
[2022-05-01] MEDS ORDERED: GABAPENTIN 100 MG CAPSULE ONE ×2 (06:00→13:37)
[2022-05-01] MEDS: GABAPENTIN 100 MG CAPSULE PO SCH ×3 (06:04→21:47)
[2022-05-01] MEDS: INSULIN SLIDING SCALE (NOVOLOG) 1 VIAL SQ SCH ×4 (07:53→21:48)
[2022-05-01] MEDS ORDERED: glipiZIDE 5 MG TABLET (FP) ONE (07:54)
[2022-05-01] MEDS: glipiZIDE 10 MG TABLET (FP) PO SCH (07:55)
[2022-05-01 09:13] LABS: BASO % 0.6 % (0-2.0); EOS % 2.3 % (0-4.5); HEMATOCRIT 33.7 % (35.4-49); HEMOGLOBIN 11.4 GM/dL (11.7-16.9); LYMPH % 14.6 % (8-40); MCH 31.9 pg (25.7-33.7); MCHC 33.8 g/dl (32.0-35.9); MEAN CELL VOLUME 94.4 fl (80-96); MEAN PLT VOLUME 9.2 fl (7.5-11.1); MONO % 7.3 % (3.8-10.2); NEUT % 75.2 % (42.8-82.8); PLATELET COUNT 232 10^3/uL (134-434); RBC 3.57 M/mm3 (4.00-5.60); RDW 14.8 % (11.9-15.9); WHITE BLOOD COUNT 7.2 K/mm3 (4.0-10.0)
[2022-05-01] MEDS ORDERED: METOPROLOL TARTRATE 25 MG TABLET (FP) ONE (09:50)
[2022-05-01] MEDS ORDERED: CLOPIDOGREL BISULFATE 75 MG TABLET (FP) ONE (09:51)
[2022-05-01] MEDS ORDERED: ISOSORBIDE MONONITRATE 60 MG TAB.SR.24H (FP) PO ONE (09:51)
[2022-05-01] MEDS ORDERED: FUROSEMIDE 40 MG/4 ML INJECTABLE VIAL ONE ×2 (09:51→13:37)
[2022-05-01] MEDS ORDERED: amLODIPine BESYLATE 10 MG TABLET (FP) ONE (09:52)
[2022-05-01] MEDS ORDERED: FUROSEMIDE 40 MG/4 ML INJECTABLE VIAL IVPUSH SCH (10:00)
[2022-05-01] MEDS: amLODIPine BESYLATE 10 MG TABLET (FP) PO SCH (10:05)
[2022-05-01] MEDS: ISOSORBIDE MONONITRATE 60 MG TAB.SR.24H (FP) PO SCH (10:05)
[2022-05-01] MEDS: CLOPIDOGREL BISULFATE 75 MG TABLET (FP) PO SCH (10:05)
[2022-05-01] MEDS: METOPROLOL TARTRATE 25 MG TABLET (FP) PO SCH ×2 (10:05→21:47)
[2022-05-01] MEDS: SACUBITRIL/VALSARTAN 24 MG-26 MG TABLET PO SCH ×2 (10:05→21:47)
[2022-05-01 10:09] LABS: CALCIUM 8.4 mg/dL (8.5-10.1)
[2022-05-01 10:10] LABS: ALBUMIN 3.3 g/dl (3.4-5.0); BLOOD UREA NITROGEN 34.2 mg/dL (7-18)
[2022-05-01 10:13] LABS: CREATININE 2.1 mg/dL (0.55-1.3)
[2022-05-01 10:14] LABS: TOT PROT 6.6 g/dl (6.4-8.2)
[2022-05-01] MEDS: FUROSEMIDE 40 MG/4 ML INJECTABLE VIAL IVPUSH SCH (13:58)
[2022-05-01 18:50] VITALS: BMI 30.1
[2022-05-01] MEDS: ATORVASTATIN CA 80 MG TABLET (FP) PO SCH (21:47)
[2022-05-02] MEDS: APIXABAN 5 MG TABLET PO SCH ×3 (00:01→22:10)
[2022-05-02] MEDS ORDERED: glipiZIDE 5 MG TABLET (FP) ONE (05:54)
[2022-05-02] MEDS: INSULIN SLIDING SCALE (NOVOLOG) 1 VIAL SQ SCH ×4 (06:37→22:15)
[2022-05-02] MEDS: GABAPENTIN 100 MG CAPSULE PO SCH ×3 (06:38→22:10)
[2022-05-02] MEDS: glipiZIDE 10 MG TABLET (FP) PO SCH (06:38)
[2022-05-02] MEDS: FUROSEMIDE 40 MG/4 ML INJECTABLE VIAL IVPUSH SCH ×2 (06:38→14:07)
[2022-05-02] MEDS: METOPROLOL TARTRATE 25 MG TABLET (FP) PO SCH ×2 (10:13→22:10)
[2022-05-02] MEDS: ISOSORBIDE MONONITRATE 60 MG TAB.SR.24H (FP) PO SCH (10:13)
[2022-05-02] MEDS: SACUBITRIL/VALSARTAN 24 MG-26 MG TABLET PO SCH ×2 (10:13→22:10)
[2022-05-02] MEDS: amLODIPine BESYLATE 10 MG TABLET (FP) PO SCH (10:13)
[2022-05-02] MEDS: CLOPIDOGREL BISULFATE 75 MG TABLET (FP) PO SCH (10:13)
[2022-05-02] MEDS: LIDOCAINE 5% TOPICAL PATCH TP SCH (12:27)
[2022-05-02] MEDS: ACETAMINOPHEN 325 MG TABLET (FP) PO PRN (22:10)
[2022-05-02] MEDS: ATORVASTATIN CA 80 MG TABLET (FP) PO SCH (22:10)
[2022-05-02] MEDS: LIDOCAINE PATCH REMOVAL MC SCH (22:15)
[2022-05-03] MEDS ORDERED: glipiZIDE 5 MG TABLET (FP) ONE (06:11)
[2022-05-03] MEDS: ACETAMINOPHEN 325 MG TABLET (FP) PO PRN ×2 (06:15→21:03)
[2022-05-03] MEDS: FUROSEMIDE 40 MG/4 ML INJECTABLE VIAL IVPUSH SCH ×2 (06:16→13:52)
[2022-05-03] MEDS: INSULIN SLIDING SCALE (NOVOLOG) 1 VIAL SQ SCH ×4 (06:18→21:19)
[2022-05-03] MEDS: glipiZIDE 10 MG TABLET (FP) PO SCH (06:18)
[2022-05-03] MEDS: GABAPENTIN 100 MG CAPSULE PO SCH ×3 (06:19→21:16)
[2022-05-03] MEDS: METOPROLOL TARTRATE 25 MG TABLET (FP) PO SCH ×2 (09:39→21:17)
[2022-05-03] MEDS: SACUBITRIL/VALSARTAN 24 MG-26 MG TABLET PO SCH ×2 (09:40→21:17)
[2022-05-03] MEDS: ISOSORBIDE MONONITRATE 60 MG TAB.SR.24H (FP) PO SCH (09:40)
[2022-05-03] MEDS: APIXABAN 5 MG TABLET PO SCH ×2 (09:40→21:16)
[2022-05-03] MEDS: CLOPIDOGREL BISULFATE 75 MG TABLET (FP) PO SCH (09:40)
[2022-05-03] MEDS: LIDOCAINE 5% TOPICAL PATCH TP SCH (09:40)
[2022-05-03 17:20] LABS: CALCIUM 8.3 mg/dL (8.5-10.1)
[2022-05-03 17:22] LABS: BLOOD UREA NITROGEN 51.8 mg/dL (7-18)
[2022-05-03 17:24] LABS: CREATININE 2.3 mg/dL (0.55-1.3)
[2022-05-03] MEDS: ATORVASTATIN CA 80 MG TABLET (FP) PO SCH (21:16)
[2022-05-03] MEDS: LIDOCAINE PATCH REMOVAL MC SCH (21:37)
[2022-05-04] MEDS ORDERED: LIDOCAINE 5% TOPICAL PATCH TP ONE (00:45)
[2022-05-04] MEDS ORDERED: glipiZIDE 5 MG TABLET (FP) ONE (05:50)
[2022-05-04] MEDS: glipiZIDE 10 MG TABLET (FP) PO SCH (06:05)
[2022-05-04] MEDS: FUROSEMIDE 40 MG/4 ML INJECTABLE VIAL IVPUSH SCH ×2 (06:05→13:35)
[2022-05-04] MEDS: GABAPENTIN 100 MG CAPSULE PO SCH ×3 (06:05→21:43)
[2022-05-04] MEDS: INSULIN SLIDING SCALE (NOVOLOG) 1 VIAL SQ SCH ×4 (06:06→21:43)
[2022-05-04 09:02] LABS: BLOOD UREA NITROGEN 54.8 mg/dL (7-18); CALCIUM 8.2 mg/dL (8.5-10.1); MAGNESIUM 2.8 mg/dL (1.8-2.4)
[2022-05-04] MEDS: APIXABAN 5 MG TABLET PO SCH ×2 (09:02→21:42)
[2022-05-04] MEDS: SACUBITRIL/VALSARTAN 24 MG-26 MG TABLET PO SCH ×2 (09:02→21:42)
[2022-05-04] MEDS: METOPROLOL TARTRATE 25 MG TABLET (FP) PO SCH ×2 (09:02→21:42)
[2022-05-04] MEDS: CLOPIDOGREL BISULFATE 75 MG TABLET (FP) PO SCH (09:02)
[2022-05-04] MEDS: ISOSORBIDE MONONITRATE 60 MG TAB.SR.24H (FP) PO SCH (09:02)
[2022-05-04] MEDS: LIDOCAINE 5% TOPICAL PATCH TP SCH (09:02)
[2022-05-04 09:04] LABS: PHOSPHOROUS 4.8 mg/dL (2.5-4.9)
[2022-05-04 09:05] LABS: CREATININE 2.3 mg/dL (0.55-1.3)
[2022-05-04] MEDS ORDERED: FUROSEMIDE 40 MG/4 ML INJECTABLE VIAL IVPUSH ONE (16:43)
[2022-05-04] MEDS: LIDOCAINE PATCH REMOVAL MC SCH (21:42)
[2022-05-04] MEDS: ATORVASTATIN CA 80 MG TABLET (FP) PO SCH (21:42)
[2022-05-04] MEDS: ACETAMINOPHEN 325 MG TABLET (FP) PO PRN (21:43)
[2022-05-05] MEDS ORDERED: glipiZIDE 5 MG TABLET (FP) ONE (06:28)
[2022-05-05] MEDS: FUROSEMIDE 40 MG/4 ML INJECTABLE VIAL IVPUSH SCH ×2 (06:56→13:07)
[2022-05-05] MEDS: INSULIN SLIDING SCALE (NOVOLOG) 1 VIAL SQ SCH ×4 (06:57→21:55)
[2022-05-05] MEDS: GABAPENTIN 100 MG CAPSULE PO SCH ×3 (06:57→21:56)
[2022-05-05] MEDS: glipiZIDE 10 MG TABLET (FP) PO SCH (06:57)
[2022-05-05 07:32] LABS: BLOOD UREA NITROGEN 66.4 mg/dL (7-18); CALCIUM 8.1 mg/dL (8.5-10.1)
[2022-05-05 07:34] LABS: PHOSPHOROUS 5.6 mg/dL (2.5-4.9)
[2022-05-05 07:35] LABS: CREATININE 2.6 mg/dL (0.55-1.3)
[2022-05-05 07:36] LABS: BILIRUBIN,TOTAL 0.6 mg/dL (0.2-1); TOT PROT 6.2 g/dl (6.4-8.2)
[2022-05-05] MEDS: CLOPIDOGREL BISULFATE 75 MG TABLET (FP) PO SCH (10:20)
[2022-05-05] MEDS: SACUBITRIL/VALSARTAN 24 MG-26 MG TABLET PO SCH ×2 (10:20→21:56)
[2022-05-05] MEDS: APIXABAN 5 MG TABLET PO SCH ×2 (10:20→21:56)
[2022-05-05] MEDS: METOPROLOL TARTRATE 25 MG TABLET (FP) PO SCH ×2 (10:20→21:56)
[2022-05-05] MEDS: LIDOCAINE 5% TOPICAL PATCH TP SCH (10:21)
[2022-05-05] MEDS: ISOSORBIDE MONONITRATE 60 MG TAB.SR.24H (FP) PO SCH (10:21)
[2022-05-05] MEDS: ACETAMINOPHEN 325 MG TABLET (FP) PO PRN ×2 (15:59→21:59)
[2022-05-05] MEDS: ATORVASTATIN CA 80 MG TABLET (FP) PO SCH (21:56)
[2022-05-05] MEDS: LIDOCAINE PATCH REMOVAL MC SCH (22:16)
[2022-05-06] MEDS ORDERED: glipiZIDE 5 MG TABLET (FP) ONE (06:42)
[2022-05-06] MEDS: INSULIN SLIDING SCALE (NOVOLOG) 1 VIAL SQ SCH ×4 (06:53→21:42)
[2022-05-06] MEDS: ACETAMINOPHEN 325 MG TABLET (FP) PO PRN (06:54)
[2022-05-06] MEDS: glipiZIDE 10 MG TABLET (FP) PO SCH (06:54)
[2022-05-06] MEDS: GABAPENTIN 100 MG CAPSULE PO SCH ×3 (06:54→21:42)
[2022-05-06] MEDS: FUROSEMIDE 40 MG/4 ML INJECTABLE VIAL IVPUSH SCH ×2 (06:55→13:19)
[2022-05-06] MEDS: CLOPIDOGREL BISULFATE 75 MG TABLET (FP) PO SCH (09:18)
[2022-05-06] MEDS: LIDOCAINE 5% TOPICAL PATCH TP SCH (09:18)
[2022-05-06] MEDS: ISOSORBIDE MONONITRATE 60 MG TAB.SR.24H (FP) PO SCH (09:18)
[2022-05-06] MEDS: SACUBITRIL/VALSARTAN 24 MG-26 MG TABLET PO SCH ×2 (09:18→21:42)
[2022-05-06] MEDS: METOPROLOL TARTRATE 25 MG TABLET (FP) PO SCH ×2 (09:18→21:42)
[2022-05-06] MEDS: APIXABAN 5 MG TABLET PO SCH ×2 (09:18→21:42)
[2022-05-06 11:01] LABS: BLOOD UREA NITROGEN 66.4 mg/dL (7-18); CALCIUM 8.2 mg/dL (8.5-10.1)
[2022-05-06 11:05] LABS: CREATININE 2.3 mg/dL (0.55-1.3)
[2022-05-06] MEDS: hydrALAZINE HCL 10 MG TABLET PO SCH (21:42)
[2022-05-06] MEDS: ATORVASTATIN CA 80 MG TABLET (FP) PO SCH (21:42)
[2022-05-06] MEDS: LIDOCAINE PATCH REMOVAL MC SCH (21:43)
[2022-05-07] MEDS ORDERED: glipiZIDE 5 MG TABLET (FP) ONE (06:38)
[2022-05-07] MEDS: GABAPENTIN 100 MG CAPSULE PO SCH ×3 (06:54→21:45)
[2022-05-07] MEDS: FUROSEMIDE 40 MG/4 ML INJECTABLE VIAL IVPUSH SCH ×2 (06:54→14:22)
[2022-05-07] MEDS: glipiZIDE 10 MG TABLET (FP) PO SCH (06:54)
[2022-05-07] MEDS: INSULIN SLIDING SCALE (NOVOLOG) 1 VIAL SQ SCH ×4 (07:00→21:45)
[2022-05-07 09:16] LABS: CALCIUM 7.8 mg/dL (8.5-10.1)
[2022-05-07 09:17] LABS: BLOOD UREA NITROGEN 63.8 mg/dL (7-18)
[2022-05-07] MEDS: LIDOCAINE 5% TOPICAL PATCH TP SCH (09:19)
[2022-05-07] MEDS: APIXABAN 5 MG TABLET PO SCH ×2 (09:19→21:45)
[2022-05-07] MEDS: METOPROLOL TARTRATE 25 MG TABLET (FP) PO SCH ×2 (09:19→21:45)
[2022-05-07 09:20] LABS: CREATININE 2.2 mg/dL (0.55-1.3)
[2022-05-07] MEDS: CLOPIDOGREL BISULFATE 75 MG TABLET (FP) PO SCH (09:20)
[2022-05-07] MEDS: hydrALAZINE HCL 10 MG TABLET PO SCH ×2 (09:20→21:45)
[2022-05-07] MEDS: ISOSORBIDE MONONITRATE 60 MG TAB.SR.24H (FP) PO SCH (09:20)
[2022-05-07] MEDS: SACUBITRIL/VALSARTAN 24 MG-26 MG TABLET PO SCH ×2 (09:20→21:45)
[2022-05-07] MEDS: ATORVASTATIN CA 80 MG TABLET (FP) PO SCH (21:45)
[2022-05-07] MEDS: LIDOCAINE PATCH REMOVAL MC SCH (21:48)
[2022-05-07] MEDS: traMADol HCL 50 MG TABLET PO PRN (21:48)
[2022-05-08] MEDS: ACETAMINOPHEN 325 MG TABLET (FP) PO PRN (03:41)
[2022-05-08] MEDS ORDERED: glipiZIDE 5 MG TABLET (FP) ONE (06:04)
[2022-05-08] MEDS: FUROSEMIDE 40 MG/4 ML INJECTABLE VIAL IVPUSH SCH (06:49)
[2022-05-08] MEDS: INSULIN SLIDING SCALE (NOVOLOG) 1 VIAL SQ SCH ×4 (06:49→21:05)
[2022-05-08] MEDS: GABAPENTIN 100 MG CAPSULE PO SCH ×3 (06:49→21:01)
[2022-05-08] MEDS: glipiZIDE 10 MG TABLET (FP) PO SCH (06:49)
[2022-05-08 08:22] LABS: BASO % 0.3 % (0-2.0); EOS % 2.7 % (0-4.5); HEMATOCRIT 36.7 % (35.4-49); HEMOGLOBIN 12.1 GM/dL (11.7-16.9); LYMPH % 19.6 % (8-40); MCH 31.4 pg (25.7-33.7); MEAN CELL VOLUME 95.3 fl (80-96); MEAN PLT VOLUME 9.5 fl (7.5-11.1); MONO % 9.2 % (3.8-10.2); NEUT % 68.2 % (42.8-82.8); PLATELET COUNT 254 10^3/uL (134-434); RBC 3.86 M/mm3 (4.00-5.60); RDW 14.8 % (11.9-15.9)
[2022-05-08 08:52] LABS: ALBUMIN 3.4 g/dl (3.4-5.0); BLOOD UREA NITROGEN 59.4 mg/dL (7-18)
[2022-05-08 08:55] LABS: CREATININE 2.2 mg/dL (0.55-1.3)
[2022-05-08 08:56] LABS: TOT PROT 6.9 g/dl (6.4-8.2)
[2022-05-08 08:57] LABS: BILIRUBIN,TOTAL 0.5 mg/dL (0.2-1)
[2022-05-08] MEDS: SACUBITRIL/VALSARTAN 24 MG-26 MG TABLET PO SCH ×2 (09:35→21:01)
[2022-05-08] MEDS: CLOPIDOGREL BISULFATE 75 MG TABLET (FP) PO SCH (09:35)
[2022-05-08] MEDS: LIDOCAINE 5% TOPICAL PATCH TP SCH (09:35)
[2022-05-08] MEDS: METOPROLOL TARTRATE 25 MG TABLET (FP) PO SCH ×2 (09:35→21:01)
[2022-05-08] MEDS: APIXABAN 5 MG TABLET PO SCH ×2 (09:35→21:02)
[2022-05-08] MEDS: hydrALAZINE HCL 10 MG TABLET PO SCH ×2 (09:35→21:01)
[2022-05-08] MEDS: ISOSORBIDE MONONITRATE 60 MG TAB.SR.24H (FP) PO SCH (09:36)
[2022-05-08] MEDS ORDERED: METOLAZONE 2.5 MG TABLET (FP) PO ONE (13:30)
[2022-05-08] MEDS ORDERED: FUROSEMIDE 40 MG TABLET (FP) PO SCH (14:00)
[2022-05-08] MEDS: FUROSEMIDE 40 MG/4 ML INJECTABLE VIAL IVPB SCH (14:16)
[2022-05-08] MEDS: traMADol HCL 50 MG TABLET PO PRN (20:19)
[2022-05-08] MEDS: ATORVASTATIN CA 80 MG TABLET (FP) PO SCH (21:01)
[2022-05-08] MEDS: LIDOCAINE PATCH REMOVAL MC SCH (21:02)
[2022-05-09] MEDS: GABAPENTIN 100 MG CAPSULE PO SCH ×3 (06:00→21:34)
[2022-05-09] MEDS: FUROSEMIDE 40 MG/4 ML INJECTABLE VIAL IVPB SCH ×2 (06:00→14:54)
[2022-05-09] MEDS ORDERED: glipiZIDE 5 MG TABLET (FP) ONE (06:01)
[2022-05-09] MEDS: glipiZIDE 10 MG TABLET (FP) PO SCH (06:03)
[2022-05-09] MEDS: INSULIN SLIDING SCALE (NOVOLOG) 1 VIAL SQ SCH ×4 (06:05→22:21)
[2022-05-09] MEDS: METOPROLOL TARTRATE 25 MG TABLET (FP) PO SCH ×2 (09:06→21:34)
[2022-05-09] MEDS: APIXABAN 5 MG TABLET PO SCH ×2 (09:06→21:34)
[2022-05-09] MEDS: CLOPIDOGREL BISULFATE 75 MG TABLET (FP) PO SCH (09:06)
[2022-05-09] MEDS: ISOSORBIDE MONONITRATE 60 MG TAB.SR.24H (FP) PO SCH (09:06)
[2022-05-09] MEDS: SACUBITRIL/VALSARTAN 24 MG-26 MG TABLET PO SCH ×2 (09:06→21:34)
[2022-05-09] MEDS: hydrALAZINE HCL 10 MG TABLET PO SCH ×2 (09:06→21:34)
[2022-05-09] MEDS: LIDOCAINE 5% TOPICAL PATCH TP SCH (09:06)
[2022-05-09 11:27] LABS: ALBUMIN 3.4 g/dl (3.4-5.0); BILIRUBIN,TOTAL 0.6 mg/dL (0.2-1); BLOOD UREA NITROGEN 58.7 mg/dL (7-18); CALCIUM 8.3 mg/dL (8.5-10.1); CREATININE 2.1 mg/dL (0.55-1.3); TOT PROT 6.7 g/dl (6.4-8.2)
[2022-05-09] MEDS ORDERED: INSULIN (NOVOLOG) ASPART 100 UNITS/ML 10ML VIAL ONE (11:58)
[2022-05-09] MEDS ORDERED: METOLAZONE 2.5 MG TABLET (FP) PO ONE (13:30)
[2022-05-09] MEDS: ATORVASTATIN CA 80 MG TABLET (FP) PO SCH (21:34)
[2022-05-09] MEDS: LIDOCAINE PATCH REMOVAL MC SCH (21:51)
[2022-05-10] MEDS: FUROSEMIDE 40 MG/4 ML INJECTABLE VIAL IVPB SCH ×2 (05:43→13:33)
[2022-05-10] MEDS: GABAPENTIN 100 MG CAPSULE PO SCH ×3 (05:44→21:52)
[2022-05-10] MEDS: INSULIN SLIDING SCALE (NOVOLOG) 1 VIAL SQ SCH ×4 (06:09→21:58)
[2022-05-10 07:37] LABS: CALCIUM 8.5 mg/dL (8.5-10.1)
[2022-05-10 07:38] LABS: BLOOD UREA NITROGEN 64.4 mg/dL (7-18)
[2022-05-10 07:41] LABS: CREATININE 2.3 mg/dL (0.55-1.3)
[2022-05-10] MEDS: hydrALAZINE HCL 10 MG TABLET PO SCH ×2 (10:00→21:52)
[2022-05-10] MEDS: APIXABAN 5 MG TABLET PO SCH ×2 (10:00→21:53)
[2022-05-10] MEDS: ISOSORBIDE MONONITRATE 60 MG TAB.SR.24H (FP) PO SCH (10:00)
[2022-05-10] MEDS: CLOPIDOGREL BISULFATE 75 MG TABLET (FP) PO SCH (10:00)
[2022-05-10] MEDS: SACUBITRIL/VALSARTAN 24 MG-26 MG TABLET PO SCH ×2 (10:00→21:52)
[2022-05-10] MEDS: LIDOCAINE 5% TOPICAL PATCH TP SCH (10:01)
[2022-05-10] MEDS: ACETAMINOPHEN 325 MG TABLET (FP) PO PRN (12:35)
[2022-05-10] MEDS: ATORVASTATIN CA 80 MG TABLET (FP) PO SCH (21:52)
[2022-05-10] MEDS: LIDOCAINE PATCH REMOVAL MC SCH (21:53)
[2022-05-11] MEDS: ACETAMINOPHEN 325 MG TABLET (FP) PO PRN (02:02)
[2022-05-11] MEDS ORDERED: MAG HYDROX/AL HYDROX/SIMETH 30 ML UNIT-DOSE CUP PO ONE (04:00)
[2022-05-11] MEDS: GABAPENTIN 100 MG CAPSULE PO SCH ×3 (06:06→21:07)
[2022-05-11] MEDS: FUROSEMIDE 40 MG/4 ML INJECTABLE VIAL IVPB SCH ×2 (06:06→13:40)
[2022-05-11] MEDS: INSULIN SLIDING SCALE (NOVOLOG) 1 VIAL SQ SCH ×4 (06:06→21:35)
[2022-05-11] MEDS: LIDOCAINE 5% TOPICAL PATCH TP SCH (09:30)
[2022-05-11] MEDS: hydrALAZINE HCL 10 MG TABLET PO SCH (09:31)
[2022-05-11] MEDS: SACUBITRIL/VALSARTAN 24 MG-26 MG TABLET PO SCH ×2 (09:31→21:08)
[2022-05-11] MEDS: CLOPIDOGREL BISULFATE 75 MG TABLET (FP) PO SCH (09:31)
[2022-05-11] MEDS: ISOSORBIDE MONONITRATE 60 MG TAB.SR.24H (FP) PO SCH (09:31)
[2022-05-11] MEDS: APIXABAN 5 MG TABLET PO SCH ×2 (09:31→21:07)
[2022-05-11] MEDS: hydrALAZINE HCL 25 MG TABLET (FP) PO SCH ×2 (13:40→21:07)
[2022-05-11] MEDS: ATORVASTATIN CA 80 MG TABLET (FP) PO SCH (21:06)
[2022-05-11] MEDS: LIDOCAINE PATCH REMOVAL MC SCH (22:00)
[2022-05-12] MEDS: GABAPENTIN 100 MG CAPSULE PO SCH ×2 (05:13→14:18)
[2022-05-12] MEDS: FUROSEMIDE 40 MG TABLET (FP) PO SCH ×2 (05:13→14:18)
[2022-05-12] MEDS: INSULIN SLIDING SCALE (NOVOLOG) 1 VIAL SQ SCH ×2 (07:18→11:24)
[2022-05-12 07:58] VITALS: BP 119/58; PULSE 55; TEMP 98.3
[2022-05-12] MEDS: hydrALAZINE HCL 25 MG TABLET (FP) PO SCH (09:18)
[2022-05-12] MEDS: APIXABAN 5 MG TABLET PO SCH (09:18)
[2022-05-12] MEDS: ISOSORBIDE MONONITRATE 60 MG TAB.SR.24H (FP) PO SCH (09:18)
[2022-05-12] MEDS: CLOPIDOGREL BISULFATE 75 MG TABLET (FP) PO SCH (09:18)
[2022-05-12] MEDS: SACUBITRIL/VALSARTAN 24 MG-26 MG TABLET PO SCH (09:18)
[2022-05-12] MEDS: LIDOCAINE 5% TOPICAL PATCH TP SCH (09:18)
== END 2022-05-12 16:32 | disposition home or self-care (01) | DRG 291 ==
LOC: JER 15:41 → JERBED 19:13 → J4W 05-01 18:27
PROVIDERS: ADMIT Internal Medicine; ATTEND Internal Medicine
DX: I13.0 Hypertensive heart and chronic kidney disease with heart failure and stage 1 through stage 4 chronic kidney disease, or unspecified chronic kidney disease (principal); I50.23 Acute on chronic systolic (congestive) heart failure; N17.9 Acute kidney failure, unspecified; I25.10 Atherosclerotic heart disease of native coronary artery without angina pectoris; E11.22 Type 2 diabetes mellitus with diabetic chronic kidney disease; Z79.84 Long term (current) use of oral hypoglycemic drugs; N40.0 Benign prostatic hyperplasia without lower urinary tract symptoms; N18.30 Chronic kidney disease, stage 3 unspecified; E83.51 Hypocalcemia; Z86.16 Personal history of COVID-19; E78.5 Hyperlipidemia, unspecified; K21.9 Gastro-esophageal reflux disease without esophagitis
CPT/HCPCS: 36415; 71045-TC-FY; 76775-TC; 80048; 80053; 82947; 82962; 83036; 83735; 83880; 84100; 84484; 85025; 93005; 93010; 93306-TC; 93970-TC; 97116-GP; 97161-GP; 99285-25; C9803-CS; U0003; U0005

== ENCOUNTER 2022-07-09 21:18 | Inpatient (IN) | payer OTHER ==
[2022-07-09] MEDS ORDERED: SODIUM CHLORIDE 500 ML IV STA (22:09)
[2022-07-09] MEDS ORDERED: morphine CARPU-JECT 4 MG/1 ML DISP.SYRIN IVPUSH ONE (22:19)
[2022-07-09 22:46] LABS: BASO % 0.6 % (0-2.0); EOS % 0.5 % (0-4.5); HEMOGLOBIN 10.5 GM/dL (11.7-16.9); MCHC 32.7 g/dl (32.0-35.9); MEAN CELL VOLUME 94.6 fl (80-96); MEAN PLT VOLUME 9.1 fl (7.5-11.1); MONO % 5.7 % (3.8-10.2); NEUT % 87.2 % (42.8-82.8); PLATELET COUNT 259 10^3/uL (134-434); RBC 3.38 M/mm3 (4.00-5.60); RDW 14.5 % (11.9-15.9); WHITE BLOOD COUNT 13.4 K/mm3 (4.0-10.0)
[2022-07-09 22:57] LABS: CALCIUM 8.3 mg/dL (8.5-10.1)
[2022-07-09 22:58] LABS: ALBUMIN 3.6 g/dl (3.4-5.0); BLOOD UREA NITROGEN 50.3 mg/dL (7-18)
[2022-07-09 23:02] LABS: BILIRUBIN,TOTAL 0.8 mg/dL (0.2-1); TOT PROT 7.3 g/dl (6.4-8.2)
[2022-07-09] MEDS ORDERED: morphine SULFATE 4 MG/ML VIAL ONE (23:50)
[2022-07-10] MEDS ORDERED: ONDANSETRON 4 MG/2 ML VIAL IVPUSH ONE ×2 (01:25→02:36)
[2022-07-10] MEDS ORDERED: ONDANSETRON 4 MG/2 ML VIAL ONE ×2 (01:26→03:05)
[2022-07-10] MEDS ORDERED: ACETAMINOPHEN 325 MG TABLET (FP) PO PRN (03:46)
[2022-07-10] MEDS ORDERED: PANTOPRAZOLE SODIUM 40 MG VIAL IVPUSH ONE (03:56)
[2022-07-10] MEDS ORDERED: SENNOSIDES 8.6MG TABLET (FP) PO ONE ×2 (03:58→04:15)
[2022-07-10] MEDS ORDERED: DEXTROSE 5%-NORMAL SALINE 1,000 ML IV SCH (04:00)
[2022-07-10] MEDS ORDERED: DOCUSATE SODIUM 100 MG CAPSULE (FP) PO ONE ×2 (04:16→11:19)
[2022-07-10] MEDS: DOCUSATE SODIUM 100 MG CAPSULE (FP) PO SCH ×3 (04:51→22:54)
[2022-07-10] MEDS ORDERED: MINERAL OIL ENEMA 133 ML ENEMA RC ONE ×2 (05:00→16:29)
[2022-07-10] MEDS ORDERED: ACETAMINOPHEN 1000 MG/100 ML BAG IVPB ONE (05:03)
[2022-07-10] MEDS ORDERED: PANTOPRAZOLE SODIUM 40 MG VIAL ONE (05:40)
[2022-07-10] MEDS ORDERED: ACETAMINOPHEN INJECTION 100 ML IVPB ONE (05:40)
[2022-07-10] MEDS ORDERED: FUROSEMIDE 40 MG TABLET (FP) PO SCH ×2 (06:00→14:00)
[2022-07-10] MEDS: INSULIN SLIDING SCALE (NOVOLOG) 1 VIAL SQ SCH ×4 (07:57→22:40)
[2022-07-10] MEDS ORDERED: APIXABAN 5 MG TABLET ONE (08:55)
[2022-07-10] MEDS ORDERED: FAMOTIDINE 10 MG TABLET ONE (08:55)
[2022-07-10] MEDS ORDERED: amLODIPine BESYLATE 10 MG TABLET (FP) ONE (08:55)
[2022-07-10] MEDS ORDERED: ISOSORBIDE MONONITRATE 60 MG TAB.SR.24H (FP) PO ONE (08:55)
[2022-07-10] MEDS ORDERED: glipiZIDE 5 MG TABLET (FP) ONE (08:55)
[2022-07-10] MEDS ORDERED: CARVEDILOL 6.25 MG TABLET (FP) ONE (08:56)
[2022-07-10] MEDS ORDERED: RANOLAZINE E.R. 500 MG TABLET (FP) ONE (08:56)
[2022-07-10] MEDS: APIXABAN 5 MG TABLET PO SCH (09:03)
[2022-07-10] MEDS: CARVEDILOL 6.25 MG TABLET (FP) PO SCH ×2 (09:03→22:54)
[2022-07-10] MEDS: RANOLAZINE E.R. 500 MG TABLET (FP) PO SCH ×2 (09:03→22:54)
[2022-07-10] MEDS: ISOSORBIDE MONONITRATE 60 MG TAB.SR.24H (FP) PO SCH (09:03)
[2022-07-10] MEDS: amLODIPine BESYLATE 10 MG TABLET (FP) PO SCH (09:03)
[2022-07-10] MEDS: NITROGLYCERIN 0.1 MG/HOUR TD PATCH TD SCH (09:27)
[2022-07-10] MEDS ORDERED: ACETAMINOPHEN 325 MG TABLET (FP) ONE ×3 (09:34→20:09)
[2022-07-10] MEDS: ACETAMINOPHEN 325 MG TABLET (FP) PO PRN ×2 (09:35→15:15)
[2022-07-10] MEDS ORDERED: glipiZIDE 10 MG TABLET (FP) PO SCH (10:00)
[2022-07-10] MEDS ORDERED: FAMOTIDINE 10 MG TABLET PO SCH (10:00)
[2022-07-10] MEDS ORDERED: SACUBITRIL/VALSARTAN 24 MG-26 MG TABLET PO SCH (10:00)
[2022-07-10] MEDS ORDERED: TRIMETHOBENZAMIDE HCL 200MG/2ML INJ IM PRN (12:39)
[2022-07-10] MEDS ORDERED: FUROSEMIDE 40 MG/4 ML INJECTABLE VIAL ONE (12:48)
[2022-07-10] MEDS: FUROSEMIDE 100 MG/10 ML INJECTABLE VIAL IVPB SCH ×2 (12:53→14:04)
[2022-07-10] MEDS ORDERED: POLYETHYLENE GLYCOL 3350 255 GM BTL PO ONE (16:30)
[2022-07-10] MEDS ORDERED: PANTOPRAZOLE 40 MG TABLET PO ONE (16:48)
[2022-07-10] MEDS ORDERED: METOCLOPRAMIDE HCL 10 MG TABLET (FP) PO ONE (16:49)
[2022-07-10] MEDS: METOCLOPRAMIDE HCL 10 MG TABLET (FP) PO SCH (16:51)
[2022-07-10] MEDS: PANTOPRAZOLE 40 MG TABLET PO SCH (16:51)
[2022-07-10] MEDS: ATORVASTATIN CA 80 MG TABLET (FP) PO SCH (22:55)
[2022-07-11 00:20] VITALS: BMI 30.1
[2022-07-11] MEDS ORDERED: FUROSEMIDE 40 MG/4 ML INJECTABLE VIAL IVPB SCH (04:47)
[2022-07-11] MEDS ORDERED: DOCUSATE SODIUM 100 MG CAPSULE (FP) PO SCH (04:47)
[2022-07-11] MEDS: ACETAMINOPHEN 325 MG TABLET (FP) PO PRN (04:59)
[2022-07-11] MEDS: DOCUSATE SODIUM 100 MG CAPSULE (FP) PO SCH (05:13)
[2022-07-11] MEDS: INSULIN SLIDING SCALE (NOVOLOG) 1 VIAL SQ SCH ×4 (06:00→21:18)
[2022-07-11] MEDS: METOCLOPRAMIDE HCL 10 MG TABLET (FP) PO SCH ×3 (06:06→17:58)
[2022-07-11 09:26] LABS: BASO % 0.1 % (0-2.0); EOS % 0.3 % (0-4.5); HEMATOCRIT 27.7 % (35.4-49); HEMOGLOBIN 9.5 GM/dL (11.7-16.9); LYMPH % 5.3 % (8-40); MCH 32.8 pg (25.7-33.7); MCHC 34.2 g/dl (32.0-35.9); MEAN CELL VOLUME 95.7 fl (80-96); MEAN PLT VOLUME 9.1 fl (7.5-11.1); MONO % 8.9 % (3.8-10.2); NEUT % 85.4 % (42.8-82.8); PLATELET COUNT 208 10^3/uL (134-434); RBC 2.89 M/mm3 (4.00-5.60); RDW 14.9 % (11.9-15.9); WHITE BLOOD COUNT 12.2 K/mm3 (4.0-10.0)
[2022-07-11 09:50] LABS: BLOOD UREA NITROGEN 55.8 mg/dL (7-18); CALCIUM 7.9 mg/dL (8.5-10.1)
[2022-07-11 09:54] LABS: EPI CELLS 8 /uL (0-25.1); HYALINE CASTS 2 /uL (0-3.1); URINE APPEARANCE CLEAR; URINE BACTERIA 27 /uL (0-1359); URINE BILIRUBIN NEGATIVE (NEGATIVE); URINE COLOR YELLOW; URINE GLUCOSE (UA) NEGATIVE (NEGATIVE); URINE KETONE NEGATIVE (NEGATIVE); URINE LEUK ESTERASE TRACE (NEGATIVE); URINE NITRITE NEGATIVE (NEGATIVE); URINE PROTEIN 2+ (NEGATIVE); URINE UROBILINOGEN 0.2 mg/dL (0.2-1.0); URINE WBC 28 /uL (0-25.8)
[2022-07-11 09:54] LABS: CREATININE 3.4 mg/dL (0.55-1.3)
[2022-07-11 09:55] LABS: BILIRUBIN,TOTAL 1.4 mg/dL (0.2-1); TOT PROT 6.3 g/dl (6.4-8.2)
[2022-07-11] MEDS: RANOLAZINE E.R. 500 MG TABLET (FP) PO SCH ×2 (10:52→21:17)
[2022-07-11] MEDS: amLODIPine BESYLATE 10 MG TABLET (FP) PO SCH (10:52)
[2022-07-11] MEDS: ISOSORBIDE MONONITRATE 60 MG TAB.SR.24H (FP) PO SCH (10:52)
[2022-07-11] MEDS: CARVEDILOL 6.25 MG TABLET (FP) PO SCH ×2 (10:52→21:17)
[2022-07-11] MEDS: PANTOPRAZOLE 40 MG TABLET PO SCH (10:52)
[2022-07-11] MEDS: APIXABAN 5 MG TABLET PO SCH (10:52)
[2022-07-11] MEDS: NITROGLYCERIN 0.1 MG/HOUR TD PATCH TD SCH (10:54)
[2022-07-11 12:51] LABS: URINE RBC 72.3 /uL (0-23.9)
[2022-07-11] MEDS: LIPASE/PROTEASE/AMYLASE 36,000 UNIT CAPSULE PO SCH (18:39)
[2022-07-11] MEDS: metroNIDAZOLE 250 MG TABLET PO SCH (21:17)
[2022-07-11] MEDS: POLYETHYLENE GLYCOL (HEALTHYLAX) 3350 17 GM PACKET PO SCH (21:17)
[2022-07-11] MEDS: ATORVASTATIN CA 80 MG TABLET (FP) PO SCH (21:17)
[2022-07-12] MEDS: ACETAMINOPHEN 325 MG TABLET (FP) PO PRN ×2 (01:53→20:10)
[2022-07-12] MEDS: metroNIDAZOLE 250 MG TABLET PO SCH ×3 (06:05→22:17)
[2022-07-12] MEDS: METOCLOPRAMIDE HCL 10 MG TABLET (FP) PO SCH ×3 (06:05→16:35)
[2022-07-12] MEDS: INSULIN SLIDING SCALE (NOVOLOG) 1 VIAL SQ SCH ×4 (06:05→23:27)
[2022-07-12] MEDS: LIPASE/PROTEASE/AMYLASE 36,000 UNIT CAPSULE PO SCH ×3 (08:03→17:50)
[2022-07-12 09:56] LABS: BASO % 0.2 % (0-2.0); EOS % 1.2 % (0-4.5); HEMATOCRIT 30.3 % (35.4-49); HEMOGLOBIN 10.1 GM/dL (11.7-16.9); LYMPH % 8.5 % (8-40); MCH 32.2 pg (25.7-33.7); MCHC 33.4 g/dl (32.0-35.9); MEAN CELL VOLUME 96.2 fl (80-96); MEAN PLT VOLUME 9.5 fl (7.5-11.1); MONO % 9.5 % (3.8-10.2); NEUT % 80.6 % (42.8-82.8); PLATELET COUNT 256 10^3/uL (134-434); RBC 3.15 M/mm3 (4.00-5.60); RDW 14.6 % (11.9-15.9); WHITE BLOOD COUNT 10.4 K/mm3 (4.0-10.0)
[2022-07-12 10:35] LABS: CALCIUM 8.3 mg/dL (8.5-10.1)
[2022-07-12 10:36] LABS: ALBUMIN 3.2 g/dl (3.4-5.0); BLOOD UREA NITROGEN 67.3 mg/dL (7-18)
[2022-07-12 10:39] LABS: CREATININE 3.5 mg/dL (0.55-1.3); PHOSPHOROUS 4.1 mg/dL (2.5-4.9)
[2022-07-12 10:40] LABS: BILIRUBIN,TOTAL 1.1 mg/dL (0.2-1); TOT PROT 6.5 g/dl (6.4-8.2)
[2022-07-12] MEDS: PANTOPRAZOLE 40 MG TABLET PO SCH (11:04)
[2022-07-12] MEDS: RANOLAZINE E.R. 500 MG TABLET (FP) PO SCH ×2 (11:04→22:17)
[2022-07-12] MEDS: amLODIPine BESYLATE 10 MG TABLET (FP) PO SCH (11:04)
[2022-07-12] MEDS: POLYETHYLENE GLYCOL (HEALTHYLAX) 3350 17 GM PACKET PO SCH ×2 (11:04→22:17)
[2022-07-12] MEDS: APIXABAN 5 MG TABLET PO SCH ×2 (11:04→23:28)
[2022-07-12] MEDS: ISOSORBIDE MONONITRATE 60 MG TAB.SR.24H (FP) PO SCH (11:04)
[2022-07-12] MEDS: NITROGLYCERIN 0.1 MG/HOUR TD PATCH TD SCH (11:05)
[2022-07-12] MEDS: CARVEDILOL 6.25 MG TABLET (FP) PO SCH ×2 (11:05→22:17)
[2022-07-12] MEDS ORDERED: FUROSEMIDE 40 MG/4 ML INJECTABLE VIAL IVPUSH ONE (11:52)
[2022-07-12] MEDS: FUROSEMIDE 40 MG TABLET (FP) PO SCH (12:33)
[2022-07-12] MEDS: ATORVASTATIN CA 80 MG TABLET (FP) PO SCH (22:17)
[2022-07-13] MEDS: ACETAMINOPHEN 325 MG TABLET (FP) PO PRN ×2 (05:15→13:04)
[2022-07-13] MEDS ORDERED: traMADol HCL 50 MG TABLET PO ONE (05:34)
[2022-07-13] MEDS: metroNIDAZOLE 250 MG TABLET PO SCH ×3 (05:53→22:08)
[2022-07-13] MEDS: INSULIN SLIDING SCALE (NOVOLOG) 1 VIAL SQ SCH ×4 (06:17→22:11)
[2022-07-13] MEDS: METOCLOPRAMIDE HCL 10 MG TABLET (FP) PO SCH ×3 (06:27→17:01)
[2022-07-13] MEDS ORDERED: traMADol HCL 50 MG TABLET PO PRN (08:00)
[2022-07-13] MEDS: LIPASE/PROTEASE/AMYLASE 36,000 UNIT CAPSULE PO SCH ×3 (08:47→17:01)
[2022-07-13] MEDS: RANOLAZINE E.R. 500 MG TABLET (FP) PO SCH ×4 (08:47→22:30)
[2022-07-13] MEDS: CARVEDILOL 6.25 MG TABLET (FP) PO SCH ×2 (09:34→22:04)
[2022-07-13] MEDS: amLODIPine BESYLATE 10 MG TABLET (FP) PO SCH (09:34)
[2022-07-13] MEDS: ISOSORBIDE MONONITRATE 60 MG TAB.SR.24H (FP) PO SCH (09:34)
[2022-07-13] MEDS: PANTOPRAZOLE 40 MG TABLET PO SCH (09:34)
[2022-07-13] MEDS: APIXABAN 5 MG TABLET PO SCH ×2 (09:35→22:07)
[2022-07-13] MEDS: POLYETHYLENE GLYCOL (HEALTHYLAX) 3350 17 GM PACKET PO SCH ×2 (09:35→22:16)
[2022-07-13] MEDS: NITROGLYCERIN 0.1 MG/HOUR TD PATCH TD SCH (09:40)
[2022-07-13] MEDS: FUROSEMIDE 40 MG/4 ML INJECTABLE VIAL IVPUSH SCH (11:43)
[2022-07-13] MEDS: FUROSEMIDE 40 MG TABLET (FP) PO SCH (12:01)
[2022-07-13 12:23] LABS: CALCIUM 8.3 mg/dL (8.5-10.1)
[2022-07-13 12:24] LABS: BLOOD UREA NITROGEN 62.3 mg/dL (7-18)
[2022-07-13 12:27] LABS: CREATININE 3.1 mg/dL (0.55-1.3)
[2022-07-13] MEDS: PANTOPRAZOLE SODIUM 40 MG VIAL IVPUSH SCH (14:26)
[2022-07-13] MEDS: ATORVASTATIN CA 80 MG TABLET (FP) PO SCH (22:09)
[2022-07-14] MEDS: ACETAMINOPHEN 325 MG TABLET (FP) PO PRN ×2 (00:26→22:13)
[2022-07-14] MEDS: METOCLOPRAMIDE HCL 10 MG TABLET (FP) PO SCH ×3 (06:31→17:06)
[2022-07-14] MEDS: metroNIDAZOLE 250 MG TABLET PO SCH ×2 (06:31→13:52)
[2022-07-14] MEDS: INSULIN SLIDING SCALE (NOVOLOG) 1 VIAL SQ SCH ×4 (06:35→22:15)
[2022-07-14] MEDS: LIPASE/PROTEASE/AMYLASE 36,000 UNIT CAPSULE PO SCH ×3 (08:32→17:06)
[2022-07-14 10:12] LABS: BASO % 0.5 % (0-2.0); EOS % 0.3 % (0-4.5); HEMATOCRIT 27.2 % (35.4-49); HEMOGLOBIN 9.7 GM/dL (11.7-16.9); LYMPH % 7.6 % (8-40); MCH 34.1 pg (25.7-33.7); MCHC 35.6 g/dl (32.0-35.9); MEAN PLT VOLUME 8.4 fl (7.5-11.1); MONO % 11.8 % (3.8-10.2); NEUT % 79.8 % (42.8-82.8); PLATELET COUNT 263 10^3/uL (134-434); RBC 2.83 M/mm3 (4.00-5.60); RDW 14.5 % (11.9-15.9)
[2022-07-14 10:36] LABS: CALCIUM 8.1 mg/dL (8.5-10.1)
[2022-07-14 10:37] LABS: ALBUMIN 2.9 g/dl (3.4-5.0); BLOOD UREA NITROGEN 68.8 mg/dL (7-18)
[2022-07-14 10:39] LABS: CREATININE 3.5 mg/dL (0.55-1.3)
[2022-07-14 10:41] LABS: BILIRUBIN,TOTAL 0.8 mg/dL (0.2-1)
[2022-07-14] MEDS: APIXABAN 5 MG TABLET PO SCH ×2 (12:21→22:03)
[2022-07-14] MEDS: POLYETHYLENE GLYCOL (HEALTHYLAX) 3350 17 GM PACKET PO SCH ×2 (12:21→22:03)
[2022-07-14] MEDS: PANTOPRAZOLE SODIUM 40 MG VIAL IVPUSH SCH (12:22)
[2022-07-14] MEDS: NITROGLYCERIN 0.1 MG/HOUR TD PATCH TD SCH (12:22)
[2022-07-14] MEDS: amLODIPine BESYLATE 10 MG TABLET (FP) PO SCH (12:22)
[2022-07-14] MEDS: CARVEDILOL 6.25 MG TABLET (FP) PO SCH ×2 (12:22→22:03)
[2022-07-14] MEDS: ISOSORBIDE MONONITRATE 60 MG TAB.SR.24H (FP) PO SCH (12:22)
[2022-07-14] MEDS: RANOLAZINE E.R. 500 MG TABLET (FP) PO SCH ×2 (12:22→22:03)
[2022-07-14] MEDS: FUROSEMIDE 40 MG/4 ML INJECTABLE VIAL IVPUSH SCH ×2 (13:49→13:50)
[2022-07-14] MEDS: ATORVASTATIN CA 80 MG TABLET (FP) PO SCH (22:03)
[2022-07-15] MEDS: METOCLOPRAMIDE HCL 10 MG TABLET (FP) PO SCH ×3 (06:03→17:31)
[2022-07-15] MEDS: INSULIN SLIDING SCALE (NOVOLOG) 1 VIAL SQ SCH ×4 (06:03→21:20)
[2022-07-15 09:53] LABS: BASO % 0.3 % (0-2.0); HEMATOCRIT 27.9 % (35.4-49); HEMOGLOBIN 9.4 GM/dL (11.7-16.9); LYMPH % 7.1 % (8-40); MCHC 33.6 g/dl (32.0-35.9); MEAN CELL VOLUME 95.1 fl (80-96); MONO % 10.3 % (3.8-10.2); NEUT % 81.3 % (42.8-82.8); PLATELET COUNT 298 10^3/uL (134-434); RBC 2.94 M/mm3 (4.00-5.60); RDW 14.6 % (11.9-15.9); WHITE BLOOD COUNT 9.5 K/mm3 (4.0-10.0)
[2022-07-15 10:09] LABS: ALBUMIN 2.8 g/dl (3.4-5.0); BLOOD UREA NITROGEN 66.1 mg/dL (7-18)
[2022-07-15] MEDS: RANOLAZINE E.R. 500 MG TABLET (FP) PO SCH ×2 (10:10→21:16)
[2022-07-15] MEDS: ISOSORBIDE MONONITRATE 60 MG TAB.SR.24H (FP) PO SCH (10:10)
[2022-07-15] MEDS: FUROSEMIDE 40 MG/4 ML INJECTABLE VIAL IVPUSH SCH (10:10)
[2022-07-15] MEDS: PANTOPRAZOLE SODIUM 40 MG VIAL IVPUSH SCH (10:10)
[2022-07-15] MEDS: APIXABAN 5 MG TABLET PO SCH ×2 (10:11→21:16)
[2022-07-15] MEDS: CARVEDILOL 6.25 MG TABLET (FP) PO SCH ×2 (10:11→21:16)
[2022-07-15] MEDS: POLYETHYLENE GLYCOL (HEALTHYLAX) 3350 17 GM PACKET PO SCH ×2 (10:11→21:16)
[2022-07-15] MEDS: amLODIPine BESYLATE 10 MG TABLET (FP) PO SCH (10:11)
[2022-07-15 10:12] LABS: CREATININE 3.2 mg/dL (0.55-1.3); PHOSPHOROUS 4.2 mg/dL (2.5-4.9)
[2022-07-15] MEDS: NITROGLYCERIN 0.1 MG/HOUR TD PATCH TD SCH (10:12)
[2022-07-15] MEDS: LIPASE/PROTEASE/AMYLASE 36,000 UNIT CAPSULE PO SCH ×3 (10:12→17:54)
[2022-07-15 10:14] LABS: BILIRUBIN,TOTAL 0.8 mg/dL (0.2-1); TOT PROT 6.1 g/dl (6.4-8.2)
[2022-07-15] MEDS: ACETAMINOPHEN 325 MG TABLET (FP) PO PRN (17:31)
[2022-07-15] MEDS: ATORVASTATIN CA 80 MG TABLET (FP) PO SCH (21:16)
[2022-07-16] MEDS: METOCLOPRAMIDE HCL 10 MG TABLET (FP) PO SCH ×3 (06:01→18:06)
[2022-07-16] MEDS: INSULIN SLIDING SCALE (NOVOLOG) 1 VIAL SQ SCH ×4 (06:02→23:14)
[2022-07-16] MEDS: RANOLAZINE E.R. 500 MG TABLET (FP) PO SCH ×2 (09:38→23:14)
[2022-07-16] MEDS: POLYETHYLENE GLYCOL (HEALTHYLAX) 3350 17 GM PACKET PO SCH ×2 (09:38→23:13)
[2022-07-16] MEDS: amLODIPine BESYLATE 10 MG TABLET (FP) PO SCH (09:38)
[2022-07-16] MEDS: CARVEDILOL 6.25 MG TABLET (FP) PO SCH ×2 (09:38→23:14)
[2022-07-16] MEDS: ISOSORBIDE MONONITRATE 60 MG TAB.SR.24H (FP) PO SCH (09:38)
[2022-07-16] MEDS: PANTOPRAZOLE SODIUM 40 MG VIAL IVPUSH SCH (09:38)
[2022-07-16] MEDS: FUROSEMIDE 40 MG/4 ML INJECTABLE VIAL IVPUSH SCH (09:38)
[2022-07-16] MEDS: ACETAMINOPHEN 325 MG TABLET (FP) PO PRN (09:45)
[2022-07-16] MEDS: APIXABAN 5 MG TABLET PO SCH ×2 (09:45→23:14)
[2022-07-16] MEDS: LIPASE/PROTEASE/AMYLASE 36,000 UNIT CAPSULE PO SCH ×3 (09:45→18:07)
[2022-07-16] MEDS: NITROGLYCERIN 0.1 MG/HOUR TD PATCH TD SCH (09:52)
[2022-07-16 10:43] LABS: BASO % 0.6 % (0-2.0); EOS % 1.1 % (0-4.5); HEMATOCRIT 26.5 % (35.4-49); HEMOGLOBIN 9.2 GM/dL (11.7-16.9); LYMPH % 6.8 % (8-40); MCHC 34.7 g/dl (32.0-35.9); MEAN CELL VOLUME 95.3 fl (80-96); MEAN PLT VOLUME 8.6 fl (7.5-11.1); MONO % 8.5 % (3.8-10.2); PLATELET COUNT 293 10^3/uL (134-434); RBC 2.78 M/mm3 (4.00-5.60); RDW 14.4 % (11.9-15.9); WHITE BLOOD COUNT 8.8 K/mm3 (4.0-10.0)
[2022-07-16 10:59] LABS: ALBUMIN 2.7 g/dl (3.4-5.0); BLOOD UREA NITROGEN 66.7 mg/dL (7-18); CALCIUM 8.1 mg/dL (8.5-10.1)
[2022-07-16 11:04] LABS: BILIRUBIN,TOTAL 0.9 mg/dL (0.2-1); TOT PROT 5.9 g/dl (6.4-8.2)
[2022-07-16] MEDS ORDERED: METOLAZONE 2.5 MG TABLET (FP) PO ONE (12:00)
[2022-07-16] MEDS ORDERED: METOLAZONE 5 MG TABLET PO ONE (17:12)
[2022-07-16] MEDS: ATORVASTATIN CA 80 MG TABLET (FP) PO SCH (23:13)
[2022-07-16] MEDS: metroNIDAZOLE 250 MG TABLET PO SCH (23:14)
[2022-07-17] MEDS: METOCLOPRAMIDE HCL 10 MG TABLET (FP) PO SCH ×3 (06:49→16:33)
[2022-07-17] MEDS: INSULIN SLIDING SCALE (NOVOLOG) 1 VIAL SQ SCH ×4 (06:49→22:42)
[2022-07-17] MEDS: metroNIDAZOLE 250 MG TABLET PO SCH ×3 (06:49→22:42)
[2022-07-17] MEDS: APIXABAN 5 MG TABLET PO SCH ×2 (09:49→22:42)
[2022-07-17] MEDS: ISOSORBIDE MONONITRATE 60 MG TAB.SR.24H (FP) PO SCH (09:49)
[2022-07-17] MEDS: CARVEDILOL 6.25 MG TABLET (FP) PO SCH (09:49)
[2022-07-17] MEDS: amLODIPine BESYLATE 10 MG TABLET (FP) PO SCH (09:49)
[2022-07-17] MEDS: LIPASE/PROTEASE/AMYLASE 36,000 UNIT CAPSULE PO SCH ×3 (09:49→17:58)
[2022-07-17] MEDS: NITROGLYCERIN 0.1 MG/HOUR TD PATCH TD SCH (09:50)
[2022-07-17] MEDS: RANOLAZINE E.R. 500 MG TABLET (FP) PO SCH ×2 (09:50→22:42)
[2022-07-17] MEDS: PANTOPRAZOLE SODIUM 40 MG VIAL IVPUSH SCH (10:23)
[2022-07-17] MEDS: FUROSEMIDE 40 MG/4 ML INJECTABLE VIAL IVPUSH SCH ×2 (10:24→18:52)
[2022-07-17 10:31] LABS: BASO % 0.5 % (0-2.0); EOS % 0.7 % (0-4.5); HEMATOCRIT 28.8 % (35.4-49); HEMOGLOBIN 9.7 GM/dL (11.7-16.9); MCH 31.9 pg (25.7-33.7); MCHC 33.5 g/dl (32.0-35.9); MEAN CELL VOLUME 95.4 fl (80-96); MEAN PLT VOLUME 8.4 fl (7.5-11.1); MONO % 9.9 % (3.8-10.2); NEUT % 78.9 % (42.8-82.8); PLATELET COUNT 351 10^3/uL (134-434); RBC 3.02 M/mm3 (4.00-5.60); RDW 14.6 % (11.9-15.9); WHITE BLOOD COUNT 7.5 K/mm3 (4.0-10.0)
[2022-07-17 10:51] LABS: CALCIUM 8.2 mg/dL (8.5-10.1)
[2022-07-17 10:55] LABS: ALBUMIN 2.7 g/dl (3.4-5.0)
[2022-07-17 10:58] LABS: CREATININE 3.3 mg/dL (0.55-1.3)
[2022-07-17 11:01] LABS: BILIRUBIN,TOTAL 0.8 mg/dL (0.2-1); TOT PROT 6.2 g/dl (6.4-8.2)
[2022-07-17] MEDS: POLYETHYLENE GLYCOL (HEALTHYLAX) 3350 17 GM PACKET PO SCH ×2 (11:45→22:42)
[2022-07-17] MEDS: CARVEDILOL 12.5 MG TABLET (FP) PO SCH ×2 (14:15→22:42)
[2022-07-17] MEDS: ACETAMINOPHEN 325 MG TABLET (FP) PO PRN (15:11)
[2022-07-17] MEDS ORDERED: CLOPIDOGREL BISULFATE 75 MG TABLET (FP) PO ONE (17:55)
[2022-07-17] MEDS: ATORVASTATIN CA 80 MG TABLET (FP) PO SCH (22:42)
[2022-07-18] MEDS: ACETAMINOPHEN 325 MG TABLET (FP) PO PRN ×2 (04:27→11:28)
[2022-07-18] MEDS: METOCLOPRAMIDE HCL 10 MG TABLET (FP) PO SCH ×3 (06:40→16:47)
[2022-07-18] MEDS: INSULIN SLIDING SCALE (NOVOLOG) 1 VIAL SQ SCH ×4 (06:41→22:19)
[2022-07-18] MEDS: FUROSEMIDE 40 MG/4 ML INJECTABLE VIAL IVPUSH SCH ×2 (06:41→14:02)
[2022-07-18] MEDS: metroNIDAZOLE 250 MG TABLET PO SCH ×3 (06:41→22:15)
[2022-07-18] MEDS: LIPASE/PROTEASE/AMYLASE 36,000 UNIT CAPSULE PO SCH ×3 (08:23→17:47)
[2022-07-18] MEDS: CLOPIDOGREL BISULFATE 75 MG TABLET (FP) PO SCH (10:09)
[2022-07-18] MEDS: POLYETHYLENE GLYCOL (HEALTHYLAX) 3350 17 GM PACKET PO SCH ×2 (10:09→22:16)
[2022-07-18] MEDS: CARVEDILOL 12.5 MG TABLET (FP) PO SCH ×2 (10:09→22:22)
[2022-07-18] MEDS: ISOSORBIDE MONONITRATE 60 MG TAB.SR.24H (FP) PO SCH (10:09)
[2022-07-18] MEDS: PANTOPRAZOLE SODIUM 40 MG VIAL IVPUSH SCH (10:09)
[2022-07-18] MEDS: APIXABAN 5 MG TABLET PO SCH ×2 (10:09→22:15)
[2022-07-18] MEDS: RANOLAZINE E.R. 500 MG TABLET (FP) PO SCH ×2 (10:09→22:15)
[2022-07-18] MEDS: NITROGLYCERIN 0.1 MG/HOUR TD PATCH TD SCH (10:10)
[2022-07-18 12:25] LABS: BASO % 0.2 % (0-2.0); EOS % 0.7 % (0-4.5); HEMATOCRIT 28.3 % (35.4-49); HEMOGLOBIN 9.9 GM/dL (11.7-16.9); LYMPH % 8.2 % (8-40); MCH 33.1 pg (25.7-33.7); MEAN CELL VOLUME 94.5 fl (80-96); MEAN PLT VOLUME 8.2 fl (7.5-11.1); MONO % 10.2 % (3.8-10.2); NEUT % 80.7 % (42.8-82.8); PLATELET COUNT 354 10^3/uL (134-434); RDW 14.4 % (11.9-15.9); WHITE BLOOD COUNT 7.6 K/mm3 (4.0-10.0)
[2022-07-18 13:25] LABS: CALCIUM 8.2 mg/dL (8.5-10.1)
[2022-07-18 13:26] LABS: BLOOD UREA NITROGEN 78.5 mg/dL (7-18); MAGNESIUM 3.2 mg/dL (1.8-2.4)
[2022-07-18 13:28] LABS: CREATININE 3.8 mg/dL (0.55-1.3)
[2022-07-18 13:29] LABS: PHOSPHOROUS 5.6 mg/dL (2.5-4.9)
[2022-07-18 13:30] LABS: BILIRUBIN,TOTAL 0.8 mg/dL (0.2-1); TOT PROT 6.6 g/dl (6.4-8.2)
[2022-07-18] MEDS: ATORVASTATIN CA 80 MG TABLET (FP) PO SCH (22:15)
[2022-07-19] MEDS: metroNIDAZOLE 250 MG TABLET PO SCH ×3 (06:15→22:02)
[2022-07-19] MEDS: METOCLOPRAMIDE HCL 10 MG TABLET (FP) PO SCH ×3 (06:18→18:07)
[2022-07-19] MEDS: glipiZIDE-XL 5 MG TAB.ER.24 PO SCH (06:19)
[2022-07-19] MEDS: FUROSEMIDE 40 MG/4 ML INJECTABLE VIAL IVPUSH SCH ×2 (06:20→13:58)
[2022-07-19] MEDS: INSULIN SLIDING SCALE (NOVOLOG) 1 VIAL SQ SCH ×4 (06:22→22:03)
[2022-07-19 09:42] LABS: CALCIUM 8.6 mg/dL (8.5-10.1)
[2022-07-19 09:43] LABS: BLOOD UREA NITROGEN 89.2 mg/dL (7-18)
[2022-07-19 09:46] LABS: CREATININE 3.8 mg/dL (0.55-1.3)
[2022-07-19] MEDS: POLYETHYLENE GLYCOL (HEALTHYLAX) 3350 17 GM PACKET PO SCH ×3 (10:46→22:04)
[2022-07-19] MEDS: PANTOPRAZOLE SODIUM 40 MG VIAL IVPUSH SCH (10:46)
[2022-07-19] MEDS: NITROGLYCERIN 0.1 MG/HOUR TD PATCH TD SCH (10:46)
[2022-07-19] MEDS: RANOLAZINE E.R. 500 MG TABLET (FP) PO SCH ×2 (10:46→22:02)
[2022-07-19] MEDS: ISOSORBIDE MONONITRATE 60 MG TAB.SR.24H (FP) PO SCH (10:47)
[2022-07-19] MEDS: CLOPIDOGREL BISULFATE 75 MG TABLET (FP) PO SCH (10:47)
[2022-07-19] MEDS: APIXABAN 5 MG TABLET PO SCH ×2 (10:47→22:02)
[2022-07-19] MEDS: CARVEDILOL 12.5 MG TABLET (FP) PO SCH ×2 (10:47→22:02)
[2022-07-19] MEDS: LIPASE/PROTEASE/AMYLASE 36,000 UNIT CAPSULE PO SCH ×3 (10:48→18:07)
[2022-07-19] MEDS ORDERED: FUROSEMIDE 40 MG/4 ML INJECTABLE VIAL IVPUSH ONE (15:27)
[2022-07-19] MEDS: ATORVASTATIN CA 80 MG TABLET (FP) PO SCH (22:02)
[2022-07-19] MEDS: ACETAMINOPHEN 325 MG TABLET (FP) PO PRN (23:24)
[2022-07-20] MEDS: ACETAMINOPHEN 325 MG TABLET (FP) PO PRN ×4 (06:02→22:39)
[2022-07-20] MEDS: FUROSEMIDE 40 MG/4 ML INJECTABLE VIAL IVPUSH SCH ×2 (06:03→14:39)
[2022-07-20] MEDS: METOCLOPRAMIDE HCL 10 MG TABLET (FP) PO SCH ×3 (06:03→17:53)
[2022-07-20] MEDS: glipiZIDE-XL 5 MG TAB.ER.24 PO SCH (06:03)
[2022-07-20] MEDS: metroNIDAZOLE 250 MG TABLET PO SCH ×3 (06:03→22:39)
[2022-07-20] MEDS: INSULIN SLIDING SCALE (NOVOLOG) 1 VIAL SQ SCH ×4 (06:04→22:40)
[2022-07-20] MEDS: APIXABAN 5 MG TABLET PO SCH ×2 (09:27→22:39)
[2022-07-20] MEDS: RANOLAZINE E.R. 500 MG TABLET (FP) PO SCH (09:27)
[2022-07-20] MEDS: CARVEDILOL 12.5 MG TABLET (FP) PO SCH ×2 (09:27→22:39)
[2022-07-20] MEDS: CLOPIDOGREL BISULFATE 75 MG TABLET (FP) PO SCH (09:27)
[2022-07-20] MEDS: ISOSORBIDE MONONITRATE 60 MG TAB.SR.24H (FP) PO SCH (09:27)
[2022-07-20] MEDS: LIPASE/PROTEASE/AMYLASE 36,000 UNIT CAPSULE PO SCH ×3 (09:28→17:53)
[2022-07-20] MEDS: POLYETHYLENE GLYCOL (HEALTHYLAX) 3350 17 GM PACKET PO SCH ×2 (09:28→22:40)
[2022-07-20] MEDS: NITROGLYCERIN 0.1 MG/HOUR TD PATCH TD SCH (09:29)
[2022-07-20] MEDS: PANTOPRAZOLE SODIUM 40 MG VIAL IVPUSH SCH ×2 (09:29→22:40)
[2022-07-20 10:01] LABS: BASO % 0.3 % (0-2.0); EOS % 0.4 % (0-4.5); HEMATOCRIT 29.8 % (35.4-49); HEMOGLOBIN 9.7 GM/dL (11.7-16.9); LYMPH % 11.1 % (8-40); MCH 31.1 pg (25.7-33.7); MCHC 32.7 g/dl (32.0-35.9); MEAN PLT VOLUME 8.4 fl (7.5-11.1); MONO % 10.6 % (3.8-10.2); NEUT % 77.6 % (42.8-82.8); PLATELET COUNT 412 10^3/uL (134-434); RBC 3.13 M/mm3 (4.00-5.60); RDW 14.6 % (11.9-15.9); WHITE BLOOD COUNT 7.1 K/mm3 (4.0-10.0)
[2022-07-20 10:34] LABS: CALCIUM 8.2 mg/dL (8.5-10.1)
[2022-07-20 10:35] LABS: BLOOD UREA NITROGEN 96.7 mg/dL (7-18); MAGNESIUM 3.5 mg/dL (1.8-2.4)
[2022-07-20 10:38] LABS: CREATININE 4.3 mg/dL (0.55-1.3)
[2022-07-20] MEDS: ATORVASTATIN CA 80 MG TABLET (FP) PO SCH (22:39)
[2022-07-21] MEDS ORDERED: LIDOCAINE 5% TOPICAL PATCH TP ONE (03:17)
[2022-07-21] MEDS: metroNIDAZOLE 250 MG TABLET PO SCH ×3 (06:22→21:56)
[2022-07-21] MEDS: METOCLOPRAMIDE HCL 10 MG TABLET (FP) PO SCH ×3 (06:22→16:31)
[2022-07-21] MEDS: glipiZIDE-XL 5 MG TAB.ER.24 PO SCH (06:23)
[2022-07-21] MEDS: ACETAMINOPHEN 325 MG TABLET (FP) PO PRN ×2 (06:24→16:33)
[2022-07-21] MEDS: INSULIN SLIDING SCALE (NOVOLOG) 1 VIAL SQ SCH ×4 (06:27→21:57)
[2022-07-21 08:50] LABS: CHLORIDE 98 mmol/L (98-107); SODIUM 136 mmol/L (136-145)
[2022-07-21 08:56] LABS: GLUCOSE,RANDOM 100 mg/dL (74-106)
[2022-07-21 08:58] LABS: ALBUMIN 3.1 g/dl (3.4-5.0)
[2022-07-21 08:59] LABS: CALCIUM 8.3 mg/dL (8.5-10.1)
[2022-07-21 09:00] LABS: ANION GAP 12 MMOL/L (8-16); CO2 26 mmol/L (21-32); CREATININE 4.6 mg/dL (0.55-1.3); SGOT/AST 21 U/L (15-37)
[2022-07-21 09:01] LABS: ALK PHOS 137 U/L (45-117); BILIRUBIN,TOTAL 0.7 mg/dL (0.2-1); SGPT/ALT 13 U/L (13-61); TOT PROT 6.7 g/dl (6.4-8.2)
[2022-07-21 09:04] LABS: BLOOD UREA NITROGEN 112.8 mg/dL (7-18)
[2022-07-21] MEDS: CARVEDILOL 12.5 MG TABLET (FP) PO SCH ×2 (09:28→21:56)
[2022-07-21] MEDS: LIPASE/PROTEASE/AMYLASE 36,000 UNIT CAPSULE PO SCH ×3 (09:31→17:42)
[2022-07-21] MEDS: NITROGLYCERIN 0.1 MG/HOUR TD PATCH TD SCH (10:00)
[2022-07-21] MEDS: ISOSORBIDE MONONITRATE 60 MG TAB.SR.24H (FP) PO SCH ×2 (10:00→16:19)
[2022-07-21] MEDS: POLYETHYLENE GLYCOL (HEALTHYLAX) 3350 17 GM PACKET PO SCH ×2 (11:18→21:57)
[2022-07-21] MEDS: APIXABAN 5 MG TABLET PO SCH ×2 (11:18→21:56)
[2022-07-21] MEDS ORDERED: REGADENOSON 0.4 MG/5 ML PRE-FILLED SYRINGE IVPUSH ONE ×2 (11:30→14:01)
[2022-07-21] MEDS: PANTOPRAZOLE SODIUM 40 MG VIAL IVPUSH SCH ×2 (16:19→21:57)
[2022-07-21] MEDS: CLOPIDOGREL BISULFATE 75 MG TABLET (FP) PO SCH (16:20)
[2022-07-21] MEDS: ATORVASTATIN CA 80 MG TABLET (FP) PO SCH (21:56)
[2022-07-21] MEDS ORDERED: LIDOCAINE PATCH REMOVAL MC SCH (22:00)
[2022-07-22] MEDS: ACETAMINOPHEN 325 MG TABLET (FP) PO PRN (02:35)
[2022-07-22] MEDS ORDERED: MAG HYDROX/AL HYDROX/SIMETH 30 ML UNIT-DOSE CUP PO ONE (05:19)
[2022-07-22 07:04] LABS: CALCIUM 8.2 mg/dL (8.5-10.1); CHLORIDE 96 mmol/L (98-107); SODIUM 134 mmol/L (136-145)
[2022-07-22 07:05] LABS: ANION GAP 13 MMOL/L (8-16); CO2 25 mmol/L (21-32); GLUCOSE,RANDOM 132 mg/dL (74-106); MAGNESIUM 3.6 mg/dL (1.8-2.4)
[2022-07-22 07:09] LABS: CREATININE 5.1 mg/dL (0.55-1.3)
[2022-07-22] MEDS: METOCLOPRAMIDE HCL 10 MG TABLET (FP) PO SCH (07:20)
[2022-07-22] MEDS: metroNIDAZOLE 250 MG TABLET PO SCH (07:22)
[2022-07-22] MEDS: glipiZIDE-XL 5 MG TAB.ER.24 PO SCH (07:22)
[2022-07-22] MEDS: INSULIN SLIDING SCALE (NOVOLOG) 1 VIAL SQ SCH (07:22)
[2022-07-22] MEDS ORDERED: ISOSORBIDE DINITRATE 10 MG TABLET PO SCH (08:00)
[2022-07-22] MEDS ORDERED: ISOSORBIDE DINITRATE 20 MG TABLET PO SCH (08:00)
[2022-07-22 08:09] VITALS: PULSE 82
[2022-07-22] MEDS: LIPASE/PROTEASE/AMYLASE 36,000 UNIT CAPSULE PO SCH (08:58)
[2022-07-22] MEDS: APIXABAN 5 MG TABLET PO SCH (09:52)
[2022-07-22] MEDS: CARVEDILOL 12.5 MG TABLET (FP) PO SCH (09:52)
[2022-07-22] MEDS: CLOPIDOGREL BISULFATE 75 MG TABLET (FP) PO SCH (09:52)
[2022-07-22] MEDS: POLYETHYLENE GLYCOL (HEALTHYLAX) 3350 17 GM PACKET PO SCH (09:55)
[2022-07-22] MEDS ORDERED: hydrALAZINE HCL 10 MG TABLET PO SCH (10:00)
[2022-07-22] MEDS: PANTOPRAZOLE SODIUM 40 MG VIAL IVPUSH SCH (10:15)
[2022-07-22 11:07] VITALS: BP 116/68; RESP 22; TEMP 97.7
== END 2022-07-22 11:14 | disposition left against medical advice (07) | DRG 291 ==
LOC: JER 21:18 → JERBED 07-10 02:00 → J5S 07-10 22:19 → J8W 07-20 20:12
PROVIDERS: ADMIT Internal Medicine; ATTEND Internal Medicine
DX: I13.0 Hypertensive heart and chronic kidney disease with heart failure and stage 1 through stage 4 chronic kidney disease, or unspecified chronic kidney disease (principal); I50.23 Acute on chronic systolic (congestive) heart failure; N17.9 Acute kidney failure, unspecified; K62.5 Hemorrhage of anus and rectum; N18.4 Chronic kidney disease, stage 4 (severe); I25.10 Atherosclerotic heart disease of native coronary artery without angina pectoris; E78.5 Hyperlipidemia, unspecified; E11.22 Type 2 diabetes mellitus with diabetic chronic kidney disease; N18.9 Chronic kidney disease, unspecified; I48.91 Unspecified atrial fibrillation; Z79.01 Long term (current) use of anticoagulants; K21.9 Gastro-esophageal reflux disease without esophagitis; N40.0 Benign prostatic hyperplasia without lower urinary tract symptoms; K59.00 Constipation, unspecified; D64.9 Anemia, unspecified; E11.43 Type 2 diabetes mellitus with diabetic autonomic (poly)neuropathy; K31.84 Gastroparesis; E11.65 Type 2 diabetes mellitus with hyperglycemia; E11.51 Type 2 diabetes mellitus with diabetic peripheral angiopathy without gangrene; Z79.84 Long term (current) use of oral hypoglycemic drugs; Z53.29 Procedure and treatment not carried out because of patient's decision for other reasons
CPT/HCPCS: 36415; 71045-TC-FY; 74176-TC; 76775-TC; 78452-TC; 80048; 80053; 80061; 81003; 82553; 82962; 83605; 83690; 83735; 84100; 84439; 84443; 84484; 85025; 85730; 93005; 93010; 93017; 97116-GP; 97162-GP; 99285-25; A9502; C9803-CS; J2785; U0003; U0005